=== PATIENT | male | born 1965 | race African-American/Black ===

== ENCOUNTER → 2017-01-06 | Outpatient (CLI) | payer BC ==
[2016-03-13 18:15] VITALS: BP 117/71
[~2017-01-06] VITALS: Ht 182.9 cm; Wt 117.9 kg
[~2017-01-06] MED LIST: ATEN50TA PO; CYCL30CA PO; METH1TAB2 PO; MULT-237 PO; SINCALIDE 2.4 MCG in IV NORMAL SALINE 50ML 30 ML IV ONE
--- NOTE | 2017-01-06 11:29 | RAD ---
Indication: Abdominal pain. The patient was administered 5.5 mCi of technetium 99m Choletec intravenously and imaging over the abdomen was performed. In addition, patient was given 2.4 mcg of CCK and a gallbladder ejection fraction was calculated. There is homogeneous uptake of activity by the liver with prompt excretion into the common bile duct. Activity does pass into the gallbladder. Activity extends into the small bowel. Gallbladder ejection fraction is low at 25%. Impression: 1. No evidence of cystic duct or common bile duct obstruction. 2. Low gallbladder ejection fraction of 25%.
--- NOTE | 2017-01-06 13:22 | RAD ---
Indication: Pancreatic abnormality. Multiplanar multisequence imaging of the abdomen was performed without contrast utilizing the MRCP protocol. No prior MRI or CT studies are available for comparison. No discrete liver mass is identified. There appears to be a small stone within the gallbladder. The pancreas appears to be normal in size. No pancreatic or biliary ductal dilatation is seen. The spleen is unremarkable. No adrenal mass is identified. The extra hepatic bile duct is normal caliber. No filling defect is detected. There is no ascites. There appears to be multiple renal sinus cysts versus hydronephrosis of the left kidney. Impression: 1. Cholelithiasis. 2. No choledocholithiasis or ductal dilatation is seen. 3. Multiple left-sided renal sinus cysts versus hydronephrosis.
== END | disposition home or self-care (01) ==
LOC: NM 08:30
PROVIDERS: ATTEND Internal Medicine
DX: K80.00 Calculus of gallbladder with acute cholecystitis without obstruction (principal); K86.89 Other specified diseases of pancreas
CPT/HCPCS: 74181; 78226; 96374; 96375; A9537; J2805

== ENCOUNTER 2017-04-18 08:45 | Emergency (ER) | payer BC ==
[~2017-04-18] VITALS: Ht 182.9 cm; Wt 113.4 kg
[~2017-04-18 08:45] MED LIST changes: -SINCALIDE 2.4 MCG in IV NORMAL SALINE 50ML 30 ML IV ONE
[2017-04-18 09:38] LABS: HEMATOCRIT 42.1 % (39.0-53.0); HEMOGLOBIN 13.6 g/dL (13.0-17.5); RED BLOOD COUNT 4.23 x10^6/uL (4.30-5.70); RED CELL DISTRIBUTION WIDTH 12.3 % (11.5-14.5); WHITE BLOOD COUNT 5.6 x10^3/uL (4.0-11.0)
[2017-04-18 09:50] LABS: CALCIUM 8.9 mg/dL (8.5-10.1); CREATININE 1.1 mg/dL (0.7-1.3); GFR 85.4; POTASSIUM 4.2 mmol/L (3.5-5.1)
[2017-04-18 09:56] LABS: ALBUMIN 3.6 g/dL (3.4-5.0); ALBUMIN/GLOBULIN RATIO 1.1 (1.0-1.7); TOTAL BILIRUBIN 0.8 mg/dL (0.2-1.0); TOTAL PROTEIN 6.8 g/dL (6.4-8.2)
[2017-04-18] MEDS ORDERED: MORPHINE SULFATE 4 MG/ML DISP.SYRIN. IV ONE ×2 (10:00→12:00)
[2017-04-18] MEDS ORDERED: ONDANSETRON PF 4 MG/2 ML VIAL. IV ONE ×2 (10:00→12:00)
--- NOTE | 2017-04-18 10:22 | RAD ---
Limited ultrasound of abdomen Indication: Right upper quadrant pain. Evaluate gallbladder. Technique: Grayscale and color Doppler images of the abdomen obtained. Comparison: MRCP from 01/06/2017 Findings: Gallstone noted. No pericholecystic fluid or gallbladder wall thickening. Pancreas is poorly visualized The aorta and IVC are patent. CBD measures 4 mm and is within normal limits. The right kidney measures 10.2 cm in length without hydronephrosis. Flow is seen in the portal vein. Liver is normal in echogenicity without focal lesions. Impression: Limited study due to body habitus and overlying bowel gas. Cholelithiasis without sonographic evidence of acute cholecystitis.
--- NOTE | 2017-04-18 11:44 | PHYS DOC ---
Past Medical History Past Medical History: Hypertension, Kidney Infection Past Surgical History: Other Additional Past Surgical Histo: Hernia, Urethral stretching. Alcohol Use: None Drug Use: None Adult General Chief Complaint Chief Complaint: ABDOMINAL PAIN HPI HPI Patient is a 51 year old male with a history of gallstones presents the ED complaining of pain x 2 days. States his pain is worse after he eats. Describes the pain as uncomfortable and sharp. Rates the pain as 7 out of 10. Denies nausea/vomiting, diarrhea, chest pain, shortness of breath, back pain or fever. Review of Systems Review of Systems Constitutional: Denies fever or chills [] Eyes: Denies change in visual acuity, redness, or eye pain [] HENT: Denies nasal congestion or sore throat [] Respiratory: Denies cough or shortness of breath [] Cardiovascular: No additional information not addressed in HPI [] GI: Complains of abdominal pain. Denies nausea, vomiting, bloody stools or diarrhea [] : Denies dysuria or hematuria [] Musculoskeletal: Denies back pain or joint pain [] Integument: Denies rash or skin lesions [] Neurologic: Denies headache, focal weakness or sensory changes [] Endocrine: Denies polyuria or polydipsia [] Current Medications Current Medications Current Medications Medications (Trade) Dose Ordered Sig/Radha Start Time Stop Time Status Last Admin Dose Admin Morphine Sulfate 4 mg 1X ONCE 04/18/17 12:00 04/18/17 12:01 DC 04/18/17 12:00 4 MG Ondansetron HCl (Zofran) 4 mg 1X ONCE 04/18/17 12:00 04/18/17 12:01 DC 04/18/17 12:01 4 MG Allergies Allergies Allergies Coded Allergies Type Severity Reaction Last Updated Verified iodine Allergy Intermediate 03/13/16 Yes nitrofurantoin Allergy Intermediate 03/13/16 Yes Physical Exam Physical Exam Constitutional: Well developed, well nourished, no acute distress, non-toxic appearance. [] HENT: Normocephalic, atraumatic, bilateral external ears normal, oropharynx moist, no oral exudates, nose normal. [] Eyes: PERRLA, EOMI, conjunctiva normal, no discharge. [] Neck: Normal range of motion, no tenderness, supple, no stridor. [] Cardiovascular:Heart rate regular rhythm, no murmur [] Lungs & Thorax: Bilateral breath sounds clear to auscultation [] Abdomen: Bowel sounds normal, soft, MILD RIGHT UPPER ABDOMINAL TENDERNESS, no masses, no pulsatile masses. [] Skin: Warm, dry, no erythema, no rash. [] Back: No tenderness, no CVA tenderness. [] Extremities: No tenderness, no cyanosis, no clubbing, ROM intact, no edema. [] Neurologic: Alert and oriented X 3, normal motor function, normal sensory function, no focal deficits noted. [] Psychologic: Affect normal, judgement normal, mood normal. [] Current Patient Data Vital Signs Vital Signs Date Time Temp Pulse Resp B/P (MAP) Pulse Ox O2 Delivery O2 Flow Rate FiO2 04/18/17 12:40 76 18 147/86 (106) 97 Room Air 04/18/17 08:45 98.3 98.3 Lab Values Laboratory Tests Test 04/18/17 09:20 White Blood Count 5.6 x10^3/uL (4.0-11.0) Red Blood Count 4.23 x10^6/uL (4.30-5.70) L Hemoglobin 13.6 g/dL (13.0-17.5) Hematocrit 42.1 % (39.0-53.0) Mean Corpuscular Volume 100 fL (79-100) Mean Corpuscular Hemoglobin 32 pg (25-35) Mean Corpuscular Hemoglobin Concent 32 g/dL (31-37) Red Cell Distribution Width 12.3 % (11.5-14.5) Platelet Count 180 x10^3/uL (140-400) Sodium Level 137 mmol/L (136-145) Potassium Level 4.2 mmol/L (3.5-5.1) Chloride Level 105 mmol/L (98-107) Carbon Dioxide Level 27 mmol/L (21-32) Anion Gap 5 (6-14) L Blood Urea Nitrogen 11 mg/dL (8-26) Creatinine 1.1 mg/dL (0.7-1.3) Estimated GFR (Cockcroft-Gault) 85.4 BUN/Creatinine Ratio 10 (6-20) Glucose Level 99 mg/dL (70-99) Calcium Level 8.9 mg/dL (8.5-10.1) Total Bilirubin 0.8 mg/dL (0.2-1.0) Aspartate Amino Transferase (AST) 30 U/L (15-37) Alanine Aminotransferase (ALT) 61 U/L (16-63) Alkaline Phosphatase 89 U/L (46-116) Total Protein 6.8 g/dL (6.4-8.2) Albumin 3.6 g/dL (3.4-5.0) Albumin/Globulin Ratio 1.1 (1.0-1.7) Lipase 155 U/L (73-393) Laboratory Tests 04/18/17 09:20 Laboratory Tests 04/18/17 09:20 EKG EKG [] Radiology/Procedures Radiology/Procedures PROCEDURE: ABDOMEN LTD Limited ultrasound of abdomen Indication: Right upper quadrant pain. Evaluate gallbladder. Technique: Grayscale and color Doppler images of the abdomen obtained. Comparison: MRCP from 01/06/2017 Findings: Gallstone noted. No pericholecystic fluid or gallbladder wall thickening. Pancreas is poorly visualized The aorta and IVC are patent. CBD measures 4 mm and is within normal limits. The right kidney measures 10.2 cm in length without hydronephrosis. Flow is seen in the portal vein. Liver is normal in echogenicity without focal lesions. Impression: Limited study due to body habitus and overlying bowel gas. Cholelithiasis without sonographic evidence of acute cholecystitis.[] Course & Med Decision Making Course & Med Decision Making Pertinent Labs and Imaging studies reviewed. (See chart for details) []Discussed labs and imaging with patient. Patient's pain improved. Abdomen is soft nontender nondistended. No peritoneal signs. Vital stable, no acute distress. Tolerating PO. Discussed follow-up with general surgeon outpatient, Dr. Vidal. Discussed reasons to return to the ED. Patient understands and agrees with plan. Family at bedside. Dragon Disclaimer Dragon Disclaimer This electronic medical record was generated, in whole or in part, using a voice recognition dictation system. Departure Departure Impression: Primary Impression: Cholelithiasis Disposition: 01 HOME, SELF-CARE Condition: STABLE Referrals: KOREY SALVADOR MD (PCP) Patient Instructions: Cholelithiasis Scripts Hydrocodone/Apap 5-325 (NORCO 5-325 TABLET) 1 Each Tablet 1 TAB PO BID, #10 TAB Prov: ZEINAB ALDRIDGE 04/18/17 ZEINAB ALDRIDGE Apr 18, 2017 11:44
[2017-04-18] MEDS ORDERED: HYDR-971 PO (11:46)
[2017-04-18 12:40] VITALS: BP 147/86
[2017-05-20] MEDS ORDERED: CYCL15CA19 PO (10:49)
[2017-05-20] MEDS ORDERED: DOXY100C2 PO (10:51)
[2017-05-20] MEDS ORDERED: OMEP40CA5 PO (10:52)
[2017-05-20] MEDS ORDERED: OMEG1CAP38 PO (10:53)
[2017-05-20] MEDS ORDERED: IBUP-1060 PO (10:56)
[2017-05-21] MEDS ORDERED: OXYC-323 PO (11:50)
== END 2017-04-18 12:43 | disposition home or self-care (01) ==
LOC: ER 08:45
DX: K80.20 Calculus of gallbladder without cholecystitis without obstruction (principal); I10 Essential (primary) hypertension; Z88.8 Allergy status to other drugs, medicaments and biological substances
CPT/HCPCS: 36415; 76705; 80053; 83690; 85027; 96374; 96375; 99285; J2270; J2405

== ENCOUNTER 2021-02-22 09:29 | Inpatient (IN) | payer BC ==
[~2021-02-22] VITALS: Ht 182.9 cm; Wt 143.1 kg
[~2021-02-22 09:29] MED LIST changes: +CYCL15CA19 PO; +DOXY100C3 PO; +HYDR-3164 PO; +IBUP-1060 PO; +OMEG1CAP38 PO; +OMEP40CA7 PO; +OXYC1TAB15 PO
[2021-02-22] MEDS ORDERED: IV NORMAL SALINE 1000ML BAG 1,000 ML IV ONE (10:45)
[2021-02-22 10:52] LABS: BASO % 0 % (0-3); CALCIUM 8.3 mg/dL (8.5-10.1); CREATININE 1.4 mg/dL (0.7-1.3); EOS % 0 % (0-3); GFR 63.7; HEMATOCRIT 39.1 % (39.0-53.0); HEMOGLOBIN 12.9 g/dL (13.0-17.5); LYMPH # 0.7 x10^3/uL (1.0-4.8); LYMPH % 12 % (24-48); MEAN CORPUSCULAR HEMOGLOBIN 33 pg (25-35); MEAN CORPUSCULAR HGB CONC 33 g/dL (31-37); MEAN CORPUSCULAR VOLUME 98 fL (79-100); MONO # 0.2 x10^3/uL (0.0-1.1); MONO % 4 % (0-9); NEUT # 4.6 x10^3/uL (1.8-7.7); NEUT % 84 % (31-73); PLATELET COUNT 131 x10^3/uL (140-400); POTASSIUM 3.7 mmol/L (3.5-5.1); RED BLOOD COUNT 3.98 x10^6/uL (4.30-5.70); RED CELL DISTRIBUTION WIDTH 12.3 % (11.5-14.5); WHITE BLOOD COUNT 5.5 x10^3/uL (4.0-11.0)
[2021-02-22 10:58] LABS: ALBUMIN 3.3 g/dL (3.4-5.0); ALBUMIN/GLOBULIN RATIO 0.9 (1.0-1.7); TOTAL BILIRUBIN 1.4 mg/dL (0.2-1.0); TOTAL PROTEIN 6.8 g/dL (6.4-8.2)
[2021-02-22 11:08] LABS: CREATINE KINASE 453 U/L (39-308)
--- NOTE | 2021-02-22 11:28 | RAD ---
EXAM: CHEST ONE VIEW. HISTORY: Chest pain, shortness of breath. COMPARISON: 03/13/2016. FINDINGS: A frontal view of the chest is obtained. There are mild airspace infiltrates in both bases. The inspiration is small. There is no pneumothorax or pleural effusion. The heart is not enlarged. IMPRESSION: 1. Mild bibasilar infiltrates consistent with atypical pneumonia. Electronically signed by: Unique Maher MD (02/22/2021 11:25 AM) [id number]
--- NOTE | 2021-02-22 11:32 | PHYS DOC ---
Past Medical History Past Medical History: Depression, High Cholesterol, Hypertension, Kidney Infection Additional Past Medical Histor: fatty liver Past Surgical History: Knee Replacement, Other Additional Past Surgical Histo: Hernia, Urethral stretching., lt knee repalcement Smoking Status: Never Smoker Alcohol Use: None Drug Use: None General Adult EDM: Chief Complaint: CHEST PAIN HPI: HPI: 55-year-old male presents with report of intermittent midsternal chest pain that has been ongoing for 1 week. Patient does report some associated nonproductive cough and subjective fever/chills. Patient denies known sick contact however patient is a preschool substitute teacher. Patient reports he has been working all week. Patient reports he feels he cannot breathe at this time. Patient denies known Covid exposure. Reports has not received Covid vaccinations. Review of Systems: Review of Systems: Constitutional: Reports fever and chills Eyes: Denies redness or eye pain HENT: Denies nasal congestion or sore throat Respiratory: Reports cough and shortness of breath Cardiovascular: Reports chest pain; denies palpitations GI: Denies abdominal pain, nausea, or vomiting : Denies dysuria or hematuria Musculoskeletal: Denies back pain or joint pain Integument: Denies rash or skin lesions Neurologic: Denies headache, focal weakness or sensory changes Complete systems were reviewed and found to be within normal limits, except as documented in this note. Heart Score: C/O Chest Pain: Yes HEART Score for Chest Pain: HEART Score for Chest Pain Response (Comments) Value History Moderately Suspicious 1 ECG Normal 0 Age >45 - < 65 1 Risk Factors 1 or 2 Risk Factors 1 Troponin < Normal Limit 0 Total 3 Risk Factors: Risk Factors: DM, Current or recent (<one month) smoker, HTN, HLP, family history of CAD, obesity. Risk Scores: Score 0 - 3: 2.5% MACE over next 6 weeks - Discharge Home Score 4 - 6: 20.3% MACE over next 6 weeks - Admit for Clinical Observation Score 7 - 10: 72.7% MACE over next 6 weeks - Early Invasive Strategies Current Medications: Current Medications Medications (Trade) Dose Ordered Sig/Radha Start Time Stop Time Status Last Admin Dose Admin Sodium Chloride 1,000 ml @ 1,000 mls/hr 1X ONCE 02/22/21 10:45 02/22/21 11:44 02/22/21 10:51 1,000 MLS/HR Allergies: Allergies: Allergies Coded Allergies Type Severity Reaction Last Updated Verified iodine Allergy Intermediate PANCREATITIS 02/22/21 Yes nitrofurantoin Allergy Intermediate BAD DIARRHEA 02/22/21 Yes Physical Exam: PE: Constitutional: Well developed, well nourished, no acute distress, non-toxic appearance HENT: Normocephalic, atraumatic Eyes: Conjunctiva normal, no discharge Neck: Normal range of motion, no tenderness, supple, no meningeal signs Lungs & Thorax: No respiratory distress, equal chest rise and fall, diminished at bases Abdomen: Soft, no tenderness Skin: Warm, dry, no erythema, no rash Back: No tenderness, no CVA tenderness Extremities: No tenderness, ROM intact, no edema Neurologic: Alert and oriented X 3, normal motor function, normal sensory function, no focal deficits noted Psychologic: Affect normal, judgment normal Current Patient Data: Labs: Laboratory Tests Test 02/22/21 10:35 02/22/21 10:37 SARS-CoV-2 Antigen (Rapid) Positive (NEGATIVE) *A White Blood Count 5.5 x10^3/uL (4.0-11.0) Red Blood Count 3.98 x10^6/uL (4.30-5.70) L Hemoglobin 12.9 g/dL (13.0-17.5) L Hematocrit 39.1 % (39.0-53.0) Mean Corpuscular Volume 98 fL (79-100) Mean Corpuscular Hemoglobin 33 pg (25-35) Mean Corpuscular Hemoglobin Concent 33 g/dL (31-37) Red Cell Distribution Width 12.3 % (11.5-14.5) Platelet Count 131 x10^3/uL (140-400) L Neutrophils (%) (Auto) 84 % (31-73) H Lymphocytes (%) (Auto) 12 % (24-48) L Monocytes (%) (Auto) 4 % (0-9) Eosinophils (%) (Auto) 0 % (0-3) Basophils (%) (Auto) 0 % (0-3) Neutrophils # (Auto) 4.6 x10^3/uL (1.8-7.7) Lymphocytes # (Auto) 0.7 x10^3/uL (1.0-4.8) L Monocytes # (Auto) 0.2 x10^3/uL (0.0-1.1) Eosinophils # (Auto) 0.0 x10^3/uL (0.0-0.7) Basophils # (Auto) 0.0 x10^3/uL (0.0-0.2) Sodium Level 137 mmol/L (136-145) Potassium Level 3.7 mmol/L (3.5-5.1) Chloride Level 102 mmol/L (98-107) Carbon Dioxide Level 28 mmol/L (21-32) Anion Gap 7 (6-14) Blood Urea Nitrogen 13 mg/dL (8-26) Creatinine 1.4 mg/dL (0.7-1.3) H Estimated GFR (Cockcroft-Gault) 63.7 BUN/Creatinine Ratio 9 (6-20) Glucose Level 138 mg/dL (70-99) H Lactic Acid Level 1.2 mmol/L (0.4-2.0) Calcium Level 8.3 mg/dL (8.5-10.1) L Total Bilirubin 1.4 mg/dL (0.2-1.0) H Aspartate Amino Transferase (AST) 92 U/L (15-37) H Alanine Aminotransferase (ALT) 64 U/L (16-63) H Alkaline Phosphatase 95 U/L (46-116) Creatine Kinase 453 U/L (39-308) H Creatine Kinase MB (Mass) < 0.5 ng/mL (0.0-3.6) Creatine Kinase MB Relative Index % (0-4) Troponin I Quantitative < 0.017 ng/mL (0.000-0.055) VC-Rju-P-Type Natriuretic Peptide 252 pg/mL (0-124) H Total Protein 6.8 g/dL (6.4-8.2) Albumin 3.3 g/dL (3.4-5.0) L Albumin/Globulin Ratio 0.9 (1.0-1.7) L Laboratory Tests 02/22/21 10:37 Laboratory Tests 02/22/21 10:37 Vital Signs: Vital Signs Date Time Temp Pulse Resp B/P (MAP) Pulse Ox O2 Delivery O2 Flow Rate FiO2 02/22/21 09:49 101.9 95 32 134/73 (97) 86 Room Air 101.9 EKG: EKG: @0952 NSR at 95bpm, NO ST elevation, QRS 80ms, QT/QTc 342/433ms Radiology/Procedures: Radiology/Procedures: PROCEDURE: CHEST AP ONLY EXAM: CHEST ONE VIEW. HISTORY: Chest pain, shortness of breath. COMPARISON: 03/13/2016. FINDINGS: A frontal view of the chest is obtained. There are mild airspace infiltrates in both bases. The inspiration is small. There is no pneumothorax or pleural effusion. The heart is not enlarged. IMPRESSION: 1. Mild bibasilar infiltrates consistent with atypical pneumonia. Electronically signed by: Unique Maher MD (02/22/2021 11:25 AM) [id number] Course & Med Decision Making: Course & Med Decision Making Pertinent Labs and Imaging studies reviewed. (See chart for details) Patient presents with report of intermittent chest pain with associated cough and subjective fever x1 week. Patient is a preschool substitute teacher. Reports has not received the COVID-19 vaccinations. Patient hypoxic down to 86% upon arrival. Improved with supplemental O2. Patient is also febrile upon arrival. Fever addressed. EKG stable. Labs obtained and posted to chart. Initial troponin within normal limits. Chest x-ray with findings concerning for Covid pneumonia. Empiric antibiotic initiated. COVID-19 testing positive. Patient requiring admission for further evaluation and treatment. Discussed with Dr. Desai (hospitalist) who is in agreement with admission. Discussed findings and plan with patient, who acknowledges understanding and agreement. COVID-19 CRITERIA: The patient was evaluated during the global COVID-19 pandemic, and that diagnosis was suspected/considered upon their initial presentation. Their evaluation, treatment and testing was consistent with current guidelines for patients who present with complaints or symptoms that may be related to COVID-19. Dragtyshawn Disclaimer: Dragtyshawn Disclaimer: This electronic medical record was generated, in whole or in part, using a voice recognition dictation system. Departure Departure Impression: Primary Impression: Pneumonia due to COVID-19 virus Additional Impression: Hypoxia Disposition: ADMITTED INPATIENT Admitting Physician: SAIRA Steele) Condition: STABLE Referrals: NORA RICHARDS MD (PCP) COVID-19 Assessment: COVID-19 Patient Risks: Age 65 or older: No Sign of co-morbidity: No Exp to person + for COVID: No Exp to PUI: No Travel from affected area: No Lower respiratory symptoms: Yes Fever: Yes PPE Use: Full PPE with N95 mask or PAPR: Yes Critical Care Time Critical care time was 30 minutes which includes time at bedside, spent in discussion of patient's care with specialists and/or family members, with int erpretation of laboratory and/or radiological studies and is exclusive of procedures. VIRGILIO DANIELS DO Feb 22, 2021 11:32
[2021-02-22] MEDS ORDERED: AZITHRMYCN 500MG IVPB FOR OMNI 250 ML IV ONE (11:45)
[2021-02-22] MEDS ORDERED: cefTRIAXone IV Push 1 GM VIAL. IVP ONE (11:45)
[2021-02-22] MEDS ORDERED: DEXAMETHASONE SOD PHOS 4 MG/ML VIAL IVP ONE (11:45)
[2021-02-22] MEDS ORDERED: ACETAMINOPHEN 500 MG TABLET PO ONE (12:30)
[2021-02-22] MEDS ORDERED: ACETAMINOPHEN 325 MG TABLET. PO PRN (12:30)
[2021-02-22] MEDS ORDERED: ONDANSETRON PF 4 MG/2 ML VIAL. IVP PRN (12:30)
--- NOTE | 2021-02-22 12:43 | EKG ---
[facility] [address] [place] [address] Test Date: 2021-02-22 Test Time: 09:52:46 Pat Name: JOVITA BANG Department: Room: Gender: M Tavern Keeper: : 1965 Requested By: VIRGILIO DANIELS Order Number: [id number] Reading MD: Measurements Intervals Feura Bush Rate: 95 P: 22 IA: 126 QRS: -6 QRSD: 80 T: -9 QT: 342 QTc: 433 Interpretive Statements SINUS RHYTHM LEFTWARD AXIS OTHERWISE NORMAL ECG RI6.02 No previous ECG available for comparison
[2021-02-22] MEDS ORDERED: PIP/TAZO PER PHARMACY MC PRN (12:45)
--- NOTE | 2021-02-22 12:59 | HP ---
ADMIT DATE: 02/22/2021 CHIEF COMPLAINT: Shortness of breath, cough, weakness. HISTORY OF PRESENT ILLNESS: The patient is a pleasant middle-aged male, well known to my service. Basically, he has been developing flu like symptoms over the past couple of weeks. He went to acute care center yesterday at [facility]. He was awaiting his test results for his COVID-19 testing, but today he just could not await he was getting too sick. We tested him here in the emergency room. He is positive. He has abnormal chest x-ray. We are going to admit the patient, place him on COVID protocol. PAST MEDICAL HISTORY: Hypertension, UTIs, fatty liver, knee replacement, hernia repair, urethral stretching. ALLERGIES: IODINE, NITROFURANTOIN. FAMILY HISTORY: Diabetes. SOCIAL HISTORY: Does not drink, smoke or take drugs. MEDICATIONS: Reviewed, please refer to the MRAD. REVIEW OF SYSTEMS: PULMONARY: He complains of shortness of breath and cough. GENERAL: He complains of weakness. SKIN: No bruising, hair changes or rashes. EYES: No blurred, double or loss of vision. NOSE AND THROAT: No history of nosebleeds, hoarseness or sore throat. HEART: No history of palpitations, chest pain or shortness of breath on exertion. GASTROINTESTINAL: Denies changes in appetite, nausea, vomiting, diarrhea or constipation. GENITOURINARY: No history of frequency, urgency, hesitancy or nocturia. NEUROLOGIC: Denies history of numbness, tingling, tremor or weakness. PSYCHIATRIC: No history of panic, anxiety or depression. ENDOCRINE: No history of heat or cold intolerance, polyuria or polydipsia. EXTREMITIES: Denies muscle weakness, joint pain, pain on walking or stiffness. PHYSICAL EXAMINATION: VITALS: Within normal limits and are stable. GENERAL: No apparent distress. Alert and oriented. HEENT: Normal cephalic atraumatic, external auditory canals are patent. EYES: Extraocular muscles are intact, pupils are equally round and reactive to light and accommodation. MUSCULOSKELETAL: Well developed, well nourished, good range of motion. ENDOCRINE: No thyromegaly was palpated. LYMPHATICS: No cervical chain or axillary nodes were noted. HEMATOPOIETIC: No bruising NECK: Supple, no JVD, no thyromegaly was noted. LUNGS: Clear to auscultation in all lung mckeon without rhonchi or wheezing. HEART: RRR, S1, S2 present. Peripheral pulses intact, no obvious murmurs were noted. ABDOMEN: Soft, nontender. Positive bowel sounds no organomegaly, normal bowel sounds. EXTREMITIES: Without any cyanosis, clubbing, or edema. Pedal pulses intact, Homans sign is negative. NEUROLOGIC: Normal speech, normal tone. A and O x 3, moves all extremities, no obvious focal deficits. PSYCHIATRIC: Normal affect, normal mood. Stable. SKIN: No ulcerations or rashes, good skin turgor, no jaundice. VASCULAR: Good capillary refill, neurovascular bundle appears to be intact. LABORATORY DATA: White count is 5. Creatinine is 1.4. AST and ALT are high at 92 and 64 respectively. COVID testing is positive. Chest x-ray shows bibasilar infiltrates consistent with atypical pneumonia. ASSESSMENT AND PLAN: Respiratory failure secondary to COVID-19. The patient has been admitted. We will start COVID-19 protocol including IV remdesivir, IV steroids, IV Zosyn and IV doxycycline, vitamins and minerals, albuterol, oxygen, codeine and aspirin. PROGNOSIS: Guarded. CC time 31 minutes. [facility]: EDGARDO/rigoberto TID: [id number]
[2021-02-22 13:15] LABS: BILIRUBIN,URINE NEGATIVE (NEG); CLARITY,URINE CLEAR; COLOR,URINE AMBER; NITRITE,URINE POSITIVE (NEG); PROTEIN,URINE >=300 mg/dL (NEG-TRACE)
[2021-02-22 13:45] LABS: BACTERIA,URINE MANY /HPF (0-FEW); RBC,URINE 0 /HPF (0-2); WBC,URINE 20-40 /HPF (0-4)
[2021-02-22] MEDS ORDERED: IBUPROFEN 200 MG TABLET. PO ONE (13:45)
[2021-02-22 14:03] LABS: PROTHROMBIN TIME PATIENT 15.1 SEC (11.7-14.0)
[2021-02-22 14:12] LABS: D-DIMER 1.12 ug/mlFEU (0.00-0.50)
[2021-02-22] MEDS: DOXYCYCLINE HYCLATE 100 MG in IV DEXTROSE 5% 100ML 100 ML IV SCH ×2 (14:28→21:42)
[2021-02-22] MEDS ORDERED: REMDESIVIR LOAD in IV NORMAL SALINE 250ML TV IV ONE (15:00)
[2021-02-22 19:15] VITALS: BP 143/65
[2021-02-22] MEDS ORDERED: tylenol pm PO (19:54)
[2021-02-22] MEDS ORDERED: ATOR20TA58 PO (19:54)
[2021-02-22] MEDS ORDERED: LOSA-73 PO (19:54)
[2021-02-22] MEDS: ZOLPIDEM 5 MG TABLET. PO PRN (21:40)
[2021-02-22] MEDS: methylPREDNISolone SOD SUCC PF 40 MG/ML VIAL. IV SCH (21:41)
[2021-02-22] MEDS: guaiFENesin/CODEINE 100mg/10mg 5 ML LIQUID PO PRN (21:42)
[2021-02-22] MEDS: HEPARIN for SUB-Q USE 5,000 UNIT/ML VIAL. SQ SCH (22:08)
[2021-02-22 23:00] VITALS: BP 116/74
[2021-02-23 03:00] VITALS: BP 122/72
[2021-02-23] MEDS: HEPARIN for SUB-Q USE 5,000 UNIT/ML VIAL. SQ SCH ×2 (06:50→19:49)
[2021-02-23 07:00] VITALS: BP 128/74
[2021-02-23] MEDS: ASPIRIN CHEWABLE 81 MG TABLET. PO SCH (08:19)
[2021-02-23] MEDS: MULTIVITAMIN with MINERAL TABLET. PO SCH (08:19)
[2021-02-23] MEDS: DOXYCYCLINE HYCLATE 100 MG in IV DEXTROSE 5% 100ML 100 ML IV SCH ×2 (08:20→19:47)
[2021-02-23] MEDS: methylPREDNISolone SOD SUCC PF 40 MG/ML VIAL. IV SCH ×2 (08:20→19:48)
[2021-02-23 11:00] VITALS: BP 124/92
--- NOTE | 2021-02-23 11:38 | NUR ---
SW following. Discussed with RN, pt from home, 2L (does not use oxygen at home), cardiac diet. Rapid COVID-19 positive. Pt on day two of Remdesivir. RN advised no SW needs at this time. SW will continue to follow.
--- NOTE | 2021-02-23 13:21 | PDOC ---
[employer] PROGRESS NOTE Date of Service DOS: DATE: 02/23/21 TIME: 13:18 Chief Complaint Chief Complaint Acute hypoxic respiratory failure COVID-19 pneumonia PJ due to vasomotor nephropathy Mild transaminitis Moderate protein malnutrition Morbid obesity History of hypertension Continue COVID-19 treatment protocol Continue IV Remdesivir Continue with empiric IV antibiotics Continue IV steroids Continue with Covid supplementation such as B1, vitamin C, vitamin D, zinc Heparin for DVT prophylaxis Full code DPOA [facility] History of Present Illness History of Present Illness The patient is a pleasant middle-aged male, well known to my service. Basically, he has been developing flu like symptoms over the past couple of weeks. He went to acute care center yesterday at [facility]. He was awaiting his test results for his COVID-19 testing, but today he just could not await he was getting too sick. We tested him here in the emergency room. He is positive. He has abnormal chest x-ray. We are going to admit the patient, place him on COVID protocol. 02/23/2021 No acute events overnight. Patient saturating 97% on 2 L nasal cannula. Patient currently on Remdesivir. Patient's chart, labs, images were reviewed and discussed with RN Vitals/I&O Vitals/I&O: Vital Signs Date Time Temp Pulse Resp B/P (MAP) Pulse Ox O2 Delivery O2 Flow Rate FiO2 02/23/21 11:00 98.8 86 18 124/92 (103) 94 Nasal Cannula 2.5 98.8 I & O 02/22/21 02/22/21 02/23/21 15:00 23:00 07:00 Intake Total 1250 ml 590 ml 120 ml Output Total 150 ml Balance 1250 ml 440 ml 120 ml Physical Exam General: Alert, Oriented X3, Cooperative Heart: Regular rate Lungs: Wheezing Abdomen: Normal bowel sounds Extremities: No clubbing Skin: No rashes, No significant lesion Labs Labs: Laboratory Tests Test 02/22/21 13:25 02/23/21 01:45 Prothrombin Time 15.1 SEC (11.7-14.0) Prothromb Time International Ratio 1.2 (0.8-1.1) Activated Partial Thromboplast Time 39 SEC (24-38) D-Dimer (Jacqueline) 1.12 ug/mlFEU (0.00-0.50) Troponin I Quantitative < 0.017 ng/mL (0.000-0.055) < 0.017 ng/mL (0.000-0.055) Assessment and Plan Assessmemt and Plan Problems Medical Problems: (1) Hypoxia Status: Acute (2) Pneumonia due to COVID-19 virus Status: Acute Comment Review of Relevant I have reviewed the following items ashley (where applicable) has been applied. Medications: Current Medications Medications (Trade) Dose Ordered Sig/Radha Route PRN Reason Start Time Stop Time Status Last Admin Dose Admin Aspirin (Aspirin Chewable) 81 mg [id number] PO 02/23/21 08:00 02/23/21 08:19 Methylprednisolone Sodium Succinate (SOLU-Medrol 40MG VIAL) 40 mg BID IV 02/22/21 21:00 02/23/21 08:20 Multivitamins (Thera M Plus) 1 tab DAILY PO 02/23/21 09:00 02/23/21 08:19 Remdesivir 200 mg/ Sodium Chloride 210 ml @ 210 mls/hr 1X ONCE IV 02/22/21 15:00 02/22/21 15:59 DC 02/22/21 16:36 Ibuprofen (Motrin) 600 mg 1X ONCE PO 02/22/21 13:45 02/22/21 13:46 DC 02/22/21 14:26 Zolpidem Tartrate (Ambien) 5 mg PRN QHS PRN PO INSOMNIA 02/22/21 20:00 02/22/21 21:40 Heparin Sodium (Porcine) (Heparin Sodium) 5,000 unit Q8HRS SQ 02/22/21 22:00 02/23/21 06:50 Justifications for Admission Other Justification MAUREEN OVALLES MD Feb 23, 2021 13:21
[2021-02-23] MEDS: REMDESIVIR 100mg in NORMAL SALINE 250ML X 4 DAYS IV SCH (14:25)
[2021-02-23 15:00] VITALS: BP 154/95
[2021-02-23] MEDS: PIPERACILLIN/TAZOBACTAM 3.375 GM in IV NORMAL SALINE 50ML 50 ML IV SCH ×2 (16:02→23:06)
[2021-02-23] MEDS: guaiFENesin/CODEINE 100mg/10mg 5 ML LIQUID PO PRN ×2 (17:27→23:06)
[2021-02-23] MEDS: IPRATROPIUM/ALBUTEROL 20/100mcg/INH INHALER. INH PRN (17:49)
[2021-02-23] MEDS: IBUPROFEN 200 MG TABLET. PO PRN (18:20)
[2021-02-23 19:27] VITALS: BP 121/69
[2021-02-23] MEDS: LOSARTAN POTASSIUM 50 MG TABLET. PO SCH (19:48)
[2021-02-23] MEDS: LACTOBACILLUS RHAMNOSUS GG 1 CAPSULE. PO SCH (19:48)
--- NOTE | 2021-02-23 20:20 | NUR ---
Assumed patients care at shift change. SAO2 showed oxygen in the mid 80's. RT called as patients RR was in the 40's and patient was short of breath. Pt placed on non rebreather and 7l NC to maintain o2 sats in the 90's. Pt transferred to room 510 for closer monitoring. Will continue to monitor.
[2021-02-23 22:57] VITALS: BP 130/79
[2021-02-23] MEDS: ZOLPIDEM 5 MG TABLET. PO PRN (23:06)
[2021-02-24] MEDS: IPRATROPIUM/ALBUTEROL 20/100mcg/INH INHALER. INH PRN (02:06)
--- NOTE | 2021-02-24 02:27 | NUR ---
Call to Dr Desai regarding patients continued increase in oxygen. Pts on a non rebreather and max NC. Orders received. Will continue to monitor.
[2021-02-24] MEDS: IBUPROFEN 200 MG TABLET. PO PRN ×2 (03:11→21:46)
[2021-02-24 03:40] VITALS: BP 136/85
[2021-02-24] MEDS: STERILE WATER for RESP 1,000 ML BAG. INH PRN ×3 (04:05→17:34)
[2021-02-24] MEDS: PIPERACILLIN/TAZOBACTAM 3.375 GM in IV NORMAL SALINE 50ML 50 ML IV SCH ×3 (05:39→17:58)
[2021-02-24 07:17] VITALS: BP 138/78
--- NOTE | 2021-02-24 08:27 | CONS ---
DATE OF CONSULTATION: 02/24/2021 PULMONARY CONSULTATION ATTENDING PHYSICIAN: Dr. Desai. REASON FOR CONSULTATION: Respiratory failure, COVID-19 pneumonia. HISTORY OF PRESENT ILLNESS: The patient is a 55-year-old male who is obese with a BMI of 37. The patient has no significant tobacco history. The patient was brought into the hospital with increasing dyspnea and hypoxia. He had flu-like symptoms for couple of weeks. The patient is tested positive for COVID. His chest x-ray reveals faint bilateral interstitial infiltrates. Currently, he is on Vapotherm at 100% FiO2 and 40 liters flow. His T-max was 101. The patient is initiated on remdesivir and IV steroids. No headaches, no nausea, vomiting, no diarrhea, no dysuria. PAST MEDICAL HISTORY: Hypertension, UTIs, fatty liver, knee replacement, hernia. PAST SURGICAL HISTORY: As above. ALLERGIES: IODINE AND NITROFURANTOIN. FAMILY HISTORY: Diabetes. SOCIAL HISTORY: No tobacco or drug abuse. MEDICATIONS: Reviewed as listed in the MRAD. REVIEW OF SYSTEMS: A 12-point system obtained. Pertinent positives discussed in my present illness, otherwise noncontributory. All systems that were negative were reviewed as well. FAMILY HISTORY: Noncontributory to lungs. PHYSICAL EXAMINATION: VITAL SIGNS: T-max of 101, pulse ox is 90% on 100% FiO2 and 40 liters flow via Vapotherm. Visual exam done due to COVID-19. No paradoxical breathing, but mildly tachypneic. No skin rash. EXTREMITIES: No leg edema. LABORATORY DATA: Reviewed. Sodium 137, potassium 3.7, BUN 13, creatinine 1.4. D-dimer 1.1. White cell count 5.5. IMPRESSION: 1. Acute hypoxic respiratory failure secondary to COVID-19 viral pneumonia/ARDS/acute lung injury. 2. Abnormal chest x-ray with faint bilateral interstitial infiltrates associated with COVID-19 pneumonia. 3. COVID-19 positive. 4. No significant tobacco history. 5. Mild acute kidney injury. 6. Abnormal liver function tests, likely related to COVID-19. Bilirubin 1.4. RECOMMENDATIONS: 1. Discussed with nursing staff. Currently on Vapotherm 100% FiO2 and 40 liters flow. The patient has a high risk for going into respiratory failure requiring mechanical ventilation. I would recommend the patient should be transferred to the ICU. 2. Remdesivir per protocol. 3. IV steroids per protocol. 4. Subcutaneous heparin for DVT prophylaxis. D-dimer is not high. 5. Empiric antibiotic, Zosyn and doxycycline. 6. Cough suppressant. 7. Chart reviewed. Discussed with RN. Imaging studies reviewed. Total critical care time 35 minutes including decision making. CHAYITO/DEREK DR: Cullen TID: [id number]
[2021-02-24] MEDS: LACTOBACILLUS RHAMNOSUS GG 1 CAPSULE. PO SCH ×2 (08:46→20:15)
[2021-02-24] MEDS: ASPIRIN CHEWABLE 81 MG TABLET. PO SCH (08:47)
[2021-02-24] MEDS: methylPREDNISolone SOD SUCC PF 40 MG/ML VIAL. IV SCH ×2 (08:47→20:15)
[2021-02-24] MEDS: MULTIVITAMIN with MINERAL TABLET. PO SCH (08:47)
[2021-02-24] MEDS: DOXYCYCLINE HYCLATE 100 MG in IV DEXTROSE 5% 100ML 100 ML IV SCH ×2 (08:48→20:16)
[2021-02-24] MEDS: HEPARIN for SUB-Q USE 5,000 UNIT/ML VIAL. SQ SCH ×2 (08:49→20:18)
[2021-02-24 11:00] VITALS: BP 142/76
--- NOTE | 2021-02-24 11:10 | PDOC ---
[employer] PROGRESS NOTE Date of Service DOS: DATE: 02/24/21 TIME: 11:04 Chief Complaint Chief Complaint Acute hypoxic respiratory failure COVID-19 pneumonia PJ due to vasomotor nephropathy Mild transaminitis Moderate protein malnutrition Morbid obesity History of hypertension Continue COVID-19 treatment protocol Continue IV Remdesivir Continue with empiric IV antibiotics Continue IV steroids Continue with Covid supplementation such as B1, vitamin C, vitamin D, zinc Heparin for DVT prophylaxis Full code DPOA [facility] History of Present Illness History of Present Illness The patient is a pleasant middle-aged male, well known to my service. Basically, he has been developing flu like symptoms over the past couple of weeks. He went to acute care center yesterday at [facility]. He was awaiting his test results for his COVID-19 testing, but today he just could not await he was getting too sick. We tested him here in the emergency room. He is positive. He has abnormal chest x-ray. We are going to admit the patient, place him on COVID protocol. 02/23/2021 No acute events overnight. Patient saturating 97% on 2 L nasal cannula. Patient currently on Remdesivir. Patient's chart, labs, images were reviewed and discussed with RN 02/24/2021 Patient seen and examine in bed. Patient Fi02 between 83%-92% on vapotherm and 100% non-rebreather. D/W RN, Chart Review Instructed patient to try to rest and conserve energy. Vitals/I&O Vitals/I&O: Vital Signs Date Time Temp Pulse Resp B/P (MAP) Pulse Ox O2 Delivery O2 Flow Rate FiO2 02/24/21 09:02 91 VAPOTHERM 40.0 02/24/21 07:17 98.9 91 28 138/78 (98) 98.9 I & O 02/23/21 02/23/21 02/24/21 15:00 23:00 07:00 Intake Total 240 ml 120 ml 0 ml Output Total 850 ml 225 ml Balance 240 ml -730 ml -225 ml Physical Exam General: Alert, Oriented X3, Cooperative Heart: Regular rate Lungs: Wheezing Abdomen: Normal bowel sounds Extremities: No clubbing Skin: No rashes, No significant lesion Review of Systems Review of Systems: Denies fevers or chills Denies chest pain or palpitations Assessment and Plan Assessmemt and Plan Acute hypoxic respiratory failure COVID-19 pneumonia PJ due to vasomotor nephropathy Mild transaminitis Moderate protein malnutrition Morbid obesity History of hypertension Plan O2 via vapotherm 40L at 100% O2 and 100% non-rebreather COVID-19 treatment protocol -Continue IV Remdesivir -Continue with empiric IV antibiotics -Continue IV steroids -Continue vitamins -Continue anti-tussive medication DVT prophylaxis Full code DPOA [facility] Prognosis guarded CC time 32 minutes Comment Review of Relevant I have reviewed the following items ashley (where applicable) has been applied. Medications: Current Medications Medications (Trade) Dose Ordered Sig/Radha Route PRN Reason Start Time Stop Time Status Last Admin Dose Admin Remdesivir 100 mg/ Sodium Chloride 230 ml @ 460 mls/hr Q24H IV 02/23/21 15:00 02/26/21 15:29 02/23/21 14:25 Heparin Sodium (Porcine) (Heparin Sodium) 5,000 unit Q12HR SQ 02/23/21 21:00 02/24/21 08:49 Piperacillin Sod/ Tazobactam Sod 3.375 gm/Sodium Chloride 50 ml @ 100 mls/hr Q6HRS IV 02/23/21 16:00 02/24/21 05:39 Lactobacillus Rhamnosus (Culturelle) 1 cap BID PO 02/23/21 21:00 02/24/21 08:46 Albuterol/ Ipratropium (Combivent Respimat 20-100 Mcg) 1 puff PRN Q6HRS PRN INH SHORTNESS OF BREATH 02/23/21 16:15 02/24/21 02:06 Losartan Potassium (Cozaar) 50 mg HS PO 02/23/21 21:00 02/23/21 19:48 Ibuprofen (Motrin) 600 mg PRN Q6HRS PRN PO FEVER > 100.3'F 02/23/21 18:15 02/24/21 03:11 Sterile Water (WATER for RESP) 1,000 ml CONT PRN INH VIA VAPOTHERM DEVICE 02/24/21 03:45 02/24/21 05:37 Justifications for Admission Other Justification HUGO SAVAGE III DO Feb 24, 2021 11:10
[2021-02-24 15:00] VITALS: BP 138/87
[2021-02-24] MEDS: REMDESIVIR 100mg in NORMAL SALINE 250ML X 4 DAYS IV SCH (15:11)
[2021-02-24 19:15] VITALS: BP 139/80
[2021-02-24] MEDS: LOSARTAN POTASSIUM 50 MG TABLET. PO SCH (20:15)
[2021-02-24 23:10] VITALS: BP 147/98
[2021-02-25] VITALS (24 sets, daily range): BP systolic 133–185; BP diastolic 75–107
[2021-02-25] MEDS: PIPERACILLIN/TAZOBACTAM 3.375 GM in IV NORMAL SALINE 50ML 50 ML IV SCH ×4 (00:20→21:50)
[2021-02-25] MEDS: ASPIRIN CHEWABLE 81 MG TABLET. PO SCH (08:00)
[2021-02-25 08:44] LABS: BASE EXCESS ABG 4 mmol/L (-3-3); HCO3 ABG 26 mmol/L (21-28); PCO2 ABG 33 mmHg (35-46); PO2 ABG 60 mmHg (75-108); SAT O2 ABG 91 % (92-99)
[2021-02-25] MEDS: MULTIVITAMIN with MINERAL TABLET. PO SCH (09:00)
[2021-02-25] MEDS: LACTOBACILLUS RHAMNOSUS GG 1 CAPSULE. PO SCH ×2 (09:00→21:31)
[2021-02-25] MEDS: HEPARIN for SUB-Q USE 5,000 UNIT/ML VIAL. SQ SCH ×2 (09:00→22:22)
[2021-02-25 09:09] LABS: FIO2 ABG 100/BIPAP
--- NOTE | 2021-02-25 09:22 | PDOC ---
PULMONARY PROGRESS NOTES DATE: 02/25/21 TIME: 09:17 Subjective Patient transferred to the ICU last night for nocturnal hypoxia requiring 100% FiO2. Patient was rested on BiPAP 100% FiO2 and tolerated well. Vitals Vital Signs Date Time Temp Pulse Resp B/P (MAP) Pulse Ox O2 Delivery O2 Flow Rate FiO2 02/25/21 07:57 93 BiPAP/CPAP 02/25/21 06:00 90 41 166/91 (116) 02/25/21 04:00 98.8 98.8 02/24/21 21:40 40.0 Comments Visual exam done due to COVID-19. Patient currently on BiPAP 100% FiO2. No paradoxical breathing Labs Laboratory Tests Test 02/25/21 08:00 O2 Saturation 91 % (92-99) Arterial Blood pH 7.51 (7.35-7.45) Arterial Blood pCO2 at Patient Temp 33 mmHg (35-46) Arterial Blood pO2 at Patient Temp 60 mmHg (75-108) Arterial Blood HCO3 26 mmol/L (21-28) Arterial Blood Base Excess 4 mmol/L (-3-3) FiO2 100/bipap Laboratory Tests Test 02/25/21 08:00 O2 Saturation 91 % (92-99) Arterial Blood pH 7.51 (7.35-7.45) Arterial Blood pCO2 at Patient Temp 33 mmHg (35-46) Arterial Blood pO2 at Patient Temp 60 mmHg (75-108) Arterial Blood HCO3 26 mmol/L (21-28) Arterial Blood Base Excess 4 mmol/L (-3-3) FiO2 100/bipap Medications Active Scripts Medications Dose Route/Sig Max Daily Dose Days Date Category [tylenol pm] 1 Tab PO HS 02/22/21 Reported Losartan Potassium 50 Mg Tablet 50 Mg PO HS 02/22/21 Reported Atorvastatin Calcium 20 Mg Tablet 20 Mg PO HS 02/22/21 Reported Omeprazole 40 Mg Capsule.dr 1 Cap PO PRN DAILY PRN 05/20/17 Reported Daily Vitamin Formula-Minerals (Multivitamin With Minerals) 1 Each Tablet 1 Each PO 01/06/17 Reported Atenolol 50 Mg Tablet 1 Tab PO DAILY 01/06/17 Reported Impression . 1. Acute hypoxic respiratory failure secondary to COVID-19 viral pneumonia/ARDS/acute lung injury. 2. Abnormal chest x-ray with faint bilateral interstitial infiltrates associated with COVID-19 pneumonia. 3. COVID-19 positive. 4. No significant tobacco history. 5. Mild acute kidney injury. 6. Abnormal liver function tests, likely related to COVID-19. Bilirubin 1.4. Plan . Updated 02/25/2021 1. We will continue present BiPAP with 100% FiO2. We will closely watch respiratory status for need for intubation. 2. Remdesivir per protocol. 3. IV steroids per protocol. 4. Subcutaneous heparin for DVT prophylaxis. D-dimer is not high. 5. Empiric antibiotic, Zosyn and doxycycline. 6. Cough suppressant. 7. Chart reviewed. Discussed with RN. Imaging studies reviewed. Critical care time 30 minutes ANGELA CHILEL MD Feb 25, 2021 09:22
--- NOTE | 2021-02-25 12:15 | PDOC ---
[employer] PROGRESS NOTE Date of Service DOS: DATE: 02/25/21 TIME: 12:12 Chief Complaint Chief Complaint Acute hypoxic respiratory failure COVID-19 pneumonia PJ due to vasomotor nephropathy Mild transaminitis Moderate protein malnutrition Morbid obesity History of hypertension Continue COVID-19 treatment protocol Continue IV Remdesivir Continue with empiric IV antibiotics Continue IV steroids Continue with Covid supplementation such as B1, vitamin C, vitamin D, zinc Heparin for DVT prophylaxis Full code DPOA [facility] History of Present Illness History of Present Illness The patient is a pleasant middle-aged male, well known to my service. Basically, he has been developing flu like symptoms over the past couple of weeks. He went to acute care center yesterday at [facility]. He was awaiting his test results for his COVID-19 testing, but today he just could not await he was getting too sick. We tested him here in the emergency room. He is positive. He has abnormal chest x-ray. We are going to admit the patient, place him on COVID protocol. 02/23/2021 No acute events overnight. Patient saturating 97% on 2 L nasal cannula. Patient currently on Remdesivir. Patient's chart, labs, images were reviewed and discussed with RN 02/24/2021 Patient seen and examine in bed. Patient Fi02 between 83%-92% on vapotherm and 100% non-rebreather. D/W RN, Chart Review Instructed patient to try to rest and conserve energy. 02/25/21 Patient seen and examined at the bedside. Currently requiring BiPAP. Vapotherm. Transferred to the ICU yesterday. Continue with Covid treatment. Plan of care discussed with bedside RN Vitals/I&O Vitals/I&O: Vital Signs Date Time Temp Pulse Resp B/P (MAP) Pulse Ox O2 Delivery O2 Flow Rate FiO2 02/25/21 11:46 93 Bipap + VapoTherm 02/25/21 06:00 90 41 166/91 (116) 02/25/21 04:00 98.8 98.8 02/24/21 21:40 40.0 I & O 02/24/21 02/24/21 02/25/21 15:00 23:00 07:00 Output Total 450 ml 550 ml Balance -450 ml -550 ml Physical Exam General: Alert, Oriented X3, Cooperative, moderate distress Heart: Regular rate Lungs: Other (labored) Abdomen: Normal bowel sounds Extremities: No clubbing Skin: No rashes, No significant lesion Labs Labs: Laboratory Tests Test 02/25/21 08:00 O2 Saturation 91 % (92-99) Arterial Blood pH 7.51 (7.35-7.45) Arterial Blood pCO2 at Patient Temp 33 mmHg (35-46) Arterial Blood pO2 at Patient Temp 60 mmHg (75-108) Arterial Blood HCO3 26 mmol/L (21-28) Arterial Blood Base Excess 4 mmol/L (-3-3) FiO2 100/bipap Assessment and Plan Assessmemt and Plan Problems Medical Problems: (1) Hypoxia Status: Acute (2) Pneumonia due to COVID-19 virus Status: Acute Assessmemt and Plan Acute hypoxic respiratory failure COVID-19 pneumonia PJ due to vasomotor nephropathy Mild transaminitis Moderate protein malnutrition Morbid obesity History of hypertension Plan O2 BiPAP and Vapotherm, may need intubation COVID-19 treatment protocol -Continue IV Remdesivir -Continue with empiric IV antibiotics -Continue IV steroids -Continue vitamins -Continue anti-tussive medication DVT prophylaxis Full code DPOA [facility] Prognosis guarded Comment Review of Relevant I have reviewed the following items ashley (where applicable) has been applied. Justifications for Admission Other Justification LY GIL MD Feb 25, 2021 12:15
[2021-02-25] MEDS: methylPREDNISolone SOD SUCC PF 40 MG/ML VIAL. IV SCH ×2 (14:00→22:20)
[2021-02-25] MEDS: DOXYCYCLINE HYCLATE 100 MG in IV DEXTROSE 5% 100ML 100 ML IV SCH ×2 (15:00→22:21)
[2021-02-25] MEDS ORDERED: ATROPINE 0.5 MG/5 ML DISP.SYRINGE. IV PRN (16:00)
[2021-02-25] MEDS: REMDESIVIR 100mg in NORMAL SALINE 250ML X 4 DAYS IV SCH (18:00)
[2021-02-25] MEDS: LOSARTAN POTASSIUM 50 MG TABLET. PO SCH (21:31)
--- NOTE | 2021-02-25 22:11 | NUR ---
AM emergency w critical patient. All meds given thruout day. Patient very calm/kind. Does not want to bother staff. Reassured that staff will assist as needed. Condition precarious. Current Rx "maintaining" level of comfort. condition guarded
[2021-02-26] VITALS (25 sets, daily range): BP systolic 96–174; BP diastolic 65–104
[2021-02-26] MEDS: PIPERACILLIN/TAZOBACTAM 3.375 GM in IV NORMAL SALINE 50ML 50 ML IV SCH ×4 (01:32→17:54)
[2021-02-26 07:23] LABS: BASE EXCESS ABG 0 mmol/L (-3-3); HCO3 ABG 22 mmol/L (21-28); PCO2 ABG 29 mmHg (35-46); PO2 ABG 69 mmHg (75-108); SAT O2 ABG 93 % (92-99)
[2021-02-26 07:24] LABS: FIO2 ABG 100%
--- NOTE | 2021-02-26 08:19 | PDOC ---
[employer] PROGRESS NOTE Date of Service DOS: DATE: 02/26/21 TIME: 08:17 Chief Complaint Chief Complaint Acute hypoxic respiratory failure COVID-19 pneumonia PJ due to vasomotor nephropathy Mild transaminitis Moderate protein malnutrition Morbid obesity History of hypertension Continue COVID-19 treatment protocol Continue IV Remdesivir Continue with empiric IV antibiotics Continue IV steroids Continue with Covid supplementation such as B1, vitamin C, vitamin D, zinc Heparin for DVT prophylaxis Full code DPOA [facility] History of Present Illness History of Present Illness The patient is a pleasant middle-aged male, well known to my service. Basically, he has been developing flu like symptoms over the past couple of weeks. He went to acute care center yesterday at [facility]. He was awaiting his test results for his COVID-19 testing, but today he just could not await he was getting too sick. We tested him here in the emergency room. He is positive. He has abnormal chest x-ray. We are going to admit the patient, place him on COVID protocol. 02/23/2021 No acute events overnight. Patient saturating 97% on 2 L nasal cannula. Patient currently on Remdesivir. Patient's chart, labs, images were reviewed and discussed with RN 02/24/2021 Patient seen and examine in bed. Patient Fi02 between 83%-92% on vapotherm and 100% non-rebreather. D/W RN, Chart Review Instructed patient to try to rest and conserve energy. 02/25/21 Patient seen and examined at the bedside. Currently requiring BiPAP. Vapotherm. Transferred to the ICU yesterday. Continue with Covid treatment. Plan of care discussed with bedside RN 02/26/2021: Afebrile. Intermittently breathing between BiPAP and Vapotherm. Continue empiric antibiotics and steroids. Last dose remdesivir today. Continue supportive care. 30 minutes critical care time spent reviewing charts, reviewing labs, reviewing imaging, discussion with RN. Vitals/I&O Vitals/I&O: Vital Signs Date Time Temp Pulse Resp B/P (MAP) Pulse Ox O2 Delivery O2 Flow Rate FiO2 02/26/21 07:14 93 Bipap + VapoTherm 02/26/21 06:00 68 30 146/78 (100) 02/26/21 04:00 98.9 98.9 02/25/21 18:00 25.0 I & O 02/25/21 02/25/21 02/26/21 15:00 23:00 07:00 Intake Total 370 ml 305 ml 884.38 ml Output Total 450 ml 100 ml Balance -80 ml 205 ml 884.38 ml Physical Exam General: Alert, Oriented X3, Cooperative, moderate distress Heart: Regular rate Lungs: Other (labored) Abdomen: Normal bowel sounds Extremities: No clubbing Skin: No rashes, No significant lesion Labs Labs: Laboratory Tests Test 02/26/21 07:18 O2 Saturation 93 % (92-99) Arterial Blood pH 7.50 (7.35-7.45) Arterial Blood pCO2 at Patient Temp 29 mmHg (35-46) Arterial Blood pO2 at Patient Temp 69 mmHg (75-108) Arterial Blood HCO3 22 mmol/L (21-28) Arterial Blood Base Excess 0 mmol/L (-3-3) FiO2 100% Assessment and Plan Assessmemt and Plan Problems Medical Problems: (1) Hypoxia Status: Acute (2) Pneumonia due to COVID-19 virus Status: Acute Comment Review of Relevant I have reviewed the following items ashley (where applicable) has been applied. Justifications for Admission Other Justification BRITTANY SIMONS MD Feb 26, 2021 08:19
[2021-02-26] MEDS: ASPIRIN CHEWABLE 81 MG TABLET. PO SCH (08:28)
[2021-02-26] MEDS: LACTOBACILLUS RHAMNOSUS GG 1 CAPSULE. PO SCH ×2 (08:28→21:18)
[2021-02-26] MEDS: MULTIVITAMIN with MINERAL TABLET. PO SCH (08:28)
[2021-02-26] MEDS: methylPREDNISolone SOD SUCC PF 40 MG/ML VIAL. IV SCH ×2 (08:29→21:17)
[2021-02-26] MEDS ORDERED: fentaNYL PF VIAL 100 MCG/2 ML VIAL IV PRN (08:45)
[2021-02-26] MEDS ORDERED: POLYVINYL ALCOHOL 1.4% OPHTH SOLUTION 15ML BOTTLE. OU PRN (08:45)
[2021-02-26] MEDS ORDERED: SUCCINYLCHOLINE 200 MG/10 ML VIAL. ONE (09:11)
--- NOTE | 2021-02-26 09:26 | PDOC ---
PULMONARY PROGRESS NOTES DATE: 02/26/21 TIME: 09:23 Subjective Patient is currently on 100% Vapotherm at 40 L with additional BiPAP at 100% Patient is tachycardic and tachypneic Mildly hypertensive Vitals Vital Signs Date Time Temp Pulse Resp B/P (MAP) Pulse Ox O2 Delivery O2 Flow Rate FiO2 02/26/21 07:14 93 Bipap + VapoTherm 02/26/21 06:00 68 30 146/78 (100) 02/26/21 04:00 98.9 98.9 02/25/21 18:00 25.0 Comments Visual exam done due to COVID-19. Patient currently on BiPAP 100% FiO2. Tachycardia and tachypnea Lungs: Other (labored) Labs Laboratory Tests Test 02/25/21 08:00 02/26/21 07:18 O2 Saturation 91 % (92-99) 93 % (92-99) Arterial Blood pH 7.51 (7.35-7.45) 7.50 (7.35-7.45) Arterial Blood pCO2 at Patient Temp 33 mmHg (35-46) 29 mmHg (35-46) Arterial Blood pO2 at Patient Temp 60 mmHg (75-108) 69 mmHg (75-108) Arterial Blood HCO3 26 mmol/L (21-28) 22 mmol/L (21-28) Arterial Blood Base Excess 4 mmol/L (-3-3) 0 mmol/L (-3-3) FiO2 100/bipap 100% Laboratory Tests Test 02/26/21 07:18 O2 Saturation 93 % (92-99) Arterial Blood pH 7.50 (7.35-7.45) Arterial Blood pCO2 at Patient Temp 29 mmHg (35-46) Arterial Blood pO2 at Patient Temp 69 mmHg (75-108) Arterial Blood HCO3 22 mmol/L (21-28) Arterial Blood Base Excess 0 mmol/L (-3-3) FiO2 100% Medications Active Scripts Medications Dose Route/Sig Max Daily Dose Days Date Category [tylenol pm] 1 Tab PO HS 02/22/21 Reported Losartan Potassium 50 Mg Tablet 50 Mg PO HS 02/22/21 Reported Atorvastatin Calcium 20 Mg Tablet 20 Mg PO HS 02/22/21 Reported Omeprazole 40 Mg Capsule.dr 1 Cap PO PRN DAILY PRN 05/20/17 Reported Daily Vitamin Formula-Minerals (Multivitamin With Minerals) 1 Each Tablet 1 Each PO 01/06/17 Reported Atenolol 50 Mg Tablet 1 Tab PO DAILY 01/06/17 Reported Impression . 1. Acute hypoxic respiratory failure secondary to COVID-19 viral pneumonia/ARDS/acute lung injury.--Worsening 2. Abnormal chest x-ray with faint bilateral interstitial infiltrates associated with COVID-19 pneumonia. 3. COVID-19 positive. 4. No significant tobacco history. 5. Mild acute kidney injury. 6. Abnormal liver function tests, likely related to COVID-19. Bilirubin 1.4. Plan . Updated 02/26/2021 Continue current supplemental oxygen, currently 100% BiPAP with additional 100% Vapotherm at 40 L, proceed with intubation Follow chest x-ray/ABG, make changes as needed Continue remdesivir for full course Continue IV steroids for full 10-day course started 02/22/2021 Continue empiric antibiotics with Zosyn, doxycycline Hypertension Per PCP DVT/GI prophylaxis: Lovenox Consult dietitian for tube feeding recommendations Discussed with RN and RT Spoke with his mother and updated her of his current clinical presentation and the plan to proceed with intubation Code care time 30 minutes Updated 02/25/2021 1. We will continue present BiPAP with 100% FiO2. We will closely watch respiratory status for need for intubation. 2. Remdesivir per protocol. 3. IV steroids per protocol. 4. Subcutaneous heparin for DVT prophylaxis. D-dimer is not high. 5. Empiric antibiotic, Zosyn and doxycycline. 6. Cough suppressant. 7. Chart reviewed. Discussed with RN. Imaging studies reviewed. Critical care time 30 minutes ANGELA CHILEL MD Feb 26, 2021 09:26
[2021-02-26] MEDS ORDERED: PROPOFOL 10 MG/ML (20ML) VIAL. IV ONE (10:00)
[2021-02-26] MEDS ORDERED: SUCCINYLCHOLINE 200 MG/10 ML VIAL. IV ONE (10:00)
[2021-02-26] MEDS: VECURONIUM BOLUS 10 MG VIAL. IV PRN (10:09)
[2021-02-26] MEDS: MIDAZOLAM 100mg/100ml NS BAG 100 ML IV PRN ×2 (10:10→15:52)
[2021-02-26] MEDS: PROPOFOL 100 ML IV PRN ×3 (10:10→20:54)
--- NOTE | 2021-02-26 11:32 | NUR ---
SS following up with discharge planning. SS reviewed pt chart and discussed with pt RN. Pt is now intubated and is currently on the vent at 100%. COVID19 positive. Pt on IV Zosyn, IV Doxycycline, IV Solu Medrol, and IV Remdesevir. Pt on Vec pushes, Propofol, Versed, and Fentanyl. Not stable. SS will continue to follow for discharge planning.
[2021-02-26] MEDS: DOXYCYCLINE HYCLATE 100 MG in IV DEXTROSE 5% 100ML 100 ML IV SCH ×2 (11:50→21:17)
[2021-02-26] MEDS: ENOXAPARIN 40 MG/0.4 ML SYRINGE. SQ SCH (11:50)
--- NOTE | 2021-02-26 12:00 | RAD ---
Single view of the chest. 02/26/2021 10:45 AM Indication: Reason: ett and gastric tube placement / Spl. Instructions: / History: Comparison: Chest radiograph, February 22, 2021 Findings: The patient has been intubated with endotracheal tube tip, 6.4 cm above the anh. There i s now an enteric tube which extends below the diaphragm in the stomach. Patchy pulmonary infiltrates are increased with respect to comparison study. Basilar atelectasis appears be present. No pneumoth orax is seen. No acute osseous abnormalities. IMPRESSION: 1. Endotracheal tube and enteric tube as described 2. Interval increase in bilateral pulmonary infiltrates Electronically signed by: Royal Avery MD (02/26/2021 11:58 AM) [id number]
--- NOTE | 2021-02-26 12:02 | NUR ---
At 1000 patient intubated requiring rapid titration of Versed d/t non-compliance with ventilator. Starting rate at 1mg/hr and patient stabilized at with a RASS score of -2. gtt currently infusing at 10mg/hour. Max rate during this time was of medication administered during charting block and ended at 1030. Patient in rhythm, HRSR rate 67 , Sp02 88 At 1000 patient intubated requiring rapid titration of Propofol d/t noncompliance with ventilator. Starting rate was 5mcg/kg/min and patient stabalized at 1030 with a rass of -2. Propofol currently infusing at 20mcg/kg/min. Max rate of propofol was 20mcg/kg/min . Block charting ended at 1030.
[2021-02-26 12:11] LABS: BASE EXCESS COOX -3 mmol/L (-3-3); HCO3 COOX 20 mmol/L (21-28); METHEMOGLOBIN 0.3 % (0.0-1.9); OXYHEMOGLOBIN 91.6 %; PCO2 COOX 32 mmHg (35-46); PO2 COOX 67 mmHg (75-108); SAT O2 COOX 92 % (92-99)
[2021-02-26] MEDS: REMDESIVIR 100mg in NORMAL SALINE 250ML X 4 DAYS IV SCH (15:37)
--- NOTE | 2021-02-26 18:25 | PDOC ---
Provider Note Date of Service: DATE: 02/26/21 TIME: 18:20 Provider Note Called for intubation for COVID 19 respiratory failure to be placed on ventilator. Propofol 80 mg and Anectine 100 mg given IV for anesthesia. Intubated with Glidescope and #7.5 ETT second attempt due to morbid obesity and extra adipose tissue of oral airway. + evidence of CO2. Equal chest rise and breath sounds taped in place by R.T. personnel. CXR pending. No complications. Justifications for Admission Other Justification JILL BLANTON MD Feb 26, 2021 18:25
--- NOTE | 2021-02-26 18:30 | PDOC ---
Provider Note Date of Service: DATE: 02/26/21 TIME: 18:25 Provider Note Procedure note for CVL placement. Called to place CVL for IV access. Patient was already on ventilator with sedation via IV infusion. Ultrasound and standard Seldinger technique used for cannulation of right IJ with #18 gauge Cook needle. A 3 lumen CVL was placed via standard technique after wide skin prep and whole body drape. Lines aspirated and flushed. Sewn in place at 18 cm. CXR pending. No complications. Justifications for Admission Other Justification JILL BLANTON MD Feb 26, 2021 18:30
[2021-02-26] MEDS: FAMOTIDINE 20 MG/2 ML VIAL IVP SCH (21:17)
[2021-02-26] MEDS: LOSARTAN POTASSIUM 50 MG TABLET. PO SCH (21:18)
--- NOTE | 2021-02-26 22:12 | RAD ---
Single view chest dated 02/26/2021 10:07 PM: COMPARISON: 02/22/2021 Clinical Indication: ET tube placement. Findings: Single upright portable exam of the chest was performed. Heart and mediastinal contours are stable. E ndotracheal tube tip at the upper trachea approximately 7.2 cm above the level of the anh. There i s an NG tube tip at the level the gastric body/antrum. Right internal jugular catheter with tip proje cted to the level of the mid to lower SVC. There is some consolidation at the retrocardiac left base, mildly increased. There is blunting of lef t costophrenic sulcus. Mild patchy and linear perihilar opacities, increased. No pneumothorax IMPRESSION: 1. Patchy bilateral airspace disease, mildly increased, edema versus pneumonia. There is a suspected small left pleural effusion. 2. Tubes and lines as above. Electronically signed by: Bryant Salazar MD (02/26/2021 10:09 PM) [facility]
[2021-02-27] VITALS (25 sets, daily range): BP systolic 93–147; BP diastolic 57–108
[2021-02-27] MEDS: PROPOFOL 100 ML IV PRN ×5 (03:27→23:54)
[2021-02-27 05:39] LABS: BASO % 0 % (0-3); EOS % 0 % (0-3); HEMATOCRIT 35.2 % (39.0-53.0); HEMOGLOBIN 11.8 g/dL (13.0-17.5); LYMPH # 0.5 x10^3/uL (1.0-4.8); LYMPH % 6 % (24-48); MEAN CORPUSCULAR HEMOGLOBIN 33 pg (25-35); MEAN CORPUSCULAR HGB CONC 34 g/dL (31-37); MEAN CORPUSCULAR VOLUME 98 fL (79-100); MONO # 0.6 x10^3/uL (0.0-1.1); MONO % 7 % (0-9); NEUT # 7.5 x10^3/uL (1.8-7.7); NEUT % 87 % (31-73); PLATELET COUNT 179 x10^3/uL (140-400); RED BLOOD COUNT 3.58 x10^6/uL (4.30-5.70); RED CELL DISTRIBUTION WIDTH 12.6 % (11.5-14.5); WHITE BLOOD COUNT 8.7 x10^3/uL (4.0-11.0)
[2021-02-27 05:41] LABS: CALCIUM 8.3 mg/dL (8.5-10.1); GFR 93.9; POTASSIUM 4.3 mmol/L (3.5-5.1)
[2021-02-27] MEDS: PIPERACILLIN/TAZOBACTAM 3.375 GM in IV NORMAL SALINE 50ML 50 ML IV SCH ×4 (05:53→17:30)
[2021-02-27 07:31] LABS: % BANDS 2 % (0-9); % LYMPHS 7 % (24-48); % MONOS 4 % (0-10); % SEGS 87 % (35-66); PLT ESTIMATE ADEQUATE (ADEQUATE)
[2021-02-27] MEDS: ASPIRIN CHEWABLE 81 MG TABLET. PO SCH (08:24)
[2021-02-27] MEDS: LACTOBACILLUS RHAMNOSUS GG 1 CAPSULE. PO SCH ×2 (08:24→21:31)
[2021-02-27] MEDS: ENOXAPARIN 40 MG/0.4 ML SYRINGE. SQ SCH (08:25)
[2021-02-27] MEDS: methylPREDNISolone SOD SUCC PF 40 MG/ML VIAL. IV SCH ×2 (08:25→21:30)
[2021-02-27] MEDS: FAMOTIDINE 20 MG/2 ML VIAL IVP SCH ×2 (08:25→21:29)
[2021-02-27] MEDS: DOXYCYCLINE HYCLATE 100 MG in IV DEXTROSE 5% 100ML 100 ML IV SCH ×2 (08:29→21:30)
[2021-02-27] MEDS: MULTIVITAMINS,THERAPEUTIC 5 ML ORAL LIQUID. PEG SCH (08:34)
[2021-02-27 09:03] LABS: BASE EXCESS ABG -3 mmol/L (-3-3); HCO3 ABG 21 mmol/L (21-28); PCO2 ABG 31 mmHg (35-46); PO2 ABG 99 mmHg (75-108); SAT O2 ABG 97 % (92-99)
[2021-02-27 09:43] LABS: FIO2 ABG 100% VENT
--- NOTE | 2021-02-27 10:27 | PDOC ---
PULMONARY PROGRESS NOTES DATE: 02/27/21 TIME: 10:24 Subjective intubated 02/26/21 sedated remains on vent support no overnight issues Vitals Vital Signs Date Time Temp Pulse Resp B/P (MAP) Pulse Ox O2 Delivery O2 Flow Rate FiO2 02/27/21 10:00 66 24 135/84 (101) 93 Ventilator 02/27/21 08:00 97.8 97.8 02/26/21 08:00 25.0 Comments Visual exam done due to COVID-19. intubated no distress no rash or edema Lungs: Other (labored) Labs Laboratory Tests Test 02/26/21 07:18 02/26/21 12:05 02/27/21 05:15 02/27/21 08:00 O2 Saturation 93 % (92-99) 92 % (92-99) 97 % (92-99) Arterial Blood pH 7.50 (7.35-7.45) 7.42 (7.35-7.45) 7.44 (7.35-7.45) Arterial Blood pCO2 at Patient Temp 29 mmHg (35-46) 32 mmHg (35-46) 31 mmHg (35-46) Arterial Blood pO2 at Patient Temp 69 mmHg (75-108) 67 mmHg (75-108) 99 mmHg (75-108) Arterial Blood HCO3 22 mmol/L (21-28) 20 mmol/L (21-28) 21 mmol/L (21-28) Arterial Blood Base Excess 0 mmol/L (-3-3) -3 mmol/L (-3-3) -3 mmol/L (-3-3) FiO2 100% 100 100% vent Oxyhemoglobin 91.6 % Methemoglobin 0.3 % (0.0-1.9) Carbon Monoxide, Quantitative 0.3 % (0.0-1.9) White Blood Count 8.7 x10^3/uL (4.0-11.0) Red Blood Count 3.58 x10^6/uL (4.30-5.70) Hemoglobin 11.8 g/dL (13.0-17.5) Hematocrit 35.2 % (39.0-53.0) Mean Corpuscular Volume 98 fL (79-100) Mean Corpuscular Hemoglobin 33 pg (25-35) Mean Corpuscular Hemoglobin Concent 34 g/dL (31-37) Red Cell Distribution Width 12.6 % (11.5-14.5) Platelet Count 179 x10^3/uL (140-400) Neutrophils (%) (Auto) 87 % (31-73) Lymphocytes (%) (Auto) 6 % (24-48) Monocytes (%) (Auto) 7 % (0-9) Eosinophils (%) (Auto) 0 % (0-3) Basophils (%) (Auto) 0 % (0-3) Neutrophils # (Auto) 7.5 x10^3/uL (1.8-7.7) Lymphocytes # (Auto) 0.5 x10^3/uL (1.0-4.8) Monocytes # (Auto) 0.6 x10^3/uL (0.0-1.1) Eosinophils # (Auto) 0.0 x10^3/uL (0.0-0.7) Basophils # (Auto) 0.0 x10^3/uL (0.0-0.2) Segmented Neutrophils % 87 % (35-66) Band Neutrophils % 2 % (0-9) Lymphocytes % 7 % (24-48) Monocytes % 4 % (0-10) Platelet Estimate Adequate (ADEQUATE) Sodium Level 140 mmol/L (136-145) Potassium Level 4.3 mmol/L (3.5-5.1) Chloride Level 110 mmol/L (98-107) Carbon Dioxide Level 25 mmol/L (21-32) Anion Gap 5 (6-14) Blood Urea Nitrogen 20 mg/dL (8-26) Creatinine 1.0 mg/dL (0.7-1.3) Estimated GFR (Cockcroft-Gault) 93.9 Glucose Level 172 mg/dL (70-99) Calcium Level 8.3 mg/dL (8.5-10.1) Laboratory Tests Test 02/26/21 12:05 02/27/21 05:15 02/27/21 08:00 O2 Saturation 92 % (92-99) 97 % (92-99) Arterial Blood pH 7.42 (7.35-7.45) 7.44 (7.35-7.45) Arterial Blood pCO2 at Patient Temp 32 mmHg (35-46) 31 mmHg (35-46) Arterial Blood pO2 at Patient Temp 67 mmHg (75-108) 99 mmHg (75-108) Arterial Blood HCO3 20 mmol/L (21-28) 21 mmol/L (21-28) Arterial Blood Base Excess -3 mmol/L (-3-3) -3 mmol/L (-3-3) Oxyhemoglobin 91.6 % Methemoglobin 0.3 % (0.0-1.9) Carbon Monoxide, Quantitative 0.3 % (0.0-1.9) FiO2 100 100% vent White Blood Count 8.7 x10^3/uL (4.0-11.0) Red Blood Count 3.58 x10^6/uL (4.30-5.70) Hemoglobin 11.8 g/dL (13.0-17.5) Hematocrit 35.2 % (39.0-53.0) Mean Corpuscular Volume 98 fL (79-100) Mean Corpuscular Hemoglobin 33 pg (25-35) Mean Corpuscular Hemoglobin Concent 34 g/dL (31-37) Red Cell Distribution Width 12.6 % (11.5-14.5) Platelet Count 179 x10^3/uL (140-400) Neutrophils (%) (Auto) 87 % (31-73) Lymphocytes (%) (Auto) 6 % (24-48) Monocytes (%) (Auto) 7 % (0-9) Eosinophils (%) (Auto) 0 % (0-3) Basophils (%) (Auto) 0 % (0-3) Neutrophils # (Auto) 7.5 x10^3/uL (1.8-7.7) Lymphocytes # (Auto) 0.5 x10^3/uL (1.0-4.8) Monocytes # (Auto) 0.6 x10^3/uL (0.0-1.1) Eosinophils # (Auto) 0.0 x10^3/uL (0.0-0.7) Basophils # (Auto) 0.0 x10^3/uL (0.0-0.2) Segmented Neutrophils % 87 % (35-66) Band Neutrophils % 2 % (0-9) Lymphocytes % 7 % (24-48) Monocytes % 4 % (0-10) Platelet Estimate Adequate (ADEQUATE) Sodium Level 140 mmol/L (136-145) Potassium Level 4.3 mmol/L (3.5-5.1) Chloride Level 110 mmol/L (98-107) Carbon Dioxide Level 25 mmol/L (21-32) Anion Gap 5 (6-14) Blood Urea Nitrogen 20 mg/dL (8-26) Creatinine 1.0 mg/dL (0.7-1.3) Estimated GFR (Cockcroft-Gault) 93.9 Glucose Level 172 mg/dL (70-99) Calcium Level 8.3 mg/dL (8.5-10.1) Medications Active Scripts Medications Dose Route/Sig Max Daily Dose Days Date Category [tylenol pm] 1 Tab PO HS 02/22/21 Reported Losartan Potassium 50 Mg Tablet 50 Mg PO HS 02/22/21 Reported Atorvastatin Calcium 20 Mg Tablet 20 Mg PO HS 02/22/21 Reported Omeprazole 40 Mg Capsule.dr 1 Cap PO PRN DAILY PRN 05/20/17 Reported Daily Vitamin Formula-Minerals (Multivitamin With Minerals) 1 Each Tablet 1 Each PO 01/06/17 Reported Atenolol 50 Mg Tablet 1 Tab PO DAILY 01/06/17 Reported Impression . 1. Acute hypoxic respiratory failure secondary to COVID-19 viral pneumonia/ARDS/acute lung injury.--Worsening, now intubated 2. Abnormal chest x-ray with faint bilateral interstitial infiltrates associated with COVID-19 pneumonia. 3. COVID-19 positive. 4. No significant tobacco history. 5. Mild acute kidney injury. 6. Abnormal liver function tests, likely related to COVID-19. Bilirubin 1.4. Plan . Updated 02/27/2021 Continue current vent support , currently 24/500/100/10 Follow chest x-ray/ABG, make changes as needed, reduce fi02 to 905 and peep to 9 S/P remdesivir Continue IV steroids for full 10-day course started 02/22/2021 Continue empiric antibiotics with Zosyn, doxycycline DVT/GI prophylaxis: Lovenox Continue tube feeding recommendations Discussed with RN and RT Code care time 30 minutes ANGELA CHILEL MD Feb 27, 2021 10:27
--- NOTE | 2021-02-27 10:31 | PDOC ---
[employer] PROGRESS NOTE Date of Service DOS: DATE: 02/27/21 TIME: 10:26 Chief Complaint Chief Complaint Acute hypoxic respiratory failure COVID-19 pneumonia PJ due to vasomotor nephropathy Mild transaminitis Moderate protein malnutrition Morbid obesity History of hypertension Continue COVID-19 treatment protocol Continue IV Remdesivir Continue with empiric IV antibiotics Continue IV steroids Continue with Covid supplementation such as B1, vitamin C, vitamin D, zinc Heparin for DVT prophylaxis Full code DPOA [facility] History of Present Illness History of Present Illness The patient is a pleasant middle-aged male, well known to my service. Basically, he has been developing flu like symptoms over the past couple of weeks. He went to acute care center yesterday at [facility]. He was awaiting his test results for his COVID-19 testing, but today he just could not await he was getting too sick. We tested him here in the emergency room. He is positive. He has abnormal chest x-ray. We are going to admit the patient, place him on COVID protocol. 02/23/2021 No acute events overnight. Patient saturating 97% on 2 L nasal cannula. Patient currently on Remdesivir. Patient's chart, labs, images were reviewed and discussed with RN 02/24/2021 Patient seen and examine in bed. Patient Fi02 between 83%-92% on vapotherm and 100% non-rebreather. D/W RN, Chart Review Instructed patient to try to rest and conserve energy. 02/25/21 Patient seen and examined at the bedside. Currently requiring BiPAP. Vapotherm. Transferred to the ICU yesterday. Continue with Covid treatment. Plan of care discussed with bedside RN 02/26/2021: Afebrile. Intermittently breathing between BiPAP and Vapotherm. Continue empiric antibiotics and steroids. Last dose remdesivir today. Continue supportive care. 30 minutes critical care time spent reviewing charts, reviewing labs, reviewing imaging, discussion with RN. 02/27/2021: Afebrile. Still breathing on ventilator and FiO2 100%, PEEP 10. Continue IV steroids and IV antibiotics. He should continue IV steroids for total treatment of 10 days (last day 03/04/2021). Completed remdesivir. Continue supportive care. Critical care time 30 minutes spent reviewing charts, reviewing labs, reviewing imaging, and discussion with RN. Vitals/I&O Vitals/I&O: Vital Signs Date Time Temp Pulse Resp B/P (MAP) Pulse Ox O2 Delivery O2 Flow Rate FiO2 02/27/21 10:00 66 24 135/84 (101) 93 Ventilator 02/27/21 08:00 97.8 97.8 02/26/21 08:00 25.0 I & O 02/26/21 02/26/21 02/27/21 15:00 23:00 07:00 Intake Total 150 ml 496 ml 446.94 ml Output Total 350 ml 495 ml 300 ml Balance -200 ml 1 ml 146.94 ml Physical Exam General: Alert, Oriented X3, Cooperative, moderate distress Heart: Regular rate Lungs: Other (labored) Abdomen: Normal bowel sounds Extremities: No clubbing Skin: No rashes, No significant lesion Labs Labs: Laboratory Tests Test 02/26/21 12:05 02/27/21 05:15 02/27/21 08:00 O2 Saturation 92 % (92-99) 97 % (92-99) Arterial Blood pH 7.42 (7.35-7.45) 7.44 (7.35-7.45) Arterial Blood pCO2 at Patient Temp 32 mmHg (35-46) 31 mmHg (35-46) Arterial Blood pO2 at Patient Temp 67 mmHg (75-108) 99 mmHg (75-108) Arterial Blood HCO3 20 mmol/L (21-28) 21 mmol/L (21-28) Arterial Blood Base Excess -3 mmol/L (-3-3) -3 mmol/L (-3-3) Oxyhemoglobin 91.6 % Methemoglobin 0.3 % (0.0-1.9) Carbon Monoxide, Quantitative 0.3 % (0.0-1.9) FiO2 100 100% vent White Blood Count 8.7 x10^3/uL (4.0-11.0) Red Blood Count 3.58 x10^6/uL (4.30-5.70) Hemoglobin 11.8 g/dL (13.0-17.5) Hematocrit 35.2 % (39.0-53.0) Mean Corpuscular Volume 98 fL (79-100) Mean Corpuscular Hemoglobin 33 pg (25-35) Mean Corpuscular Hemoglobin Concent 34 g/dL (31-37) Red Cell Distribution Width 12.6 % (11.5-14.5) Platelet Count 179 x10^3/uL (140-400) Neutrophils (%) (Auto) 87 % (31-73) Lymphocytes (%) (Auto) 6 % (24-48) Monocytes (%) (Auto) 7 % (0-9) Eosinophils (%) (Auto) 0 % (0-3) Basophils (%) (Auto) 0 % (0-3) Neutrophils # (Auto) 7.5 x10^3/uL (1.8-7.7) Lymphocytes # (Auto) 0.5 x10^3/uL (1.0-4.8) Monocytes # (Auto) 0.6 x10^3/uL (0.0-1.1) Eosinophils # (Auto) 0.0 x10^3/uL (0.0-0.7) Basophils # (Auto) 0.0 x10^3/uL (0.0-0.2) Segmented Neutrophils % 87 % (35-66) Band Neutrophils % 2 % (0-9) Lymphocytes % 7 % (24-48) Monocytes % 4 % (0-10) Platelet Estimate Adequate (ADEQUATE) Sodium Level 140 mmol/L (136-145) Potassium Level 4.3 mmol/L (3.5-5.1) Chloride Level 110 mmol/L (98-107) Carbon Dioxide Level 25 mmol/L (21-32) Anion Gap 5 (6-14) Blood Urea Nitrogen 20 mg/dL (8-26) Creatinine 1.0 mg/dL (0.7-1.3) Estimated GFR (Cockcroft-Gault) 93.9 Glucose Level 172 mg/dL (70-99) Calcium Level 8.3 mg/dL (8.5-10.1) Assessment and Plan Assessmemt and Plan Problems Medical Problems: (1) Hypoxia Status: Acute (2) Pneumonia due to COVID-19 virus Status: Acute Comment Review of Relevant I have reviewed the following items ashley (where applicable) has been applied. Medications: Current Medications Medications (Trade) Dose Ordered Sig/Radha Route PRN Reason Start Time Stop Time Status Last Admin Dose Admin Famotidine (Pepcid Vial) 20 mg BID IVP 02/26/21 21:00 02/27/21 08:25 Multivitamins/ Minerals Therapeutic (Centrum Multivit-Mineral Liq) 5 ml DAILY PEG 02/27/21 09:00 02/27/21 08:34 Justifications for Admission Other Justification BRITTANY SIMONS MD Feb 27, 2021 10:31
[2021-02-27] MEDS: VECURONIUM BOLUS 10 MG VIAL. IV PRN (12:18)
[2021-02-27] MEDS: MIDAZOLAM 100mg/100ml NS BAG 100 ML IV PRN (14:24)
[2021-02-27] MEDS: IV NORMAL SALINE 1000ML BAG 1,000 ML IV SCH (19:00)
[2021-02-27] MEDS: LOSARTAN POTASSIUM 50 MG TABLET. PO SCH (21:00)
[2021-02-28] VITALS (24 sets, daily range): BP systolic 98–119; BP diastolic 53–79
[2021-02-28] MEDS: PIPERACILLIN/TAZOBACTAM 3.375 GM in IV NORMAL SALINE 50ML 50 ML IV SCH ×4 (00:25→16:47)
[2021-02-28] MEDS: VECURONIUM BOLUS 10 MG VIAL. IV PRN (00:29)
--- NOTE | 2021-02-28 01:00 | NUR ---
Patient urine output 20CC for the past two hours and total of 200CC since 1800 on 02/27; paged Dr Conway. Dr Conway returned page, notified of low UO, IVF running and reviewed CXR done on 02/27. No orders received at this time other than to continue to monitor and UO will be evaluated in am.
[2021-02-28] MEDS: MIDAZOLAM 100mg/100ml NS BAG 100 ML IV PRN ×2 (01:25→13:30)
[2021-02-28] MEDS: PROPOFOL 100 ML IV PRN ×8 (01:47→21:04)
[2021-02-28] MEDS: NORCURON - VECURONIUM 50 MG in IV NORMAL SALINE 50ML 50 ML IV PRN ×3 (02:24→13:28)
--- NOTE | 2021-02-28 02:35 | NUR ---
Patient with episodes of overbreathing the ventilator and respiratory rate increases to 28-30 with decrease of oxygen saturation to mid 80's. Propofol gtt increased to 50MCG/KG/MIN which did initially bring patients RR to 24 (vent setting) but only short lasting. Vecuronium 6MG bolus administer IVP at 0030 which did again stop tachypnea but paralysis only lasted ~2HRS and patient's RR back up to 30's with O2 saturation 85-90%. Vecuronium gtt started 0.8MCG/KG/MIN at 0225 with immediate response of paralysis, decrease RR to 24 and increase saturation to 98%. Will titrate gtt as needed to maintain good saturation and TOF of 4/6.
--- NOTE | 2021-02-28 06:59 | RAD ---
AP chest x-ray HISTORY: respiratory failure COMPARISON: Chest x-ray 2020 FINDINGS: Tracheal tube tip 6 cm above the anh. Right jugular central venous catheter tip proximal right atrium. Nasogastric tube extends to the abdomen. Heart size stable. No pneumothorax. No pleura l effusions. Pulmonary interstitial infiltrates at the lung bases again demonstrated there is some im proved aeration at the left lateral lung base with decreased density of the opacity and mild improvem ent visualization of the the left diaphragm since the prior exam. IMPRESSION: Lines and tubes as described above. Basilar pulmonary interstitial infiltrates again demo nstrated with some improvement of the left lower lobe as described above. Electronically signed by: Dwain Williamson MD (02/28/2021 6:56 AM) [facility]
--- NOTE | 2021-02-28 07:02 | PDOC ---
PULMONARY PROGRESS NOTES DATE: 02/28/21 TIME: 07:00 Subjective intubated 02/26/21 remains on vent support 100% and a PEEP of 9 Nursing reports tachypnea and ventilatory asynchrony now on vecuronium drip in addition to sedation. Patient also experienced intermittent hypoxia now back on 100% FiO2 Vitals Vital Signs Date Time Temp Pulse Resp B/P (MAP) Pulse Ox O2 Delivery O2 Flow Rate FiO2 02/28/21 05:10 100 Ventilator 02/28/21 05:00 20 02/28/21 03:00 69 98/63 (75) 02/27/21 23:59 98.0 98.0 Comments Visual exam done due to COVID-19. intubated no distress no rash or edema Lungs: Other (labored) Labs Laboratory Tests Test 02/26/21 07:18 02/26/21 12:05 02/27/21 05:15 02/27/21 08:00 O2 Saturation 93 % (92-99) 92 % (92-99) 97 % (92-99) Arterial Blood pH 7.50 (7.35-7.45) 7.42 (7.35-7.45) 7.44 (7.35-7.45) Arterial Blood pCO2 at Patient Temp 29 mmHg (35-46) 32 mmHg (35-46) 31 mmHg (35-46) Arterial Blood pO2 at Patient Temp 69 mmHg (75-108) 67 mmHg (75-108) 99 mmHg (75-108) Arterial Blood HCO3 22 mmol/L (21-28) 20 mmol/L (21-28) 21 mmol/L (21-28) Arterial Blood Base Excess 0 mmol/L (-3-3) -3 mmol/L (-3-3) -3 mmol/L (-3-3) FiO2 100% 100 100% vent Oxyhemoglobin 91.6 % Methemoglobin 0.3 % (0.0-1.9) Carbon Monoxide, Quantitative 0.3 % (0.0-1.9) White Blood Count 8.7 x10^3/uL (4.0-11.0) Red Blood Count 3.58 x10^6/uL (4.30-5.70) Hemoglobin 11.8 g/dL (13.0-17.5) Hematocrit 35.2 % (39.0-53.0) Mean Corpuscular Volume 98 fL (79-100) Mean Corpuscular Hemoglobin 33 pg (25-35) Mean Corpuscular Hemoglobin Concent 34 g/dL (31-37) Red Cell Distribution Width 12.6 % (11.5-14.5) Platelet Count 179 x10^3/uL (140-400) Neutrophils (%) (Auto) 87 % (31-73) Lymphocytes (%) (Auto) 6 % (24-48) Monocytes (%) (Auto) 7 % (0-9) Eosinophils (%) (Auto) 0 % (0-3) Basophils (%) (Auto) 0 % (0-3) Neutrophils # (Auto) 7.5 x10^3/uL (1.8-7.7) Lymphocytes # (Auto) 0.5 x10^3/uL (1.0-4.8) Monocytes # (Auto) 0.6 x10^3/uL (0.0-1.1) Eosinophils # (Auto) 0.0 x10^3/uL (0.0-0.7) Basophils # (Auto) 0.0 x10^3/uL (0.0-0.2) Segmented Neutrophils % 87 % (35-66) Band Neutrophils % 2 % (0-9) Lymphocytes % 7 % (24-48) Monocytes % 4 % (0-10) Platelet Estimate Adequate (ADEQUATE) Sodium Level 140 mmol/L (136-145) Potassium Level 4.3 mmol/L (3.5-5.1) Chloride Level 110 mmol/L (98-107) Carbon Dioxide Level 25 mmol/L (21-32) Anion Gap 5 (6-14) Blood Urea Nitrogen 20 mg/dL (8-26) Creatinine 1.0 mg/dL (0.7-1.3) Estimated GFR (Cockcroft-Gault) 93.9 Glucose Level 172 mg/dL (70-99) Calcium Level 8.3 mg/dL (8.5-10.1) Laboratory Tests Test 02/27/21 08:00 O2 Saturation 97 % (92-99) Arterial Blood pH 7.44 (7.35-7.45) Arterial Blood pCO2 at Patient Temp 31 mmHg (35-46) Arterial Blood pO2 at Patient Temp 99 mmHg (75-108) Arterial Blood HCO3 21 mmol/L (21-28) Arterial Blood Base Excess -3 mmol/L (-3-3) FiO2 100% vent Medications Active Scripts Medications Dose Route/Sig Max Daily Dose Days Date Category [tylenol pm] 1 Tab PO HS 02/22/21 Reported Losartan Potassium 50 Mg Tablet 50 Mg PO HS 02/22/21 Reported Atorvastatin Calcium 20 Mg Tablet 20 Mg PO HS 02/22/21 Reported Omeprazole 40 Mg Capsule. 1 Cap PO PRN DAILY PRN 05/20/17 Reported Daily Vitamin Formula-Minerals (Multivitamin With Minerals) 1 Each Tablet 1 Each PO 01/06/17 Reported Atenolol 50 Mg Tablet 1 Tab PO DAILY 01/06/17 Reported Comments Chest x-ray reviewed dated 02/28/2021. Mild improvement in the left lower lobe infiltrate. Right lung relatively clear. Impression . 1. Acute hypoxic respiratory failure secondary to COVID-19 viral pneumonia/ARDS/acute lung injury.--Worsening, now intubated 02/26/21 2. Abnormal chest x-ray with faint bilateral interstitial infiltrates associated with COVID-19 pneumonia. Mild improvement seen on recent chest x-ray 3. COVID-19 positive. 4. No significant tobacco history. 5. Mild acute kidney injury.--improved 6. Abnormal liver function tests, likely related to COVID-19. Bilirubin 1.4. Plan . Updated 02/28/2021 Continue current vent support , currently 24/500/100/9 Follow chest x-ray/ABG, make changes as needed S/P remdesivir Continue IV steroids for full 10-day course started 02/22/2021 Continue empiric antibiotics with Zosyn, doxycycline DVT/GI prophylaxis: Lovenox Continue tube feeding Chest x-ray reviewed. Clinically minimal infiltrates but the severity of hypoxia somewhat out of proportion to the radiographic findings. Will obtain D- dimer Discussed with RN and RT Code care time 30 minutes ANGELA CHILEL MD Feb 28, 2021 07:02
[2021-02-28] MEDS: IV NORMAL SALINE 1000ML BAG 1,000 ML IV SCH ×2 (07:35→19:12)
[2021-02-28 07:59] LABS: BASE EXCESS ABG -2 mmol/L (-3-3); HCO3 ABG 22 mmol/L (21-28); PCO2 ABG 36 mmHg (35-46); PO2 ABG 70 mmHg (75-108); SAT O2 ABG 93 % (92-99)
[2021-02-28] MEDS: methylPREDNISolone SOD SUCC PF 40 MG/ML VIAL. IV SCH ×2 (08:17→21:04)
[2021-02-28] MEDS: ASPIRIN CHEWABLE 81 MG TABLET. PO SCH (08:17)
[2021-02-28] MEDS: DOXYCYCLINE HYCLATE 100 MG in IV DEXTROSE 5% 100ML 100 ML IV SCH ×2 (08:17→21:05)
[2021-02-28] MEDS: FAMOTIDINE 20 MG/2 ML VIAL IVP SCH ×2 (08:18→21:04)
[2021-02-28] MEDS: MULTIVITAMINS,THERAPEUTIC 5 ML ORAL LIQUID. PEG SCH (08:18)
[2021-02-28] MEDS: LACTOBACILLUS RHAMNOSUS GG 1 CAPSULE. PO SCH ×2 (08:19→21:04)
[2021-02-28] MEDS: ENOXAPARIN 40 MG/0.4 ML SYRINGE. SQ SCH ×2 (08:19→21:07)
--- NOTE | 2021-02-28 08:49 | PDOC ---
[employer] PROGRESS NOTE Date of Service DOS: DATE: 02/28/21 TIME: 08:47 Chief Complaint Chief Complaint Acute hypoxic respiratory failure COVID-19 pneumonia PJ due to vasomotor nephropathy Mild transaminitis Moderate protein malnutrition Morbid obesity History of hypertension Continue COVID-19 treatment protocol Continue IV Remdesivir Continue with empiric IV antibiotics Continue IV steroids Continue with Covid supplementation such as B1, vitamin C, vitamin D, zinc Heparin for DVT prophylaxis Full code DPOA [facility] History of Present Illness History of Present Illness The patient is a pleasant middle-aged male, well known to my service. Basically, he has been developing flu like symptoms over the past couple of weeks. He went to acute care center yesterday at [facility]. He was awaiting his test results for his COVID-19 testing, but today he just could not await he was getting too sick. We tested him here in the emergency room. He is positive. He has abnormal chest x-ray. We are going to admit the patient, place him on COVID protocol. 02/23/2021 No acute events overnight. Patient saturating 97% on 2 L nasal cannula. Patient currently on Remdesivir. Patient's chart, labs, images were reviewed and discussed with RN 02/24/2021 Patient seen and examine in bed. Patient Fi02 between 83%-92% on vapotherm and 100% non-rebreather. D/W RN, Chart Review Instructed patient to try to rest and conserve energy. 02/25/21 Patient seen and examined at the bedside. Currently requiring BiPAP. Vapotherm. Transferred to the ICU yesterday. Continue with Covid treatment. Plan of care discussed with bedside RN 02/26/2021: Afebrile. Intermittently breathing between BiPAP and Vapotherm. Continue empiric antibiotics and steroids. Last dose remdesivir today. Continue supportive care. 30 minutes critical care time spent reviewing charts, reviewing labs, reviewing imaging, discussion with RN. 02/27/2021: Afebrile. Still breathing on ventilator and FiO2 100%, PEEP 10. Continue IV steroids and IV antibiotics. He should continue IV steroids for total treatment of 10 days (last day 03/04/2021). Completed remdesivir. Continue supportive care. Critical care time 30 minutes spent reviewing charts, reviewing labs, reviewing imaging, and discussion with RN. 02/28/2021: Afebrile. On vent with FiO2 100%, PEEP 5. Some significant hyperglycemia noted today. Will obtain A1c and initiate insulin protocol. C ompleted remdesivir. Continue IVF biotics and IV steroids. Continue supportive care. Critical care time 30 minutes spent reviewing charts, reviewing labs, reviewing imaging, and discussion with RN. Vitals/I&O Vitals/I&O: Vital Signs Date Time Temp Pulse Resp B/P (MAP) Pulse Ox O2 Delivery O2 Flow Rate FiO2 02/28/21 07:46 100 Ventilator 02/28/21 06:45 24 02/28/21 06:00 63 112/71 (85) 02/28/21 04:00 97.8 97.8 I & O 02/27/21 02/27/21 02/28/21 15:00 23:00 07:00 Intake Total 50 ml 771 ml 2817 ml Output Total 300 ml 405 ml 250 ml Balance -250 ml 366 ml 2567 ml Physical Exam General: Alert, Oriented X3, Cooperative, moderate distress Heart: Regular rate Lungs: Other (labored) Abdomen: Normal bowel sounds Extremities: No clubbing Skin: No rashes, No significant lesion Labs Labs: Laboratory Tests Test 02/28/21 08:28 Glucose (Fingerstick) 255 mg/dL (70-99) Assessment and Plan Assessmemt and Plan Problems Medical Problems: (1) Hypoxia Status: Acute (2) Pneumonia due to COVID-19 virus Status: Acute Comment Review of Relevant I have reviewed the following items ashley (where applicable) has been applied. Medications: Current Medications Medications (Trade) Dose Ordered Sig/Radha Route PRN Reason Start Time Stop Time Status Last Admin Dose Admin Multivitamins/ Minerals Therapeutic (Centrum Multivit-Mineral Liq) 5 ml DAILY PEG 02/27/21 09:00 02/28/21 08:18 Sodium Chloride 1,000 ml @ 100 mls/hr Q10H IV 02/27/21 20:00 02/28/21 07:35 Vecuronium [place] 50 mg/ Sodium Chloride 50 ml @ 5.904 mls/ hr CONT PRN IV SEE I/O RECORD 02/28/21 02:15 02/28/21 07:34 Justifications for Admission Other Justification BRITTANY SIMONS MD Feb 28, 2021 08:49
[2021-02-28] MEDS ORDERED: IV DEXTROSE 5% 250 ML BAG. IV PRN (09:00)
[2021-02-28] MEDS ORDERED: DEXTROSE 50% 25 GM / 50ML DISP.SYRIN. IV PRN (09:00)
[2021-02-28 09:05] LABS: FIO2 ABG 100/VENT
[2021-02-28 09:36] LABS: BASO % 0 % (0-3); EOS % 0 % (0-3); HEMATOCRIT 34.6 % (39.0-53.0); HEMOGLOBIN 11.6 g/dL (13.0-17.5); LYMPH # 0.4 x10^3/uL (1.0-4.8); LYMPH % 4 % (24-48); MEAN CORPUSCULAR HEMOGLOBIN 33 pg (25-35); MEAN CORPUSCULAR HGB CONC 34 g/dL (31-37); MEAN CORPUSCULAR VOLUME 99 fL (79-100); MONO # 0.7 x10^3/uL (0.0-1.1); MONO % 8 % (0-9); NEUT # 8.4 x10^3/uL (1.8-7.7); NEUT % 88 % (31-73); PLATELET COUNT 185 x10^3/uL (140-400); RED BLOOD COUNT 3.48 x10^6/uL (4.30-5.70); RED CELL DISTRIBUTION WIDTH 12.5 % (11.5-14.5); WHITE BLOOD COUNT 9.6 x10^3/uL (4.0-11.0)
[2021-02-28 09:48] LABS: CREATININE 0.9 mg/dL (0.7-1.3); POTASSIUM 4.3 mmol/L (3.5-5.1)
[2021-02-28] MEDS: INSULIN LISPRO 300 UNITS/3 ML VIAL. SQ SCH ×2 (13:31→19:10)
--- NOTE | 2021-02-28 15:16 | NUR ---
SS following up with discharge planning. SS reviewed pt chart and discussed with pt RN. Pt is currently on the vent at 100%. COVID19 positive. Pt on IV Zosyn, IV Doxycycline, and IV Solu Medrol. Pt on Propofol, Vec, Versed, and Fentanyl. Not stable. SS will continue to follow for discharge planning.
--- NOTE | 2021-02-28 16:38 | RAD ---
STUDY: US BILATERAL LOWEREXTREMITY VENOUS DOPPLER INDICATION: Concern for PE. Elevated d-dimer. TECHNIQUE: Color-flow and pulsed wave duplex ultrasound with compression of venous structures of the bilateral lower extremities. COMPARISON: None Available. FINDINGS: Duplex ultrasound with compression of the deep venous structures of the bilateral lower extremities f rom the common femoral vein through the popliteal vein is negative for DVT. The posterior tibial and peroneal veins are segmentally visualized and patent where seen. Normal veno us waveforms and augmentation are noted throughout. IMPRESSION: No deep venous thrombosis of the bilateral lower extremities. Electronically signed by: Jeffery Chávez MD (02/28/2021 4:36 PM) [id number]
[2021-02-28] MEDS: LOSARTAN POTASSIUM 50 MG TABLET. PO SCH (21:00)
[2021-02-28] MEDS ORDERED: INSULIN GLARGINE SYRINGE. SQ SCH (21:00)
[2021-03-01] VITALS (23 sets, daily range): BP systolic 107–159; BP diastolic 64–88
[2021-03-01] MEDS: PIPERACILLIN/TAZOBACTAM 3.375 GM in IV NORMAL SALINE 50ML 50 ML IV SCH ×5 (00:19→23:49)
[2021-03-01] MEDS: PROPOFOL 100 ML IV PRN ×8 (00:38→23:48)
[2021-03-01] MEDS: INSULIN LISPRO 300 UNITS/3 ML VIAL. SQ SCH ×4 (00:39→17:00)
[2021-03-01] MEDS: MIDAZOLAM 100mg/100ml NS BAG 100 ML IV PRN ×2 (01:39→23:09)
[2021-03-01] MEDS: IV NORMAL SALINE 1000ML BAG 1,000 ML IV SCH ×3 (02:00→21:47)
[2021-03-01] MEDS: NORCURON - VECURONIUM 50 MG in IV NORMAL SALINE 50ML 50 ML IV PRN ×3 (02:39→21:48)
[2021-03-01 03:09] LABS: HEMOGLOBIN A1C 5.5 % (4.8-5.6)
[2021-03-01 06:55] LABS: BASO % 0 % (0-3); EOS % 0 % (0-3); HEMATOCRIT 36.4 % (39.0-53.0); HEMOGLOBIN 11.9 g/dL (13.0-17.5); LYMPH # 0.4 x10^3/uL (1.0-4.8); LYMPH % 4 % (24-48); MEAN CORPUSCULAR HEMOGLOBIN 33 pg (25-35); MEAN CORPUSCULAR HGB CONC 33 g/dL (31-37); MEAN CORPUSCULAR VOLUME 100 fL (79-100); MONO # 0.7 x10^3/uL (0.0-1.1); MONO % 6 % (0-9); NEUT # 10.8 x10^3/uL (1.8-7.7); NEUT % 91 % (31-73); PLATELET COUNT 197 x10^3/uL (140-400); RED BLOOD COUNT 3.63 x10^6/uL (4.30-5.70); WHITE BLOOD COUNT 11.9 x10^3/uL (4.0-11.0)
[2021-03-01 07:02] LABS: CALCIUM 7.8 mg/dL (8.5-10.1); CREATININE 0.9 mg/dL (0.7-1.3); POTASSIUM 4.3 mmol/L (3.5-5.1)
--- NOTE | 2021-03-01 08:30 | PDOC ---
[employer] PROGRESS NOTE Date of Service DOS: DATE: 03/01/21 TIME: 08:25 Chief Complaint Chief Complaint Acute hypoxic respiratory failure COVID-19 pneumonia PJ due to vasomotor nephropathy Mild transaminitis Moderate protein malnutrition Morbid obesity History of hypertension Continue COVID-19 treatment protocol Continue IV Remdesivir Continue with empiric IV antibiotics Continue IV steroids Continue with Covid supplementation such as B1, vitamin C, vitamin D, zinc Heparin for DVT prophylaxis Full code DPOA [facility] History of Present Illness History of Present Illness The patient is a pleasant middle-aged male, well known to my service. Basically, he has been developing flu like symptoms over the past couple of weeks. He went to acute care center yesterday at [facility]. He was awaiting his test results for his COVID-19 testing, but today he just could not await he was getting too sick. We tested him here in the emergency room. He is positive. He has abnormal chest x-ray. We are going to admit the patient, place him on COVID protocol. 02/23/2021 No acute events overnight. Patient saturating 97% on 2 L nasal cannula. Patient currently on Remdesivir. Patient's chart, labs, images were reviewed and discussed with RN 02/24/2021 Patient seen and examine in bed. Patient Fi02 between 83%-92% on vapotherm and 100% non-rebreather. D/W RN, Chart Review Instructed patient to try to rest and conserve energy. 02/25/21 Patient seen and examined at the bedside. Currently requiring BiPAP. Vapotherm. Transferred to the ICU yesterday. Continue with Covid treatment. Plan of care discussed with bedside RN 02/26/2021: Afebrile. Intermittently breathing between BiPAP and Vapotherm. Continue empiric antibiotics and steroids. Last dose remdesivir today. Continue supportive care. 30 minutes critical care time spent reviewing charts, reviewing labs, reviewing imaging, discussion with RN. 02/27/2021: Afebrile. Still breathing on ventilator and FiO2 100%, PEEP 10. Continue IV steroids and IV antibiotics. He should continue IV steroids for total treatment of 10 days (last day 03/04/2021). Completed remdesivir. Continue supportive care. Critical care time 30 minutes spent reviewing charts, reviewing labs, reviewing imaging, and discussion with RN. 02/28/2021: Afebrile. On vent with FiO2 100%, PEEP 5. Some significant hyperglycemia noted today. Will obtain A1c and initiate insulin protocol. C ompleted remdesivir. Continue IVF biotics and IV steroids. Continue supportive care. Critical care time 30 minutes spent reviewing charts, reviewing labs, reviewing imaging, and discussion with RN. 03/01/2021: Afebrile. On vent with FiO2 100%, PEEP 9. Still with elevated blood sugars; HbA1c 5.5. Will initiate twice daily basal insulin. Completed remdesivir; continue IV antibiotics and steroids. Continue supportive care. Critical care time 30 minutes spent reviewing charts, reviewing labs, reviewing imaging, and discussion with RN. Vitals/I&O Vitals/I&O: Vital Signs Date Time Temp Pulse Resp B/P (MAP) Pulse Ox O2 Delivery O2 Flow Rate FiO2 03/01/21 07:57 98 Ventilator 03/01/21 07:00 77 24 115/65 (82) 03/01/21 04:00 97.8 97.8 02/28/21 16:48 25.0 I & O 02/28/21 02/28/21 03/01/21 15:00 23:00 07:00 Intake Total 450 ml 3604 ml 2648 ml Output Total 525 ml 710 ml 410 ml Balance -75 ml 2894 ml 2238 ml Physical Exam General: Alert, Oriented X3, Cooperative, moderate distress Heart: Regular rate Lungs: Other (labored) Abdomen: Normal bowel sounds Extremities: No clubbing Skin: No rashes, No significant lesion Labs Labs: Laboratory Tests Test 02/28/21 08:28 02/28/21 09:20 02/28/21 11:30 02/28/21 13:27 Glucose (Fingerstick) 255 mg/dL (70-99) 278 mg/dL (70-99) White Blood Count 9.6 x10^3/uL (4.0-11.0) Red Blood Count 3.48 x10^6/uL (4.30-5.70) Hemoglobin 11.6 g/dL (13.0-17.5) Hematocrit 34.6 % (39.0-53.0) Mean Corpuscular Volume 99 fL (79-100) Mean Corpuscular Hemoglobin 33 pg (25-35) Mean Corpuscular Hemoglobin Concent 34 g/dL (31-37) Red Cell Distribution Width 12.5 % (11.5-14.5) Platelet Count 185 x10^3/uL (140-400) Neutrophils (%) (Auto) 88 % (31-73) Lymphocytes (%) (Auto) 4 % (24-48) Monocytes (%) (Auto) 8 % (0-9) Eosinophils (%) (Auto) 0 % (0-3) Basophils (%) (Auto) 0 % (0-3) Neutrophils # (Auto) 8.4 x10^3/uL (1.8-7.7) Lymphocytes # (Auto) 0.4 x10^3/uL (1.0-4.8) Monocytes # (Auto) 0.7 x10^3/uL (0.0-1.1) Eosinophils # (Auto) 0.0 x10^3/uL (0.0-0.7) Basophils # (Auto) 0.0 x10^3/uL (0.0-0.2) Sodium Level 143 mmol/L (136-145) Potassium Level 4.3 mmol/L (3.5-5.1) Chloride Level 111 mmol/L (98-107) Carbon Dioxide Level 25 mmol/L (21-32) Anion Gap 7 (6-14) Blood Urea Nitrogen 19 mg/dL (8-26) Creatinine 0.9 mg/dL (0.7-1.3) Estimated GFR (Cockcroft-Gault) 106.0 Glucose Level 272 mg/dL (70-99) Hemoglobin A1c 5.5 % (4.8-5.6) Calcium Level 8.0 mg/dL (8.5-10.1) D-Dimer (Jacqueline) > 20.00 ug/mlFEU Test 03/01/21 00:33 03/01/21 05:50 03/01/21 06:04 Glucose (Fingerstick) 209 mg/dL (70-99) 236 mg/dL (70-99) White Blood Count 11.9 x10^3/uL (4.0-11.0) Red Blood Count 3.63 x10^6/uL (4.30-5.70) Hemoglobin 11.9 g/dL (13.0-17.5) Hematocrit 36.4 % (39.0-53.0) Mean Corpuscular Volume 100 fL (79-100) Mean Corpuscular Hemoglobin 33 pg (25-35) Mean Corpuscular Hemoglobin Concent 33 g/dL (31-37) Red Cell Distribution Width 13.0 % (11.5-14.5) Platelet Count 197 x10^3/uL (140-400) Neutrophils (%) (Auto) 91 % (31-73) Lymphocytes (%) (Auto) 4 % (24-48) Monocytes (%) (Auto) 6 % (0-9) Eosinophils (%) (Auto) 0 % (0-3) Basophils (%) (Auto) 0 % (0-3) Neutrophils # (Auto) 10.8 x10^3/uL (1.8-7.7) Lymphocytes # (Auto) 0.4 x10^3/uL (1.0-4.8) Monocytes # (Auto) 0.7 x10^3/uL (0.0-1.1) Eosinophils # (Auto) 0.0 x10^3/uL (0.0-0.7) Basophils # (Auto) 0.0 x10^3/uL (0.0-0.2) Sodium Level 142 mmol/L (136-145) Potassium Level 4.3 mmol/L (3.5-5.1) Chloride Level 111 mmol/L (98-107) Carbon Dioxide Level 25 mmol/L (21-32) Anion Gap 6 (6-14) Blood Urea Nitrogen 16 mg/dL (8-26) Creatinine 0.9 mg/dL (0.7-1.3) Estimated GFR (Cockcroft-Gault) 106.0 Glucose Level 225 mg/dL (70-99) Calcium Level 7.8 mg/dL (8.5-10.1) Assessment and Plan Assessmemt and Plan Problems Medical Problems: (1) Hypoxia Status: Acute (2) Pneumonia due to COVID-19 virus Status: Acute Comment Review of Relevant I have reviewed the following items ashley (where applicable) has been applied. Medications: Current Medications Medications (Trade) Dose Ordered Sig/Radha Route PRN Reason Start Time Stop Time Status Last Admin Dose Admin Insulin Glargine (Lantus Syringe) 20 unit QHS SQ 02/28/21 21:00 02/28/21 21:08 Insulin Human Lispro (HumaLOG) 0-9 UNITS TIDWMEALS SQ 02/28/21 12:00 03/01/21 00:22 DC 02/28/21 19:10 Enoxaparin Sodium (Lovenox 40mg Syringe) 40 mg BID SQ 02/28/21 21:00 02/28/21 21:07 Insulin Human Lispro (HumaLOG) 0-9 UNITS Q6HRS SQ 03/01/21 00:30 03/01/21 06:07 Justifications for Admission Other Justification BRITTANY SIMONS MD Mar 01, 2021 08:30
[2021-03-01] MEDS: MULTIVITAMINS,THERAPEUTIC 5 ML ORAL LIQUID. PEG SCH (08:43)
[2021-03-01] MEDS: ENOXAPARIN 40 MG/0.4 ML SYRINGE. SQ SCH (08:43)
[2021-03-01] MEDS: FAMOTIDINE 20 MG/2 ML VIAL IVP SCH ×2 (08:43→21:40)
[2021-03-01] MEDS: methylPREDNISolone SOD SUCC PF 40 MG/ML VIAL. IV SCH ×2 (08:44→21:39)
[2021-03-01] MEDS: ASPIRIN CHEWABLE 81 MG TABLET. PO SCH (08:44)
[2021-03-01] MEDS: DOXYCYCLINE HYCLATE 100 MG in IV DEXTROSE 5% 100ML 100 ML IV SCH ×2 (08:46→21:37)
[2021-03-01 09:03] LABS: BASE EXCESS ABG -3 mmol/L (-3-3); HCO3 ABG 22 mmol/L (21-28); PCO2 ABG 42 mmHg (35-46); PO2 ABG 60 mmHg (75-108); SAT O2 ABG 88 % (92-99)
[2021-03-01 09:06] LABS: FIO2 ABG 100% VENT
[2021-03-01] MEDS: INSULIN GLARGINE SYRINGE. SQ SCH ×2 (09:47→21:40)
--- NOTE | 2021-03-01 10:44 | PDOC ---
PULMONARY PROGRESS NOTES DATE: 03/01/21 TIME: 10:41 Subjective intubated 02/26/21 remains on vent support 100% and a PEEP of 9 Vitals Vital Signs Date Time Temp Pulse Resp B/P (MAP) Pulse Ox O2 Delivery O2 Flow Rate FiO2 03/01/21 10:00 78 24 115/65 (82) 97 Ventilator 03/01/21 09:00 98.7 98.7 02/28/21 16:48 25.0 Comments Visual exam done due to COVID-19. intubated no distress no rash or edema Labs Laboratory Tests Test 02/28/21 07:45 02/28/21 08:28 02/28/21 09:20 02/28/21 11:30 O2 Saturation 93 % (92-99) Arterial Blood pH 7.41 (7.35-7.45) Arterial Blood pCO2 at Patient Temp 36 mmHg (35-46) Arterial Blood pO2 at Patient Temp 70 mmHg (75-108) Arterial Blood HCO3 22 mmol/L (21-28) Arterial Blood Base Excess -2 mmol/L (-3-3) FiO2 100/vent Glucose (Fingerstick) 255 mg/dL (70-99) White Blood Count 9.6 x10^3/uL (4.0-11.0) Red Blood Count 3.48 x10^6/uL (4.30-5.70) Hemoglobin 11.6 g/dL (13.0-17.5) Hematocrit 34.6 % (39.0-53.0) Mean Corpuscular Volume 99 fL (79-100) Mean Corpuscular Hemoglobin 33 pg (25-35) Mean Corpuscular Hemoglobin Concent 34 g/dL (31-37) Red Cell Distribution Width 12.5 % (11.5-14.5) Platelet Count 185 x10^3/uL (140-400) Neutrophils (%) (Auto) 88 % (31-73) Lymphocytes (%) (Auto) 4 % (24-48) Monocytes (%) (Auto) 8 % (0-9) Eosinophils (%) (Auto) 0 % (0-3) Basophils (%) (Auto) 0 % (0-3) Neutrophils # (Auto) 8.4 x10^3/uL (1.8-7.7) Lymphocytes # (Auto) 0.4 x10^3/uL (1.0-4.8) Monocytes # (Auto) 0.7 x10^3/uL (0.0-1.1) Eosinophils # (Auto) 0.0 x10^3/uL (0.0-0.7) Basophils # (Auto) 0.0 x10^3/uL (0.0-0.2) Sodium Level 143 mmol/L (136-145) Potassium Level 4.3 mmol/L (3.5-5.1) Chloride Level 111 mmol/L (98-107) Carbon Dioxide Level 25 mmol/L (21-32) Anion Gap 7 (6-14) Blood Urea Nitrogen 19 mg/dL (8-26) Creatinine 0.9 mg/dL (0.7-1.3) Estimated GFR (Cockcroft-Gault) 106.0 Glucose Level 272 mg/dL (70-99) Hemoglobin A1c 5.5 % (4.8-5.6) Calcium Level 8.0 mg/dL (8.5-10.1) D-Dimer (Jacqueline) > 20.00 ug/mlFEU Test 02/28/21 13:27 03/01/21 00:33 03/01/21 05:50 03/01/21 06:04 Glucose (Fingerstick) 278 mg/dL (70-99) 209 mg/dL (70-99) 236 mg/dL (70-99) White Blood Count 11.9 x10^3/uL (4.0-11.0) Red Blood Count 3.63 x10^6/uL (4.30-5.70) Hemoglobin 11.9 g/dL (13.0-17.5) Hematocrit 36.4 % (39.0-53.0) Mean Corpuscular Volume 100 fL (79-100) Mean Corpuscular Hemoglobin 33 pg (25-35) Mean Corpuscular Hemoglobin Concent 33 g/dL (31-37) Red Cell Distribution Width 13.0 % (11.5-14.5) Platelet Count 197 x10^3/uL (140-400) Neutrophils (%) (Auto) 91 % (31-73) Lymphocytes (%) (Auto) 4 % (24-48) Monocytes (%) (Auto) 6 % (0-9) Eosinophils (%) (Auto) 0 % (0-3) Basophils (%) (Auto) 0 % (0-3) Neutrophils # (Auto) 10.8 x10^3/uL (1.8-7.7) Lymphocytes # (Auto) 0.4 x10^3/uL (1.0-4.8) Monocytes # (Auto) 0.7 x10^3/uL (0.0-1.1) Eosinophils # (Auto) 0.0 x10^3/uL (0.0-0.7) Basophils # (Auto) 0.0 x10^3/uL (0.0-0.2) Sodium Level 142 mmol/L (136-145) Potassium Level 4.3 mmol/L (3.5-5.1) Chloride Level 111 mmol/L (98-107) Carbon Dioxide Level 25 mmol/L (21-32) Anion Gap 6 (6-14) Blood Urea Nitrogen 16 mg/dL (8-26) Creatinine 0.9 mg/dL (0.7-1.3) Estimated GFR (Cockcroft-Gault) 106.0 Glucose Level 225 mg/dL (70-99) Calcium Level 7.8 mg/dL (8.5-10.1) Test 03/01/21 09:00 O2 Saturation 88 % (92-99) Arterial Blood pH 7.34 (7.35-7.45) Arterial Blood pCO2 at Patient Temp 42 mmHg (35-46) Arterial Blood pO2 at Patient Temp 60 mmHg (75-108) Arterial Blood HCO3 22 mmol/L (21-28) Arterial Blood Base Excess -3 mmol/L (-3-3) FiO2 100% vent Laboratory Tests Test 02/28/21 11:30 02/28/21 13:27 03/01/21 00:33 03/01/21 05:50 D-Dimer (Jacqueline) > 20.00 ug/mlFEU Glucose (Fingerstick) 278 mg/dL (70-99) 209 mg/dL (70-99) White Blood Count 11.9 x10^3/uL (4.0-11.0) Red Blood Count 3.63 x10^6/uL (4.30-5.70) Hemoglobin 11.9 g/dL (13.0-17.5) Hematocrit 36.4 % (39.0-53.0) Mean Corpuscular Volume 100 fL (79-100) Mean Corpuscular Hemoglobin 33 pg (25-35) Mean Corpuscular Hemoglobin Concent 33 g/dL (31-37) Red Cell Distribution Width 13.0 % (11.5-14.5) Platelet Count 197 x10^3/uL (140-400) Neutrophils (%) (Auto) 91 % (31-73) Lymphocytes (%) (Auto) 4 % (24-48) Monocytes (%) (Auto) 6 % (0-9) Eosinophils (%) (Auto) 0 % (0-3) Basophils (%) (Auto) 0 % (0-3) Neutrophils # (Auto) 10.8 x10^3/uL (1.8-7.7) Lymphocytes # (Auto) 0.4 x10^3/uL (1.0-4.8) Monocytes # (Auto) 0.7 x10^3/uL (0.0-1.1) Eosinophils # (Auto) 0.0 x10^3/uL (0.0-0.7) Basophils # (Auto) 0.0 x10^3/uL (0.0-0.2) Sodium Level 142 mmol/L (136-145) Potassium Level 4.3 mmol/L (3.5-5.1) Chloride Level 111 mmol/L (98-107) Carbon Dioxide Level 25 mmol/L (21-32) Anion Gap 6 (6-14) Blood Urea Nitrogen 16 mg/dL (8-26) Creatinine 0.9 mg/dL (0.7-1.3) Estimated GFR (Cockcroft-Gault) 106.0 Glucose Level 225 mg/dL (70-99) Calcium Level 7.8 mg/dL (8.5-10.1) Test 03/01/21 06:04 03/01/21 09:00 Glucose (Fingerstick) 236 mg/dL (70-99) O2 Saturation 88 % (92-99) Arterial Blood pH 7.34 (7.35-7.45) Arterial Blood pCO2 at Patient Temp 42 mmHg (35-46) Arterial Blood pO2 at Patient Temp 60 mmHg (75-108) Arterial Blood HCO3 22 mmol/L (21-28) Arterial Blood Base Excess -3 mmol/L (-3-3) FiO2 100% vent Medications Active Scripts Medications Dose Route/Sig Max Daily Dose Days Date Category [tylenol pm] 1 Tab PO HS 02/22/21 Reported Losartan Potassium 50 Mg Tablet 50 Mg PO HS 02/22/21 Reported Atorvastatin Calcium 20 Mg Tablet 20 Mg PO HS 02/22/21 Reported Omeprazole 40 Mg Capsule.dr Tubbs Cap PO PRN DAILY PRN 05/20/17 Reported Daily Vitamin Formula-Minerals (Multivitamin With Minerals) 1 Each Tablet 1 Each PO 01/06/17 Reported Atenolol 50 Mg Tablet 1 Tab PO DAILY 01/06/17 Reported Comments Chest x-ray reviewed dated 02/28/2021. Mild improvement in the left lower lobe infiltrate. Right lung relatively clear. Impression . 1. Acute hypoxic respiratory failure secondary to COVID-19 viral pneumonia/ARDS/acute lung injury.-, intubated 02/26/21. 2. Abnormal chest x-ray with faint bilateral interstitial infiltrates associated with COVID-19 pneumonia. Mild improvement seen on recent chest x-ray 3. COVID-19 positive. 4. No significant tobacco history. 5. Mild acute kidney injury.--improved 6. Abnormal liver function tests, likely related to COVID-19. Bilirubin 1.4. Plan . Updated 03/01/2021 Continue current vent support , currently 24// Patient's oxygen requirement remains marginal despite mild improvement in chest x-ray. Overall severity of hypoxia is out of proportion to the radiographic findings on chest x-ray. D-dimer is markedly elevated and is more than 20 from an admission of 1.0. The possibility of thromboembolic disease is a strong consideration. Unfortunately too unstable to do CT angiogram. Venous Dopplers are negative. I have ordered a bedside echocardiogram to assess her pulmonary artery pressure. I would empirically anticoagulate him for clinically suspected pulmonary embolism. Follow chest x-ray/ABG, make changes as needed S/P remdesivir Continue IV steroids for full 10-day course started 02/22/2021 Continue empiric antibiotics with Zosyn, doxycycline DVT/GI prophylaxis: Lovenox Continue tube feeding Patients mother was updated about his condition. Discussed with RN and RT Code care time 30 minutes Updated 02/28/2021 Continue current vent support , currently 24/500/100/9 Follow chest x-ray/ABG, make changes as needed S/P remdesivir Continue IV steroids for full 10-day course started 02/22/2021 Continue empiric antibiotics with Zosyn, doxycycline DVT/GI prophylaxis: Lovenox Continue tube feeding Chest x-ray reviewed. Clinically minimal infiltrates but the severity of hypoxia somewhat out of proportion to the radiographic findings. Will obtain D- dimer Discussed with RN and RT Code care time 30 minutes ANGELA CHILEL MD Mar 01, 2021 10:44
[2021-03-01] MEDS ORDERED: MINERAL OIL/PETROLATUM,WHITE OPHTH OINT 3.5GM TUBE. OU PRN (13:30)
[2021-03-01] MEDS: LOSARTAN POTASSIUM 50 MG TABLET. PO SCH (21:46)
[2021-03-02] VITALS (24 sets, daily range): BP systolic 75–167; BP diastolic 44–85
[2021-03-02] MEDS: INSULIN LISPRO 300 UNITS/3 ML VIAL. SQ SCH ×4 (00:10→17:48)
[2021-03-02] MEDS: DEXMEDETOMIDINE 400 MCG in IV NORMAL SALINE 100ML 96 ML IV PRN ×4 (00:46→18:37)
[2021-03-02] MEDS: PIPERACILLIN/TAZOBACTAM 3.375 GM in IV NORMAL SALINE 50ML 50 ML IV SCH ×4 (05:30→23:44)
[2021-03-02 06:39] LABS: BASO % 0 % (0-3); EOS # 0.1 x10^3/uL (0.0-0.7); EOS % 0 % (0-3); HEMOGLOBIN 13.1 g/dL (13.0-17.5); LYMPH # 0.6 x10^3/uL (1.0-4.8); LYMPH % 4 % (24-48); MEAN CORPUSCULAR HEMOGLOBIN 33 pg (25-35); MEAN CORPUSCULAR HGB CONC 33 g/dL (31-37); MEAN CORPUSCULAR VOLUME 101 fL (79-100); MONO # 0.7 x10^3/uL (0.0-1.1); MONO % 4 % (0-9); NEUT # 16.2 x10^3/uL (1.8-7.7); NEUT % 92 % (31-73); PLATELET COUNT 223 x10^3/uL (140-400); RED BLOOD COUNT 3.98 x10^6/uL (4.30-5.70); RED CELL DISTRIBUTION WIDTH 12.7 % (11.5-14.5); WHITE BLOOD COUNT 17.6 x10^3/uL (4.0-11.0)
[2021-03-02 06:41] LABS: CALCIUM 8.1 mg/dL (8.5-10.1); CREATININE 0.9 mg/dL (0.7-1.3); POTASSIUM 4.5 mmol/L (3.5-5.1)
[2021-03-02 07:53] LABS: BASE EXCESS ABG -3 mmol/L (-3-3); HCO3 ABG 24 mmol/L (21-28); PCO2 ABG 49 mmHg (35-46); SAT O2 ABG 78 % (92-99)
[2021-03-02 07:59] LABS: PO2 ABG 45 mmHg (75-108)
[2021-03-02 08:00] LABS: FIO2 ABG 100
[2021-03-02] MEDS: NORCURON - VECURONIUM 50 MG in IV NORMAL SALINE 50ML 50 ML IV PRN ×2 (08:01→18:36)
[2021-03-02 08:12] LABS: BASE EXCESS ABG -4 mmol/L (-3-3); HCO3 ABG 22 mmol/L (21-28); PCO2 ABG 44 mmHg (35-46); SAT O2 ABG 77 % (92-99)
[2021-03-02 08:15] LABS: PO2 ABG 44 mmHg (75-108)
--- NOTE | 2021-03-02 09:00 | PDOC ---
[employer] PROGRESS NOTE Date of Service DOS: DATE: 03/02/21 TIME: 08:56 Chief Complaint Chief Complaint Acute hypoxic respiratory failure COVID-19 pneumonia PJ due to vasomotor nephropathy Mild transaminitis Moderate protein malnutrition Morbid obesity History of hypertension Continue COVID-19 treatment protocol Continue IV Remdesivir Continue with empiric IV antibiotics Continue IV steroids Continue with Covid supplementation such as B1, vitamin C, vitamin D, zinc Heparin for DVT prophylaxis Full code DPOA [facility] History of Present Illness History of Present Illness The patient is a pleasant middle-aged male, well known to my service. Basically, he has been developing flu like symptoms over the past couple of weeks. He went to acute care center yesterday at [facility]. He was awaiting his test results for his COVID-19 testing, but today he just could not await he was getting too sick. We tested him here in the emergency room. He is positive. He has abnormal chest x-ray. We are going to admit the patient, place him on COVID protocol. 02/23/2021 No acute events overnight. Patient saturating 97% on 2 L nasal cannula. Patient currently on Remdesivir. Patient's chart, labs, images were reviewed and discussed with RN 02/24/2021 Patient seen and examine in bed. Patient Fi02 between 83%-92% on vapotherm and 100% non-rebreather. D/W RN, Chart Review Instructed patient to try to rest and conserve energy. 02/25/21 Patient seen and examined at the bedside. Currently requiring BiPAP. Vapotherm. Transferred to the ICU yesterday. Continue with Covid treatment. Plan of care discussed with bedside RN 02/26/2021: Afebrile. Intermittently breathing between BiPAP and Vapotherm. Continue empiric antibiotics and steroids. Last dose remdesivir today. Continue supportive care. 30 minutes critical care time spent reviewing charts, reviewing labs, reviewing imaging, discussion with RN. 02/27/2021: Afebrile. Still breathing on ventilator and FiO2 100%, PEEP 10. Continue IV steroids and IV antibiotics. He should continue IV steroids for total treatment of 10 days (last day 03/04/2021). Completed remdesivir. Continue supportive care. Critical care time 30 minutes spent reviewing charts, reviewing labs, reviewing imaging, and discussion with RN. 02/28/2021: Afebrile. On vent with FiO2 100%, PEEP 5. Some significant hyperglycemia noted today. Will obtain A1c and initiate insulin protocol. C ompleted remdesivir. Continue IVF biotics and IV steroids. Continue supportive care. Critical care time 30 minutes spent reviewing charts, reviewing labs, reviewing imaging, and discussion with RN. 03/01/2021: Afebrile. On vent with FiO2 100%, PEEP 9. Still with elevated blood sugars; HbA1c 5.5. Will initiate twice daily basal insulin. Completed remdesivir; continue IV antibiotics and steroids. Continue supportive care. Critical care time 30 minutes spent reviewing charts, reviewing labs, reviewing imaging, and discussion with RN. 03/02/2021: Afebrile. Remains on vent with FiO2 100%, PEEP 9. D-dimer >20. Discussed with Dr. Burrows, fully anticoagulate empirically and order echocardiogram to help with evaluation of PE. Has completed remdesivir. Continue IV antibiotics and steroids. Blood sugar slightly better controlled. Continue supportive care. Critical care time 30 minutes spent reviewing charts, reviewing labs, reviewing imaging, and discussion with RN. Vitals/I&O Vitals/I&O: Vital Signs Date Time Temp Pulse Resp B/P (MAP) Pulse Ox O2 Delivery O2 Flow Rate FiO2 03/02/21 07:47 87 Ventilator 03/02/21 07:00 97 24 167/80 (109) 03/02/21 04:00 98.6 98.6 03/02/21 02:53 25.0 I & O 03/01/21 03/01/21 03/02/21 14:59 22:59 06:59 Intake Total 450 ml 2840 ml 1295 ml Output Total 400 ml 625 ml 450 ml Balance 50 ml 2215 ml 845 ml Physical Exam General: Alert, Oriented X3, Cooperative, moderate distress Heart: Regular rate Lungs: Other (Increased work of breathing) Abdomen: Normal bowel sounds Extremities: No clubbing Skin: No rashes, No significant lesion Labs Labs: Laboratory Tests Test 03/01/21 09:00 03/01/21 11:58 03/01/21 15:58 03/02/21 00:08 O2 Saturation 88 % (92-99) Arterial Blood pH 7.34 (7.35-7.45) Arterial Blood pCO2 at Patient Temp 42 mmHg (35-46) Arterial Blood pO2 at Patient Temp 60 mmHg (75-108) Arterial Blood HCO3 22 mmol/L (21-28) Arterial Blood Base Excess -3 mmol/L (-3-3) FiO2 100% vent Glucose (Fingerstick) 212 mg/dL (70-99) 188 mg/dL (70-99) 178 mg/dL (70-99) Test 03/02/21 06:00 03/02/21 06:02 03/02/21 07:49 03/02/21 08:07 White Blood Count 17.6 x10^3/uL (4.0-11.0) Red Blood Count 3.98 x10^6/uL (4.30-5.70) Hemoglobin 13.1 g/dL (13.0-17.5) Hematocrit 40.0 % (39.0-53.0) Mean Corpuscular Volume 101 fL (79-100) Mean Corpuscular Hemoglobin 33 pg (25-35) Mean Corpuscular Hemoglobin Concent 33 g/dL (31-37) Red Cell Distribution Width 12.7 % (11.5-14.5) Platelet Count 223 x10^3/uL (140-400) Neutrophils (%) (Auto) 92 % (31-73) Lymphocytes (%) (Auto) 4 % (24-48) Monocytes (%) (Auto) 4 % (0-9) Eosinophils (%) (Auto) 0 % (0-3) Basophils (%) (Auto) 0 % (0-3) Neutrophils # (Auto) 16.2 x10^3/uL (1.8-7.7) Lymphocytes # (Auto) 0.6 x10^3/uL (1.0-4.8) Monocytes # (Auto) 0.7 x10^3/uL (0.0-1.1) Eosinophils # (Auto) 0.1 x10^3/uL (0.0-0.7) Basophils # (Auto) 0.0 x10^3/uL (0.0-0.2) Sodium Level 141 mmol/L (136-145) Potassium Level 4.5 mmol/L (3.5-5.1) Chloride Level 110 mmol/L (98-107) Carbon Dioxide Level 26 mmol/L (21-32) Anion Gap 5 (6-14) Blood Urea Nitrogen 20 mg/dL (8-26) Creatinine 0.9 mg/dL (0.7-1.3) Estimated GFR (Cockcroft-Gault) 106.0 Glucose Level 173 mg/dL (70-99) Calcium Level 8.1 mg/dL (8.5-10.1) C-Reactive Protein, Quantitative 67.1 mg/L (0-3.3) Triglycerides Level 62 mg/dL (0-150) Glucose (Fingerstick) 178 mg/dL (70-99) O2 Saturation 78 % (92-99) 77 % (92-99) Arterial Blood pH 7.30 (7.35-7.45) 7.32 (7.35-7.45) Arterial Blood pCO2 at Patient Temp 49 mmHg (35-46) 44 mmHg (35-46) Arterial Blood pO2 at Patient Temp 45 mmHg (75-108) 44 mmHg (75-108) Arterial Blood HCO3 24 mmol/L (21-28) 22 mmol/L (21-28) Arterial Blood Base Excess -3 mmol/L (-3-3) -4 mmol/L (-3-3) FiO2 100 100% vent Assessment and Plan Assessmemt and Plan Problems Medical Problems: (1) Hypoxia Status: Acute (2) Pneumonia due to COVID-19 virus Status: Acute Comment Review of Relevant I have reviewed the following items ashley (where applicable) has been applied. Medications: Current Medications Medications (Trade) Dose Ordered Sig/Radha Route PRN Reason Start Time Stop Time Status Last Admin Dose Admin Insulin Glargine (Lantus Syringe) 15 unit BID SQ 03/01/21 09:00 03/01/21 21:40 Enoxaparin Sodium (Lovenox 100mg Syringe) 100 mg 1X ONCE SQ 03/01/21 11:00 03/01/21 11:01 DC 03/01/21 11:47 Enoxaparin Sodium (Lovenox 150mg Syringe) 130 mg Q12HR SQ 03/01/21 21:00 03/01/21 21:38 Justifications for Admission Other Justification BRITTANY SIMONS MD Mar 02, 2021 08:59
[2021-03-02] MEDS: FAMOTIDINE 20 MG/2 ML VIAL IVP SCH ×2 (09:21→21:53)
[2021-03-02] MEDS: methylPREDNISolone SOD SUCC PF 40 MG/ML VIAL. IV SCH ×2 (09:21→21:54)
[2021-03-02] MEDS: MULTIVITAMINS,THERAPEUTIC 5 ML ORAL LIQUID. PEG SCH (09:22)
[2021-03-02] MEDS: ASPIRIN CHEWABLE 81 MG TABLET. PO SCH (09:22)
[2021-03-02] MEDS: DOXYCYCLINE HYCLATE 100 MG in IV DEXTROSE 5% 100ML 100 ML IV SCH ×2 (09:25→22:02)
[2021-03-02] MEDS: INSULIN GLARGINE SYRINGE. SQ SCH ×2 (09:26→21:55)
[2021-03-02] MEDS: MIDAZOLAM 100mg/100ml NS BAG 100 ML IV PRN ×2 (10:05→18:36)
--- NOTE | 2021-03-02 10:22 | RAD ---
XR CHEST 1V History: Reason: INCREASING OXYGEN DEMANDS / Spl. Instructions: / History: Comparison: February 28, 2021 Findings: Increased diffuse interstitial thickening with ill-defined opacities and consolidative appearance of the left mid to lower lung. Small left pleural effusion. Unchanged heart size. Stable right IJ centra l line and enteric tube. Stable endotracheal tube at the level the thoracic inlet. No pneumothorax. Impression: 1. Increased diffuse pulmonary opacities with interstitial thickening most prominent on the left. 2. Small left pleural effusion. 3. Stable endotracheal tube at the thoracic inlet. Consider advancement if indicated. Electronically signed by: Gerardo Moore DO (03/02/2021 10:20 AM) [id number]
--- NOTE | 2021-03-02 13:06 | CARD ---
MR#: [id number] Date of Study: 03/02/2021 Ordering Physician: ANGELA CHILEL, Referring Physician: Nicolasa ROSENBERG: Danial Crouch [facility] APPROVED REPORT EXAM: LIMITED Two-dimensional and M-mode echocardiogram with Doppler and color Doppler. Other Information Quality : FairHR: 99bpm Rhythm : NSR INDICATION Dyspnea Covid-19 Rule out pulmonary hypertension RISK FACTORS Obesity 2D DIMENSIONS Left Atrium(2D)3.5 (1.6-4.0cm)IVSd1.2 (0.7-1.1cm) Aortic Root(2D)3.3 (2.0-3.7cm)LVDd4.2 (3.9-5.9cm) LVOT Diameter1.8 (1.8-2.4cm)PWd1.2 (0.7-1.1cm) LVDs1.7 (2.5-4.0cm)FS (%) 59.4 % SV69.9 ml Pulmonary Valve PV Peak Zrruirho93.1cm/s Tricuspid Valve TR P. [id number] Peak Gr.46mmHg LEFT VENTRICLE The left ventricle is normal size. There is normal left ventricular wall thickness. The left ventricu lar systolic function is normal. LV ejection fraction is 55 to 60%. There is normal LV segmental wall motion. Diastolic function not assessed (Limited echo) No left ventricle thrombus noted on this stud y. There is no ventricular septal defect visualized. There is no left ventricular aneurysm. There is no mass noted in the left ventricle. RIGHT VENTRICLE The right ventricle is normal size. There is normal right ventricular wall thickness. The right ventr icular systolic function is normal. ATRIA The left atrium size is normal. The right atrium size is normal. The interatrial septum is intact wit h no evidence for an atrial septal defect or patent foramen ovale as noted on 2-D or Doppler imaging. AORTIC VALVE The aortic valve is normal in structure and function. Doppler and Color Flow revealed no significant aortic regurgitation. There is no significant aortic valvular stenosis. There is no aortic valvular v egetation. MITRAL VALVE The mitral valve is normal in structure and function. There is no evidence of mitral valve prolapse. There is no mitral valve stenosis. Doppler and Color Flow revealed no mitral valve regurgitation note d. TRICUSPID VALVE The tricuspid valve is normal in structure and function. Doppler and Color Flow revealed trace to mil d tricuspid regurgitation. The PA pressure was estimated at 50 mmHg. There is no tricuspid valve prol apse or vegetation. There is no tricuspid valve stenosis. PULMONIC VALVE The pulmonary valve is normal in structure and function. Doppler and Color Flow revealed no pulmonic valvular regurgitation. There is no pulmonic valvular stenosis. GREAT VESSELS The aortic root is normal in size. The ascending aorta is normal in size. The pulmonary artery is nor mal. The IVC is normal in size and collapses >50% with inspiration. PERICARDIAL EFFUSION There is no pleural effusion. There is no evidence of significant pericardial effusion. Critical Notification Critical Value: No <Conclusion> The left ventricle is normal size. The left ventricular systolic function is normal. LV ejection fraction is 55 to 60%. There is normal LV segmental wall motion. Doppler and Color Flow revealed no significant aortic regurgitation. There is no significant aortic valvular stenosis. Doppler and Color Flow revealed no mitral valve regurgitation noted. Doppler and Color Flow revealed trace to mild tricuspid regurgitation. The PA pressure was estimated at 50 mmHg. Signed by : Fortino Smith MD Electronically Approved : 03/02/2021 13:06:07
[2021-03-02] MEDS ORDERED: MINERAL OIL/PETROLATUM,WHITE OPHTH OINT 3.5GM TUBE. OU PRN (13:45)
--- NOTE | 2021-03-02 15:38 | NUR ---
SS following up with discharge planning. SS reviewed pt chart and discussed with pt RN. Pt is currently on the vent at 100%. COVID19 positive. Pt on IV Zosyn, IV Doxycycline, and IV Solu Medrol. Pt on Propofol, Vec, Versed, Fentanyl, and Precedex. Not stable. SS will continue to follow for discharge planning.
--- NOTE | 2021-03-02 19:07 | PDOC ---
PULMONARY PROGRESS NOTES DATE: 03/02/21 TIME: 19:07 Subjective intubated 02/26/21 remains on vent support 100% and a PEEP of 9 Vitals Vital Signs Date Time Temp Pulse Resp B/P (MAP) Pulse Ox O2 Delivery O2 Flow Rate FiO2 03/02/21 18:00 109 24 130/72 (91) 96 Ventilator 03/02/21 16:07 98.6 98.6 03/02/21 02:53 25.0 Comments Visual exam done due to COVID-19. intubated no distress no rash or edema Labs Laboratory Tests Test 03/01/21 00:33 03/01/21 05:50 03/01/21 06:04 03/01/21 09:00 Glucose (Fingerstick) 209 mg/dL (70-99) 236 mg/dL (70-99) White Blood Count 11.9 x10^3/uL (4.0-11.0) Red Blood Count 3.63 x10^6/uL (4.30-5.70) Hemoglobin 11.9 g/dL (13.0-17.5) Hematocrit 36.4 % (39.0-53.0) Mean Corpuscular Volume 100 fL (79-100) Mean Corpuscular Hemoglobin 33 pg (25-35) Mean Corpuscular Hemoglobin Concent 33 g/dL (31-37) Red Cell Distribution Width 13.0 % (11.5-14.5) Platelet Count 197 x10^3/uL (140-400) Neutrophils (%) (Auto) 91 % (31-73) Lymphocytes (%) (Auto) 4 % (24-48) Monocytes (%) (Auto) 6 % (0-9) Eosinophils (%) (Auto) 0 % (0-3) Basophils (%) (Auto) 0 % (0-3) Neutrophils # (Auto) 10.8 x10^3/uL (1.8-7.7) Lymphocytes # (Auto) 0.4 x10^3/uL (1.0-4.8) Monocytes # (Auto) 0.7 x10^3/uL (0.0-1.1) Eosinophils # (Auto) 0.0 x10^3/uL (0.0-0.7) Basophils # (Auto) 0.0 x10^3/uL (0.0-0.2) Sodium Level 142 mmol/L (136-145) Potassium Level 4.3 mmol/L (3.5-5.1) Chloride Level 111 mmol/L (98-107) Carbon Dioxide Level 25 mmol/L (21-32) Anion Gap 6 (6-14) Blood Urea Nitrogen 16 mg/dL (8-26) Creatinine 0.9 mg/dL (0.7-1.3) Estimated GFR (Cockcroft-Gault) 106.0 Glucose Level 225 mg/dL (70-99) Calcium Level 7.8 mg/dL (8.5-10.1) O2 Saturation 88 % (92-99) Arterial Blood pH 7.34 (7.35-7.45) Arterial Blood pCO2 at Patient Temp 42 mmHg (35-46) Arterial Blood pO2 at Patient Temp 60 mmHg (75-108) Arterial Blood HCO3 22 mmol/L (21-28) Arterial Blood Base Excess -3 mmol/L (-3-3) FiO2 100% vent Test 03/01/21 11:58 03/01/21 15:58 03/02/21 00:08 03/02/21 06:00 Glucose (Fingerstick) 212 mg/dL (70-99) 188 mg/dL (70-99) 178 mg/dL (70-99) White Blood Count 17.6 x10^3/uL (4.0-11.0) Red Blood Count 3.98 x10^6/uL (4.30-5.70) Hemoglobin 13.1 g/dL (13.0-17.5) Hematocrit 40.0 % (39.0-53.0) Mean Corpuscular Volume 101 fL (79-100) Mean Corpuscular Hemoglobin 33 pg (25-35) Mean Corpuscular Hemoglobin Concent 33 g/dL (31-37) Red Cell Distribution Width 12.7 % (11.5-14.5) Platelet Count 223 x10^3/uL (140-400) Neutrophils (%) (Auto) 92 % (31-73) Lymphocytes (%) (Auto) 4 % (24-48) Monocytes (%) (Auto) 4 % (0-9) Eosinophils (%) (Auto) 0 % (0-3) Basophils (%) (Auto) 0 % (0-3) Neutrophils # (Auto) 16.2 x10^3/uL (1.8-7.7) Lymphocytes # (Auto) 0.6 x10^3/uL (1.0-4.8) Monocytes # (Auto) 0.7 x10^3/uL (0.0-1.1) Eosinophils # (Auto) 0.1 x10^3/uL (0.0-0.7) Basophils # (Auto) 0.0 x10^3/uL (0.0-0.2) Sodium Level 141 mmol/L (136-145) Potassium Level 4.5 mmol/L (3.5-5.1) Chloride Level 110 mmol/L (98-107) Carbon Dioxide Level 26 mmol/L (21-32) Anion Gap 5 (6-14) Blood Urea Nitrogen 20 mg/dL (8-26) Creatinine 0.9 mg/dL (0.7-1.3) Estimated GFR (Cockcroft-Gault) 106.0 Glucose Level 173 mg/dL (70-99) Calcium Level 8.1 mg/dL (8.5-10.1) C-Reactive Protein, Quantitative 67.1 mg/L (0-3.3) Triglycerides Level 62 mg/dL (0-150) Test 03/02/21 06:02 03/02/21 07:49 03/02/21 08:07 03/02/21 12:26 Glucose (Fingerstick) 178 mg/dL (70-99) 213 mg/dL (70-99) O2 Saturation 78 % (92-99) 77 % (92-99) Arterial Blood pH 7.30 (7.35-7.45) 7.32 (7.35-7.45) Arterial Blood pCO2 at Patient Temp 49 mmHg (35-46) 44 mmHg (35-46) Arterial Blood pO2 at Patient Temp 45 mmHg (75-108) 44 mmHg (75-108) Arterial Blood HCO3 24 mmol/L (21-28) 22 mmol/L (21-28) Arterial Blood Base Excess -3 mmol/L (-3-3) -4 mmol/L (-3-3) FiO2 100 100% vent Test 03/02/21 17:37 Glucose (Fingerstick) 218 mg/dL (70-99) Laboratory Tests Test 03/02/21 00:08 03/02/21 06:00 03/02/21 06:02 03/02/21 07:49 Glucose (Fingerstick) 178 mg/dL (70-99) 178 mg/dL (70-99) White Blood Count 17.6 x10^3/uL (4.0-11.0) Red Blood Count 3.98 x10^6/uL (4.30-5.70) Hemoglobin 13.1 g/dL (13.0-17.5) Hematocrit 40.0 % (39.0-53.0) Mean Corpuscular Volume 101 fL (79-100) Mean Corpuscular Hemoglobin 33 pg (25-35) Mean Corpuscular Hemoglobin Concent 33 g/dL (31-37) Red Cell Distribution Width 12.7 % (11.5-14.5) Platelet Count 223 x10^3/uL (140-400) Neutrophils (%) (Auto) 92 % (31-73) Lymphocytes (%) (Auto) 4 % (24-48) Monocytes (%) (Auto) 4 % (0-9) Eosinophils (%) (Auto) 0 % (0-3) Basophils (%) (Auto) 0 % (0-3) Neutrophils # (Auto) 16.2 x10^3/uL (1.8-7.7) Lymphocytes # (Auto) 0.6 x10^3/uL (1.0-4.8) Monocytes # (Auto) 0.7 x10^3/uL (0.0-1.1) Eosinophils # (Auto) 0.1 x10^3/uL (0.0-0.7) Basophils # (Auto) 0.0 x10^3/uL (0.0-0.2) Sodium Level 141 mmol/L (136-145) Potassium Level 4.5 mmol/L (3.5-5.1) Chloride Level 110 mmol/L (98-107) Carbon Dioxide Level 26 mmol/L (21-32) Anion Gap 5 (6-14) Blood Urea Nitrogen 20 mg/dL (8-26) Creatinine 0.9 mg/dL (0.7-1.3) Estimated GFR (Cockcroft-Gault) 106.0 Glucose Level 173 mg/dL (70-99) Calcium Level 8.1 mg/dL (8.5-10.1) C-Reactive Protein, Quantitative 67.1 mg/L (0-3.3) Triglycerides Level 62 mg/dL (0-150) O2 Saturation 78 % (92-99) Arterial Blood pH 7.30 (7.35-7.45) Arterial Blood pCO2 at Patient Temp 49 mmHg (35-46) Arterial Blood pO2 at Patient Temp 45 mmHg (75-108) Arterial Blood HCO3 24 mmol/L (21-28) Arterial Blood Base Excess -3 mmol/L (-3-3) FiO2 100 Test 03/02/21 08:07 03/02/21 12:26 03/02/21 17:37 O2 Saturation 77 % (92-99) Arterial Blood pH 7.32 (7.35-7.45) Arterial Blood pCO2 at Patient Temp 44 mmHg (35-46) Arterial Blood pO2 at Patient Temp 44 mmHg (75-108) Arterial Blood HCO3 22 mmol/L (21-28) Arterial Blood Base Excess -4 mmol/L (-3-3) FiO2 100% vent Glucose (Fingerstick) 213 mg/dL (70-99) 218 mg/dL (70-99) Medications Active Scripts Medications Dose Route/Sig Max Daily Dose Days Date Category [tylenol pm] 1 Tab PO HS 02/22/21 Reported Losartan Potassium 50 Mg Tablet 50 Mg PO HS 02/22/21 Reported Atorvastatin Calcium 20 Mg Tablet 20 Mg PO HS 02/22/21 Reported Omeprazole 40 Mg Capsule.dr 1 Cap PO PRN DAILY PRN 05/20/17 Reported Daily Vitamin Formula-Minerals (Multivitamin With Minerals) 1 Each Tablet 1 Each PO 01/06/17 Reported Atenolol 50 Mg Tablet 1 Tab PO DAILY 01/06/17 Reported Comments Chest x-ray reviewed dated 02/28/2021. Mild improvement in the left lower lobe infiltrate. Right lung relatively clear. Impression . 1. Acute hypoxic respiratory failure secondary to COVID-19 viral pneumonia/ARDS/acute lung injury.-, intubated 02/26/21. 2. Abnormal chest x-ray with faint bilateral interstitial infiltrates associated with COVID-19 pneumonia. Mild improvement seen on recent chest x-ray 3. COVID-19 positive. 4. No significant tobacco history. 5. Mild acute kidney injury.--improved 6. Abnormal liver function tests, likely related to COVID-19. Bilirubin 1.4. Plan . Updated 03/02/2021 Continue current vent support , currently 24/500/100/9 Patient's oxygen requirement remains marginal despite mild improvement in chest x-ray. Overall severity of hypoxia is out of proportion to the radiographic findings on chest x-ray. D-dimer is markedly elevated and is more than 20 from an admission of 1.0. The possibility of thromboembolic disease is a strong consideration. Unfortunately too unstable to do CT angiogram. Venous Dopplers are negative. I have ordered a bedside echocardiogram to assess her pulmonary artery pressure. I would empirically anticoagulate him for clinically suspected pulmonary embolism. Follow chest x-ray/ABG, make changes as needed S/P remdesivir Continue IV steroids for full 10-day course started 02/22/2021 Continue empiric antibiotics with Zosyn, doxycycline DVT/GI prophylaxis: Lovenox Continue tube feeding Patients mother was updated about his condition. Discussed with RN and RT Code care time 30 minutes Updated 03/01/2021 Continue current vent support , currently 24/500/100/9 Follow chest x-ray/ABG, make changes as needed S/P remdesivir Continue IV steroids for full 10-day course started 02/22/2021 Continue empiric antibiotics with Zosyn, doxycycline DVT/GI prophylaxis: Lovenox Continue tube feeding Chest x-ray reviewed. Clinically minimal infiltrates but the severity of hypoxia somewhat out of proportion to the radiographic findings. Will obtain D- dimer Discussed with RN and RT Code care time 30 minutes ANGELA CHILEL MD Mar 02, 2021 19:07
[2021-03-02] MEDS: LOSARTAN POTASSIUM 50 MG TABLET. PO SCH (21:00)
[2021-03-03] VITALS (24 sets, daily range): BP systolic 118–189; BP diastolic 69–93
[2021-03-03] MEDS: INSULIN LISPRO 300 UNITS/3 ML VIAL. SQ SCH ×4 (00:31→17:26)
[2021-03-03] MEDS: PROPOFOL 100 ML IV PRN ×4 (03:06→23:45)
[2021-03-03] MEDS: DEXMEDETOMIDINE 400 MCG in IV NORMAL SALINE 100ML 96 ML IV PRN ×4 (03:16→23:35)
[2021-03-03] MEDS: MIDAZOLAM 100mg/100ml NS BAG 100 ML IV PRN ×2 (03:17→18:22)
[2021-03-03] MEDS: PIPERACILLIN/TAZOBACTAM 3.375 GM in IV NORMAL SALINE 50ML 50 ML IV SCH ×4 (05:40→23:33)
[2021-03-03 05:54] LABS: CALCIUM 7.9 mg/dL (8.5-10.1); CREATININE 0.9 mg/dL (0.7-1.3)
[2021-03-03 05:57] LABS: BASO % 0 % (0-3); EOS % 0 % (0-3); HEMATOCRIT 38.6 % (39.0-53.0); HEMOGLOBIN 12.5 g/dL (13.0-17.5); LYMPH # 0.4 x10^3/uL (1.0-4.8); LYMPH % 3 % (24-48); MEAN CORPUSCULAR HEMOGLOBIN 33 pg (25-35); MEAN CORPUSCULAR HGB CONC 32 g/dL (31-37); MEAN CORPUSCULAR VOLUME 101 fL (79-100); MONO # 0.5 x10^3/uL (0.0-1.1); MONO % 4 % (0-9); NEUT # 12.8 x10^3/uL (1.8-7.7); NEUT % 93 % (31-73); PLATELET COUNT 202 x10^3/uL (140-400); RED BLOOD COUNT 3.81 x10^6/uL (4.30-5.70); WHITE BLOOD COUNT 13.7 x10^3/uL (4.0-11.0)
--- NOTE | 2021-03-03 06:43 | PDOC ---
PULMONARY PROGRESS NOTES DATE: 03/03/21 TIME: 06:42 Subjective intubated 02/26/21 on vent sedated on prop versed fentanyl peep increased to 10 fi02 100% Vitals Vital Signs Date Time Temp Pulse Resp B/P (MAP) Pulse Ox O2 Delivery O2 Flow Rate FiO2 03/03/21 05:26 100 Ventilator 03/03/21 05:00 90 24 145/79 (101) 03/03/21 04:00 98.5 98.5 03/03/21 00:33 25.0 Comments Visual exam done due to COVID-19. intubated sedated nc at rrr no accessory muscle use abd obese no rash or edema Labs Laboratory Tests Test 03/01/21 09:00 03/01/21 11:58 03/01/21 15:58 03/02/21 00:08 O2 Saturation 88 % (92-99) Arterial Blood pH 7.34 (7.35-7.45) Arterial Blood pCO2 at Patient Temp 42 mmHg (35-46) Arterial Blood pO2 at Patient Temp 60 mmHg (75-108) Arterial Blood HCO3 22 mmol/L (21-28) Arterial Blood Base Excess -3 mmol/L (-3-3) FiO2 100% vent Glucose (Fingerstick) 212 mg/dL (70-99) 188 mg/dL (70-99) 178 mg/dL (70-99) Test 03/02/21 06:00 03/02/21 06:02 03/02/21 07:49 03/02/21 08:07 White Blood Count 17.6 x10^3/uL (4.0-11.0) Red Blood Count 3.98 x10^6/uL (4.30-5.70) Hemoglobin 13.1 g/dL (13.0-17.5) Hematocrit 40.0 % (39.0-53.0) Mean Corpuscular Volume 101 fL (79-100) Mean Corpuscular Hemoglobin 33 pg (25-35) Mean Corpuscular Hemoglobin Concent 33 g/dL (31-37) Red Cell Distribution Width 12.7 % (11.5-14.5) Platelet Count 223 x10^3/uL (140-400) Neutrophils (%) (Auto) 92 % (31-73) Lymphocytes (%) (Auto) 4 % (24-48) Monocytes (%) (Auto) 4 % (0-9) Eosinophils (%) (Auto) 0 % (0-3) Basophils (%) (Auto) 0 % (0-3) Neutrophils # (Auto) 16.2 x10^3/uL (1.8-7.7) Lymphocytes # (Auto) 0.6 x10^3/uL (1.0-4.8) Monocytes # (Auto) 0.7 x10^3/uL (0.0-1.1) Eosinophils # (Auto) 0.1 x10^3/uL (0.0-0.7) Basophils # (Auto) 0.0 x10^3/uL (0.0-0.2) Sodium Level 141 mmol/L (136-145) Potassium Level 4.5 mmol/L (3.5-5.1) Chloride Level 110 mmol/L (98-107) Carbon Dioxide Level 26 mmol/L (21-32) Anion Gap 5 (6-14) Blood Urea Nitrogen 20 mg/dL (8-26) Creatinine 0.9 mg/dL (0.7-1.3) Estimated GFR (Cockcroft-Gault) 106.0 Glucose Level 173 mg/dL (70-99) Calcium Level 8.1 mg/dL (8.5-10.1) C-Reactive Protein, Quantitative 67.1 mg/L (0-3.3) Triglycerides Level 62 mg/dL (0-150) Glucose (Fingerstick) 178 mg/dL (70-99) O2 Saturation 78 % (92-99) 77 % (92-99) Arterial Blood pH 7.30 (7.35-7.45) 7.32 (7.35-7.45) Arterial Blood pCO2 at Patient Temp 49 mmHg (35-46) 44 mmHg (35-46) Arterial Blood pO2 at Patient Temp 45 mmHg (75-108) 44 mmHg (75-108) Arterial Blood HCO3 24 mmol/L (21-28) 22 mmol/L (21-28) Arterial Blood Base Excess -3 mmol/L (-3-3) -4 mmol/L (-3-3) FiO2 100 100% vent Test 03/02/21 12:26 03/02/21 17:37 03/03/21 00:25 03/03/21 05:03 Glucose (Fingerstick) 213 mg/dL (70-99) 218 mg/dL (70-99) 225 mg/dL (70-99) 231 mg/dL (70-99) Test 03/03/21 05:05 White Blood Count 13.7 x10^3/uL (4.0-11.0) Red Blood Count 3.81 x10^6/uL (4.30-5.70) Hemoglobin 12.5 g/dL (13.0-17.5) Hematocrit 38.6 % (39.0-53.0) Mean Corpuscular Volume 101 fL (79-100) Mean Corpuscular Hemoglobin 33 pg (25-35) Mean Corpuscular Hemoglobin Concent 32 g/dL (31-37) Red Cell Distribution Width 13.0 % (11.5-14.5) Platelet Count 202 x10^3/uL (140-400) Neutrophils (%) (Auto) 93 % (31-73) Lymphocytes (%) (Auto) 3 % (24-48) Monocytes (%) (Auto) 4 % (0-9) Eosinophils (%) (Auto) 0 % (0-3) Basophils (%) (Auto) 0 % (0-3) Neutrophils # (Auto) 12.8 x10^3/uL (1.8-7.7) Lymphocytes # (Auto) 0.4 x10^3/uL (1.0-4.8) Monocytes # (Auto) 0.5 x10^3/uL (0.0-1.1) Eosinophils # (Auto) 0.0 x10^3/uL (0.0-0.7) Basophils # (Auto) 0.0 x10^3/uL (0.0-0.2) Sodium Level 142 mmol/L (136-145) Potassium Level 5.0 mmol/L (3.5-5.1) Chloride Level 110 mmol/L (98-107) Carbon Dioxide Level 28 mmol/L (21-32) Anion Gap 4 (6-14) Blood Urea Nitrogen 22 mg/dL (8-26) Creatinine 0.9 mg/dL (0.7-1.3) Estimated GFR (Cockcroft-Gault) 106.0 Glucose Level 240 mg/dL (70-99) Calcium Level 7.9 mg/dL (8.5-10.1) Laboratory Tests Test 03/02/21 07:49 03/02/21 08:07 03/02/21 12:26 03/02/21 17:37 O2 Saturation 78 % (92-99) 77 % (92-99) Arterial Blood pH 7.30 (7.35-7.45) 7.32 (7.35-7.45) Arterial Blood pCO2 at Patient Temp 49 mmHg (35-46) 44 mmHg (35-46) Arterial Blood pO2 at Patient Temp 45 mmHg (75-108) 44 mmHg (75-108) Arterial Blood HCO3 24 mmol/L (21-28) 22 mmol/L (21-28) Arterial Blood Base Excess -3 mmol/L (-3-3) -4 mmol/L (-3-3) FiO2 100 100% vent Glucose (Fingerstick) 213 mg/dL (70-99) 218 mg/dL (70-99) Test 03/03/21 00:25 03/03/21 05:03 03/03/21 05:05 Glucose (Fingerstick) 225 mg/dL (70-99) 231 mg/dL (70-99) White Blood Count 13.7 x10^3/uL (4.0-11.0) Red Blood Count 3.81 x10^6/uL (4.30-5.70) Hemoglobin 12.5 g/dL (13.0-17.5) Hematocrit 38.6 % (39.0-53.0) Mean Corpuscular Volume 101 fL (79-100) Mean Corpuscular Hemoglobin 33 pg (25-35) Mean Corpuscular Hemoglobin Concent 32 g/dL (31-37) Red Cell Distribution Width 13.0 % (11.5-14.5) Platelet Count 202 x10^3/uL (140-400) Neutrophils (%) (Auto) 93 % (31-73) Lymphocytes (%) (Auto) 3 % (24-48) Monocytes (%) (Auto) 4 % (0-9) Eosinophils (%) (Auto) 0 % (0-3) Basophils (%) (Auto) 0 % (0-3) Neutrophils # (Auto) 12.8 x10^3/uL (1.8-7.7) Lymphocytes # (Auto) 0.4 x10^3/uL (1.0-4.8) Monocytes # (Auto) 0.5 x10^3/uL (0.0-1.1) Eosinophils # (Auto) 0.0 x10^3/uL (0.0-0.7) Basophils # (Auto) 0.0 x10^3/uL (0.0-0.2) Sodium Level 142 mmol/L (136-145) Potassium Level 5.0 mmol/L (3.5-5.1) Chloride Level 110 mmol/L (98-107) Carbon Dioxide Level 28 mmol/L (21-32) Anion Gap 4 (6-14) Blood Urea Nitrogen 22 mg/dL (8-26) Creatinine 0.9 mg/dL (0.7-1.3) Estimated GFR (Cockcroft-Gault) 106.0 Glucose Level 240 mg/dL (70-99) Calcium Level 7.9 mg/dL (8.5-10.1) Medications Active Scripts Medications Dose Route/Sig Max Daily Dose Days Date Category [tylenol pm] 1 Tab PO HS 02/22/21 Reported Losartan Potassium 50 Mg Tablet 50 Mg PO HS 02/22/21 Reported Atorvastatin Calcium 20 Mg Tablet 20 Mg PO HS 02/22/21 Reported Omeprazole 40 Mg Capsule.dr 1 Cap PO PRN DAILY PRN 05/20/17 Reported Daily Vitamin Formula-Minerals (Multivitamin With Minerals) 1 Each Tablet 1 Each PO 01/06/17 Reported Atenolol 50 Mg Tablet 1 Tab PO DAILY 01/06/17 Reported Comments cxr reviewed, 03/02 1. Increased diffuse pulmonary opacities with interstitial thickening most prominent on the left. 2. Small left pleural effusion. 3. Stable endotracheal tube at the thoracic inlet. Consider advancement if indicated. Chest x-ray reviewed dated 02/28/2021. Mild improvement in the left lower lobe infiltrate. Right lung relatively clear. Impression . 1. Acute hypoxic respiratory failure secondary to COVID-19 viral pneumonia/ARDS/acute lung injury.-, intubated 02/26/21. 2. Abnormal chest x-ray with faint bilateral interstitial infiltrates associated with COVID-19 pneumonia. Mild improvement seen on recent chest x-ray 3. COVID-19 positive. 4. No significant tobacco history. 5. Mild acute kidney injury.--improved 6. Abnormal liver function tests, likely related to COVID-19. Bilirubin 1.4. Plan . Updated 03/03/2021 Continue current vent support , currently 24/500/100/10 titrate fio2/peep as tolearted cxr reviewed worse I>>>O lasix 20 mg iv now D-dimer is markedly elevated and is more than 20 from an admission of 1.0. The possibility of thromboembolic disease is a strong consideration. Unfortunately too unstable to do CT angiogram. Venous Dopplers are negative. I have ordered a bedside echocardiogram to assess her pulmonary artery pressure. empirically anticoagulate him for clinically suspected pulmonary embolism. monitor h/h closely ABG reviewed, increase peep to 12 make changes as needed S/P remdesivir Continue IV steroids for full 10-day course started 02/22/2021 Continue empiric antibiotics with Zosyn, doxycycline DVT/GI prophylaxis: Lovenox Continue tube feeding Patients mother was updated about his condition. Discussed with RN and RT Updated 03/01/2021 Continue current vent support , currently 24/500/100/9 Patient's oxygen requirement remains marginal despite mild improvement in chest x-ray. Overall severity of hypoxia is out of proportion to the radiographic findings on chest x-ray. D-dimer is markedly elevated and is more than 20 from an admission of 1.0. The possibility of thromboembolic disease is a strong consideration. Unfortunately too unstable to do CT angiogram. Venous Dopplers are negative. I have ordered a bedside echocardiogram to assess her pulmonary artery pressure. I would empirically anticoagulate him for clinically suspected pulmonary embolism. Follow chest x-ray/ABG, make changes as needed S/P remdesivir Continue IV steroids for full 10-day course started 02/22/2021 Continue empiric antibiotics with Zosyn, doxycycline DVT/GI prophylaxis: Lovenox Continue tube feeding Patients mother was updated about his condition. Discussed with RN and RT Code care time 30 minutes Updated 02/28/2021 Continue current vent support , currently 24/500/100/9 Follow chest x-ray/ABG, make changes as needed S/P remdesivir Continue IV steroids for full 10-day course started 02/22/2021 Continue empiric antibiotics with Zosyn, doxycycline DVT/GI prophylaxis: Lovenox Continue tube feeding Chest x-ray reviewed. Clinically minimal infiltrates but the severity of hypoxia somewhat out of proportion to the radiographic findings. Will obtain D- dimer Discussed with RN and RT Code care time 30 minutes LAKHWINDER GILLETTE MD Mar 03, 2021 06:43
[2021-03-03 08:25] LABS: BASE EXCESS ABG 0 mmol/L (-3-3); HCO3 ABG 26 mmol/L (21-28); PCO2 ABG 43 mmHg (35-46); PO2 ABG 52 mmHg (75-108); SAT O2 ABG 86 % (92-99)
[2021-03-03 08:27] LABS: FIO2 ABG 100
[2021-03-03] MEDS: methylPREDNISolone SOD SUCC PF 40 MG/ML VIAL. IV SCH ×2 (08:31→20:38)
[2021-03-03] MEDS: MULTIVITAMINS,THERAPEUTIC 5 ML ORAL LIQUID. PEG SCH (08:31)
[2021-03-03] MEDS: ASPIRIN CHEWABLE 81 MG TABLET. PO SCH (08:31)
[2021-03-03] MEDS: FAMOTIDINE 20 MG/2 ML VIAL IVP SCH ×2 (08:32→20:39)
[2021-03-03] MEDS: INSULIN GLARGINE SYRINGE. SQ SCH ×2 (08:33→20:40)
[2021-03-03] MEDS: DOXYCYCLINE HYCLATE 100 MG in IV DEXTROSE 5% 100ML 100 ML IV SCH ×2 (08:33→20:37)
--- NOTE | 2021-03-03 10:15 | PDOC ---
[employer] PROGRESS NOTE Date of Service DOS: DATE: 03/03/21 TIME: 10:09 Chief Complaint Chief Complaint Acute hypoxic respiratory failure COVID-19 pneumonia PJ due to vasomotor nephropathy Mild transaminitis Moderate protein malnutrition Morbid obesity History of hypertension Continue COVID-19 treatment protocol Continue IV Remdesivir Continue with empiric IV antibiotics Continue IV steroids Continue with Covid supplementation such as B1, vitamin C, vitamin D, zinc Heparin for DVT prophylaxis Full code DPOA [facility] History of Present Illness History of Present Illness The patient is a pleasant middle-aged male, well known to my service. Basically, he has been developing flu like symptoms over the past couple of weeks. He went to acute care center yesterday at [facility]. He was awaiting his test results for his COVID-19 testing, but today he just could not await he was getting too sick. We tested him here in the emergency room. He is positive. He has abnormal chest x-ray. We are going to admit the patient, place him on COVID protocol. 02/23/2021 No acute events overnight. Patient saturating 97% on 2 L nasal cannula. Patient currently on Remdesivir. Patient's chart, labs, images were reviewed and discussed with RN 02/24/2021 Patient seen and examine in bed. Patient Fi02 between 83%-92% on vapotherm and 100% non-rebreather. D/W RN, Chart Review Instructed patient to try to rest and conserve energy. 02/25/21 Patient seen and examined at the bedside. Currently requiring BiPAP. Vapotherm. Transferred to the ICU yesterday. Continue with Covid treatment. Plan of care discussed with bedside RN 02/26/2021: Afebrile. Intermittently breathing between BiPAP and Vapotherm. Continue empiric antibiotics and steroids. Last dose remdesivir today. Continue supportive care. 30 minutes critical care time spent reviewing charts, reviewing labs, reviewing imaging, discussion with RN. 02/27/2021: Afebrile. Still breathing on ventilator and FiO2 100%, PEEP 10. Continue IV steroids and IV antibiotics. He should continue IV steroids for total treatment of 10 days (last day 03/04/2021). Completed remdesivir. Continue supportive care. Critical care time 30 minutes spent reviewing charts, reviewing labs, reviewing imaging, and discussion with RN. 02/28/2021: Afebrile. On vent with FiO2 100%, PEEP 5. Some significant hyperglycemia noted today. Will obtain A1c and initiate insulin protocol. C ompleted remdesivir. Continue IVF biotics and IV steroids. Continue supportive care. Critical care time 30 minutes spent reviewing charts, reviewing labs, reviewing imaging, and discussion with RN. 03/01/2021: Afebrile. On vent with FiO2 100%, PEEP 9. Still with elevated blood sugars; HbA1c 5.5. Will initiate twice daily basal insulin. Completed remdesivir; continue IV antibiotics and steroids. Continue supportive care. Critical care time 30 minutes spent reviewing charts, reviewing labs, reviewing imaging, and discussion with RN. 03/02/2021: Afebrile. Remains on vent with FiO2 100%, PEEP 9. D-dimer >20. Discussed with Dr. Burrows, fully anticoagulate empirically and order echocardiogram to help with evaluation of PE. Has completed remdesivir. Continue IV antibiotics and steroids. Blood sugar slightly better controlled. Continue supportive care. Critical care time 30 minutes spent reviewing charts, reviewing labs, reviewing imaging, and discussion with RN. 03/03/2021: Afebrile. On vent with FiO2 1%, PEEP 10. Echo was obtained due to elevated D-dimer >20, that showed PAP estimated at 50 mmHg. Concerning for PE; will continue full anticoagulation with Lovenox. Has completed remdesivir. Continue IV antibiotics and steroids. Blood sugar slightly better controlled. Continue supportive care. Critical care time 30 minutes spent reviewing charts, reviewing labs, reviewing imaging, and discussion with RN. Vitals/I&O Vitals/I&O: Vital Signs Date Time Temp Pulse Resp B/P (MAP) Pulse Ox O2 Delivery O2 Flow Rate FiO2 03/03/21 10:01 80 24 118/76 (90) 100 Ventilator 03/03/21 08:00 98.4 98.4 03/03/21 01:03 25.0 I & O 03/02/21 03/02/21 03/03/21 15:00 23:00 07:00 Intake Total 380 ml 1119 ml 2497.0 ml Output Total 650 ml 525 ml 620 ml Balance -270 ml 594 ml 1877.0 ml Physical Exam Physical Exam: Visual exam performed under COVID-19 pandemic General: Alert, Oriented X3, Cooperative, moderate distress Heart: Regular rate Lungs: Other (Increased work of breathing) Abdomen: Normal bowel sounds Extremities: No clubbing Skin: No rashes, No significant lesion Labs Labs: Laboratory Tests Test 03/02/21 12:26 03/02/21 17:37 03/03/21 00:25 03/03/21 05:03 Glucose (Fingerstick) 213 mg/dL (70-99) 218 mg/dL (70-99) 225 mg/dL (70-99) 231 mg/dL (70-99) Test 03/03/21 05:05 03/03/21 07:55 White Blood Count 13.7 x10^3/uL (4.0-11.0) Red Blood Count 3.81 x10^6/uL (4.30-5.70) Hemoglobin 12.5 g/dL (13.0-17.5) Hematocrit 38.6 % (39.0-53.0) Mean Corpuscular Volume 101 fL (79-100) Mean Corpuscular Hemoglobin 33 pg (25-35) Mean Corpuscular Hemoglobin Concent 32 g/dL (31-37) Red Cell Distribution Width 13.0 % (11.5-14.5) Platelet Count 202 x10^3/uL (140-400) Neutrophils (%) (Auto) 93 % (31-73) Lymphocytes (%) (Auto) 3 % (24-48) Monocytes (%) (Auto) 4 % (0-9) Eosinophils (%) (Auto) 0 % (0-3) Basophils (%) (Auto) 0 % (0-3) Neutrophils # (Auto) 12.8 x10^3/uL (1.8-7.7) Lymphocytes # (Auto) 0.4 x10^3/uL (1.0-4.8) Monocytes # (Auto) 0.5 x10^3/uL (0.0-1.1) Eosinophils # (Auto) 0.0 x10^3/uL (0.0-0.7) Basophils # (Auto) 0.0 x10^3/uL (0.0-0.2) Sodium Level 142 mmol/L (136-145) Potassium Level 5.0 mmol/L (3.5-5.1) Chloride Level 110 mmol/L (98-107) Carbon Dioxide Level 28 mmol/L (21-32) Anion Gap 4 (6-14) Blood Urea Nitrogen 22 mg/dL (8-26) Creatinine 0.9 mg/dL (0.7-1.3) Estimated GFR (Cockcroft-Gault) 106.0 Glucose Level 240 mg/dL (70-99) Calcium Level 7.9 mg/dL (8.5-10.1) O2 Saturation 86 % (92-99) Arterial Blood pH 7.39 (7.35-7.45) Arterial Blood pCO2 at Patient Temp 43 mmHg (35-46) Arterial Blood pO2 at Patient Temp 52 mmHg (75-108) Arterial Blood HCO3 26 mmol/L (21-28) Arterial Blood Base Excess 0 mmol/L (-3-3) FiO2 100 Assessment and Plan Assessmemt and Plan Problems Medical Problems: (1) Hypoxia Status: Acute (2) Pneumonia due to COVID-19 virus Status: Acute Comment Review of Relevant I have reviewed the following items ashley (where applicable) has been applied. Justifications for Admission Other Justification BRITTANY SIMONS MD Mar 03, 2021 10:15
[2021-03-03] MEDS ORDERED: FUROSEMIDE 20 MG/2 ML VIAL. IVP ONE (12:15)
[2021-03-03] MEDS: NORCURON - VECURONIUM 50 MG in IV NORMAL SALINE 50ML 50 ML IV PRN (12:27)
[2021-03-03] MEDS: LOSARTAN POTASSIUM 50 MG TABLET. PO SCH (20:13)
[2021-03-04] VITALS (24 sets, daily range): BP systolic 101–144; BP diastolic 60–80
[2021-03-04] MEDS: INSULIN LISPRO 300 UNITS/3 ML VIAL. SQ SCH ×5 (00:45→23:50)
[2021-03-04] MEDS: DEXMEDETOMIDINE 400 MCG in IV NORMAL SALINE 100ML 96 ML IV PRN ×6 (02:35→22:40)
[2021-03-04] MEDS: NORCURON - VECURONIUM 50 MG in IV NORMAL SALINE 50ML 50 ML IV PRN ×3 (03:42→16:45)
[2021-03-04] MEDS: MIDAZOLAM 100mg/100ml NS BAG 100 ML IV PRN ×2 (03:44→16:44)
[2021-03-04] MEDS: PROPOFOL 100 ML IV PRN ×4 (05:05→22:43)
[2021-03-04] MEDS: PIPERACILLIN/TAZOBACTAM 3.375 GM in IV NORMAL SALINE 50ML 50 ML IV SCH ×4 (05:07→23:40)
--- NOTE | 2021-03-04 06:17 | PDOC ---
PULMONARY PROGRESS NOTES DATE: 03/04/21 TIME: 06:14 Subjective intubated 02/26/21 on vent sedated on prop versed fentanyl vec gtt peep increased to 12 fi02 100% small ett secretion Vitals Vital Signs Date Time Temp Pulse Resp B/P (MAP) Pulse Ox O2 Delivery O2 Flow Rate FiO2 03/04/21 06:00 82 24 123/77 (92) 88 Ventilator 03/04/21 04:00 98.7 98.7 03/03/21 20:02 25.0 Comments Visual exam done due to COVID-19. intubated sedated nc at rrr no accessory muscle use abd obese no rash or edema Lungs: Other (Increased work of breathing) Labs Laboratory Tests Test 03/02/21 07:49 03/02/21 08:07 03/02/21 12:26 03/02/21 17:37 O2 Saturation 78 % (92-99) 77 % (92-99) Arterial Blood pH 7.30 (7.35-7.45) 7.32 (7.35-7.45) Arterial Blood pCO2 at Patient Temp 49 mmHg (35-46) 44 mmHg (35-46) Arterial Blood pO2 at Patient Temp 45 mmHg (75-108) 44 mmHg (75-108) Arterial Blood HCO3 24 mmol/L (21-28) 22 mmol/L (21-28) Arterial Blood Base Excess -3 mmol/L (-3-3) -4 mmol/L (-3-3) FiO2 100 100% vent Glucose (Fingerstick) 213 mg/dL (70-99) 218 mg/dL (70-99) Test 03/03/21 00:25 03/03/21 05:03 03/03/21 05:05 03/03/21 07:55 Glucose (Fingerstick) 225 mg/dL (70-99) 231 mg/dL (70-99) White Blood Count 13.7 x10^3/uL (4.0-11.0) Red Blood Count 3.81 x10^6/uL (4.30-5.70) Hemoglobin 12.5 g/dL (13.0-17.5) Hematocrit 38.6 % (39.0-53.0) Mean Corpuscular Volume 101 fL (79-100) Mean Corpuscular Hemoglobin 33 pg (25-35) Mean Corpuscular Hemoglobin Concent 32 g/dL (31-37) Red Cell Distribution Width 13.0 % (11.5-14.5) Platelet Count 202 x10^3/uL (140-400) Neutrophils (%) (Auto) 93 % (31-73) Lymphocytes (%) (Auto) 3 % (24-48) Monocytes (%) (Auto) 4 % (0-9) Eosinophils (%) (Auto) 0 % (0-3) Basophils (%) (Auto) 0 % (0-3) Neutrophils # (Auto) 12.8 x10^3/uL (1.8-7.7) Lymphocytes # (Auto) 0.4 x10^3/uL (1.0-4.8) Monocytes # (Auto) 0.5 x10^3/uL (0.0-1.1) Eosinophils # (Auto) 0.0 x10^3/uL (0.0-0.7) Basophils # (Auto) 0.0 x10^3/uL (0.0-0.2) Sodium Level 142 mmol/L (136-145) Potassium Level 5.0 mmol/L (3.5-5.1) Chloride Level 110 mmol/L (98-107) Carbon Dioxide Level 28 mmol/L (21-32) Anion Gap 4 (6-14) Blood Urea Nitrogen 22 mg/dL (8-26) Creatinine 0.9 mg/dL (0.7-1.3) Estimated GFR (Cockcroft-Gault) 106.0 Glucose Level 240 mg/dL (70-99) Calcium Level 7.9 mg/dL (8.5-10.1) O2 Saturation 86 % (92-99) Arterial Blood pH 7.39 (7.35-7.45) Arterial Blood pCO2 at Patient Temp 43 mmHg (35-46) Arterial Blood pO2 at Patient Temp 52 mmHg (75-108) Arterial Blood HCO3 26 mmol/L (21-28) Arterial Blood Base Excess 0 mmol/L (-3-3) FiO2 100 Test 03/03/21 12:17 03/03/21 17:24 03/04/21 00:34 03/04/21 06:09 Glucose (Fingerstick) 197 mg/dL (70-99) 208 mg/dL (70-99) 180 mg/dL (70-99) 172 mg/dL (70-99) Laboratory Tests Test 03/03/21 07:55 03/03/21 12:17 03/03/21 17:24 03/04/21 00:34 O2 Saturation 86 % (92-99) Arterial Blood pH 7.39 (7.35-7.45) Arterial Blood pCO2 at Patient Temp 43 mmHg (35-46) Arterial Blood pO2 at Patient Temp 52 mmHg (75-108) Arterial Blood HCO3 26 mmol/L (21-28) Arterial Blood Base Excess 0 mmol/L (-3-3) FiO2 100 Glucose (Fingerstick) 197 mg/dL (70-99) 208 mg/dL (70-99) 180 mg/dL (70-99) Test 03/04/21 06:09 Glucose (Fingerstick) 172 mg/dL (70-99) Medications Active Scripts Medications Dose Route/Sig Max Daily Dose Days Date Category [tylenol pm] 1 Tab PO HS 02/22/21 Reported Losartan Potassium 50 Mg Tablet 50 Mg PO HS 02/22/21 Reported Atorvastatin Calcium 20 Mg Tablet 20 Mg PO HS 02/22/21 Reported Omeprazole 40 Mg Capsule. 1 Cap PO PRN DAILY PRN 05/20/17 Reported Daily Vitamin Formula-Minerals (Multivitamin With Minerals) 1 Each Tablet 1 Each PO 01/06/17 Reported Atenolol 50 Mg Tablet 1 Tab PO DAILY 01/06/17 Reported Comments cxr reviewed, 03/02 1. Increased diffuse pulmonary opacities with interstitial thickening most p rominent on the left. 2. Small left pleural effusion. 3. Stable endotracheal tube at the thoracic inlet. Consider advancement if indicated. Chest x-ray reviewed dated 02/28/2021. Mild improvement in the left lower lobe infiltrate. Right lung relatively clear. Impression . 1. Acute hypoxic respiratory failure secondary to COVID-19 viral pneumonia/ARDS/acute lung injury.-, intubated 02/26/21. 2. Abnormal chest x-ray with faint bilateral interstitial infiltrates associated with COVID-19 pneumonia. Mild improvement seen on recent chest x-ray 3. COVID-19 positive. 4. No significant tobacco history. 5. Mild acute kidney injury.--improved 6. Abnormal liver function tests, likely related to COVID-19. Bilirubin 1.4. Plan . Updated 03/04/2021 Continue current vent support , currently 24/500/100/12 titrate fio2/peep as tolearted desated again will increase peep to 14 stat pcxr I>>>O lasix 40 mg iv now 03/03 cxr worse D-dimer is markedly elevated and is more than 20 from an admission of 1.0. The possibility of thromboembolic disease is a strong consideration. Unfortunately too unstable to do CT angiogram. Venous Dopplers are negative. limited echocardiogram reviewed . empirically anticoagulate him for clinically suspected pulmonary embolism. monitor h/h closely ABG reviewed, make changes as needed S/P remdesivir oxygeation worse increase solumedrol to 40 q 8hrs full 10-day course started 02/22/2021 Continue empiric antibiotics DVT/GI prophylaxis: Lovenox Continue tube feeding Patients mother was updated about his condition. Discussed with RN and RT critically ill cc time 30 min no overlap Updated 03/01/2021 Continue current vent support , currently 24/500/100/9 Patient's oxygen requirement remains marginal despite mild improvement in chest x-ray. Overall severity of hypoxia is out of proportion to the radiographic findings on chest x-ray. D-dimer is markedly elevated and is more than 20 from an admission of 1.0. The possibility of thromboembolic disease is a strong consideration. Unfortunately too unstable to do CT angiogram. Venous Dopplers are negative. I have ordered a bedside echocardiogram to assess her pulmonary artery pressure. I would empirically anticoagulate him for clinically suspected pulmonary embolism. Follow chest x-ray/ABG, make changes as needed S/P remdesivir Continue IV steroids for full 10-day course started 02/22/2021 Continue empiric antibiotics with Zosyn, doxycycline DVT/GI prophylaxis: Lovenox Continue tube feeding Patients mother was updated about his condition. Discussed with RN and RT Code care time 30 minutes Updated 02/28/2021 Continue current vent support , currently 24/500/100/9 Follow chest x-ray/ABG, make changes as needed S/P remdesivir Continue IV steroids for full 10-day course started 02/22/2021 Continue empiric antibiotics with Zosyn, doxycycline DVT/GI prophylaxis: Lovenox Continue tube feeding Chest x-ray reviewed. Clinically minimal infiltrates but the severity of hypoxia somewhat out of proportion to the radiographic findings. Will obtain D- dimer Discussed with RN and RT Code care time 30 minutes LAKHWINDER GILLETTE MD Mar 04, 2021 06:17
[2021-03-04] MEDS ORDERED: FUROSEMIDE 20 MG/2 ML VIAL. IVP ONE ×2 (06:30→10:30)
[2021-03-04] MEDS: FAMOTIDINE 20 MG/2 ML VIAL IVP SCH ×2 (08:00→20:32)
[2021-03-04] MEDS: methylPREDNISolone SOD SUCC PF 40 MG/ML VIAL. IV SCH ×3 (08:00→20:33)
[2021-03-04] MEDS: ASPIRIN CHEWABLE 81 MG TABLET. PO SCH (08:00)
[2021-03-04] MEDS: DOXYCYCLINE HYCLATE 100 MG in IV DEXTROSE 5% 100ML 100 ML IV SCH ×2 (08:01→20:35)
[2021-03-04 08:32] LABS: BASE EXCESS ABG 2 mmol/L (-3-3); HCO3 ABG 28 mmol/L (21-28); PCO2 ABG 48 mmHg (35-46); PO2 ABG 54 mmHg (75-108); SAT O2 ABG 87 % (92-99)
[2021-03-04 08:34] LABS: FIO2 ABG 100
--- NOTE | 2021-03-04 09:33 | PDOC ---
[employer] PROGRESS NOTE Date of Service DOS: DATE: 03/04/21 TIME: 09:28 Chief Complaint Chief Complaint Acute hypoxic respiratory failure COVID-19 pneumonia PJ due to vasomotor nephropathy Mild transaminitis Moderate protein malnutrition Morbid obesity History of hypertension Continue COVID-19 treatment protocol Continue IV Remdesivir Continue with empiric IV antibiotics Continue IV steroids Continue with Covid supplementation such as B1, vitamin C, vitamin D, zinc Heparin for DVT prophylaxis Full code DPOA [facility] History of Present Illness History of Present Illness The patient is a pleasant middle-aged male, well known to my service. Basically, he has been developing flu like symptoms over the past couple of weeks. He went to acute care center yesterday at [facility]. He was awaiting his test results for his COVID-19 testing, but today he just could not await he was getting too sick. We tested him here in the emergency room. He is positive. He has abnormal chest x-ray. We are going to admit the patient, place him on COVID protocol. 02/23/2021 No acute events overnight. Patient saturating 97% on 2 L nasal cannula. Patient currently on Remdesivir. Patient's chart, labs, images were reviewed and discussed with RN 02/24/2021 Patient seen and examine in bed. Patient Fi02 between 83%-92% on vapotherm and 100% non-rebreather. D/W RN, Chart Review Instructed patient to try to rest and conserve energy. 02/25/21 Patient seen and examined at the bedside. Currently requiring BiPAP. Vapotherm. Transferred to the ICU yesterday. Continue with Covid treatment. Plan of care discussed with bedside RN 02/26/2021: Afebrile. Intermittently breathing between BiPAP and Vapotherm. Continue empiric antibiotics and steroids. Last dose remdesivir today. Continue supportive care. 30 minutes critical care time spent reviewing charts, reviewing labs, reviewing imaging, discussion with RN. 02/27/2021: Afebrile. Still breathing on ventilator and FiO2 100%, PEEP 10. Continue IV steroids and IV antibiotics. He should continue IV steroids for total treatment of 10 days (last day 03/04/2021). Completed remdesivir. Continue supportive care. Critical care time 30 minutes spent reviewing charts, reviewing labs, reviewing imaging, and discussion with RN. 02/28/2021: Afebrile. On vent with FiO2 100%, PEEP 5. Some significant hyperglycemia noted today. Will obtain A1c and initiate insulin protocol. C ompleted remdesivir. Continue IVF biotics and IV steroids. Continue supportive care. Critical care time 30 minutes spent reviewing charts, reviewing labs, reviewing imaging, and discussion with RN. 03/01/2021: Afebrile. On vent with FiO2 100%, PEEP 9. Still with elevated blood sugars; HbA1c 5.5. Will initiate twice daily basal insulin. Completed remdesivir; continue IV antibiotics and steroids. Continue supportive care. Critical care time 30 minutes spent reviewing charts, reviewing labs, reviewing imaging, and discussion with RN. 03/02/2021: Afebrile. Remains on vent with FiO2 100%, PEEP 9. D-dimer >20. Discussed with Dr. Burrows, fully anticoagulate empirically and order echocardiogram to help with evaluation of PE. Has completed remdesivir. Continue IV antibiotics and steroids. Blood sugar slightly better controlled. Continue supportive care. Critical care time 30 minutes spent reviewing charts, reviewing labs, reviewing imaging, and discussion with RN. 03/03/2021: Afebrile. On vent with FiO2 100%, PEEP 10. Echo was obtained due to elevated D-dimer >20, that showed PAP estimated at 50 mmHg. Concerning for PE; will continue full anticoagulation with Lovenox. Has completed remdesivir. Continue IV antibiotics and steroids. Blood sugar slightly better controlled. Continue supportive care. Critical care time 30 minutes spent reviewing charts, reviewing labs, reviewing imaging, and discussion with RN. 03/04/2021: Afebrile. On vent with FiO2 100%, PEEP 5. Continue with Lovenox full anticoagulation for suspected PE. Completed remdesivir. Continue IV antibiotics and steroids for 10-day course; today is day 10 of steroids and will provide Solu-Medrol taper. Blood glucose currently well controlled. Critical care time 30 minutes spent reviewing charts, reviewing labs, reviewing imaging, and discussion with RN. Vitals/I&O Vitals/I&O: Vital Signs Date Time Temp Pulse Resp B/P (MAP) Pulse Ox O2 Delivery O2 Flow Rate FiO2 03/04/21 09:00 82 24 138/69 (92) 81 Ventilator 03/04/21 08:51 98.9 98.9 03/03/21 20:02 25.0 I & O 03/03/21 03/03/21 03/04/21 15:00 23:00 07:00 Intake Total 350 ml 2118 ml 2080.3 ml Output Total 1225 ml 1275 ml 540 ml Balance -875 ml 843 ml 1540.3 ml Physical Exam Physical Exam: Visual exam performed under COVID-19 pandemic General: Alert, Oriented X3, Cooperative, moderate distress Heart: Regular rate Lungs: Other (Increased work of breathing) Abdomen: Normal bowel sounds Extremities: No clubbing Skin: No rashes, No significant lesion Labs Labs: Laboratory Tests Test 03/03/21 12:17 03/03/21 17:24 03/04/21 00:34 03/04/21 06:09 Glucose (Fingerstick) 197 mg/dL (70-99) 208 mg/dL (70-99) 180 mg/dL (70-99) 172 mg/dL (70-99) Test 03/04/21 08:00 O2 Saturation 87 % (92-99) Arterial Blood pH 7.39 (7.35-7.45) Arterial Blood pCO2 at Patient Temp 48 mmHg (35-46) Arterial Blood pO2 at Patient Temp 54 mmHg (75-108) Arterial Blood HCO3 28 mmol/L (21-28) Arterial Blood Base Excess 2 mmol/L (-3-3) FiO2 100 Assessment and Plan Assessmemt and Plan Problems Medical Problems: (1) Hypoxia Status: Acute (2) Pneumonia due to COVID-19 virus Status: Acute Comment Review of Relevant I have reviewed the following items ashley (where applicable) has been applied. Medications: Current Medications Medications (Trade) Dose Ordered Sig/Radha Route PRN Reason Start Time Stop Time Status Last Admin Dose Admin Furosemide (Lasix) 20 mg 1X ONCE IVP 03/03/21 12:15 03/03/21 12:16 DC 03/03/21 12:10 Methylprednisolone Sodium Succinate (SOLU-Medrol 40MG VIAL) 40 mg Q8HRS IV 03/04/21 06:30 03/04/21 08:00 Furosemide (Lasix) 20 mg 1X ONCE IVP 03/04/21 06:30 03/04/21 06:31 DC 03/04/21 08:00 Justifications for Admission Other Justification BRITTANY SIMONS MD Mar 04, 2021 09:33
[2021-03-04] MEDS: MULTIVITAMINS,THERAPEUTIC 5 ML ORAL LIQUID. PEG SCH (09:38)
[2021-03-04] MEDS: INSULIN GLARGINE SYRINGE. SQ SCH ×2 (09:39→20:34)
--- NOTE | 2021-03-04 10:15 | NUR ---
Dr. Valdes notified of low O2Sats 79 - 80%. Orders received for Lasix, CXR, and increase peep.
--- NOTE | 2021-03-04 11:15 | RAD ---
XR CHEST 1V Clinical History: Reason: decreasing o2 sats / Spl. Instructions: / History: Technique: AP view of the chest was obtained at 03/04/2021 10:17 AM. Comparison: March 02, 2021. Findings: The heart is top normal limits in size. The pulmonary vessels appear normal. There is patchy perihila r and basilar opacities and obscuration left hemidiaphragm. The endotracheal tube has its tip at the level of the thoracic inlet. The patient is rotated to the left. The right jugular line and enteric t ube appear well-positioned. Impression: 1. Small left effusion and bilateral pulmonary infiltrates appears worse. 2. The endotracheal tube has its tip at approximately the thoracic inlet approximately 9.5 cm above t he anh and should be advanced at least 2 cm. Electronically signed by: Danial Arroyo III, MD (03/04/2021 11:13 AM) [facility]
--- NOTE | 2021-03-04 12:38 | RAD ---
XR CHEST 1V, XR CHEST 1V Clinical History: Reason: ET placement verification, ADVANCED TUBE / Spl. Instructions: / History: Technique: AP view of the chest was obtained at 03/04/2021 11:57 AM. Comparison: 10:33 AM. Findings: The endotracheal tube is again seen with its tip at level of thoracic inlet. The right jugular line a nd enteric tube appear unchanged. The heart is normal size. The pulmonary vessels appear top normal l imits in size. This patchy opacity in the lower lungs and obscuration left hemidiaphragm. Impression: Moderate bilateral infiltrates and small left effusion. No change. End impression One view chest 12:04 PM: Portable semiupright AP view chest There is no change. IMPRESSION: 1. The enteric tube continues to have its tip at the level of thoracic inlet recommend advancing at l east 3 cm and repeating the chest x-ray. 2. Moderate bilateral pulmonary infiltrates and small left effusion. 3. No change from prior study. Electronically signed by: Danial Arroyo III, MD (03/04/2021 12:36 PM) [facility]
--- NOTE | 2021-03-04 14:25 | RAD ---
XR CHEST 1V History: Reason: ET placement - advanced by 2 cm / Spl. Instructions: / History: Comparison: March 04, 2021 Findings: Interval advancement of endotracheal tube with tip 9 cm above the anh. Unchanged enteric tube and right IJ central line. Diffuse pulmonary opacities, unchanged. No pleural effusion. No pneumothorax. Impression: 1. Interval slight advancement of endotracheal tube with tip 9 cm above the anh. Correlate for de sired positioning. 2. Unchanged diffuse pulmonary opacities. Electronically signed by: Gerardo Moore DO (03/04/2021 2:23 PM) [id number]
[2021-03-04 15:59] LABS: BASE EXCESS ABG 6 mmol/L (-3-3); HCO3 ABG 32 mmol/L (21-28); PCO2 ABG 50 mmHg (35-46); SAT O2 ABG 85 % (92-99)
[2021-03-04 16:02] LABS: FIO2 ABG 100; PO2 ABG 50 mmHg (75-108)
--- NOTE | 2021-03-04 19:01 | RAD ---
Exam: Chest one view INDICATION: Verify endotracheal tube placement TECHNIQUE: Frontal view of the chest Comparisons: None FINDINGS: Endotracheal tube with tip approximately 4 cm above the anh. Enteric tube traverses below the diap hragm distal extent not visualized. Right IJ catheter with tip at the SVC. The cardiomediastinal silhouette and pulmonary vessels are within normal limits. Hazy bibasilar airspace disease. No pleural effusion. IMPRESSION: Lines and tubes described above. Electronically signed by: Ankit Holcomb MD (03/04/2021 6:59 PM) [facility]
[2021-03-04] MEDS: LOSARTAN POTASSIUM 50 MG TABLET. PO SCH (20:33)
[2021-03-05] VITALS (24 sets, daily range): BP systolic 81–128; BP diastolic 58–76
[2021-03-05] MEDS: DEXMEDETOMIDINE 400 MCG in IV NORMAL SALINE 100ML 96 ML IV PRN ×6 (02:28→20:59)
[2021-03-05] MEDS: MIDAZOLAM 100mg/100ml NS BAG 100 ML IV PRN ×3 (02:29→23:37)
[2021-03-05] MEDS: PROPOFOL 100 ML IV PRN ×5 (03:33→22:07)
[2021-03-05 05:41] LABS: CALCIUM 8.1 mg/dL (8.5-10.1); CREATININE 1.4 mg/dL (0.7-1.3); GFR 63.7; POTASSIUM 4.4 mmol/L (3.5-5.1)
[2021-03-05] MEDS: methylPREDNISolone SOD SUCC PF 40 MG/ML VIAL. IV SCH ×3 (05:44→20:18)
[2021-03-05] MEDS: PIPERACILLIN/TAZOBACTAM 3.375 GM in IV NORMAL SALINE 50ML 50 ML IV SCH ×4 (05:45→23:38)
[2021-03-05] MEDS: INSULIN LISPRO 300 UNITS/3 ML VIAL. SQ SCH ×3 (05:45→18:02)
--- NOTE | 2021-03-05 06:13 | PDOC ---
PULMONARY PROGRESS NOTES DATE: 03/05/21 TIME: 06:07 Subjective intubated 02/26/21, remains on vent support 100% and a PEEP of 16 Patient is mildly hypoxic on examination, oxygen saturations 89% Patient is on vecuronium drip Low-grade fever overnight No overnight concerns from nursing Vitals Vital Signs Date Time Temp Pulse Resp B/P (MAP) Pulse Ox O2 Delivery O2 Flow Rate FiO2 03/05/21 05:00 84 24 97/65 (76) 89 Ventilator 03/05/21 04:00 99.9 99.9 03/04/21 23:46 25.0 Comments Visual exam done due to COVID-19. intubated sedated nc at rrr no accessory muscle use abd obese no rash or edema Lungs: Other (Increased work of breathing) Labs Laboratory Tests Test 03/03/21 07:55 03/03/21 12:17 03/03/21 17:24 03/04/21 00:34 O2 Saturation 86 % (92-99) Arterial Blood pH 7.39 (7.35-7.45) Arterial Blood pCO2 at Patient Temp 43 mmHg (35-46) Arterial Blood pO2 at Patient Temp 52 mmHg (75-108) Arterial Blood HCO3 26 mmol/L (21-28) Arterial Blood Base Excess 0 mmol/L (-3-3) FiO2 100 Glucose (Fingerstick) 197 mg/dL (70-99) 208 mg/dL (70-99) 180 mg/dL (70-99) Test 03/04/21 06:09 03/04/21 08:00 03/04/21 15:10 03/04/21 15:45 Glucose (Fingerstick) 172 mg/dL (70-99) O2 Saturation 87 % (92-99) 85 % (92-99) Arterial Blood pH 7.39 (7.35-7.45) 7.42 (7.35-7.45) Arterial Blood pCO2 at Patient Temp 48 mmHg (35-46) 50 mmHg (35-46) Arterial Blood pO2 at Patient Temp 54 mmHg (75-108) 50 mmHg (75-108) Arterial Blood HCO3 28 mmol/L (21-28) 32 mmol/L (21-28) Arterial Blood Base Excess 2 mmol/L (-3-3) 6 mmol/L (-3-3) FiO2 100 100 Low Molecular Weight Heparin > 1.70 IU/mL Test 03/04/21 17:56 03/04/21 23:49 03/05/21 05:00 Glucose (Fingerstick) 175 mg/dL (70-99) 178 mg/dL (70-99) Sodium Level 143 mmol/L (136-145) Potassium Level 4.4 mmol/L (3.5-5.1) Chloride Level 107 mmol/L (98-107) Carbon Dioxide Level 34 mmol/L (21-32) Anion Gap 2 (6-14) Blood Urea Nitrogen 35 mg/dL (8-26) Creatinine 1.4 mg/dL (0.7-1.3) Estimated GFR (Cockcroft-Gault) 63.7 Glucose Level 177 mg/dL (70-99) Calcium Level 8.1 mg/dL (8.5-10.1) Laboratory Tests Test 03/04/21 06:09 03/04/21 08:00 03/04/21 15:10 03/04/21 15:45 Glucose (Fingerstick) 172 mg/dL (70-99) O2 Saturation 87 % (92-99) 85 % (92-99) Arterial Blood pH 7.39 (7.35-7.45) 7.42 (7.35-7.45) Arterial Blood pCO2 at Patient Temp 48 mmHg (35-46) 50 mmHg (35-46) Arterial Blood pO2 at Patient Temp 54 mmHg (75-108) 50 mmHg (75-108) Arterial Blood HCO3 28 mmol/L (21-28) 32 mmol/L (21-28) Arterial Blood Base Excess 2 mmol/L (-3-3) 6 mmol/L (-3-3) FiO2 100 100 Low Molecular Weight Heparin > 1.70 IU/mL Test 03/04/21 17:56 03/04/21 23:49 03/05/21 05:00 Glucose (Fingerstick) 175 mg/dL (70-99) 178 mg/dL (70-99) Sodium Level 143 mmol/L (136-145) Potassium Level 4.4 mmol/L (3.5-5.1) Chloride Level 107 mmol/L (98-107) Carbon Dioxide Level 34 mmol/L (21-32) Anion Gap 2 (6-14) Blood Urea Nitrogen 35 mg/dL (8-26) Creatinine 1.4 mg/dL (0.7-1.3) Estimated GFR (Cockcroft-Gault) 63.7 Glucose Level 177 mg/dL (70-99) Calcium Level 8.1 mg/dL (8.5-10.1) Medications Active Scripts Medications Dose Route/Sig Max Daily Dose Days Date Category [tylenol pm] 1 Tab PO HS 02/22/21 Reported Losartan Potassium 50 Mg Tablet 50 Mg PO HS 02/22/21 Reported Atorvastatin Calcium 20 Mg Tablet 20 Mg PO HS 02/22/21 Reported Omeprazole 40 Mg Capsule.dr Tubbs Cap PO PRN DAILY PRN 05/20/17 Reported Daily Vitamin Formula-Minerals (Multivitamin With Minerals) 1 Each Tablet 1 Each PO 01/06/17 Reported Atenolol 50 Mg Tablet 1 Tab PO DAILY 01/06/17 Reported Comments cxr reviewed, 03/02 1. Increased diffuse pulmonary opacities with interstitial thickening most prominent on the left. 2. Small left pleural effusion. 3. Stable endotracheal tube at the thoracic inlet. Consider advancement if indicated. Chest x-ray reviewed dated 02/28/2021. Mild improvement in the left lower lobe infiltrate. Right lung relatively clear. Impression . 1. Acute hypoxic respiratory failure secondary to COVID-19 viral pneumonia/ARDS/acute lung injury.-, intubated 02/26/21. 2. Abnormal chest x-ray with faint bilateral interstitial infiltrates associated with COVID-19 pneumonia. Mild improvement seen on recent chest x-ray 3. COVID-19 positive. 4. No significant tobacco history. 5. Mild acute kidney injury. 6. Abnormal liver function tests, likely related to COVID-19. Bilirubin 1.4. 7. Patient initiated on full dose anticoagulation with Lovenox due to marked increase in D-dimer of more than 20. Plan . Updated 03/05/2021 Continue current ventilatory support, 24/500/100/16 adequate sedation, currently on paralytics Continue current treatment dose Lovenox, await repeat D-dimer Follow-up chest x-ray/ABG, make changes as needed Status post remdesivir Wean steroids, has completed full 10-day course De-escalate antibiotics, currently on Doxy and Zosyn since 02/22/2021, NGTD in cultures Continue nutritional support DVT/GI prophylaxis D-dimer down to 4. Will reduce the dose of Lovenox to DVT prophylaxis dose. Discussed with RN and RT I discussed with patient's mother regarding his critical illness. I did explain to her there is a 5 to 10% chance of survival at present. She understands that. Critical care time 30 minutes Updated 03/04/2021 Continue current vent support , currently 24/500/100/12 titrate fio2/peep as tolearted desated again will increase peep to 14 stat pcxr I>>>O lasix 40 mg iv now 03/03 cxr worse D-dimer is markedly elevated and is more than 20 from an admission of 1.0. The possibility of thromboembolic disease is a strong consideration. Unfortunately too unstable to do CT angiogram. Venous Dopplers are negative. limited echocardiogram reviewed . empirically anticoagulate him for clinically suspected pulmonary embolism. monitor h/h closely ABG reviewed, make changes as needed S/P remdesivir oxygeation worse increase solumedrol to 40 q 8hrs full 10-day course started 02/22/2021 Continue empiric antibiotics DVT/GI prophylaxis: Lovenox Continue tube feeding Patients mother was updated about his condition. Discussed with RN and RT critically ill cc time 30 min no overlap ANGELA CHILEL MD Mar 05, 2021 06:13
[2021-03-05] MEDS: NORCURON - VECURONIUM 50 MG in IV NORMAL SALINE 50ML 50 ML IV PRN ×3 (07:30→23:36)
[2021-03-05] MEDS: ASPIRIN CHEWABLE 81 MG TABLET. PO SCH (07:56)
[2021-03-05] MEDS: FAMOTIDINE 20 MG/2 ML VIAL IVP SCH ×2 (07:57→20:19)
[2021-03-05] MEDS: MULTIVITAMINS,THERAPEUTIC 5 ML ORAL LIQUID. PEG SCH (07:57)
--- NOTE | 2021-03-05 08:34 | RAD ---
XR CHEST 1V 03/05/2021 Reason: RF/ARDS Comparison: 03/04/2021 Technique: AP portable semierect radiograph of the chest Findings: Endotracheal tube, nasogastric tube and central line in stable, acceptable position. Redemonstration of patchy and reticular opacities bilaterally, greater on the left. No pneumothorax or pleural effusi on. The cardiomediastinal silhouette is stable. The pulmonary vasculature is indistinct. Impression: 1. Stable lines and tubes. 2. Similar mixed interstitial and airspace disease. Electronically signed by: Mansoor Marroquin (03/05/2021 8:31 AM) [id number]
[2021-03-05 08:36] LABS: BASE EXCESS ABG 5 mmol/L (-3-3); HCO3 ABG 30 mmol/L (21-28); PCO2 ABG 48 mmHg (35-46); PO2 ABG 52 mmHg (75-108); SAT O2 ABG 84 % (92-99)
[2021-03-05 08:37] LABS: FIO2 ABG 100/VENT
[2021-03-05] MEDS: INSULIN GLARGINE SYRINGE. SQ SCH ×2 (08:48→20:53)
--- NOTE | 2021-03-05 13:12 | PDOC ---
[employer] PROGRESS NOTE Date of Service DOS: DATE: 03/05/21 TIME: 13:10 Chief Complaint Chief Complaint Acute hypoxic respiratory failure COVID-19 pneumonia PJ due to vasomotor nephropathy Mild transaminitis Moderate protein malnutrition Morbid obesity History of hypertension Continue COVID-19 treatment protocol Continue IV Remdesivir Continue with empiric IV antibiotics Continue IV steroids Continue with Covid supplementation such as B1, vitamin C, vitamin D, zinc Heparin for DVT prophylaxis Full code DPOA [facility] History of Present Illness History of Present Illness The patient is a pleasant middle-aged male, well known to my service. Basically, he has been developing flu like symptoms over the past couple of weeks. He went to acute care center yesterday at [facility]. He was awaiting his test results for his COVID-19 testing, but today he just could not await he was getting too sick. We tested him here in the emergency room. He is positive. He has abnormal chest x-ray. We are going to admit the patient, place him on COVID protocol. 02/23/2021 No acute events overnight. Patient saturating 97% on 2 L nasal cannula. Patient currently on Remdesivir. Patient's chart, labs, images were reviewed and discussed with RN 02/24/2021 Patient seen and examine in bed. Patient Fi02 between 83%-92% on vapotherm and 100% non-rebreather. D/W RN, Chart Review Instructed patient to try to rest and conserve energy. 02/25/21 Patient seen and examined at the bedside. Currently requiring BiPAP. Vapotherm. Transferred to the ICU yesterday. Continue with Covid treatment. Plan of care discussed with bedside RN 02/26/2021: Afebrile. Intermittently breathing between BiPAP and Vapotherm. Continue empiric antibiotics and steroids. Last dose remdesivir today. Continue supportive care. 30 minutes critical care time spent reviewing charts, reviewing labs, reviewing imaging, discussion with RN. 02/27/2021: Afebrile. Still breathing on ventilator and FiO2 100%, PEEP 10. Continue IV steroids and IV antibiotics. He should continue IV steroids for total treatment of 10 days (last day 03/04/2021). Completed remdesivir. Continue supportive care. Critical care time 30 minutes spent reviewing charts, reviewing labs, reviewing imaging, and discussion with RN. 02/28/2021: Afebrile. On vent with FiO2 100%, PEEP 5. Some significant hyperglycemia noted today. Will obtain A1c and initiate insulin protocol. C ompleted remdesivir. Continue IVF biotics and IV steroids. Continue supportive care. Critical care time 30 minutes spent reviewing charts, reviewing labs, reviewing imaging, and discussion with RN. 03/01/2021: Afebrile. On vent with FiO2 100%, PEEP 9. Still with elevated blood sugars; HbA1c 5.5. Will initiate twice daily basal insulin. Completed remdesivir; continue IV antibiotics and steroids. Continue supportive care. Critical care time 30 minutes spent reviewing charts, reviewing labs, reviewing imaging, and discussion with RN. 03/02/2021: Afebrile. Remains on vent with FiO2 100%, PEEP 9. D-dimer >20. Discussed with Dr. Burrows, fully anticoagulate empirically and order echocardiogram to help with evaluation of PE. Has completed remdesivir. Continue IV antibiotics and steroids. Blood sugar slightly better controlled. Continue supportive care. Critical care time 30 minutes spent reviewing charts, reviewing labs, reviewing imaging, and discussion with RN. 03/03/2021: Afebrile. On vent with FiO2 100%, PEEP 10. Echo was obtained due to elevated D-dimer >20, that showed PAP estimated at 50 mmHg. Concerning for PE; will continue full anticoagulation with Lovenox. Has completed remdesivir. Continue IV antibiotics and steroids. Blood sugar slightly better controlled. Continue supportive care. Critical care time 30 minutes spent reviewing charts, reviewing labs, reviewing imaging, and discussion with RN. 03/04/2021: Afebrile. On vent with FiO2 100%, PEEP 5. Continue with Lovenox full anticoagulation for suspected PE. Completed remdesivir. Continue IV antibiotics and steroids for 10-day course; today is day 10 of steroids and will provide Solu-Medrol taper. Blood glucose currently well controlled. Critical care time 30 minutes spent reviewing charts, reviewing labs, reviewing imaging, and discussion with RN. 03/05/2021 No acute events overnight. T-max of 100.2 in the last 24 hours. Saturating 85% on vent settings of 24/500/100/16. Patient is on a vecuronium drip. Steroids will be weaned down to 40 mg twice daily today. Lovenox decreased to 40 mg twice daily due to decreasing D-dimer. Patient's chart, labs, images were reviewed and discussed with RN Vitals/I&O Vitals/I&O: Vital Signs Date Time Temp Pulse Resp B/P (MAP) Pulse Ox O2 Delivery O2 Flow Rate FiO2 03/05/21 12:00 100.2 83 24 114/73 (87) 85 Ventilator 100.2 03/04/21 23:46 25.0 I & O 03/04/21 03/04/21 03/05/21 15:00 23:00 07:00 Intake Total 350 ml 2358 ml 2318 ml Output Total 2800 ml 670 ml 570 ml Balance -2450 ml 1688 ml 1748 ml Physical Exam Physical Exam: Visual exam performed under COVID-19 pandemic General: Alert, Oriented X3, Cooperative, moderate distress Heart: Regular rate Lungs: Other (Increased work of breathing) Abdomen: Normal bowel sounds Extremities: No clubbing Skin: No rashes, No significant lesion Labs Labs: Laboratory Tests Test 03/04/21 15:10 03/04/21 15:45 03/04/21 17:56 03/04/21 23:49 Low Molecular Weight Heparin > 1.70 IU/mL O2 Saturation 85 % (92-99) Arterial Blood pH 7.42 (7.35-7.45) Arterial Blood pCO2 at Patient Temp 50 mmHg (35-46) Arterial Blood pO2 at Patient Temp 50 mmHg (75-108) Arterial Blood HCO3 32 mmol/L (21-28) Arterial Blood Base Excess 6 mmol/L (-3-3) FiO2 100 Glucose (Fingerstick) 175 mg/dL (70-99) 178 mg/dL (70-99) Test 03/05/21 05:00 03/05/21 08:00 03/05/21 11:44 D-Dimer (Jacqueline) 4.00 ug/mlFEU (0.00-0.50) Sodium Level 143 mmol/L (136-145) Potassium Level 4.4 mmol/L (3.5-5.1) Chloride Level 107 mmol/L (98-107) Carbon Dioxide Level 34 mmol/L (21-32) Anion Gap 2 (6-14) Blood Urea Nitrogen 35 mg/dL (8-26) Creatinine 1.4 mg/dL (0.7-1.3) Estimated GFR (Cockcroft-Gault) 63.7 Glucose Level 177 mg/dL (70-99) Calcium Level 8.1 mg/dL (8.5-10.1) Low Molecular Weight Heparin > 1.70 IU/mL O2 Saturation 84 % (92-99) Arterial Blood pH 7.42 (7.35-7.45) Arterial Blood pCO2 at Patient Temp 48 mmHg (35-46) Arterial Blood pO2 at Patient Temp 52 mmHg (75-108) Arterial Blood HCO3 30 mmol/L (21-28) Arterial Blood Base Excess 5 mmol/L (-3-3) FiO2 100/vent Glucose (Fingerstick) 204 mg/dL (70-99) Assessment and Plan Assessmemt and Plan Problems Medical Problems: (1) Hypoxia Status: Acute (2) Pneumonia due to COVID-19 virus Status: Acute Comment Review of Relevant I have reviewed the following items ashley (where applicable) has been applied. Medications: Current Medications Medications (Trade) Dose Ordered Sig/Radha Route PRN Reason Start Time Stop Time Status Last Admin Dose Admin Methylprednisolone Sodium Succinate (SOLU-Medrol 40MG VIAL) 40 mg BID IV 03/05/21 09:00 03/05/21 07:57 Justifications for Admission Other Justification MAUREEN OVALLES MD Mar 05, 2021 13:12
--- NOTE | 2021-03-05 16:34 | NUR ---
SS following up with discharge planning. SS reviewed pt chart and discussed with pt RN. Pt is currently on the vent at 100%. COVID19 positive. Pt on IV Zosyn and IV Solu Medrol. Pt on Propofol, Vec, Versed, Fentanyl, and Precedex. Not stable. SS will continue to follow for discharge planning.
[2021-03-05] MEDS: LOSARTAN POTASSIUM 50 MG TABLET. PO SCH (20:19)
[2021-03-05] MEDS: ENOXAPARIN 40 MG/0.4 ML SYRINGE. SQ SCH (20:20)
[2021-03-06] VITALS (24 sets, daily range): BP systolic 106–145; BP diastolic 63–77
[2021-03-06] MEDS: INSULIN LISPRO 300 UNITS/3 ML VIAL. SQ SCH ×4 (00:26→18:01)
[2021-03-06] MEDS: DEXMEDETOMIDINE 400 MCG in IV NORMAL SALINE 100ML 96 ML IV PRN ×8 (00:33→22:47)
[2021-03-06] MEDS: PROPOFOL 100 ML IV PRN ×5 (01:08→19:45)
[2021-03-06] MEDS: PIPERACILLIN/TAZOBACTAM 3.375 GM in IV NORMAL SALINE 50ML 50 ML IV SCH ×4 (05:39→23:47)
[2021-03-06 05:42] LABS: CALCIUM 8.1 mg/dL (8.5-10.1); CREATININE 1.1 mg/dL (0.7-1.3); GFR 84.1; POTASSIUM 4.7 mmol/L (3.5-5.1)
[2021-03-06 05:49] LABS: BASO % 0 % (0-3); EOS % 0 % (0-3); HEMATOCRIT 34.8 % (39.0-53.0); HEMOGLOBIN 11.2 g/dL (13.0-17.5); LYMPH # 0.5 x10^3/uL (1.0-4.8); LYMPH % 4 % (24-48); MEAN CORPUSCULAR HEMOGLOBIN 33 pg (25-35); MEAN CORPUSCULAR HGB CONC 32 g/dL (31-37); MEAN CORPUSCULAR VOLUME 102 fL (79-100); MONO # 0.7 x10^3/uL (0.0-1.1); MONO % 5 % (0-9); NEUT # 11.7 x10^3/uL (1.8-7.7); NEUT % 91 % (31-73); PLATELET COUNT 169 x10^3/uL (140-400); RED BLOOD COUNT 3.41 x10^6/uL (4.30-5.70); RED CELL DISTRIBUTION WIDTH 13.5 % (11.5-14.5); WHITE BLOOD COUNT 12.9 x10^3/uL (4.0-11.0)
[2021-03-06 08:38] LABS: BASE EXCESS ABG 5 mmol/L (-3-3); HCO3 ABG 30 mmol/L (21-28); PCO2 ABG 45 mmHg (35-46); PO2 ABG 54 mmHg (75-108); SAT O2 ABG 87 % (92-99)
[2021-03-06] MEDS: MULTIVITAMINS,THERAPEUTIC 5 ML ORAL LIQUID. PEG SCH (08:53)
[2021-03-06] MEDS: methylPREDNISolone SOD SUCC PF 40 MG/ML VIAL. IV SCH ×2 (08:53→21:17)
[2021-03-06] MEDS: ASPIRIN CHEWABLE 81 MG TABLET. PO SCH (08:53)
[2021-03-06] MEDS: INSULIN GLARGINE SYRINGE. SQ SCH ×2 (08:54→21:18)
[2021-03-06] MEDS: ENOXAPARIN 40 MG/0.4 ML SYRINGE. SQ SCH ×2 (08:54→21:18)
[2021-03-06 09:12] LABS: FIO2 ABG 100/VENT
[2021-03-06] MEDS: MIDAZOLAM 100mg/100ml NS BAG 100 ML IV PRN ×2 (10:21→21:55)
[2021-03-06] MEDS: FAMOTIDINE 20 MG/2 ML VIAL IVP SCH ×2 (11:01→21:17)
[2021-03-06] MEDS: NORCURON - VECURONIUM 50 MG in IV NORMAL SALINE 50ML 50 ML IV PRN (11:02)
--- NOTE | 2021-03-06 11:17 | PDOC ---
PULMONARY PROGRESS NOTES DATE: 03/06/21 TIME: 11:15 Subjective intubated 02/26/21, remains on vent support 100% and a PEEP of 16 Patient is on vecuronium drip Low-grade fever overnight No overnight concerns from nursing Vitals Vital Signs Date Time Temp Pulse Resp B/P (MAP) Pulse Ox O2 Delivery O2 Flow Rate FiO2 03/06/21 09:37 87 Ventilator 03/06/21 07:07 24 03/06/21 07:00 78 112/71 (85) 03/06/21 04:00 99.2 99.2 Comments Visual exam done due to COVID-19. intubated sedated nc at rrr no accessory muscle use abd obese no rash or edema Lungs: Other (Increased work of breathing) Labs Laboratory Tests Test 03/04/21 15:10 03/04/21 15:45 03/04/21 17:56 03/04/21 23:49 Low Molecular Weight Heparin > 1.70 IU/mL O2 Saturation 85 % (92-99) Arterial Blood pH 7.42 (7.35-7.45) Arterial Blood pCO2 at Patient Temp 50 mmHg (35-46) Arterial Blood pO2 at Patient Temp 50 mmHg (75-108) Arterial Blood HCO3 32 mmol/L (21-28) Arterial Blood Base Excess 6 mmol/L (-3-3) FiO2 100 Glucose (Fingerstick) 175 mg/dL (70-99) 178 mg/dL (70-99) Test 03/05/21 05:00 03/05/21 08:00 03/05/21 11:44 03/05/21 17:40 D-Dimer (Jacqueline) 4.00 ug/mlFEU (0.00-0.50) Sodium Level 143 mmol/L (136-145) Potassium Level 4.4 mmol/L (3.5-5.1) Chloride Level 107 mmol/L (98-107) Carbon Dioxide Level 34 mmol/L (21-32) Anion Gap 2 (6-14) Blood Urea Nitrogen 35 mg/dL (8-26) Creatinine 1.4 mg/dL (0.7-1.3) Estimated GFR (Cockcroft-Gault) 63.7 Glucose Level 177 mg/dL (70-99) Calcium Level 8.1 mg/dL (8.5-10.1) Low Molecular Weight Heparin > 1.70 IU/mL O2 Saturation 84 % (92-99) Arterial Blood pH 7.42 (7.35-7.45) Arterial Blood pCO2 at Patient Temp 48 mmHg (35-46) Arterial Blood pO2 at Patient Temp 52 mmHg (75-108) Arterial Blood HCO3 30 mmol/L (21-28) Arterial Blood Base Excess 5 mmol/L (-3-3) FiO2 100/vent Glucose (Fingerstick) 204 mg/dL (70-99) 173 mg/dL (70-99) Test 03/05/21 20:23 03/06/21 00:11 03/06/21 05:10 03/06/21 06:01 Glucose (Fingerstick) 206 mg/dL (70-99) 177 mg/dL (70-99) 180 mg/dL (70-99) White Blood Count 12.9 x10^3/uL (4.0-11.0) Red Blood Count 3.41 x10^6/uL (4.30-5.70) Hemoglobin 11.2 g/dL (13.0-17.5) Hematocrit 34.8 % (39.0-53.0) Mean Corpuscular Volume 102 fL (79-100) Mean Corpuscular Hemoglobin 33 pg (25-35) Mean Corpuscular Hemoglobin Concent 32 g/dL (31-37) Red Cell Distribution Width 13.5 % (11.5-14.5) Platelet Count 169 x10^3/uL (140-400) Neutrophils (%) (Auto) 91 % (31-73) Lymphocytes (%) (Auto) 4 % (24-48) Monocytes (%) (Auto) 5 % (0-9) Eosinophils (%) (Auto) 0 % (0-3) Basophils (%) (Auto) 0 % (0-3) Neutrophils # (Auto) 11.7 x10^3/uL (1.8-7.7) Lymphocytes # (Auto) 0.5 x10^3/uL (1.0-4.8) Monocytes # (Auto) 0.7 x10^3/uL (0.0-1.1) Eosinophils # (Auto) 0.0 x10^3/uL (0.0-0.7) Basophils # (Auto) 0.0 x10^3/uL (0.0-0.2) Sodium Level 145 mmol/L (136-145) Potassium Level 4.7 mmol/L (3.5-5.1) Chloride Level 109 mmol/L (98-107) Carbon Dioxide Level 36 mmol/L (21-32) Anion Gap 0 (6-14) Blood Urea Nitrogen 34 mg/dL (8-26) Creatinine 1.1 mg/dL (0.7-1.3) Estimated GFR (Cockcroft-Gault) 84.1 Glucose Level 179 mg/dL (70-99) Calcium Level 8.1 mg/dL (8.5-10.1) Test 03/06/21 08:30 O2 Saturation 87 % (92-99) Arterial Blood pH 7.44 (7.35-7.45) Arterial Blood pCO2 at Patient Temp 45 mmHg (35-46) Arterial Blood pO2 at Patient Temp 54 mmHg (75-108) Arterial Blood HCO3 30 mmol/L (21-28) Arterial Blood Base Excess 5 mmol/L (-3-3) FiO2 100/vent Laboratory Tests Test 03/05/21 11:44 03/05/21 17:40 03/05/21 20:23 03/06/21 00:11 Glucose (Fingerstick) 204 mg/dL (70-99) 173 mg/dL (70-99) 206 mg/dL (70-99) 177 mg/dL (70-99) Test 03/06/21 05:10 03/06/21 06:01 03/06/21 08:30 White Blood Count 12.9 x10^3/uL (4.0-11.0) Red Blood Count 3.41 x10^6/uL (4.30-5.70) Hemoglobin 11.2 g/dL (13.0-17.5) Hematocrit 34.8 % (39.0-53.0) Mean Corpuscular Volume 102 fL (79-100) Mean Corpuscular Hemoglobin 33 pg (25-35) Mean Corpuscular Hemoglobin Concent 32 g/dL (31-37) Red Cell Distribution Width 13.5 % (11.5-14.5) Platelet Count 169 x10^3/uL (140-400) Neutrophils (%) (Auto) 91 % (31-73) Lymphocytes (%) (Auto) 4 % (24-48) Monocytes (%) (Auto) 5 % (0-9) Eosinophils (%) (Auto) 0 % (0-3) Basophils (%) (Auto) 0 % (0-3) Neutrophils # (Auto) 11.7 x10^3/uL (1.8-7.7) Lymphocytes # (Auto) 0.5 x10^3/uL (1.0-4.8) Monocytes # (Auto) 0.7 x10^3/uL (0.0-1.1) Eosinophils # (Auto) 0.0 x10^3/uL (0.0-0.7) Basophils # (Auto) 0.0 x10^3/uL (0.0-0.2) Sodium Level 145 mmol/L (136-145) Potassium Level 4.7 mmol/L (3.5-5.1) Chloride Level 109 mmol/L (98-107) Carbon Dioxide Level 36 mmol/L (21-32) Anion Gap 0 (6-14) Blood Urea Nitrogen 34 mg/dL (8-26) Creatinine 1.1 mg/dL (0.7-1.3) Estimated GFR (Cockcroft-Gault) 84.1 Glucose Level 179 mg/dL (70-99) Calcium Level 8.1 mg/dL (8.5-10.1) Glucose (Fingerstick) 180 mg/dL (70-99) O2 Saturation 87 % (92-99) Arterial Blood pH 7.44 (7.35-7.45) Arterial Blood pCO2 at Patient Temp 45 mmHg (35-46) Arterial Blood pO2 at Patient Temp 54 mmHg (75-108) Arterial Blood HCO3 30 mmol/L (21-28) Arterial Blood Base Excess 5 mmol/L (-3-3) FiO2 100/vent Medications Active Scripts Medications Dose Route/Sig Max Daily Dose Days Date Category [tylenol pm] 1 Tab PO HS 02/22/21 Reported Losartan Potassium 50 Mg Tablet 50 Mg PO HS 02/22/21 Reported Atorvastatin Calcium 20 Mg Tablet 20 Mg PO HS 02/22/21 Reported Omeprazole 40 Mg Capsule. 1 Cap PO PRN DAILY PRN 05/20/17 Reported Daily Vitamin Formula-Minerals (Multivitamin With Minerals) 1 Each Tablet 1 Each PO 01/06/17 Reported Atenolol 50 Mg Tablet 1 Tab PO DAILY 01/06/17 Reported Comments cxr reviewed, 03/02 1. Increased diffuse pulmonary opacities with interstitial thickening most prominent on the left. 2. Small left pleural effusion. 3. Stable endotracheal tube at the thoracic inlet. Consider advancement if indicated. Chest x-ray reviewed dated 02/28/2021. Mild improvement in the left lower lobe infiltrate. Right lung relatively clear. Impression . 1. Acute hypoxic respiratory failure secondary to COVID-19 viral pneumonia/ARDS/acute lung injury.-, intubated 02/26/21. 2. Abnormal chest x-ray with faint bilateral interstitial infiltrates associated with COVID-19 pneumonia. Mild improvement seen on recent chest x-ray 3. COVID-19 positive. 4. No significant tobacco history. 5. Mild acute kidney injury. 6. Abnormal liver function tests, likely related to COVID-19. Bilirubin 1.4. 7. Patient initiated on full dose anticoagulation with Lovenox due to marked increase in D-dimer of more than 20. Since the D-dimer significantly improved. Lovenox dose was changed to DVT prophylaxis dose on 03/05 Plan . Updated 03/06/2021 Continue current ventilatory support, 24/500/100/16. Remains critically ill. adequate sedation, currently on paralytics Continue current treatment dose Lovenox, await repeat D-dimer Follow-up chest x-ray/ABG, make changes as needed Status post remdesivir Wean steroids, has completed full 10-day course De-escalate antibiotics, currently on Doxy and Zosyn since 02/22/2021, NGTD in cultures Continue nutritional support DVT/GI prophylaxis D-dimer down to 4. Lovenox dose reduced to DVT prophylaxis dose 03/05. Discussed with RN and RT I discussed with patient's mother regarding his critical illness. I did explain to her there is a 5 to 10% chance of survival at present. She understands that. Critical care time 30 minutes Updated 03/05/2021 Continue current ventilatory support, 24/500/100/16 adequate sedation, currently on paralytics Continue current treatment dose Lovenox, await repeat D-dimer Follow-up chest x-ray/ABG, make changes as needed Status post remdesivir Wean steroids, has completed full 10-day course De-escalate antibiotics, currently on Doxy and Zosyn since 02/22/2021, NGTD in cultures Continue nutritional support DVT/GI prophylaxis D-dimer down to 4. Will reduce the dose of Lovenox to DVT prophylaxis dose. Discussed with RN and RT I discussed with patient's mother regarding his critical illness. I did explain to her there is a 5 to 10% chance of survival at present. She understands that. Critical care time 30 minutes Updated 03/04/2021 Continue current vent support , currently 24/500/100/12 titrate fio2/peep as tolearted desated again will increase peep to 14 stat pcxr I>>>O lasix 40 mg iv now 03/03 cxr worse D-dimer is markedly elevated and is more than 20 from an admission of 1.0. The possibility of thromboembolic disease is a strong consideration. Unfortunately too unstable to do CT angiogram. Venous Dopplers are negative. limited echocardiogram reviewed . empirically anticoagulate him for clinically suspected pulmonary embolism. monitor h/h closely ABG reviewed, make changes as needed S/P remdesivir oxygeation worse increase solumedrol to 40 q 8hrs full 10-day course started 02/22/2021 Continue empiric antibiotics DVT/GI prophylaxis: Lovenox Continue tube feeding Patients mother was updated about his condition. Discussed with RN and RT critically ill cc time 30 min no overlap ANGELA CHILEL MD Mar 06, 2021 11:17
--- NOTE | 2021-03-06 12:16 | PDOC ---
[employer] PROGRESS NOTE Date of Service DOS: DATE: 03/06/21 TIME: 12:14 Chief Complaint Chief Complaint Acute hypoxic respiratory failure COVID-19 pneumonia PJ due to vasomotor nephropathy Mild transaminitis Moderate protein malnutrition Morbid obesity History of hypertension Continue COVID-19 treatment protocol Continue IV Remdesivir Continue with empiric IV antibiotics Continue IV steroids Continue with Covid supplementation such as B1, vitamin C, vitamin D, zinc Heparin for DVT prophylaxis Full code DPOA [facility] History of Present Illness History of Present Illness The patient is a pleasant middle-aged male, well known to my service. Basically, he has been developing flu like symptoms over the past couple of weeks. He went to acute care center yesterday at [facility]. He was awaiting his test results for his COVID-19 testing, but today he just could not await he was getting too sick. We tested him here in the emergency room. He is positive. He has abnormal chest x-ray. We are going to admit the patient, place him on COVID protocol. 02/23/2021 No acute events overnight. Patient saturating 97% on 2 L nasal cannula. Patient currently on Remdesivir. Patient's chart, labs, images were reviewed and discussed with RN 02/24/2021 Patient seen and examine in bed. Patient Fi02 between 83%-92% on vapotherm and 100% non-rebreather. D/W RN, Chart Review Instructed patient to try to rest and conserve energy. 02/25/21 Patient seen and examined at the bedside. Currently requiring BiPAP. Vapotherm. Transferred to the ICU yesterday. Continue with Covid treatment. Plan of care discussed with bedside RN 02/26/2021: Afebrile. Intermittently breathing between BiPAP and Vapotherm. Continue empiric antibiotics and steroids. Last dose remdesivir today. Continue supportive care. 30 minutes critical care time spent reviewing charts, reviewing labs, reviewing imaging, discussion with RN. 02/27/2021: Afebrile. Still breathing on ventilator and FiO2 100%, PEEP 10. Continue IV steroids and IV antibiotics. He should continue IV steroids for total treatment of 10 days (last day 03/04/2021). Completed remdesivir. Continue supportive care. Critical care time 30 minutes spent reviewing charts, reviewing labs, reviewing imaging, and discussion with RN. 02/28/2021: Afebrile. On vent with FiO2 100%, PEEP 5. Some significant hyperglycemia noted today. Will obtain A1c and initiate insulin protocol. C ompleted remdesivir. Continue IVF biotics and IV steroids. Continue supportive care. Critical care time 30 minutes spent reviewing charts, reviewing labs, reviewing imaging, and discussion with RN. 03/01/2021: Afebrile. On vent with FiO2 100%, PEEP 9. Still with elevated blood sugars; HbA1c 5.5. Will initiate twice daily basal insulin. Completed remdesivir; continue IV antibiotics and steroids. Continue supportive care. Critical care time 30 minutes spent reviewing charts, reviewing labs, reviewing imaging, and discussion with RN. 03/02/2021: Afebrile. Remains on vent with FiO2 100%, PEEP 9. D-dimer >20. Discussed with Dr. Burrows, fully anticoagulate empirically and order echocardiogram to help with evaluation of PE. Has completed remdesivir. Continue IV antibiotics and steroids. Blood sugar slightly better controlled. Continue supportive care. Critical care time 30 minutes spent reviewing charts, reviewing labs, reviewing imaging, and discussion with RN. 03/03/2021: Afebrile. On vent with FiO2 100%, PEEP 10. Echo was obtained due to elevated D-dimer >20, that showed PAP estimated at 50 mmHg. Concerning for PE; will continue full anticoagulation with Lovenox. Has completed remdesivir. Continue IV antibiotics and steroids. Blood sugar slightly better controlled. Continue supportive care. Critical care time 30 minutes spent reviewing charts, reviewing labs, reviewing imaging, and discussion with RN. 03/04/2021: Afebrile. On vent with FiO2 100%, PEEP 5. Continue with Lovenox full anticoagulation for suspected PE. Completed remdesivir. Continue IV antibiotics and steroids for 10-day course; today is day 10 of steroids and will provide Solu-Medrol taper. Blood glucose currently well controlled. Critical care time 30 minutes spent reviewing charts, reviewing labs, reviewing imaging, and discussion with RN. 03/05/2021 No acute events overnight. T-max of 100.2 in the last 24 hours. Saturating 85% on vent settings of 24/500/100/16. Patient is on a vecuronium drip. Steroids will be weaned down to 40 mg twice daily today. Lovenox decreased to 40 mg twice daily due to decreasing D-dimer. Patient's chart, labs, images were reviewed and discussed with RN 03/06/2021 No acute events overnight. Afebrile last 24 hours. Saturating well on vent settings of 24/500/100/15. Continues to be on vecuronium drip. Patient's chart, labs, images were reviewed and discussed with RN A total of 32 minutes of critical care time was spent in reviewing chart, labs, and images. Discussed with RN and SW. Vitals/I&O Vitals/I&O: Vital Signs Date Time Temp Pulse Resp B/P (MAP) Pulse Ox O2 Delivery O2 Flow Rate FiO2 03/06/21 11:22 79 Ventilator 03/06/21 11:00 100 24 132/72 (92) 03/06/21 08:00 99.5 99.5 I & O 03/05/21 03/05/21 03/06/21 15:00 23:00 07:00 Intake Total 400 ml 1768 ml 1476 ml Output Total 715 ml 675 ml 580 ml Balance -315 ml 1093 ml 896 ml Physical Exam Physical Exam: Visual exam performed under COVID-19 pandemic General: Alert, Oriented X3, Cooperative, moderate distress, Other (Intubated and sedated) Heart: Regular rate Lungs: Other (Increased work of breathing) Abdomen: Normal bowel sounds Extremities: No clubbing Skin: No rashes, No significant lesion Labs Labs: Laboratory Tests Test 03/05/21 17:40 03/05/21 20:23 03/06/21 00:11 03/06/21 05:10 Glucose (Fingerstick) 173 mg/dL (70-99) 206 mg/dL (70-99) 177 mg/dL (70-99) White Blood Count 12.9 x10^3/uL (4.0-11.0) Red Blood Count 3.41 x10^6/uL (4.30-5.70) Hemoglobin 11.2 g/dL (13.0-17.5) Hematocrit 34.8 % (39.0-53.0) Mean Corpuscular Volume 102 fL (79-100) Mean Corpuscular Hemoglobin 33 pg (25-35) Mean Corpuscular Hemoglobin Concent 32 g/dL (31-37) Red Cell Distribution Width 13.5 % (11.5-14.5) Platelet Count 169 x10^3/uL (140-400) Neutrophils (%) (Auto) 91 % (31-73) Lymphocytes (%) (Auto) 4 % (24-48) Monocytes (%) (Auto) 5 % (0-9) Eosinophils (%) (Auto) 0 % (0-3) Basophils (%) (Auto) 0 % (0-3) Neutrophils # (Auto) 11.7 x10^3/uL (1.8-7.7) Lymphocytes # (Auto) 0.5 x10^3/uL (1.0-4.8) Monocytes # (Auto) 0.7 x10^3/uL (0.0-1.1) Eosinophils # (Auto) 0.0 x10^3/uL (0.0-0.7) Basophils # (Auto) 0.0 x10^3/uL (0.0-0.2) Sodium Level 145 mmol/L (136-145) Potassium Level 4.7 mmol/L (3.5-5.1) Chloride Level 109 mmol/L (98-107) Carbon Dioxide Level 36 mmol/L (21-32) Anion Gap 0 (6-14) Blood Urea Nitrogen 34 mg/dL (8-26) Creatinine 1.1 mg/dL (0.7-1.3) Estimated GFR (Cockcroft-Gault) 84.1 Glucose Level 179 mg/dL (70-99) Calcium Level 8.1 mg/dL (8.5-10.1) Test 03/06/21 06:01 03/06/21 08:30 Glucose (Fingerstick) 180 mg/dL (70-99) O2 Saturation 87 % (92-99) Arterial Blood pH 7.44 (7.35-7.45) Arterial Blood pCO2 at Patient Temp 45 mmHg (35-46) Arterial Blood pO2 at Patient Temp 54 mmHg (75-108) Arterial Blood HCO3 30 mmol/L (21-28) Arterial Blood Base Excess 5 mmol/L (-3-3) FiO2 100/vent Assessment and Plan Assessmemt and Plan Problems Medical Problems: (1) Hypoxia Status: Acute (2) Pneumonia due to COVID-19 virus Status: Acute Comment Review of Relevant I have reviewed the following items ashley (where applicable) has been applied. Medications: Current Medications Medications (Trade) Dose Ordered Sig/Radha Route PRN Reason Start Time Stop Time Status Last Admin Dose Admin Enoxaparin Sodium (Lovenox 40mg Syringe) 40 mg Q12HR SQ 03/05/21 21:00 03/06/21 08:54 Justifications for Admission Other Justification MAUREEN OVALLES MD Mar 06, 2021 12:15
[2021-03-06] MEDS: LOSARTAN POTASSIUM 50 MG TABLET. PO SCH (21:17)
[2021-03-07] VITALS (24 sets, daily range): BP systolic 105–164; BP diastolic 60–90
[2021-03-07] MEDS: PROPOFOL 100 ML IV PRN ×6 (00:36→20:42)
[2021-03-07] MEDS: NORCURON - VECURONIUM 50 MG in IV NORMAL SALINE 50ML 50 ML IV PRN ×3 (00:41→23:42)
[2021-03-07] MEDS: DEXMEDETOMIDINE 400 MCG in IV NORMAL SALINE 100ML 96 ML IV PRN ×6 (02:18→22:24)
[2021-03-07] MEDS: PIPERACILLIN/TAZOBACTAM 3.375 GM in IV NORMAL SALINE 50ML 50 ML IV SCH (05:33)
[2021-03-07] MEDS: INSULIN LISPRO 300 UNITS/3 ML VIAL. SQ SCH ×4 (05:39→17:44)
[2021-03-07 06:05] LABS: BASO % 0 % (0-3); EOS # 0.1 x10^3/uL (0.0-0.7); EOS % 1 % (0-3); HEMOGLOBIN 11.2 g/dL (13.0-17.5); LYMPH # 0.4 x10^3/uL (1.0-4.8); LYMPH % 3 % (24-48); MEAN CORPUSCULAR HEMOGLOBIN 33 pg (25-35); MEAN CORPUSCULAR HGB CONC 32 g/dL (31-37); MEAN CORPUSCULAR VOLUME 102 fL (79-100); MONO # 0.5 x10^3/uL (0.0-1.1); MONO % 4 % (0-9); NEUT # 12.4 x10^3/uL (1.8-7.7); NEUT % 92 % (31-73); PLATELET COUNT 165 x10^3/uL (140-400); RED BLOOD COUNT 3.44 x10^6/uL (4.30-5.70); RED CELL DISTRIBUTION WIDTH 13.7 % (11.5-14.5); WHITE BLOOD COUNT 13.4 x10^3/uL (4.0-11.0)
[2021-03-07 06:16] LABS: CALCIUM 8.2 mg/dL (8.5-10.1); CREATININE 0.9 mg/dL (0.7-1.3)
[2021-03-07 08:25] LABS: BASE EXCESS ABG 3 mmol/L (-3-3); HCO3 ABG 29 mmol/L (21-28); PCO2 ABG 49 mmHg (35-46); PO2 ABG 51 mmHg (75-108); SAT O2 ABG 84 % (92-99)
[2021-03-07 08:26] LABS: FIO2 ABG 100
--- NOTE | 2021-03-07 08:51 | RAD ---
EXAM: XR CHEST 1V 03/07/2021 4:17 AM CLINICAL INDICATION: Respiratory failure/ARDS COMPARISON: Chest radiograph 03/05/2021 TECHNIQUE: AP semiupright upright view of the chest FINDINGS: The endotracheal tube terminates higher, 8.3 cm above the anh, just above the level of the clavicular heads. The right IJ venous catheter tip projects over the superior vena cava. Nasogast joselin tube terminates below the diaphragm out of view. The cardiac silhouette is stable. Basilar predom inant bilateral interstitial and airspace opacities are unchanged. Unchanged possible small left pleu ral effusion. No pneumothorax. IMPRESSION: 1. Higher termination of endotracheal tube, now 8.3 cm above the anh. 2. Unchanged bilateral pulmonary opacities. Electronically signed by: Juana Johnson MD (03/07/2021 8:49 AM) [id number]
[2021-03-07] MEDS: methylPREDNISolone SOD SUCC PF 40 MG/ML VIAL. IV SCH ×2 (09:19→20:38)
[2021-03-07] MEDS: ENOXAPARIN 40 MG/0.4 ML SYRINGE. SQ SCH ×2 (09:19→20:38)
[2021-03-07] MEDS: FAMOTIDINE 20 MG/2 ML VIAL IVP SCH ×2 (09:19→20:39)
[2021-03-07] MEDS: INSULIN GLARGINE SYRINGE. SQ SCH ×2 (09:20→20:40)
[2021-03-07] MEDS: MULTIVITAMINS,THERAPEUTIC 5 ML ORAL LIQUID. PEG SCH (09:20)
[2021-03-07] MEDS: ASPIRIN CHEWABLE 81 MG TABLET. PO SCH (09:20)
--- NOTE | 2021-03-07 11:50 | PDOC ---
PULMONARY PROGRESS NOTES DATE: 03/07/21 TIME: 11:46 Subjective remains on vent support 100% and a PEEP of 16 Patient is on vecuronium drip No overnight concerns from nursing Vitals Vital Signs Date Time Temp Pulse Resp B/P (MAP) Pulse Ox O2 Delivery O2 Flow Rate FiO2 03/07/21 10:00 100 24 134/74 (94) 85 Ventilator 03/07/21 08:00 98.8 98.8 03/07/21 06:03 25.0 Comments Visual exam done due to COVID-19. intubated sedated nc at rrr no accessory muscle use abd obese no rash or edema Lungs: Other (Increased work of breathing) Labs Laboratory Tests Test 03/05/21 17:40 03/05/21 20:23 03/06/21 00:11 03/06/21 05:10 Glucose (Fingerstick) 173 mg/dL (70-99) 206 mg/dL (70-99) 177 mg/dL (70-99) White Blood Count 12.9 x10^3/uL (4.0-11.0) Red Blood Count 3.41 x10^6/uL (4.30-5.70) Hemoglobin 11.2 g/dL (13.0-17.5) Hematocrit 34.8 % (39.0-53.0) Mean Corpuscular Volume 102 fL (79-100) Mean Corpuscular Hemoglobin 33 pg (25-35) Mean Corpuscular Hemoglobin Concent 32 g/dL (31-37) Red Cell Distribution Width 13.5 % (11.5-14.5) Platelet Count 169 x10^3/uL (140-400) Neutrophils (%) (Auto) 91 % (31-73) Lymphocytes (%) (Auto) 4 % (24-48) Monocytes (%) (Auto) 5 % (0-9) Eosinophils (%) (Auto) 0 % (0-3) Basophils (%) (Auto) 0 % (0-3) Neutrophils # (Auto) 11.7 x10^3/uL (1.8-7.7) Lymphocytes # (Auto) 0.5 x10^3/uL (1.0-4.8) Monocytes # (Auto) 0.7 x10^3/uL (0.0-1.1) Eosinophils # (Auto) 0.0 x10^3/uL (0.0-0.7) Basophils # (Auto) 0.0 x10^3/uL (0.0-0.2) Sodium Level 145 mmol/L (136-145) Potassium Level 4.7 mmol/L (3.5-5.1) Chloride Level 109 mmol/L (98-107) Carbon Dioxide Level 36 mmol/L (21-32) Anion Gap 0 (6-14) Blood Urea Nitrogen 34 mg/dL (8-26) Creatinine 1.1 mg/dL (0.7-1.3) Estimated GFR (Cockcroft-Gault) 84.1 Glucose Level 179 mg/dL (70-99) Calcium Level 8.1 mg/dL (8.5-10.1) Test 03/06/21 06:01 03/06/21 08:30 03/06/21 12:19 03/06/21 18:00 Glucose (Fingerstick) 180 mg/dL (70-99) 164 mg/dL (70-99) 204 mg/dL (70-99) O2 Saturation 87 % (92-99) Arterial Blood pH 7.44 (7.35-7.45) Arterial Blood pCO2 at Patient Temp 45 mmHg (35-46) Arterial Blood pO2 at Patient Temp 54 mmHg (75-108) Arterial Blood HCO3 30 mmol/L (21-28) Arterial Blood Base Excess 5 mmol/L (-3-3) FiO2 100/vent Test 03/07/21 00:01 03/07/21 05:30 03/07/21 05:37 03/07/21 08:21 Glucose (Fingerstick) 140 mg/dL (70-99) 184 mg/dL (70-99) White Blood Count 13.4 x10^3/uL (4.0-11.0) Red Blood Count 3.44 x10^6/uL (4.30-5.70) Hemoglobin 11.2 g/dL (13.0-17.5) Hematocrit 35.0 % (39.0-53.0) Mean Corpuscular Volume 102 fL (79-100) Mean Corpuscular Hemoglobin 33 pg (25-35) Mean Corpuscular Hemoglobin Concent 32 g/dL (31-37) Red Cell Distribution Width 13.7 % (11.5-14.5) Platelet Count 165 x10^3/uL (140-400) Neutrophils (%) (Auto) 92 % (31-73) Lymphocytes (%) (Auto) 3 % (24-48) Monocytes (%) (Auto) 4 % (0-9) Eosinophils (%) (Auto) 1 % (0-3) Basophils (%) (Auto) 0 % (0-3) Neutrophils # (Auto) 12.4 x10^3/uL (1.8-7.7) Lymphocytes # (Auto) 0.4 x10^3/uL (1.0-4.8) Monocytes # (Auto) 0.5 x10^3/uL (0.0-1.1) Eosinophils # (Auto) 0.1 x10^3/uL (0.0-0.7) Basophils # (Auto) 0.0 x10^3/uL (0.0-0.2) Sodium Level 146 mmol/L (136-145) Potassium Level 5.0 mmol/L (3.5-5.1) Chloride Level 110 mmol/L (98-107) Carbon Dioxide Level 33 mmol/L (21-32) Anion Gap 3 (6-14) Blood Urea Nitrogen 31 mg/dL (8-26) Creatinine 0.9 mg/dL (0.7-1.3) Estimated GFR (Cockcroft-Gault) 106.0 Glucose Level 176 mg/dL (70-99) Calcium Level 8.2 mg/dL (8.5-10.1) O2 Saturation 84 % (92-99) Arterial Blood pH 7.39 (7.35-7.45) Arterial Blood pCO2 at Patient Temp 49 mmHg (35-46) Arterial Blood pO2 at Patient Temp 51 mmHg (75-108) Arterial Blood HCO3 29 mmol/L (21-28) Arterial Blood Base Excess 3 mmol/L (-3-3) FiO2 100 Laboratory Tests Test 03/06/21 12:19 03/06/21 18:00 03/07/21 00:01 03/07/21 05:30 Glucose (Fingerstick) 164 mg/dL (70-99) 204 mg/dL (70-99) 140 mg/dL (70-99) White Blood Count 13.4 x10^3/uL (4.0-11.0) Red Blood Count 3.44 x10^6/uL (4.30-5.70) Hemoglobin 11.2 g/dL (13.0-17.5) Hematocrit 35.0 % (39.0-53.0) Mean Corpuscular Volume 102 fL (79-100) Mean Corpuscular Hemoglobin 33 pg (25-35) Mean Corpuscular Hemoglobin Concent 32 g/dL (31-37) Red Cell Distribution Width 13.7 % (11.5-14.5) Platelet Count 165 x10^3/uL (140-400) Neutrophils (%) (Auto) 92 % (31-73) Lymphocytes (%) (Auto) 3 % (24-48) Monocytes (%) (Auto) 4 % (0-9) Eosinophils (%) (Auto) 1 % (0-3) Basophils (%) (Auto) 0 % (0-3) Neutrophils # (Auto) 12.4 x10^3/uL (1.8-7.7) Lymphocytes # (Auto) 0.4 x10^3/uL (1.0-4.8) Monocytes # (Auto) 0.5 x10^3/uL (0.0-1.1) Eosinophils # (Auto) 0.1 x10^3/uL (0.0-0.7) Basophils # (Auto) 0.0 x10^3/uL (0.0-0.2) Sodium Level 146 mmol/L (136-145) Potassium Level 5.0 mmol/L (3.5-5.1) Chloride Level 110 mmol/L (98-107) Carbon Dioxide Level 33 mmol/L (21-32) Anion Gap 3 (6-14) Blood Urea Nitrogen 31 mg/dL (8-26) Creatinine 0.9 mg/dL (0.7-1.3) Estimated GFR (Cockcroft-Gault) 106.0 Glucose Level 176 mg/dL (70-99) Calcium Level 8.2 mg/dL (8.5-10.1) Test 03/07/21 05:37 03/07/21 08:21 Glucose (Fingerstick) 184 mg/dL (70-99) O2 Saturation 84 % (92-99) Arterial Blood pH 7.39 (7.35-7.45) Arterial Blood pCO2 at Patient Temp 49 mmHg (35-46) Arterial Blood pO2 at Patient Temp 51 mmHg (75-108) Arterial Blood HCO3 29 mmol/L (21-28) Arterial Blood Base Excess 3 mmol/L (-3-3) FiO2 100 Medications Active Scripts Medications Dose Route/Sig Max Daily Dose Days Date Category [tylenol pm] 1 Tab PO HS 02/22/21 Reported Losartan Potassium 50 Mg Tablet 50 Mg PO HS 02/22/21 Reported Atorvastatin Calcium 20 Mg Tablet 20 Mg PO HS 02/22/21 Reported Omeprazole 40 Mg Capsule.dr Tubbs Cap PO PRN DAILY PRN 05/20/17 Reported Daily Vitamin Formula-Minerals (Multivitamin With Minerals) 1 Each Tablet 1 Each PO 01/06/17 Reported Atenolol 50 Mg Tablet 1 Tab PO DAILY 01/06/17 Reported Comments cxr 03/07 IMPRESSION: 1. Higher termination of endotracheal tube, now 8.3 cm above the anh. 2. Unchanged bilateral pulmonary opacities. Impression . 1. Acute hypoxic respiratory failure secondary to COVID-19 viral pneumonia/ARDS/acute lung injury.-, intubated 02/26/21. 2. Abnormal chest x-ray with faint bilateral interstitial infiltrates associated with COVID-19 pneumonia. Mild improvement seen on recent chest x-ray 3. COVID-19 positive. 4. No significant tobacco history. 5. Mild acute kidney injury. 6. Abnormal liver function tests, likely related to COVID-19. Bilirubin 1.4. 7. Patient initiated on full dose anticoagulation with Lovenox due to marked increase in D-dimer of more than 20. Since the D-dimer significantly improved. Lovenox dose was changed to DVT prophylaxis dose on 03/05 Plan . Updated 03/07/2021 Continue current ventilatory support, 24/500/100/16. adequate sedation, currently on paralytics Follow-up chest x-ray/ABG,advance ET 2 cm Status post remdesivir DC steroids Continue nutritional support DVT/GI prophylaxis:lovenox Discussed with RN and RT Critical care time 30 minutes Updated 03/06/2021 Continue current ventilatory support, 24/500/100/16. Remains critically ill. adequate sedation, currently on paralytics Continue current treatment dose Lovenox, await repeat D-dimer Follow-up chest x-ray/ABG, make changes as needed Status post remdesivir Wean steroids, has completed full 10-day course De-escalate antibiotics, currently on Doxy and Zosyn since 02/22/2021, NGTD in cultures Continue nutritional support DVT/GI prophylaxis D-dimer down to 4. Lovenox dose reduced to DVT prophylaxis dose 03/05. Discussed with RN and RT I discussed with patient's mother regarding his critical illness. I did explain to her there is a 5 to 10% chance of survival at present. She understands that. Critical care time 30 minutes Updated 03/05/2021 Continue current ventilatory support, 24/500/100/16 adequate sedation, currently on paralytics Continue current treatment dose Lovenox, await repeat D-dimer Follow-up chest x-ray/ABG, make changes as needed Status post remdesivir Wean steroids, has completed full 10-day course De-escalate antibiotics, currently on Doxy and Zosyn since 02/22/2021, NGTD in cultures Continue nutritional support DVT/GI prophylaxis D-dimer down to 4. Will reduce the dose of Lovenox to DVT prophylaxis dose. Discussed with RN and RT I discussed with patient's mother regarding his critical illness. I did explain to her there is a 5 to 10% chance of survival at present. She understands that. Critical care time 30 minutes Updated 03/04/2021 Continue current vent support , currently 24/500/100/12 titrate fio2/peep as tolearted desated again will increase peep to 14 stat pcxr I>>>O lasix 40 mg iv now 03/03 cxr worse D-dimer is markedly elevated and is more than 20 from an admission of 1.0. The possibility of thromboembolic disease is a strong consideration. Unfortunately too unstable to do CT angiogram. Venous Dopplers are negative. limited echocardiogram reviewed . empirically anticoagulate him for clinically suspected pulmonary embolism. monitor h/h closely ABG reviewed, make changes as needed S/P remdesivir oxygeation worse increase solumedrol to 40 q 8hrs full 10-day course started 02/22/2021 Continue empiric antibiotics DVT/GI prophylaxis: Lovenox Continue tube feeding Patients mother was updated about his condition. Discussed with RN and RT critically ill cc time 30 min no overlap ANGELA CHILEL MD Mar 07, 2021 11:50
--- NOTE | 2021-03-07 12:36 | PDOC ---
[employer] PROGRESS NOTE Date of Service DOS: DATE: 03/07/21 TIME: 12:34 Chief Complaint Chief Complaint Acute hypoxic respiratory failure COVID-19 pneumonia PJ due to vasomotor nephropathy Mild transaminitis Moderate protein malnutrition Morbid obesity History of hypertension Continue COVID-19 treatment protocol Continue IV Remdesivir Continue with empiric IV antibiotics Continue IV steroids Continue with Covid supplementation such as B1, vitamin C, vitamin D, zinc Heparin for DVT prophylaxis Full code DPOA [facility] History of Present Illness History of Present Illness The patient is a pleasant middle-aged male, well known to my service. Basically, he has been developing flu like symptoms over the past couple of weeks. He went to acute care center yesterday at [facility]. He was awaiting his test results for his COVID-19 testing, but today he just could not await he was getting too sick. We tested him here in the emergency room. He is positive. He has abnormal chest x-ray. We are going to admit the patient, place him on COVID protocol. 02/23/2021 No acute events overnight. Patient saturating 97% on 2 L nasal cannula. Patient currently on Remdesivir. Patient's chart, labs, images were reviewed and discussed with RN 02/24/2021 Patient seen and examine in bed. Patient Fi02 between 83%-92% on vapotherm and 100% non-rebreather. D/W RN, Chart Review Instructed patient to try to rest and conserve energy. 02/25/21 Patient seen and examined at the bedside. Currently requiring BiPAP. Vapotherm. Transferred to the ICU yesterday. Continue with Covid treatment. Plan of care discussed with bedside RN 02/26/2021: Afebrile. Intermittently breathing between BiPAP and Vapotherm. Continue empiric antibiotics and steroids. Last dose remdesivir today. Continue supportive care. 30 minutes critical care time spent reviewing charts, reviewing labs, reviewing imaging, discussion with RN. 02/27/2021: Afebrile. Still breathing on ventilator and FiO2 100%, PEEP 10. Continue IV steroids and IV antibiotics. He should continue IV steroids for total treatment of 10 days (last day 03/04/2021). Completed remdesivir. Continue supportive care. Critical care time 30 minutes spent reviewing charts, reviewing labs, reviewing imaging, and discussion with RN. 02/28/2021: Afebrile. On vent with FiO2 100%, PEEP 5. Some significant hyperglycemia noted today. Will obtain A1c and initiate insulin protocol. C ompleted remdesivir. Continue IVF biotics and IV steroids. Continue supportive care. Critical care time 30 minutes spent reviewing charts, reviewing labs, reviewing imaging, and discussion with RN. 03/01/2021: Afebrile. On vent with FiO2 100%, PEEP 9. Still with elevated blood sugars; HbA1c 5.5. Will initiate twice daily basal insulin. Completed remdesivir; continue IV antibiotics and steroids. Continue supportive care. Critical care time 30 minutes spent reviewing charts, reviewing labs, reviewing imaging, and discussion with RN. 03/02/2021: Afebrile. Remains on vent with FiO2 100%, PEEP 9. D-dimer >20. Discussed with Dr. Burrows, fully anticoagulate empirically and order echocardiogram to help with evaluation of PE. Has completed remdesivir. Continue IV antibiotics and steroids. Blood sugar slightly better controlled. Continue supportive care. Critical care time 30 minutes spent reviewing charts, reviewing labs, reviewing imaging, and discussion with RN. 03/03/2021: Afebrile. On vent with FiO2 100%, PEEP 10. Echo was obtained due to elevated D-dimer >20, that showed PAP estimated at 50 mmHg. Concerning for PE; will continue full anticoagulation with Lovenox. Has completed remdesivir. Continue IV antibiotics and steroids. Blood sugar slightly better controlled. Continue supportive care. Critical care time 30 minutes spent reviewing charts, reviewing labs, reviewing imaging, and discussion with RN. 03/04/2021: Afebrile. On vent with FiO2 100%, PEEP 5. Continue with Lovenox full anticoagulation for suspected PE. Completed remdesivir. Continue IV antibiotics and steroids for 10-day course; today is day 10 of steroids and will provide Solu-Medrol taper. Blood glucose currently well controlled. Critical care time 30 minutes spent reviewing charts, reviewing labs, reviewing imaging, and discussion with RN. 03/05/2021 No acute events overnight. T-max of 100.2 in the last 24 hours. Saturating 85% on vent settings of 24/500/100/16. Patient is on a vecuronium drip. Steroids will be weaned down to 40 mg twice daily today. Lovenox decreased to 40 mg twice daily due to decreasing D-dimer. Patient's chart, labs, images were reviewed and discussed with RN 03/06/2021 No acute events overnight. Afebrile last 24 hours. Saturating well on vent settings of 24/500/100/15. Continues to be on vecuronium drip. Patient's chart, labs, images were reviewed and discussed with RN A total of 32 minutes of critical care time was spent in reviewing chart, labs, and images. Discussed with RN and SW. 03/07/2021 Patient seen and examined bedside. Saturating 85% on vent settings of 24/500/100/6. Patient's chart, labs, images were reviewed and discussed with RN A total of 33 minutes of critical care time was spent in reviewing chart, labs, and images. Discussed with RN and SW. Vitals/I&O Vitals/I&O: Vital Signs Date Time Temp Pulse Resp B/P (MAP) Pulse Ox O2 Delivery O2 Flow Rate FiO2 03/07/21 12:07 79 Ventilator 03/07/21 10:00 100 24 134/74 (94) 03/07/21 08:00 98.8 98.8 03/07/21 06:03 25.0 I & O 03/06/21 03/06/21 03/07/21 15:00 23:00 07:00 Intake Total 450 ml 2276 ml 1188 ml Output Total 775 ml 1410 ml 875 ml Balance -325 ml 866 ml 313 ml Physical Exam Physical Exam: Visual exam performed under COVID-19 pandemic General: Alert, Oriented X3, Cooperative, moderate distress, Other (Intubated and sedated) Heart: Regular rate Lungs: Other (Increased work of breathing) Abdomen: Normal bowel sounds Extremities: No clubbing Skin: No rashes, No significant lesion Labs Labs: Laboratory Tests Test 03/06/21 18:00 03/07/21 00:01 03/07/21 05:30 03/07/21 05:37 Glucose (Fingerstick) 204 mg/dL (70-99) 140 mg/dL (70-99) 184 mg/dL (70-99) White Blood Count 13.4 x10^3/uL (4.0-11.0) Red Blood Count 3.44 x10^6/uL (4.30-5.70) Hemoglobin 11.2 g/dL (13.0-17.5) Hematocrit 35.0 % (39.0-53.0) Mean Corpuscular Volume 102 fL (79-100) Mean Corpuscular Hemoglobin 33 pg (25-35) Mean Corpuscular Hemoglobin Concent 32 g/dL (31-37) Red Cell Distribution Width 13.7 % (11.5-14.5) Platelet Count 165 x10^3/uL (140-400) Neutrophils (%) (Auto) 92 % (31-73) Lymphocytes (%) (Auto) 3 % (24-48) Monocytes (%) (Auto) 4 % (0-9) Eosinophils (%) (Auto) 1 % (0-3) Basophils (%) (Auto) 0 % (0-3) Neutrophils # (Auto) 12.4 x10^3/uL (1.8-7.7) Lymphocytes # (Auto) 0.4 x10^3/uL (1.0-4.8) Monocytes # (Auto) 0.5 x10^3/uL (0.0-1.1) Eosinophils # (Auto) 0.1 x10^3/uL (0.0-0.7) Basophils # (Auto) 0.0 x10^3/uL (0.0-0.2) Sodium Level 146 mmol/L (136-145) Potassium Level 5.0 mmol/L (3.5-5.1) Chloride Level 110 mmol/L (98-107) Carbon Dioxide Level 33 mmol/L (21-32) Anion Gap 3 (6-14) Blood Urea Nitrogen 31 mg/dL (8-26) Creatinine 0.9 mg/dL (0.7-1.3) Estimated GFR (Cockcroft-Gault) 106.0 Glucose Level 176 mg/dL (70-99) Calcium Level 8.2 mg/dL (8.5-10.1) Test 03/07/21 08:21 03/07/21 11:52 O2 Saturation 84 % (92-99) Arterial Blood pH 7.39 (7.35-7.45) Arterial Blood pCO2 at Patient Temp 49 mmHg (35-46) Arterial Blood pO2 at Patient Temp 51 mmHg (75-108) Arterial Blood HCO3 29 mmol/L (21-28) Arterial Blood Base Excess 3 mmol/L (-3-3) FiO2 100 Glucose (Fingerstick) 154 mg/dL (70-99) Assessment and Plan Assessmemt and Plan Problems Medical Problems: (1) Hypoxia Status: Acute (2) Pneumonia due to COVID-19 virus Status: Acute Comment Review of Relevant I have reviewed the following items ashley (where applicable) has been applied. Justifications for Admission Other Justification MAUREEN OVALLES MD Mar 07, 2021 12:36
--- NOTE | 2021-03-07 15:41 | NUR ---
SS following up with discharge planning. SS reviewed pt chart and discussed with pt RN. Pt is currently on the vent at 100%. COVID19 positive. Pt on IV Solu Medrol. Pt on Propofol, Vec, Versed, Fentanyl, and Precedex. Not stable. SS will continue to follow for discharge planning.
[2021-03-07] MEDS: MIDAZOLAM 100mg/100ml NS BAG 100 ML IV PRN (17:42)
[2021-03-07] MEDS: LOSARTAN POTASSIUM 50 MG TABLET. PO SCH (20:39)
[2021-03-08] VITALS (24 sets, daily range): BP systolic 118–181; BP diastolic 74–99
[2021-03-08] MEDS: INSULIN LISPRO 300 UNITS/3 ML VIAL. SQ SCH ×4 (01:01→16:48)
[2021-03-08] MEDS: PROPOFOL 100 ML IV PRN ×6 (01:53→23:07)
[2021-03-08] MEDS: DEXMEDETOMIDINE 400 MCG in IV NORMAL SALINE 100ML 96 ML IV PRN ×6 (02:41→23:08)
[2021-03-08] MEDS: MIDAZOLAM 100mg/100ml NS BAG 100 ML IV PRN ×2 (04:47→13:37)
[2021-03-08 08:50] LABS: BASE EXCESS ABG 6 mmol/L (-3-3); HCO3 ABG 32 mmol/L (21-28); PCO2 ABG 56 mmHg (35-46); PO2 ABG 51 mmHg (75-108); SAT O2 ABG 84 % (92-99)
[2021-03-08 08:53] LABS: FIO2 ABG 100
[2021-03-08] MEDS: MULTIVITAMINS,THERAPEUTIC 5 ML ORAL LIQUID. PEG SCH (09:28)
[2021-03-08] MEDS: ASPIRIN CHEWABLE 81 MG TABLET. PO SCH (09:28)
[2021-03-08] MEDS: methylPREDNISolone SOD SUCC PF 40 MG/ML VIAL. IV SCH (09:28)
[2021-03-08] MEDS: ENOXAPARIN 40 MG/0.4 ML SYRINGE. SQ SCH ×2 (09:29→20:36)
[2021-03-08] MEDS: FAMOTIDINE 20 MG/2 ML VIAL IVP SCH ×2 (09:29→20:37)
[2021-03-08] MEDS: INSULIN GLARGINE SYRINGE. SQ SCH ×2 (09:34→21:42)
[2021-03-08] MEDS: NORCURON - VECURONIUM 50 MG in IV NORMAL SALINE 50ML 50 ML IV PRN ×3 (09:38→21:44)
[2021-03-08 12:32] LABS: CALCIUM 8.5 mg/dL (8.5-10.1); CREATININE 0.6 mg/dL (0.7-1.3); GFR 169.3; MAGNESIUM 2.1 mg/dL (1.8-2.4); POTASSIUM 4.8 mmol/L (3.5-5.1)
--- NOTE | 2021-03-08 13:06 | PDOC ---
PULMONARY PROGRESS NOTES DATE: 03/08/21 TIME: 13:03 Subjective remains on vent support 100% and a PEEP of 16 No overnight concerns from nursing Vitals Vital Signs Date Time Temp Pulse Resp B/P (MAP) Pulse Ox O2 Delivery O2 Flow Rate FiO2 03/08/21 11:55 82 Ventilator 03/08/21 06:00 98.6 94 24 146/80 (102) 98.6 03/07/21 21:44 25.0 Comments Visual exam done due to COVID-19. intubated sedated nc at rrr no accessory muscle use abd obese no rash or edema Lungs: Other (Increased work of breathing) Labs Laboratory Tests Test 03/06/21 18:00 03/07/21 00:01 03/07/21 05:30 03/07/21 05:37 Glucose (Fingerstick) 204 mg/dL (70-99) 140 mg/dL (70-99) 184 mg/dL (70-99) White Blood Count 13.4 x10^3/uL (4.0-11.0) Red Blood Count 3.44 x10^6/uL (4.30-5.70) Hemoglobin 11.2 g/dL (13.0-17.5) Hematocrit 35.0 % (39.0-53.0) Mean Corpuscular Volume 102 fL (79-100) Mean Corpuscular Hemoglobin 33 pg (25-35) Mean Corpuscular Hemoglobin Concent 32 g/dL (31-37) Red Cell Distribution Width 13.7 % (11.5-14.5) Platelet Count 165 x10^3/uL (140-400) Neutrophils (%) (Auto) 92 % (31-73) Lymphocytes (%) (Auto) 3 % (24-48) Monocytes (%) (Auto) 4 % (0-9) Eosinophils (%) (Auto) 1 % (0-3) Basophils (%) (Auto) 0 % (0-3) Neutrophils # (Auto) 12.4 x10^3/uL (1.8-7.7) Lymphocytes # (Auto) 0.4 x10^3/uL (1.0-4.8) Monocytes # (Auto) 0.5 x10^3/uL (0.0-1.1) Eosinophils # (Auto) 0.1 x10^3/uL (0.0-0.7) Basophils # (Auto) 0.0 x10^3/uL (0.0-0.2) Sodium Level 146 mmol/L (136-145) Potassium Level 5.0 mmol/L (3.5-5.1) Chloride Level 110 mmol/L (98-107) Carbon Dioxide Level 33 mmol/L (21-32) Anion Gap 3 (6-14) Blood Urea Nitrogen 31 mg/dL (8-26) Creatinine 0.9 mg/dL (0.7-1.3) Estimated GFR (Cockcroft-Gault) 106.0 Glucose Level 176 mg/dL (70-99) Calcium Level 8.2 mg/dL (8.5-10.1) Test 03/07/21 08:21 03/07/21 11:52 03/07/21 17:23 03/07/21 20:52 O2 Saturation 84 % (92-99) Arterial Blood pH 7.39 (7.35-7.45) Arterial Blood pCO2 at Patient Temp 49 mmHg (35-46) Arterial Blood pO2 at Patient Temp 51 mmHg (75-108) Arterial Blood HCO3 29 mmol/L (21-28) Arterial Blood Base Excess 3 mmol/L (-3-3) FiO2 100 Glucose (Fingerstick) 154 mg/dL (70-99) 208 mg/dL (70-99) 149 mg/dL (70-99) Test 03/08/21 00:40 03/08/21 06:16 03/08/21 08:00 03/08/21 12:00 Glucose (Fingerstick) 160 mg/dL (70-99) 169 mg/dL (70-99) O2 Saturation 84 % (92-99) Arterial Blood pH 7.38 (7.35-7.45) Arterial Blood pCO2 at Patient Temp 56 mmHg (35-46) Arterial Blood pO2 at Patient Temp 51 mmHg (75-108) Arterial Blood HCO3 32 mmol/L (21-28) Arterial Blood Base Excess 6 mmol/L (-3-3) FiO2 100 Sodium Level 142 mmol/L (136-145) Potassium Level 4.8 mmol/L (3.5-5.1) Chloride Level 106 mmol/L (98-107) Carbon Dioxide Level 33 mmol/L (21-32) Anion Gap 3 (6-14) Blood Urea Nitrogen 25 mg/dL (8-26) Creatinine 0.6 mg/dL (0.7-1.3) Estimated GFR (Cockcroft-Gault) 169.3 Glucose Level 164 mg/dL (70-99) Calcium Level 8.5 mg/dL (8.5-10.1) Magnesium Level 2.1 mg/dL (1.8-2.4) Test 03/08/21 12:51 Glucose (Fingerstick) 163 mg/dL (70-99) Laboratory Tests Test 03/07/21 17:23 03/07/21 20:52 03/08/21 00:40 03/08/21 06:16 Glucose (Fingerstick) 208 mg/dL (70-99) 149 mg/dL (70-99) 160 mg/dL (70-99) 169 mg/dL (70-99) Test 03/08/21 08:00 03/08/21 12:00 03/08/21 12:51 O2 Saturation 84 % (92-99) Arterial Blood pH 7.38 (7.35-7.45) Arterial Blood pCO2 at Patient Temp 56 mmHg (35-46) Arterial Blood pO2 at Patient Temp 51 mmHg (75-108) Arterial Blood HCO3 32 mmol/L (21-28) Arterial Blood Base Excess 6 mmol/L (-3-3) FiO2 100 Sodium Level 142 mmol/L (136-145) Potassium Level 4.8 mmol/L (3.5-5.1) Chloride Level 106 mmol/L (98-107) Carbon Dioxide Level 33 mmol/L (21-32) Anion Gap 3 (6-14) Blood Urea Nitrogen 25 mg/dL (8-26) Creatinine 0.6 mg/dL (0.7-1.3) Estimated GFR (Cockcroft-Gault) 169.3 Glucose Level 164 mg/dL (70-99) Calcium Level 8.5 mg/dL (8.5-10.1) Magnesium Level 2.1 mg/dL (1.8-2.4) Glucose (Fingerstick) 163 mg/dL (70-99) Medications Active Scripts Medications Dose Route/Sig Max Daily Dose Days Date Category [tylenol pm] 1 Tab PO HS 02/22/21 Reported Losartan Potassium 50 Mg Tablet 50 Mg PO HS 02/22/21 Reported Atorvastatin Calcium 20 Mg Tablet 20 Mg PO HS 02/22/21 Reported Omeprazole 40 Mg Capsule.dr 1 Cap PO PRN DAILY PRN 05/20/17 Reported Daily Vitamin Formula-Minerals (Multivitamin With Minerals) 1 Each Tablet 1 Each PO 01/06/17 Reported Atenolol 50 Mg Tablet 1 Tab PO DAILY 01/06/17 Reported Impression . 1. Acute hypoxic respiratory failure secondary to COVID-19 viral pneumonia/ARDS/acute lung injury.-, intubated 02/26/21. 2. Abnormal chest x-ray with faint bilateral interstitial infiltrates associated with COVID-19 pneumonia. Mild improvement seen on recent chest x-ray 3. COVID-19 positive. 4. No significant tobacco history. 5. Mild acute kidney injuryimproved 6. Abnormal liver function tests, likely related to COVID-19. Bilirubin 1.4. 7. Patient initiated on full dose anticoagulation with Lovenox due to marked increase in D-dimer of more than 20. Since the D-dimer significantly improved. Lovenox dose was changed to DVT prophylaxis dose on 03/05 Plan . Updated 03/08/2021 Continue current ventilatory support, 24/500/100/16. adequate sedation, currently on paralytics Follow-up chest x-ray/ABG, p02 marginal not able to wean PEEP or Fi02 Status post remdesivir and full course of steroids Continue tube feeding nutritional support DVT/GI prophylaxis:lovenox Discussed with RN and RT Critical care time 30 minutes LUIS ALBERTO PATTEN APRN Mar 08, 2021 13:06
--- NOTE | 2021-03-08 13:22 | PDOC ---
[employer] PROGRESS NOTE Date of Service DOS: DATE: 03/08/21 TIME: 13:20 Chief Complaint Chief Complaint Acute hypoxic respiratory failure COVID-19 pneumonia PJ due to vasomotor nephropathy Mild transaminitis Moderate protein malnutrition Morbid obesity History of hypertension Continue COVID-19 treatment protocol Continue IV Remdesivir Continue with empiric IV antibiotics Continue IV steroids Continue with Covid supplementation such as B1, vitamin C, vitamin D, zinc Heparin for DVT prophylaxis Full code DPOA [facility] History of Present Illness History of Present Illness The patient is a pleasant middle-aged male, well known to my service. Basically, he has been developing flu like symptoms over the past couple of weeks. He went to acute care center yesterday at [facility]. He was awaiting his test results for his COVID-19 testing, but today he just could not await he was getting too sick. We tested him here in the emergency room. He is positive. He has abnormal chest x-ray. We are going to admit the patient, place him on COVID protocol. 02/23/2021 No acute events overnight. Patient saturating 97% on 2 L nasal cannula. Patient currently on Remdesivir. Patient's chart, labs, images were reviewed and discussed with RN 02/24/2021 Patient seen and examine in bed. Patient Fi02 between 83%-92% on vapotherm and 100% non-rebreather. D/W RN, Chart Review Instructed patient to try to rest and conserve energy. 02/25/21 Patient seen and examined at the bedside. Currently requiring BiPAP. Vapotherm. Transferred to the ICU yesterday. Continue with Covid treatment. Plan of care discussed with bedside RN 02/26/2021: Afebrile. Intermittently breathing between BiPAP and Vapotherm. Continue empiric antibiotics and steroids. Last dose remdesivir today. Continue supportive care. 30 minutes critical care time spent reviewing charts, reviewing labs, reviewing imaging, discussion with RN. 02/27/2021: Afebrile. Still breathing on ventilator and FiO2 100%, PEEP 10. Continue IV steroids and IV antibiotics. He should continue IV steroids for total treatment of 10 days (last day 03/04/2021). Completed remdesivir. Continue supportive care. Critical care time 30 minutes spent reviewing charts, reviewing labs, reviewing imaging, and discussion with RN. 02/28/2021: Afebrile. On vent with FiO2 100%, PEEP 5. Some significant hyperglycemia noted today. Will obtain A1c and initiate insulin protocol. C ompleted remdesivir. Continue IVF biotics and IV steroids. Continue supportive care. Critical care time 30 minutes spent reviewing charts, reviewing labs, reviewing imaging, and discussion with RN. 03/01/2021: Afebrile. On vent with FiO2 100%, PEEP 9. Still with elevated blood sugars; HbA1c 5.5. Will initiate twice daily basal insulin. Completed remdesivir; continue IV antibiotics and steroids. Continue supportive care. Critical care time 30 minutes spent reviewing charts, reviewing labs, reviewing imaging, and discussion with RN. 03/02/2021: Afebrile. Remains on vent with FiO2 100%, PEEP 9. D-dimer >20. Discussed with Dr. Burrows, fully anticoagulate empirically and order echocardiogram to help with evaluation of PE. Has completed remdesivir. Continue IV antibiotics and steroids. Blood sugar slightly better controlled. Continue supportive care. Critical care time 30 minutes spent reviewing charts, reviewing labs, reviewing imaging, and discussion with RN. 03/03/2021: Afebrile. On vent with FiO2 100%, PEEP 10. Echo was obtained due to elevated D-dimer >20, that showed PAP estimated at 50 mmHg. Concerning for PE; will continue full anticoagulation with Lovenox. Has completed remdesivir. Continue IV antibiotics and steroids. Blood sugar slightly better controlled. Continue supportive care. Critical care time 30 minutes spent reviewing charts, reviewing labs, reviewing imaging, and discussion with RN. 03/04/2021: Afebrile. On vent with FiO2 100%, PEEP 5. Continue with Lovenox full anticoagulation for suspected PE. Completed remdesivir. Continue IV antibiotics and steroids for 10-day course; today is day 10 of steroids and will provide Solu-Medrol taper. Blood glucose currently well controlled. Critical care time 30 minutes spent reviewing charts, reviewing labs, reviewing imaging, and discussion with RN. 03/05/2021 No acute events overnight. T-max of 100.2 in the last 24 hours. Saturating 85% on vent settings of 24/500/100/16. Patient is on a vecuronium drip. Steroids will be weaned down to 40 mg twice daily today. Lovenox decreased to 40 mg twice daily due to decreasing D-dimer. Patient's chart, labs, images were reviewed and discussed with RN 03/06/2021 No acute events overnight. Afebrile last 24 hours. Saturating well on vent settings of 24/500/100/15. Continues to be on vecuronium drip. Patient's chart, labs, images were reviewed and discussed with RN A total of 32 minutes of critical care time was spent in reviewing chart, labs, and images. Discussed with RN and SW. 03/07/2021 Patient seen and examined bedside. Saturating 85% on vent settings of 24/500/100/6. Patient's chart, labs, images were reviewed and discussed with RN A total of 33 minutes of critical care time was spent in reviewing chart, labs, and images. Discussed with RN and SW. 03/08/2021 No acute events overnight. Patient saturating 82% on 24/500/100/16. Will defer vent setting adjustments per pulmonology. Glucose levels are stable ICU 160s. Patient's chart, labs, images were reviewed and discussed with RN A total of 33 minutes of critical care time was spent in reviewing chart, labs, and images. Discussed with RN and SW. Vitals/I&O Vitals/I&O: Vital Signs Date Time Temp Pulse Resp B/P (MAP) Pulse Ox O2 Delivery O2 Flow Rate FiO2 03/08/21 11:55 82 Ventilator 03/08/21 06:00 98.6 94 24 146/80 (102) 98.6 03/07/21 21:44 25.0 I & O 03/07/21 03/07/21 03/08/21 15:00 23:00 07:00 Intake Total 400 ml 2264 ml 1340 ml Output Total 825 ml 1275 ml 700 ml Balance -425 ml 989 ml 640 ml Physical Exam Physical Exam: Visual exam performed under COVID-19 pandemic General: Alert, Oriented X3, Cooperative, moderate distress, Other (Intubated and sedated) Heart: Regular rate Lungs: Other (Increased work of breathing) Abdomen: Normal bowel sounds Extremities: No clubbing Skin: No rashes, No significant lesion Labs Labs: Laboratory Tests Test 03/07/21 17:23 03/07/21 20:52 03/08/21 00:40 03/08/21 06:16 Glucose (Fingerstick) 208 mg/dL (70-99) 149 mg/dL (70-99) 160 mg/dL (70-99) 169 mg/dL (70-99) Test 03/08/21 08:00 03/08/21 12:00 03/08/21 12:51 O2 Saturation 84 % (92-99) Arterial Blood pH 7.38 (7.35-7.45) Arterial Blood pCO2 at Patient Temp 56 mmHg (35-46) Arterial Blood pO2 at Patient Temp 51 mmHg (75-108) Arterial Blood HCO3 32 mmol/L (21-28) Arterial Blood Base Excess 6 mmol/L (-3-3) FiO2 100 Sodium Level 142 mmol/L (136-145) Potassium Level 4.8 mmol/L (3.5-5.1) Chloride Level 106 mmol/L (98-107) Carbon Dioxide Level 33 mmol/L (21-32) Anion Gap 3 (6-14) Blood Urea Nitrogen 25 mg/dL (8-26) Creatinine 0.6 mg/dL (0.7-1.3) Estimated GFR (Cockcroft-Gault) 169.3 Glucose Level 164 mg/dL (70-99) Calcium Level 8.5 mg/dL (8.5-10.1) Magnesium Level 2.1 mg/dL (1.8-2.4) Glucose (Fingerstick) 163 mg/dL (70-99) Assessment and Plan Assessmemt and Plan Problems Medical Problems: (1) Hypoxia Status: Acute (2) Pneumonia due to COVID-19 virus Status: Acute Comment Review of Relevant I have reviewed the following items ashley (where applicable) has been applied. Justifications for Admission Other Justification MAUREEN OVALLES MD Mar 08, 2021 13:22
[2021-03-08] MEDS: fentaNYL HIGH DOSE PCA 55 ML IV PRN (13:47)
[2021-03-08] MEDS: LOSARTAN POTASSIUM 50 MG TABLET. PO SCH (20:37)
[2021-03-09] VITALS (24 sets, daily range): BP systolic 99–155; BP diastolic 59–84
[2021-03-09] MEDS: INSULIN LISPRO 300 UNITS/3 ML VIAL. SQ SCH ×4 (00:37→18:12)
[2021-03-09] MEDS: MIDAZOLAM 100mg/100ml NS BAG 100 ML IV PRN ×3 (02:18→23:56)
[2021-03-09] MEDS: DEXMEDETOMIDINE 400 MCG in IV NORMAL SALINE 100ML 96 ML IV PRN ×6 (03:49→23:54)
[2021-03-09] MEDS: PROPOFOL 100 ML IV PRN ×6 (03:54→23:59)
[2021-03-09 07:41] LABS: BASE EXCESS ABG 3 mmol/L (-3-3); HCO3 ABG 30 mmol/L (21-28); PCO2 ABG 56 mmHg (35-46); SAT O2 ABG 72 % (92-99)
[2021-03-09 07:42] LABS: FIO2 ABG 100; PO2 ABG 42 mmHg (75-108)
[2021-03-09] MEDS: ASPIRIN CHEWABLE 81 MG TABLET. PO SCH (07:57)
[2021-03-09] MEDS: MULTIVITAMINS,THERAPEUTIC 5 ML ORAL LIQUID. PEG SCH (07:57)
[2021-03-09] MEDS: FAMOTIDINE 20 MG/2 ML VIAL IVP SCH ×2 (07:58→22:35)
[2021-03-09] MEDS: ENOXAPARIN 40 MG/0.4 ML SYRINGE. SQ SCH ×2 (07:58→22:35)
[2021-03-09] MEDS: methylPREDNISolone SOD SUCC PF 40 MG/ML VIAL. IV SCH (08:00)
--- NOTE | 2021-03-09 08:42 | RAD ---
EXAM: Chest, single view. HISTORY: Respiratory failure. COMPARISON: 03/07/2021 FINDINGS: A frontal view of the chest is obtained. There is stable diffuse interstitial infiltrate wi th small pleural effusions. There is no pneumothorax. The heart is normal in size. There is an endotr acheal tube within the mid trachea. There is a right internal jugular catheter with the tip overlying expected location of the superior cavoatrial junction. There is nasogastric tube within the stomach. IMPRESSION: 1. Stable diffuse interstitial infiltrate with small pleural effusions. 2. Stable support lines and tubes. Electronically signed by: Farideh Alvarado MD (03/09/2021 8:39 AM) [id number]
[2021-03-09] MEDS: INSULIN GLARGINE SYRINGE. SQ SCH ×2 (08:50→22:37)
[2021-03-09] MEDS: NORCURON - VECURONIUM 50 MG in IV NORMAL SALINE 50ML 50 ML IV PRN ×2 (10:57→19:46)
--- NOTE | 2021-03-09 11:28 | PDOC ---
PULMONARY PROGRESS NOTES DATE: 03/09/21 TIME: 11:25 Subjective remains on vent support 100% and a PEEP of 16 Oxygenation continues to worsen. Vitals Vital Signs Date Time Temp Pulse Resp B/P (MAP) Pulse Ox O2 Delivery O2 Flow Rate FiO2 03/09/21 11:02 79 Ventilator 03/09/21 06:00 114 24 145/82 (103) 03/09/21 05:00 97.5 97.5 03/08/21 14:17 25.0 Comments Visual exam done due to COVID-19. intubated sedated nc at rrr no accessory muscle use abd obese no rash or edema Labs Laboratory Tests Test 03/07/21 11:52 03/07/21 17:23 03/07/21 20:52 03/08/21 00:40 Glucose (Fingerstick) 154 mg/dL (70-99) 208 mg/dL (70-99) 149 mg/dL (70-99) 160 mg/dL (70-99) Test 03/08/21 06:16 03/08/21 08:00 03/08/21 12:00 03/08/21 12:51 Glucose (Fingerstick) 169 mg/dL (70-99) 163 mg/dL (70-99) O2 Saturation 84 % (92-99) Arterial Blood pH 7.38 (7.35-7.45) Arterial Blood pCO2 at Patient Temp 56 mmHg (35-46) Arterial Blood pO2 at Patient Temp 51 mmHg (75-108) Arterial Blood HCO3 32 mmol/L (21-28) Arterial Blood Base Excess 6 mmol/L (-3-3) FiO2 100 Sodium Level 142 mmol/L (136-145) Potassium Level 4.8 mmol/L (3.5-5.1) Chloride Level 106 mmol/L (98-107) Carbon Dioxide Level 33 mmol/L (21-32) Anion Gap 3 (6-14) Blood Urea Nitrogen 25 mg/dL (8-26) Creatinine 0.6 mg/dL (0.7-1.3) Estimated GFR (Cockcroft-Gault) 169.3 Glucose Level 164 mg/dL (70-99) Calcium Level 8.5 mg/dL (8.5-10.1) Magnesium Level 2.1 mg/dL (1.8-2.4) Test 03/08/21 16:45 03/08/21 21:33 03/08/21 23:31 03/09/21 06:08 Glucose (Fingerstick) 177 mg/dL (70-99) 163 mg/dL (70-99) 153 mg/dL (70-99) 125 mg/dL (70-99) Test 03/09/21 07:25 O2 Saturation 72 % (92-99) Arterial Blood pH 7.35 (7.35-7.45) Arterial Blood pCO2 at Patient Temp 56 mmHg (35-46) Arterial Blood pO2 at Patient Temp 42 mmHg (75-108) Arterial Blood HCO3 30 mmol/L (21-28) Arterial Blood Base Excess 3 mmol/L (-3-3) FiO2 100 Laboratory Tests Test 03/08/21 12:00 03/08/21 12:51 03/08/21 16:45 03/08/21 21:33 Sodium Level 142 mmol/L (136-145) Potassium Level 4.8 mmol/L (3.5-5.1) Chloride Level 106 mmol/L (98-107) Carbon Dioxide Level 33 mmol/L (21-32) Anion Gap 3 (6-14) Blood Urea Nitrogen 25 mg/dL (8-26) Creatinine 0.6 mg/dL (0.7-1.3) Estimated GFR (Cockcroft-Gault) 169.3 Glucose Level 164 mg/dL (70-99) Calcium Level 8.5 mg/dL (8.5-10.1) Magnesium Level 2.1 mg/dL (1.8-2.4) Glucose (Fingerstick) 163 mg/dL (70-99) 177 mg/dL (70-99) 163 mg/dL (70-99) Test 03/08/21 23:31 03/09/21 06:08 03/09/21 07:25 Glucose (Fingerstick) 153 mg/dL (70-99) 125 mg/dL (70-99) O2 Saturation 72 % (92-99) Arterial Blood pH 7.35 (7.35-7.45) Arterial Blood pCO2 at Patient Temp 56 mmHg (35-46) Arterial Blood pO2 at Patient Temp 42 mmHg (75-108) Arterial Blood HCO3 30 mmol/L (21-28) Arterial Blood Base Excess 3 mmol/L (-3-3) FiO2 100 Medications Active Scripts Medications Dose Route/Sig Max Daily Dose Days Date Category [tylenol pm] 1 Tab PO HS 02/22/21 Reported Losartan Potassium 50 Mg Tablet 50 Mg PO HS 02/22/21 Reported Atorvastatin Calcium 20 Mg Tablet 20 Mg PO HS 02/22/21 Reported Omeprazole 40 Mg Capsule.dr Tubbs Cap PO PRN DAILY PRN 05/20/17 Reported Daily Vitamin Formula-Minerals (Multivitamin With Minerals) 1 Each Tablet 1 Each PO 01/06/17 Reported Atenolol 50 Mg Tablet 1 Tab PO DAILY 01/06/17 Reported Comments Chest x-ray 03/09/2021 reviewed. Diffuse unchanged fine interstitial infiltrates. Impression . 1. Acute hypoxic respiratory failure secondary to COVID-19 viral pneumonia/ARDS/acute lung injury.-, intubated 02/26/21. Oxygen requirement continues to worsen. Currently on 100% FiO2 and 16 of PEEP. 2. Abnormal chest x-ray with faint bilateral interstitial infiltrates associated with COVID-19 pneumonia. 3. COVID-19 positive. 4. No significant tobacco history. 5. Mild acute kidney injuryimproved 6. Abnormal liver function tests, likely related to COVID-19. Bilirubin 1.4. 7. Patient initiated on full dose anticoagulation with Lovenox due to marked increase in D-dimer of more than 20. Since the D-dimer significantly improved. Lovenox dose was changed to DVT prophylaxis dose on 03/05 Plan . Updated 03/09/2021 Continue current ventilatory support, 24/500/100/16. We will increase the PEEP to 17 today. adequate sedation, currently on paralytics Follow-up chest x-ray/ABG, p02 marginal , Status post remdesivir and full course of steroids Continue tube feeding nutritional support DVT/GI prophylaxis:lovenox Discussed with RN and RT Discussed with patient's brother Valdemar Harrison. I explained to him critical illness and very poor chance of survival. I also explained to him about initiation of ivermectin. He understands that this is not FDA approved for this condition. Will give one dose. He wants to try anything that is available to treat his brother. Critical care time 30 minutes Updated 03/08/2021 Continue current ventilatory support, 24/500/100/16. adequate sedation, currently on paralytics Follow-up chest x-ray/ABG, p02 marginal not able to wean PEEP or Fi02 Status post remdesivir and full course of steroids Continue tube feeding nutritional support DVT/GI prophylaxis:lovenox Discussed with RN and RT Critical care time 30 minutes ANGELA CHILEL MD Mar 09, 2021 11:28
[2021-03-09] MEDS ORDERED: IVERMECTIN 3 MG TABLET PO SCH (12:00)
--- NOTE | 2021-03-09 13:20 | PDOC ---
[employer] PROGRESS NOTE Date of Service DOS: DATE: 03/09/21 TIME: 13:17 Chief Complaint Chief Complaint Acute hypoxic respiratory failure COVID-19 pneumonia PJ due to vasomotor nephropathy Mild transaminitis Moderate protein malnutrition Morbid obesity History of hypertension Continue COVID-19 treatment protocol Continue IV Remdesivir Continue with empiric IV antibiotics Continue IV steroids Continue with Covid supplementation such as B1, vitamin C, vitamin D, zinc Heparin for DVT prophylaxis Full code DPOA [facility] History of Present Illness History of Present Illness The patient is a pleasant middle-aged male, well known to my service. Basically, he has been developing flu like symptoms over the past couple of weeks. He went to acute care center yesterday at [facility]. He was awaiting his test results for his COVID-19 testing, but today he just could not await he was getting too sick. We tested him here in the emergency room. He is positive. He has abnormal chest x-ray. We are going to admit the patient, place him on COVID protocol. 02/23/2021 No acute events overnight. Patient saturating 97% on 2 L nasal cannula. Patient currently on Remdesivir. Patient's chart, labs, images were reviewed and discussed with RN 02/24/2021 Patient seen and examine in bed. Patient Fi02 between 83%-92% on vapotherm and 100% non-rebreather. D/W RN, Chart Review Instructed patient to try to rest and conserve energy. 02/25/21 Patient seen and examined at the bedside. Currently requiring BiPAP. Vapotherm. Transferred to the ICU yesterday. Continue with Covid treatment. Plan of care discussed with bedside RN 02/26/2021: Afebrile. Intermittently breathing between BiPAP and Vapotherm. Continue empiric antibiotics and steroids. Last dose remdesivir today. Continue supportive care. 30 minutes critical care time spent reviewing charts, reviewing labs, reviewing imaging, discussion with RN. 02/27/2021: Afebrile. Still breathing on ventilator and FiO2 100%, PEEP 10. Continue IV steroids and IV antibiotics. He should continue IV steroids for total treatment of 10 days (last day 03/04/2021). Completed remdesivir. Continue supportive care. Critical care time 30 minutes spent reviewing charts, reviewing labs, reviewing imaging, and discussion with RN. 02/28/2021: Afebrile. On vent with FiO2 100%, PEEP 5. Some significant hyperglycemia noted today. Will obtain A1c and initiate insulin protocol. C ompleted remdesivir. Continue IVF biotics and IV steroids. Continue supportive care. Critical care time 30 minutes spent reviewing charts, reviewing labs, reviewing imaging, and discussion with RN. 03/01/2021: Afebrile. On vent with FiO2 100%, PEEP 9. Still with elevated blood sugars; HbA1c 5.5. Will initiate twice daily basal insulin. Completed remdesivir; continue IV antibiotics and steroids. Continue supportive care. Critical care time 30 minutes spent reviewing charts, reviewing labs, reviewing imaging, and discussion with RN. 03/02/2021: Afebrile. Remains on vent with FiO2 100%, PEEP 9. D-dimer >20. Discussed with Dr. Burrows, fully anticoagulate empirically and order echocardiogram to help with evaluation of PE. Has completed remdesivir. Continue IV antibiotics and steroids. Blood sugar slightly better controlled. Continue supportive care. Critical care time 30 minutes spent reviewing charts, reviewing labs, reviewing imaging, and discussion with RN. 03/03/2021: Afebrile. On vent with FiO2 100%, PEEP 10. Echo was obtained due to elevated D-dimer >20, that showed PAP estimated at 50 mmHg. Concerning for PE; will continue full anticoagulation with Lovenox. Has completed remdesivir. Continue IV antibiotics and steroids. Blood sugar slightly better controlled. Continue supportive care. Critical care time 30 minutes spent reviewing charts, reviewing labs, reviewing imaging, and discussion with RN. 03/04/2021: Afebrile. On vent with FiO2 100%, PEEP 5. Continue with Lovenox full anticoagulation for suspected PE. Completed remdesivir. Continue IV antibiotics and steroids for 10-day course; today is day 10 of steroids and will provide Solu-Medrol taper. Blood glucose currently well controlled. Critical care time 30 minutes spent reviewing charts, reviewing labs, reviewing imaging, and discussion with RN. 03/05/2021 No acute events overnight. T-max of 100.2 in the last 24 hours. Saturating 85% on vent settings of 24/500/100/16. Patient is on a vecuronium drip. Steroids will be weaned down to 40 mg twice daily today. Lovenox decreased to 40 mg twice daily due to decreasing D-dimer. Patient's chart, labs, images were reviewed and discussed with RN 03/06/2021 No acute events overnight. Afebrile last 24 hours. Saturating well on vent settings of 24/500/100/15. Continues to be on vecuronium drip. Patient's chart, labs, images were reviewed and discussed with RN A total of 32 minutes of critical care time was spent in reviewing chart, labs, and images. Discussed with RN and SW. 03/07/2021 Patient seen and examined bedside. Saturating 85% on vent settings of 24/500/100/6. Patient's chart, labs, images were reviewed and discussed with RN A total of 33 minutes of critical care time was spent in reviewing chart, labs, and images. Discussed with RN and SW. 03/08/2021 No acute events overnight. Patient saturating 82% on 24/500/100/16. Will defer vent setting adjustments per pulmonology. Glucose levels are stable ICU 160s. Patient's chart, labs, images were reviewed and discussed with RN A total of 33 minutes of critical care time was spent in reviewing chart, labs, and images. Discussed with RN and SW. 03/09/2021 No acute events overnight. Patient is saturating 80% on vent settings of 26/500/100/12. Adjustment of vent settings will defer to pulmonology. Currently on sedation and paralytics. Patient's chart, labs, images were reviewed and discussed with RN. Chest x-ray is stable with diffuse infiltrates. No changes compared to 03/07/2021. A total of 34 minutes of critical care time was spent in reviewing chart, labs, and images. Discussed with RN and MELVIN. Vitals/I&O Vitals/I&O: Vital Signs Date Time Temp Pulse Resp B/P (MAP) Pulse Ox O2 Delivery O2 Flow Rate FiO2 03/09/21 11:02 79 Ventilator 03/09/21 06:00 114 24 145/82 (103) 03/09/21 05:00 97.5 97.5 03/08/21 14:17 25.0 I & O 0 03/08/21 03/08/21 03/09/21 15:00 23:00 07:00 Intake Total 452 ml 2340 ml 1524 ml Output Total 725 ml 1225 ml 900 ml Balance -273 ml 1115 ml 624 ml Physical Exam Physical Exam: Visual exam performed under COVID-19 pandemic General: Alert, Oriented X3, Cooperative, moderate distress, Other (Intubated and sedated) Heart: Regular rate Abdomen: Normal bowel sounds Extremities: No clubbing Skin: No rashes, No significant lesion Labs Labs: Laboratory Tests Test 03/08/21 16:45 03/08/21 21:33 03/08/21 23:31 03/09/21 06:08 Glucose (Fingerstick) 177 mg/dL (70-99) 163 mg/dL (70-99) 153 mg/dL (70-99) 125 mg/dL (70-99) Test 03/09/21 07:25 03/09/21 11:59 O2 Saturation 72 % (92-99) Arterial Blood pH 7.35 (7.35-7.45) Arterial Blood pCO2 at Patient Temp 56 mmHg (35-46) Arterial Blood pO2 at Patient Temp 42 mmHg (75-108) Arterial Blood HCO3 30 mmol/L (21-28) Arterial Blood Base Excess 3 mmol/L (-3-3) FiO2 100 Glucose (Fingerstick) 175 mg/dL (70-99) Assessment and Plan Assessmemt and Plan Problems Medical Problems: (1) Hypoxia Status: Acute (2) Pneumonia due to COVID-19 virus Status: Acute Comment Review of Relevant I have reviewed the following items ashley (where applicable) has been applied. Medications: Current Medications Medications (Trade) Dose Ordered Sig/Radha Route PRN Reason Start Time Stop Time Status Last Admin Dose Admin Methylprednisolone Sodium Succinate (SOLU-Medrol 40MG VIAL) 40 mg DAILY IV 03/09/21 09:00 03/09/21 08:00 Fentanyl Citrate 55 ml @ 0 mls/hr CONT PRN PRN IV SEE PROTOCOL 03/08/21 13:45 03/08/21 13:47 Ivermectin (Stromectol) 12 mg DAILY PO 03/09/21 12:00 03/13/21 09:01 03/09/21 12:10 Justifications for Admission Other Justification MAUREEN OVALLES MD Mar 09, 2021 13:20
--- NOTE | 2021-03-09 13:40 | NUR ---
SS following up with discharge planning. SS reviewed pt chart and discussed with pt RN. Pt is currently on the vent at 100%. COVID19 positive. Pt on IV Solu Medrol and PO Ivermectin. Pt on Propofol, Vec, Versed, Fentanyl, and Precedex. Not stable. SS will continue to follow for discharge planning.
[2021-03-09] MEDS: LOSARTAN POTASSIUM 50 MG TABLET. PO SCH (21:00)
[2021-03-09] MEDS: fentaNYL HIGH DOSE PCA 55 ML IV PRN (23:58)
[2021-03-10] VITALS (24 sets, daily range): BP systolic 90–148; BP diastolic 51–80
[2021-03-10] MEDS: PROPOFOL 100 ML IV PRN ×5 (00:30→22:01)
[2021-03-10] MEDS: DEXMEDETOMIDINE 400 MCG in IV NORMAL SALINE 100ML 96 ML IV PRN ×6 (04:39→22:02)
[2021-03-10] MEDS: INSULIN LISPRO 300 UNITS/3 ML VIAL. SQ SCH ×5 (06:00→23:27)
--- NOTE | 2021-03-10 06:09 | PDOC ---
PULMONARY PROGRESS NOTES DATE: 03/10/21 TIME: 06:09 Subjective remains on vent support 100% and a PEEP of 17 sedate on propofol fentanyl precedex on vec gtt small ett secretion Oxygenation continues to worsen. Vitals Vital Signs Date Time Temp Pulse Resp B/P (MAP) Pulse Ox O2 Delivery O2 Flow Rate FiO2 03/10/21 05:30 86 Ventilator 03/10/21 05:00 108 24 109/56 (73) 03/10/21 04:00 99.9 99.9 03/09/21 23:58 25.0 Comments Visual exam done due to COVID-19. intubated sedated nc at rrr no accessory muscle use abd obese no rash or edema Labs Laboratory Tests Test 03/08/21 06:16 03/08/21 08:00 03/08/21 12:00 03/08/21 12:51 Glucose (Fingerstick) 169 mg/dL (70-99) 163 mg/dL (70-99) O2 Saturation 84 % (92-99) Arterial Blood pH 7.38 (7.35-7.45) Arterial Blood pCO2 at Patient Temp 56 mmHg (35-46) Arterial Blood pO2 at Patient Temp 51 mmHg (75-108) Arterial Blood HCO3 32 mmol/L (21-28) Arterial Blood Base Excess 6 mmol/L (-3-3) FiO2 100 Sodium Level 142 mmol/L (136-145) Potassium Level 4.8 mmol/L (3.5-5.1) Chloride Level 106 mmol/L (98-107) Carbon Dioxide Level 33 mmol/L (21-32) Anion Gap 3 (6-14) Blood Urea Nitrogen 25 mg/dL (8-26) Creatinine 0.6 mg/dL (0.7-1.3) Estimated GFR (Cockcroft-Gault) 169.3 Glucose Level 164 mg/dL (70-99) Calcium Level 8.5 mg/dL (8.5-10.1) Magnesium Level 2.1 mg/dL (1.8-2.4) Test 03/08/21 16:45 03/08/21 21:33 03/08/21 23:31 03/09/21 06:08 Glucose (Fingerstick) 177 mg/dL (70-99) 163 mg/dL (70-99) 153 mg/dL (70-99) 125 mg/dL (70-99) Test 03/09/21 07:25 03/09/21 11:59 03/09/21 18:02 03/09/21 22:41 O2 Saturation 72 % (92-99) Arterial Blood pH 7.35 (7.35-7.45) Arterial Blood pCO2 at Patient Temp 56 mmHg (35-46) Arterial Blood pO2 at Patient Temp 42 mmHg (75-108) Arterial Blood HCO3 30 mmol/L (21-28) Arterial Blood Base Excess 3 mmol/L (-3-3) FiO2 100 Glucose (Fingerstick) 175 mg/dL (70-99) 166 mg/dL (70-99) 150 mg/dL (70-99) Test 03/10/21 00:17 03/10/21 06:02 Glucose (Fingerstick) 132 mg/dL (70-99) 136 mg/dL (70-99) Laboratory Tests Test 03/09/21 07:25 03/09/21 11:59 03/09/21 18:02 03/09/21 22:41 O2 Saturation 72 % (92-99) Arterial Blood pH 7.35 (7.35-7.45) Arterial Blood pCO2 at Patient Temp 56 mmHg (35-46) Arterial Blood pO2 at Patient Temp 42 mmHg (75-108) Arterial Blood HCO3 30 mmol/L (21-28) Arterial Blood Base Excess 3 mmol/L (-3-3) FiO2 100 Glucose (Fingerstick) 175 mg/dL (70-99) 166 mg/dL (70-99) 150 mg/dL (70-99) Test 03/10/21 00:17 03/10/21 06:02 Glucose (Fingerstick) 132 mg/dL (70-99) 136 mg/dL (70-99) Medications Active Scripts Medications Dose Route/Sig Max Daily Dose Days Date Category [tylenol pm] 1 Tab PO HS 02/22/21 Reported Losartan Potassium 50 Mg Tablet 50 Mg PO HS 02/22/21 Reported Atorvastatin Calcium 20 Mg Tablet 20 Mg PO HS 02/22/21 Reported Omeprazole 40 Mg Capsule. 1 Cap PO PRN DAILY PRN 05/20/17 Reported Daily Vitamin Formula-Minerals (Multivitamin With Minerals) 1 Each Tablet 1 Each PO 01/06/17 Reported Atenolol 50 Mg Tablet 1 Tab PO DAILY 01/06/17 Reported Comments Chest x-ray 03/09/2021 reviewed. Diffuse unchanged fine interstitial infiltrates. Impression . 1. Acute hypoxic respiratory failure secondary to COVID-19 viral pneumonia/ARDS/acute lung injury.-, intubated 02/26/21. Oxygen requirement continues to worsen. Currently on 100% FiO2 and 16 of PEEP. 2. Abnormal chest x-ray with faint bilateral interstitial infiltrates ass ociated with COVID-19 pneumonia. 3. COVID-19 positive. 4. No significant tobacco history. 5. Mild acute kidney injuryimproved 6. Abnormal liver function tests, likely related to COVID-19. Bilirubin 1.4. 7. Patient initiated on full dose anticoagulation with Lovenox due to marked increase in D-dimer of more than 20. Since the D-dimer significantly improved. Lovenox dose was changed to DVT prophylaxis dose on 03/05 Plan . Updated 03/10/2021 Continue current ventilatory support, 24/500/100/17. titrate peep fio2 as tolerated adequate sedation, currently on paralytics Follow-up chest x-ray/ABG, Status post remdesivir and full course of steroids Continue tube feeding nutritional support DVT/GI prophylaxis:lovenox Discussed with RN and RT dr amezquita Discussed with patient's brother Valdemar Harrison 03/09. he explained to him critical illness and very poor chance of survival. I also explained to him about initiation of ivermectin. He understands that this is not FDA approved for this condition. s/p one dose. He wants to try anything that is available to treat his brother. prognosis very poor Updated 03/09/2021 Continue current ventilatory support, 24/500/100/16. We will increase the PEEP to 17 today. adequate sedation, currently on paralytics Follow-up chest x-ray/ABG, p02 marginal , Status post remdesivir and full course of steroids Continue tube feeding nutritional support DVT/GI prophylaxis:lovenox Discussed with RN and RT Discussed with patient's brother Valdemar Harrison. I explained to him critical illness and very poor chance of survival. I also explained to him about initiation of ivermectin. He understands that this is not FDA approved for this condition. Will give one dose. He wants to try anything that is available to treat his brother. Critical care time 30 minutes Updated 03/08/2021 Continue current ventilatory support, 24/500/100/16. adequate sedation, currently on paralytics Follow-up chest x-ray/ABG, p02 marginal not able to wean PEEP or Fi02 Status post remdesivir and full course of steroids Continue tube feeding nutritional support DVT/GI prophylaxis:lovenox Discussed with RN and RT Critical care time 30 minutes LAKHWINDER GILLETTE MD Mar 10, 2021 06:09
[2021-03-10 07:38] LABS: BASE EXCESS ABG 7 mmol/L (-3-3); HCO3 ABG 33 mmol/L (21-28); PCO2 ABG 52 mmHg (35-46); SAT O2 ABG 78 % (92-99)
[2021-03-10 07:39] LABS: PO2 ABG 43 mmHg (75-108)
[2021-03-10] MEDS: ASPIRIN CHEWABLE 81 MG TABLET. PO SCH (08:11)
[2021-03-10] MEDS: methylPREDNISolone SOD SUCC PF 40 MG/ML VIAL. IV SCH (08:25)
[2021-03-10] MEDS: ENOXAPARIN 40 MG/0.4 ML SYRINGE. SQ SCH ×2 (08:25→20:35)
[2021-03-10] MEDS: FAMOTIDINE 20 MG/2 ML VIAL IVP SCH ×2 (08:25→20:33)
[2021-03-10] MEDS: MULTIVITAMINS,THERAPEUTIC 5 ML ORAL LIQUID. PEG SCH (08:26)
[2021-03-10] MEDS: INSULIN GLARGINE SYRINGE. SQ SCH ×2 (10:17→21:29)
[2021-03-10] MEDS: MIDAZOLAM 100mg/100ml NS BAG 100 ML IV PRN ×2 (10:51→20:39)
--- NOTE | 2021-03-10 11:40 | PDOC ---
[employer] PROGRESS NOTE Date of Service DOS: DATE: 03/10/21 TIME: 11:38 Chief Complaint Chief Complaint Acute hypoxic respiratory failure COVID-19 pneumonia PJ due to vasomotor nephropathy Mild transaminitis Moderate protein malnutrition Morbid obesity History of hypertension Continue COVID-19 treatment protocol Continue IV Remdesivir Continue with empiric IV antibiotics Continue IV steroids Continue with Covid supplementation such as B1, vitamin C, vitamin D, zinc Heparin for DVT prophylaxis Full code DPOA [facility] History of Present Illness History of Present Illness The patient is a pleasant middle-aged male, well known to my service. Basically, he has been developing flu like symptoms over the past couple of weeks. He went to acute care center yesterday at [facility]. He was awaiting his test results for his COVID-19 testing, but today he just could not await he was getting too sick. We tested him here in the emergency room. He is positive. He has abnormal chest x-ray. We are going to admit the patient, place him on COVID protocol. 02/23/2021 No acute events overnight. Patient saturating 97% on 2 L nasal cannula. Patient currently on Remdesivir. Patient's chart, labs, images were reviewed and discussed with RN 02/24/2021 Patient seen and examine in bed. Patient Fi02 between 83%-92% on vapotherm and 100% non-rebreather. D/W RN, Chart Review Instructed patient to try to rest and conserve energy. 02/25/21 Patient seen and examined at the bedside. Currently requiring BiPAP. Vapotherm. Transferred to the ICU yesterday. Continue with Covid treatment. Plan of care discussed with bedside RN 02/26/2021: Afebrile. Intermittently breathing between BiPAP and Vapotherm. Continue empiric antibiotics and steroids. Last dose remdesivir today. Continue supportive care. 30 minutes critical care time spent reviewing charts, reviewing labs, reviewing imaging, discussion with RN. 02/27/2021: Afebrile. Still breathing on ventilator and FiO2 100%, PEEP 10. Continue IV steroids and IV antibiotics. He should continue IV steroids for total treatment of 10 days (last day 03/04/2021). Completed remdesivir. Continue supportive care. Critical care time 30 minutes spent reviewing charts, reviewing labs, reviewing imaging, and discussion with RN. 02/28/2021: Afebrile. On vent with FiO2 100%, PEEP 5. Some significant hyperglycemia noted today. Will obtain A1c and initiate insulin protocol. C ompleted remdesivir. Continue IVF biotics and IV steroids. Continue supportive care. Critical care time 30 minutes spent reviewing charts, reviewing labs, reviewing imaging, and discussion with RN. 03/01/2021: Afebrile. On vent with FiO2 100%, PEEP 9. Still with elevated blood sugars; HbA1c 5.5. Will initiate twice daily basal insulin. Completed remdesivir; continue IV antibiotics and steroids. Continue supportive care. Critical care time 30 minutes spent reviewing charts, reviewing labs, reviewing imaging, and discussion with RN. 03/02/2021: Afebrile. Remains on vent with FiO2 100%, PEEP 9. D-dimer >20. Discussed with Dr. Burrows, fully anticoagulate empirically and order echocardiogram to help with evaluation of PE. Has completed remdesivir. Continue IV antibiotics and steroids. Blood sugar slightly better controlled. Continue supportive care. Critical care time 30 minutes spent reviewing charts, reviewing labs, reviewing imaging, and discussion with RN. 03/03/2021: Afebrile. On vent with FiO2 100%, PEEP 10. Echo was obtained due to elevated D-dimer >20, that showed PAP estimated at 50 mmHg. Concerning for PE; will continue full anticoagulation with Lovenox. Has completed remdesivir. Continue IV antibiotics and steroids. Blood sugar slightly better controlled. Continue supportive care. Critical care time 30 minutes spent reviewing charts, reviewing labs, reviewing imaging, and discussion with RN. 03/04/2021: Afebrile. On vent with FiO2 100%, PEEP 5. Continue with Lovenox full anticoagulation for suspected PE. Completed remdesivir. Continue IV antibiotics and steroids for 10-day course; today is day 10 of steroids and will provide Solu-Medrol taper. Blood glucose currently well controlled. Critical care time 30 minutes spent reviewing charts, reviewing labs, reviewing imaging, and discussion with RN. 03/05/2021 No acute events overnight. T-max of 100.2 in the last 24 hours. Saturating 85% on vent settings of 24/500/100/16. Patient is on a vecuronium drip. Steroids will be weaned down to 40 mg twice daily today. Lovenox decreased to 40 mg twice daily due to decreasing D-dimer. Patient's chart, labs, images were reviewed and discussed with RN 03/06/2021 No acute events overnight. Afebrile last 24 hours. Saturating well on vent settings of 24/500/100/15. Continues to be on vecuronium drip. Patient's chart, labs, images were reviewed and discussed with RN A total of 32 minutes of critical care time was spent in reviewing chart, labs, and images. Discussed with RN and MELVIN. 03/07/2021 Patient seen and examined bedside. Saturating 85% on vent settings of 24/500/100/6. Patient's chart, labs, images were reviewed and discussed with RN A total of 33 minutes of critical care time was spent in reviewing chart, labs, and images. Discussed with RN and MELVIN. 03/08/2021 No acute events overnight. Patient saturating 82% on 24/500/100/16. Will defer vent setting adjustments per pulmonology. Glucose levels are stable ICU 160s. Patient's chart, labs, images were reviewed and discussed with RN A total of 33 minutes of critical care time was spent in reviewing chart, labs, and images. Discussed with RN and SW. 03/09/2021 No acute events overnight. Patient is saturating 80% on vent settings of 26/500/100/12. Adjustment of vent settings will defer to pulmonology. Currently on sedation and paralytics. Patient's chart, labs, images were reviewed and discussed with RN. Chest x-ray is stable with diffuse infiltrates. No changes compared to 03/07/2021. A total of 34 minutes of critical care time was spent in reviewing chart, labs, and images. Discussed with RN and MELVIN. 03/10/2021 No acute events overnight. Patient saturating 84% on vent settings of 24/500/100/18. Vent settings adjustment will defer to pulmonology. Patient's chart, labs, images were reviewed and discussed with RN A total of 32 minutes of critical care time was spent in reviewing chart, labs, and images. Discussed with RN and MELVIN. Vitals/I&O Vitals/I&O: Vital Signs Date Time Temp Pulse Resp B/P (MAP) Pulse Ox O2 Delivery O2 Flow Rate FiO2 03/10/21 09:34 84 Ventilator 03/10/21 07:00 107 23 110/65 (80) 03/10/21 04:00 99.9 99.9 03/09/21 23:58 25.0 I & O 03/09/21 03/09/21 03/10/21 15:00 23:00 07:00 Intake Total 400 ml 2358 ml 400 ml Output Total 450 ml 650 ml 750 ml Balance -50 ml 1708 ml -350 ml Physical Exam Physical Exam: Visual exam performed under COVID-19 pandemic General: Alert, Oriented X3, Cooperative, moderate distress, Other (Intubated and sedated) Heart: Regular rate Abdomen: Normal bowel sounds Extremities: No clubbing Skin: No rashes, No significant lesion Labs Labs: Laboratory Tests Test 03/09/21 11:59 03/09/21 18:02 03/09/21 22:41 03/10/21 00:17 Glucose (Fingerstick) 175 mg/dL (70-99) 166 mg/dL (70-99) 150 mg/dL (70-99) 132 mg/dL (70-99) Test 03/10/21 06:02 03/10/21 07:33 03/10/21 11:31 Glucose (Fingerstick) 136 mg/dL (70-99) 168 mg/dL (70-99) O2 Saturation 78 % (92-99) Arterial Blood pH 7.42 (7.35-7.45) Arterial Blood pCO2 at Patient Temp 52 mmHg (35-46) Arterial Blood pO2 at Patient Temp 43 mmHg (75-108) Arterial Blood HCO3 33 mmol/L (21-28) Arterial Blood Base Excess 7 mmol/L (-3-3) FiO2 100% vent Assessment and Plan Assessmemt and Plan Problems Medical Problems: (1) Hypoxia Status: Acute (2) Pneumonia due to COVID-19 virus Status: Acute Comment Review of Relevant I have reviewed the following items ashlye (where applicable) has been applied. Medications: Current Medications Medications (Trade) Dose Ordered Sig/Radha Route PRN Reason Start Time Stop Time Status Last Admin Dose Admin Ivermectin (Stromectol) 12 mg DAILY PO 03/09/21 12:00 03/09/21 18:50 DC 03/09/21 12:10 Justifications for Admission Other Justification MAUREEN OVALLES MD Mar 10, 2021 11:40
--- NOTE | 2021-03-10 12:30 | NUR ---
Did not administer 12:00 Humalog,. Blood glucose POCT was 168, patient received 15units of Lantus this morning at 1030. Patient only intake in [facility] at 50ml/hr.
[2021-03-10] MEDS: NORCURON - VECURONIUM 50 MG in IV NORMAL SALINE 50ML 50 ML IV PRN (14:53)
[2021-03-10] MEDS: LOSARTAN POTASSIUM 50 MG TABLET. PO SCH (20:34)
[2021-03-11] VITALS (25 sets, daily range): BP systolic 93–126; BP diastolic 54–75
[2021-03-11] MEDS: DEXMEDETOMIDINE 400 MCG in IV NORMAL SALINE 100ML 96 ML IV PRN ×6 (01:47→21:34)
[2021-03-11] MEDS: PROPOFOL 100 ML IV PRN ×5 (02:41→20:46)
[2021-03-11] MEDS: NORCURON - VECURONIUM 50 MG in IV NORMAL SALINE 50ML 50 ML IV PRN ×2 (02:46→13:44)
[2021-03-11] MEDS: INSULIN LISPRO 300 UNITS/3 ML VIAL. SQ SCH ×4 (06:00→23:56)
[2021-03-11] MEDS: MIDAZOLAM 100mg/100ml NS BAG 100 ML IV PRN ×2 (07:02→18:13)
--- NOTE | 2021-03-11 07:20 | PDOC ---
PULMONARY PROGRESS NOTES DATE: 03/11/21 TIME: 07:18 Subjective remains on vent support 100% and a PEEP of 18 sedate on propofol fentanyl versed precedex on vec gtt small ett secretion Oxygenation continues to worsen. Vitals Vital Signs Date Time Temp Pulse Resp B/P (MAP) Pulse Ox O2 Delivery O2 Flow Rate FiO2 03/11/21 07:00 103 24 97/62 (74) 84 Ventilator 03/11/21 04:00 98.8 98.8 Comments Visual exam done due to COVID-19. intubated sedated nc at rrr no accessory muscle use abd obese no rash or edema Labs Laboratory Tests Test 03/09/21 07:25 03/09/21 11:59 03/09/21 18:02 03/09/21 22:41 O2 Saturation 72 % (92-99) Arterial Blood pH 7.35 (7.35-7.45) Arterial Blood pCO2 at Patient Temp 56 mmHg (35-46) Arterial Blood pO2 at Patient Temp 42 mmHg (75-108) Arterial Blood HCO3 30 mmol/L (21-28) Arterial Blood Base Excess 3 mmol/L (-3-3) FiO2 100 Glucose (Fingerstick) 175 mg/dL (70-99) 166 mg/dL (70-99) 150 mg/dL (70-99) Test 03/10/21 00:17 03/10/21 06:02 03/10/21 07:33 03/10/21 11:31 Glucose (Fingerstick) 132 mg/dL (70-99) 136 mg/dL (70-99) 168 mg/dL (70-99) O2 Saturation 78 % (92-99) Arterial Blood pH 7.42 (7.35-7.45) Arterial Blood pCO2 at Patient Temp 52 mmHg (35-46) Arterial Blood pO2 at Patient Temp 43 mmHg (75-108) Arterial Blood HCO3 33 mmol/L (21-28) Arterial Blood Base Excess 7 mmol/L (-3-3) FiO2 100% vent Test 03/10/21 17:55 03/10/21 20:44 03/10/21 23:20 03/11/21 06:19 Glucose (Fingerstick) 222 mg/dL (70-99) 196 mg/dL (70-99) 175 mg/dL (70-99) 144 mg/dL (70-99) Laboratory Tests Test 03/10/21 07:33 03/10/21 11:31 03/10/21 17:55 03/10/21 20:44 O2 Saturation 78 % (92-99) Arterial Blood pH 7.42 (7.35-7.45) Arterial Blood pCO2 at Patient Temp 52 mmHg (35-46) Arterial Blood pO2 at Patient Temp 43 mmHg (75-108) Arterial Blood HCO3 33 mmol/L (21-28) Arterial Blood Base Excess 7 mmol/L (-3-3) FiO2 100% vent Glucose (Fingerstick) 168 mg/dL (70-99) 222 mg/dL (70-99) 196 mg/dL (70-99) Test 03/10/21 23:20 03/11/21 06:19 Glucose (Fingerstick) 175 mg/dL (70-99) 144 mg/dL (70-99) Medications Active Scripts Medications Dose Route/Sig Max Daily Dose Days Date Category [tylenol pm] 1 Tab PO HS 02/22/21 Reported Losartan Potassium 50 Mg Tablet 50 Mg PO HS 02/22/21 Reported Atorvastatin Calcium 20 Mg Tablet 20 Mg PO HS 02/22/21 Reported Omeprazole 40 Mg Capsule. 1 Cap PO PRN DAILY PRN 05/20/17 Reported Daily Vitamin Formula-Minerals (Multivitamin With Minerals) 1 Each Tablet 1 Each PO 01/06/17 Reported Atenolol 50 Mg Tablet 1 Tab PO DAILY 01/06/17 Reported Comments Chest x-ray 03/09/2021 reviewed. Diffuse unchanged fine interstitial infiltrates. Impression . 1. Acute hypoxic respiratory failure secondary to COVID-19 viral pneumonia/ARDS/acute lung injury.-, intubated 02/26/21. Oxygen requirement continues to worsen. Currently on 100% FiO2 and 16 of PEEP. 2. Abnormal chest x-ray with faint bilateral interstitial infiltrates associated with COVID-19 pneumonia. 3. COVID-19 positive. 4. No significant tobacco history. 5. Mild acute kidney injuryimproved 6. Abnormal liver function tests, likely related to COVID-19. Bilirubin 1.4. 7. Patient initiated on full dose anticoagulation with Lovenox due to marked increase in D-dimer of more than 20. Since the D-dimer significantly improved. Lovenox dose was changed to DVT prophylaxis dose on 03/05 Plan . Updated 03/11/2021 Continue current ventilatory support, 100% peep 18. titrate peep fio2 as tolerated adequate sedation, currently on paralytics Follow-up chest x-ray/ABG, Status post remdesivir and full course of steroids Continue tube feeding nutritional support DVT/GI prophylaxis:lovenox Discussed with RN and RT dr amezquita Discussed with patient's brother Valdemar Harrison 03/09. he explained to him critical illness and very poor chance of survival. he also explained to him about initiation of ivermectin. He understands that this is not FDA approved for this condition. s/p one dose. He wants to try anything that is available to treat his brother. prognosis very poor Updated 03/10/2021 Continue current ventilatory support, 24/500/100/17. titrate peep fio2 as tolerated adequate sedation, currently on paralytics Follow-up chest x-ray/ABG, Status post remdesivir and full course of steroids Continue tube feeding nutritional support DVT/GI prophylaxis:lovenox Discussed with RN and RT dr amezquita Discussed with patient's brother Valdemar Harrison 03/09. he explained to him critical illness and very poor chance of survival. I also explained to him about initiation of ivermectin. He understands that this is not FDA approved for this condition. s/p one dose. He wants to try anything that is available to treat his brother. prognosis very poor Updated 03/09/2021 Continue current ventilatory support, 24/500/100/16. We will increase the PEEP to 17 today. adequate sedation, currently on paralytics Follow-up chest x-ray/ABG, p02 marginal , Status post remdesivir and full course of steroids Continue tube feeding nutritional support DVT/GI prophylaxis:lovenox Discussed with RN and RT Discussed with patient's brother Valdemar Harrison. I explained to him critical ill ness and very poor chance of survival. I also explained to him about initiation of ivermectin. He understands that this is not FDA approved for this condition. Will give one dose. He wants to try anything that is available to treat his brother. Critical care time 30 minutes Updated 03/08/2021 Continue current ventilatory support, 24/500/100/16. adequate sedation, currently on paralytics Follow-up chest x-ray/ABG, p02 marginal not able to wean PEEP or Fi02 Status post remdesivir and full course of steroids Continue tube feeding nutritional support DVT/GI prophylaxis:lovenox Discussed with RN and RT Critical care time 30 minutes LAKHWINDER GILLETTE MD Mar 11, 2021 07:20
[2021-03-11] MEDS: ASPIRIN CHEWABLE 81 MG TABLET. PO SCH (07:21)
[2021-03-11 07:35] LABS: BASE EXCESS ABG 8 mmol/L (-3-3); HCO3 ABG 35 mmol/L (21-28); PCO2 ABG 59 mmHg (35-46); SAT O2 ABG 75 % (92-99)
[2021-03-11 07:37] LABS: FIO2 ABG 100% VENT; PO2 ABG < 42 mmHg (75-108)
[2021-03-11] MEDS: methylPREDNISolone SOD SUCC PF 40 MG/ML VIAL. IV SCH (09:02)
[2021-03-11] MEDS: FAMOTIDINE 20 MG/2 ML VIAL IVP SCH ×2 (09:02→20:46)
[2021-03-11] MEDS: ENOXAPARIN 40 MG/0.4 ML SYRINGE. SQ SCH ×2 (09:03→20:47)
[2021-03-11] MEDS: MULTIVITAMINS,THERAPEUTIC 5 ML ORAL LIQUID. PEG SCH (09:03)
[2021-03-11] MEDS: INSULIN GLARGINE SYRINGE. SQ SCH ×2 (10:24→20:56)
--- NOTE | 2021-03-11 11:05 | PDOC ---
[employer] PROGRESS NOTE Date of Service DOS: DATE: 03/11/21 TIME: 11:04 Chief Complaint Chief Complaint Acute hypoxic respiratory failure COVID-19 pneumonia PJ due to vasomotor nephropathy Mild transaminitis Moderate protein malnutrition Morbid obesity History of hypertension Continue IV steroids and continue taper Continue with Covid supplementation such as B1, vitamin C, vitamin D, zinc Lovenox for DVT prophylaxis Full code DPOA [facility] History of Present Illness History of Present Illness The patient is a pleasant middle-aged male, well known to my service. Basically, he has been developing flu like symptoms over the past couple of weeks. He went to acute care center yesterday at [facility]. He was awaiting his test results for his COVID-19 testing, but today he just could not await he was getting too sick. We tested him here in the emergency room. He is positive. He has abnormal chest x-ray. We are going to admit the patient, place him on COVID protocol. 02/23/2021 No acute events overnight. Patient saturating 97% on 2 L nasal cannula. Patient currently on Remdesivir. Patient's chart, labs, images were reviewed and discussed with RN 02/24/2021 Patient seen and examine in bed. Patient Fi02 between 83%-92% on vapotherm and 100% non-rebreather. D/W RN, Chart Review Instructed patient to try to rest and conserve energy. 02/25/21 Patient seen and examined at the bedside. Currently requiring BiPAP. Vapotherm. Transferred to the ICU yesterday. Continue with Covid treatment. Plan of care discussed with bedside RN 02/26/2021: Afebrile. Intermittently breathing between BiPAP and Vapotherm. Continue empiric antibiotics and steroids. Last dose remdesivir today. Continue supportive care. 30 minutes critical care time spent reviewing charts, reviewing labs, reviewing imaging, discussion with RN. 02/27/2021: Afebrile. Still breathing on ventilator and FiO2 100%, PEEP 10. Continue IV steroids and IV antibiotics. He should continue IV steroids for total treatment of 10 days (last day 03/04/2021). Completed remdesivir. Continue supportive care. Critical care time 30 minutes spent reviewing charts, reviewing labs, reviewing imaging, and discussion with RN. 02/28/2021: Afebrile. On vent with FiO2 100%, PEEP 5. Some significant hyperglycemia noted today. Will obtain A1c and initiate insulin protocol. Completed remdesivir. Continue IVF biotics and IV steroids. Continue supporti ve care. Critical care time 30 minutes spent reviewing charts, reviewing labs, reviewing imaging, and discussion with RN. 03/01/2021: Afebrile. On vent with FiO2 100%, PEEP 9. Still with elevated blood sugars; HbA1c 5.5. Will initiate twice daily basal insulin. Completed remdesivir; continue IV antibiotics and steroids. Continue supportive care. Critical care time 30 minutes spent reviewing charts, reviewing labs, reviewing imaging, and discussion with RN. 03/02/2021: Afebrile. Remains on vent with FiO2 100%, PEEP 9. D-dimer >20. Discussed with Dr. Burrows, fully anticoagulate empirically and order echocardiogram to help with evaluation of PE. Has completed remdesivir. Continue IV antibiotics and steroids. Blood sugar slightly better controlled. Continue s upportive care. Critical care time 30 minutes spent reviewing charts, reviewing labs, reviewing imaging, and discussion with RN. 03/03/2021: Afebrile. On vent with FiO2 100%, PEEP 10. Echo was obtained due to elevated D-dimer >20, that showed PAP estimated at 50 mmHg. Concerning for PE; will continue full anticoagulation with Lovenox. Has completed remdesivir. Continue IV antibiotics and steroids. Blood sugar slightly better controlled. Continue supportive care. Critical care time 30 minutes spent reviewing charts, reviewing labs, reviewing imaging, and discussion with RN. 03/04/2021: Afebrile. On vent with FiO2 100%, PEEP 5. Continue with Lovenox full anticoagulation for suspected PE. Completed remdesivir. Continue IV antibiotics and steroids for 10-day course; today is day 10 of steroids and will provide Solu-Medrol taper. Blood glucose currently well controlled. Critical ca re time 30 minutes spent reviewing charts, reviewing labs, reviewing imaging, and discussion with RN. 03/05/2021 No acute events overnight. T-max of 100.2 in the last 24 hours. Saturating 85% on vent settings of 24/500/100/16. Patient is on a vecuronium drip. Steroids will be weaned down to 40 mg twice daily today. Lovenox decreased to 40 mg twice daily due to decreasing D-dimer. Patient's chart, labs, images were reviewed and discussed with RN 03/06/2021 No acute events overnight. Afebrile last 24 hours. Saturating well on vent settings of 24/500/100/15. Continues to be on vecuronium drip. Patient's chart, labs, images were reviewed and discussed with RN A total of 32 minutes of critical care time was spent in reviewing chart, labs, and images. Discussed with RN and SW. 03/07/2021 Patient seen and examined bedside. Saturating 85% on vent settings of 24/500/100/6. Patient's chart, labs, images were reviewed and discussed with RN A total of 33 minutes of critical care time was spent in reviewing chart, labs, and images. Discussed with RN and SW. 03/08/2021 No acute events overnight. Patient saturating 82% on 24/500/100/16. Will defer vent setting adjustments per pulmonology. Glucose levels are stable ICU 160s. Patient's chart, labs, images were reviewed and discussed with RN A total of 33 minutes of critical care time was spent in reviewing chart, labs, and images. Discussed with RN and SW. 03/09/2021 No acute events overnight. Patient is saturating 80% on vent settings of 26/500/100/12. Adjustment of vent settings will defer to pulmonology. Currently on sedation and paralytics. Patient's chart, labs, images were reviewed and discussed with RN. Chest x-ray is stable with diffuse infiltrates. No changes compared to 03/07/2021. A total of 34 minutes of critical care time was spent in reviewing chart, labs, and images. Discussed with RN and MELVIN. 03/10/2021 No acute events overnight. Patient saturating 84% on vent settings of 24/500/100/18. Vent settings adjustment will defer to pulmonology. Patient's chart, labs, images were reviewed and discussed with RN A total of 32 minutes of critical care time was spent in reviewing chart, labs, and images. Discussed with RN and SW. 03/11/2021 No acute events overnight. Patient saturating 82% on vent settings of 24/500/100/18. Patient's chart, labs, images were reviewed and discussed with RN A total of 31 minutes of critical care time was spent in reviewing chart, labs, and images. Discussed with RN and SW. Vitals/I&O Vitals/I&O: Vital Signs Date Time Temp Pulse Resp B/P (MAP) Pulse Ox O2 Delivery O2 Flow Rate FiO2 03/11/21 10:00 108 23 122/62 (82) 77 Ventilator 03/11/21 08:00 98.7 98.7 I & O 03/10/21 03/10/21 03/11/21 15:00 23:00 07:00 Intake Total 400 ml 2583 ml 1413 ml Output Total 825 ml 800 ml 500 ml Balance -425 ml 1783 ml 913 ml Physical Exam Physical Exam: Visual exam performed under COVID-19 pandemic General: Alert, Oriented X3, Cooperative, moderate distress, Other (Intubated and sedated) Heart: Regular rate Abdomen: Normal bowel sounds Extremities: No clubbing Skin: No rashes, No significant lesion Labs Labs: Laboratory Tests Test 03/10/21 11:31 03/10/21 17:55 03/10/21 20:44 03/10/21 23:20 Glucose (Fingerstick) 168 mg/dL (70-99) 222 mg/dL (70-99) 196 mg/dL (70-99) 175 mg/dL (70-99) Test 03/11/21 06:19 03/11/21 07:31 Glucose (Fingerstick) 144 mg/dL (70-99) O2 Saturation 75 % (92-99) Arterial Blood pH 7.39 (7.35-7.45) Arterial Blood pCO2 at Patient Temp 59 mmHg (35-46) Arterial Blood pO2 at Patient Temp < 42 mmHg (75-108) Arterial Blood HCO3 35 mmol/L (21-28) Arterial Blood Base Excess 8 mmol/L (-3-3) FiO2 100% vent Assessment and Plan Assessmemt and Plan Problems Medical Problems: (1) Hypoxia Status: Acute (2) Pneumonia due to COVID-19 virus Status: Acute Comment Review of Relevant I have reviewed the following items ashley (where applicable) has been applied. Justifications for Admission Other Justification MAUREEN OVALLES MD Mar 11, 2021 11:05
[2021-03-11] MEDS: fentaNYL HIGH DOSE PCA 55 ML IV PRN (12:17)
[2021-03-11] MEDS: LOSARTAN POTASSIUM 50 MG TABLET. PO SCH (20:47)
[2021-03-12] VITALS (22 sets, daily range): BP systolic 88–132; BP diastolic 51–78
[2021-03-12] MEDS: PROPOFOL 100 ML IV PRN ×5 (01:13→21:50)
[2021-03-12] MEDS: DEXMEDETOMIDINE 400 MCG in IV NORMAL SALINE 100ML 96 ML IV PRN ×6 (01:14→23:02)
[2021-03-12] MEDS: NORCURON - VECURONIUM 50 MG in IV NORMAL SALINE 50ML 50 ML IV PRN ×3 (01:14→21:10)
[2021-03-12] MEDS: MIDAZOLAM 100mg/100ml NS BAG 100 ML IV PRN ×2 (04:48→15:26)
[2021-03-12] MEDS: INSULIN LISPRO 300 UNITS/3 ML VIAL. SQ SCH ×3 (05:34→18:00)
[2021-03-12 05:55] LABS: BASO % 0 % (0-3); EOS # 0.1 x10^3/uL (0.0-0.7); EOS % 1 % (0-3); HEMATOCRIT 30.3 % (39.0-53.0); HEMOGLOBIN 9.7 g/dL (13.0-17.5); LYMPH # 0.6 x10^3/uL (1.0-4.8); LYMPH % 5 % (24-48); MEAN CORPUSCULAR HEMOGLOBIN 33 pg (25-35); MEAN CORPUSCULAR HGB CONC 32 g/dL (31-37); MEAN CORPUSCULAR VOLUME 103 fL (79-100); MONO # 0.4 x10^3/uL (0.0-1.1); MONO % 4 % (0-9); NEUT # 10.1 x10^3/uL (1.8-7.7); NEUT % 89 % (31-73); PLATELET COUNT 117 x10^3/uL (140-400); RED BLOOD COUNT 2.93 x10^6/uL (4.30-5.70); RED CELL DISTRIBUTION WIDTH 14.1 % (11.5-14.5); WHITE BLOOD COUNT 11.3 x10^3/uL (4.0-11.0)
[2021-03-12 06:13] LABS: CALCIUM 7.5 mg/dL (8.5-10.1); CREATININE 0.6 mg/dL (0.7-1.3); GFR 169.3; MAGNESIUM 1.8 mg/dL (1.8-2.4); PHOSPHORUS 2.6 mg/dL (2.6-4.7); POTASSIUM 3.9 mmol/L (3.5-5.1)
[2021-03-12] MEDS: ASPIRIN CHEWABLE 81 MG TABLET. PO SCH (08:08)
[2021-03-12] MEDS: MULTIVITAMINS,THERAPEUTIC 5 ML ORAL LIQUID. PEG SCH (08:08)
[2021-03-12] MEDS: ENOXAPARIN 40 MG/0.4 ML SYRINGE. SQ SCH ×2 (08:09→20:43)
[2021-03-12] MEDS: methylPREDNISolone SOD SUCC PF 40 MG/ML VIAL. IV SCH (08:09)
[2021-03-12] MEDS: FAMOTIDINE 20 MG/2 ML VIAL IVP SCH ×2 (08:09→20:44)
[2021-03-12 08:54] LABS: BASE EXCESS ABG 8 mmol/L (-3-3); HCO3 ABG 35 mmol/L (21-28); SAT O2 ABG 71 % (92-99)
--- NOTE | 2021-03-12 08:55 | PDOC ---
[facility] [facility] PROGRESS NOTE Date of Service DOS: DATE: 03/12/21 TIME: 08:53 Chief Complaint Chief Complaint Acute hypoxic respiratory failure COVID-19 pneumonia PJ due to vasomotor nephropathy Mild transaminitis Moderate protein malnutrition Morbid obesity History of hypertension Continue IV steroids and continue taper Continue with Covid supplementation such as B1, vitamin C, vitamin D, zinc Lovenox for DVT prophylaxis Full code DPOA Mary Tovar History of Present Illness History of Present Illness Mr Tovar is a 55yo male. Basically, he has been developing flu like symptoms over the past couple of weeks. He went to acute care center yesterday at [facility]. He was awaiting his test results for his COVID-19 testing, but today he just could not await he was getting too sick. We tested him here in the emergency room. He is positive. He has abnormal chest x-ray. We are going to admit the patient, place him on COVID protocol. 02/23/2021 No acute events overnight. Patient saturating 97% on 2 L nasal cannula. Patie nt currently on Remdesivir. Patient's chart, labs, images were reviewed and discussed with RN 02/24/2021 Patient seen and examine in bed. Patient Fi02 between 83%-92% on vapotherm and 100% non-rebreather. D/W RN, Chart Review Instructed patient to try to rest and conserve energy. 02/25/21 Patient seen and examined at the bedside. Currently requiring BiPAP. Vapotherm. Transferred to the ICU yesterday. Continue with Covid treatment. Plan of care discussed with bedside RN 02/26/2021: Afebrile. Intermittently breathing between BiPAP and Vapotherm. Continue empiric antibiotics and steroids. Last dose remdesivir today. Continue supportive care. 30 minutes critical care time spent reviewing charts, reviewing labs, reviewing imaging, discussion with RN. 02/27/2021: Afebrile. Still breathing on ventilator and FiO2 100%, PEEP 10. Continue IV steroids and IV antibiotics. He should continue IV steroids for total treatment of 10 days (last day 03/04/2021). Completed remdesivir. Continue supportive care. Critical care time 30 minutes spent reviewing charts, reviewing labs, reviewing imaging, and discussion with RN. 02/28/2021: Afebrile. On vent with FiO2 100%, PEEP 5. Some significant hyperglycemia noted today. Will obtain A1c and initiate insulin protocol. Completed remdesivir. Continue IVF biotics and IV steroids. Continue supportive care. Critical care time 30 minutes spent reviewing charts, reviewing labs, reviewing imaging, and discussion with RN. 03/01/2021: Afebrile. On vent with FiO2 100%, PEEP 9. Still with elevated blood sugars; HbA1c 5.5. Will initiate twice daily basal insulin. Completed remdesivir; continue IV antibiotics and steroids. Continue supportive care. Critical care time 30 minutes spent reviewing charts, reviewing labs, reviewing imaging, and discussion with RN. 03/02/2021: Afebrile. Remains on vent with FiO2 100%, PEEP 9. D-dimer >20. Discussed with Dr. Burrows, fully anticoagulate empirically and order echocardiogram to help with evaluation of PE. Has completed remdesivir. Continue IV antibiotics and steroids. Blood sugar slightly better controlled. Continue supportive care. Critical care time 30 minutes spent reviewing charts, reviewing labs, reviewing imaging, and discussion with RN. 03/03/2021: Afebrile. On vent with FiO2 100%, PEEP 10. Echo was obtained due to elevated D-dimer >20, that showed PAP estimated at 50 mmHg. Concerning for PE; will continue full anticoagulation with Lovenox. Has completed remdesivir. Continue IV antibiotics and steroids. Blood sugar slightly better controlled. Continue supportive care. Critical care time 30 minutes spent reviewing charts, reviewing labs, reviewing imaging, and discussion with RN. 03/04/2021: Afebrile. On vent with FiO2 100%, PEEP 5. Continue with Lovenox full anticoagulation for suspected PE. Completed remdesivir. Continue IV antibiotics and steroids for 10-day course; today is day 10 of steroids and will provide Solu-Medrol taper. Blood glucose currently well controlled. Critical care time 30 minutes spent reviewing charts, reviewing labs, reviewing imaging, and discussion with RN. 03/05/2021 No acute events overnight. T-max of 100.2 in the last 24 hours. Saturating 85% on vent settings of 24/500/100/16. Patient is on a vecuronium drip. Steroids will be weaned down to 40 mg twice daily today. Lovenox decreased to 40 mg twice daily due to decreasing D-dimer. Patient's chart, labs, images were revie wed and discussed with RN 03/06/2021 No acute events overnight. Afebrile last 24 hours. Saturating well on vent settings of 24/500/100/15. Continues to be on vecuronium drip. Patient's chart, labs, images were reviewed and discussed with RN A total of 32 minutes of critical care time was spent in reviewing chart, labs, and images. Discussed with RN and MELVIN. 03/07/2021 Patient seen and examined bedside. Saturating 85% on vent settings of 24/500/100/6. Patient's chart, labs, images were reviewed and discussed with RN A total of 33 minutes of critical care time was spent in reviewing chart, labs, and images. Discussed with RN and SW. 03/08/2021 No acute events overnight. Patient saturating 82% on 24/500/100/16. Will defer vent setting adjustments per pulmonology. Glucose levels are stable ICU 160s. Patient's chart, labs, images were reviewed and discussed with RN A total of 33 minutes of critical care time was spent in reviewing chart, labs, and images. Discussed with RN and MELVIN. 03/09/2021 No acute events overnight. Patient is saturating 80% on vent settings of 26/500/100/12. Adjustment of vent settings will defer to pulmonology. Currently on sedation and paralytics. Patient's chart, labs, images were reviewed and discussed with RN. Chest x-ray is stable with diffuse infiltrates. No changes compared to 03/07/2021. A total of 34 minutes of critical care time was spent in reviewing chart, labs, and images. Discussed with RN and MELVIN. 03/10/2021 No acute events overnight. Patient saturating 84% on vent settings of 24/500/100/18. Vent settings adjustment will defer to pulmonology. Patient's chart, labs, images were reviewed and discussed with RN A total of 32 minutes of critical care time was spent in reviewing chart, labs, and images. Discussed with RN and MELVIN. 03/11/2021 No acute events overnight. Patient saturating 82% on vent settings of 24/500/100/18. Patient's chart, labs, images were reviewed and discussed with RN WBC 11.39, Hb 9.7, platelets 117, no overnight events. O2 saturations 81% with vent settings 24/100/100/18. ABG 7.37/63/<42. Urine and rectal tube with output. A total of 31 minutes of critical care time was spent in reviewing chart, labs, and images. Discussed with RN and SW. overall prognosis is grim patient's mother's been contacted to see patient bedside. Vitals/I&O Vitals/I&O: Vital Signs Date Time Temp Pulse Resp B/P (MAP) Pulse Ox O2 Delivery O2 Flow Rate FiO2 03/12/21 06:00 99 24 112/74 (87) 84 Ventilator 03/12/21 05:00 98.3 98.3 03/11/21 12:47 25.0 I & O 03/11/21 03/11/21 03/12/21 15:00 23:00 07:00 Intake Total 400 ml 2924 ml 1868 ml Output Total 600 ml 700 ml 575 ml Balance -200 ml 2224 ml 1293 ml Physical Exam Physical Exam: Visual exam performed under COVID-19 pandemic General: moderate distress, Other (Intubated and sedated) Heart: Regular rate Abdomen: Normal bowel sounds Extremities: No clubbing Skin: No rashes, No significant lesion Labs Labs: Laboratory Tests Test 03/11/21 12:39 03/11/21 17:31 03/11/21 20:54 03/11/21 23:55 Glucose (Fingerstick) 184 mg/dL (70-99) 205 mg/dL (70-99) 194 mg/dL (70-99) 166 mg/dL (70-99) Test 03/12/21 05:30 03/12/21 05:32 White Blood Count 11.3 x10^3/uL (4.0-11.0) Red Blood Count 2.93 x10^6/uL (4.30-5.70) Hemoglobin 9.7 g/dL (13.0-17.5) Hematocrit 30.3 % (39.0-53.0) Mean Corpuscular Volume 103 fL (79-100) Mean Corpuscular Hemoglobin 33 pg (25-35) Mean Corpuscular Hemoglobin Concent 32 g/dL (31-37) Red Cell Distribution Width 14.1 % (11.5-14.5) Platelet Count 117 x10^3/uL (140-400) Neutrophils (%) (Auto) 89 % (31-73) Lymphocytes (%) (Auto) 5 % (24-48) Monocytes (%) (Auto) 4 % (0-9) Eosinophils (%) (Auto) 1 % (0-3) Basophils (%) (Auto) 0 % (0-3) Neutrophils # (Auto) 10.1 x10^3/uL (1.8-7.7) Lymphocytes # (Auto) 0.6 x10^3/uL (1.0-4.8) Monocytes # (Auto) 0.4 x10^3/uL (0.0-1.1) Eosinophils # (Auto) 0.1 x10^3/uL (0.0-0.7) Basophils # (Auto) 0.0 x10^3/uL (0.0-0.2) Sodium Level 141 mmol/L (136-145) Potassium Level 3.9 mmol/L (3.5-5.1) Chloride Level 107 mmol/L (98-107) Carbon Dioxide Level 34 mmol/L (21-32) Anion Gap 0 (6-14) Blood Urea Nitrogen 18 mg/dL (8-26) Creatinine 0.6 mg/dL (0.7-1.3) Estimated GFR (Cockcroft-Gault) 169.3 Glucose Level 138 mg/dL (70-99) Calcium Level 7.5 mg/dL (8.5-10.1) Phosphorus Level 2.6 mg/dL (2.6-4.7) Magnesium Level 1.8 mg/dL (1.8-2.4) Glucose (Fingerstick) 136 mg/dL (70-99) Assessment and Plan Assessmemt and Plan Problems Medical Problems: (1) Hypoxia Status: Acute (2) Pneumonia due to COVID-19 virus Status: Acute Comment Review of Relevant I have reviewed the following items ashley (where applicable) has been applied. Justifications for Admission Other Justification LY KULKARNI MD Mar 12, 2021 08:55
[2021-03-12 08:56] LABS: PCO2 ABG 63 mmHg (35-46); PO2 ABG < 42 mmHg (75-108)
[2021-03-12 08:57] LABS: FIO2 ABG 100
--- NOTE | 2021-03-12 09:29 | RAD ---
AP chest. HISTORY: ARDS, renal failure AP view of the chest was compared with a study from one day ago. Endotracheal tube is unchanged at th e level the clavicles. Central line is in good position. NG tube extends into the stomach. There are hazy bilateral infiltrates without significant change. IMPRESSION: 1. Little change from the prior study. Electronically signed by: Nelson Pop MD (03/12/2021 9:27 AM) [facility]
--- NOTE | 2021-03-12 09:52 | PDOC ---
PULMONARY PROGRESS NOTES DATE: 03/12/21 TIME: 09:46 Subjective remains on vent support 100% and a PEEP of 18. PO2 in the 40s. sedate on propofol fentanyl versed precedex on vec gtt small ett secretion Oxygenation continues to worsen. Vitals Vital Signs Date Time Temp Pulse Resp B/P (MAP) Pulse Ox O2 Delivery O2 Flow Rate FiO2 03/12/21 08:10 82 Ventilator 03/12/21 06:00 99 24 112/74 (87) 03/12/21 05:00 98.3 98.3 03/11/21 12:47 25.0 Comments Visual exam done due to COVID-19. intubated sedated nc at rrr no accessory muscle use abd obese no rash or edema Labs Laboratory Tests Test 03/10/21 11:31 03/10/21 17:55 03/10/21 20:44 03/10/21 23:20 Glucose (Fingerstick) 168 mg/dL (70-99) 222 mg/dL (70-99) 196 mg/dL (70-99) 175 mg/dL (70-99) Test 03/11/21 06:19 03/11/21 07:31 03/11/21 12:39 03/11/21 17:31 Glucose (Fingerstick) 144 mg/dL (70-99) 184 mg/dL (70-99) 205 mg/dL (70-99) O2 Saturation 75 % (92-99) Arterial Blood pH 7.39 (7.35-7.45) Arterial Blood pCO2 at Patient Temp 59 mmHg (35-46) Arterial Blood pO2 at Patient Temp < 42 mmHg (75-108) Arterial Blood HCO3 35 mmol/L (21-28) Arterial Blood Base Excess 8 mmol/L (-3-3) FiO2 100% vent Test 03/11/21 20:54 03/11/21 23:55 03/12/21 05:30 03/12/21 05:32 Glucose (Fingerstick) 194 mg/dL (70-99) 166 mg/dL (70-99) 136 mg/dL (70-99) White Blood Count 11.3 x10^3/uL (4.0-11.0) Red Blood Count 2.93 x10^6/uL (4.30-5.70) Hemoglobin 9.7 g/dL (13.0-17.5) Hematocrit 30.3 % (39.0-53.0) Mean Corpuscular Volume 103 fL (79-100) Mean Corpuscular Hemoglobin 33 pg (25-35) Mean Corpuscular Hemoglobin Concent 32 g/dL (31-37) Red Cell Distribution Width 14.1 % (11.5-14.5) Platelet Count 117 x10^3/uL (140-400) Neutrophils (%) (Auto) 89 % (31-73) Lymphocytes (%) (Auto) 5 % (24-48) Monocytes (%) (Auto) 4 % (0-9) Eosinophils (%) (Auto) 1 % (0-3) Basophils (%) (Auto) 0 % (0-3) Neutrophils # (Auto) 10.1 x10^3/uL (1.8-7.7) Lymphocytes # (Auto) 0.6 x10^3/uL (1.0-4.8) Monocytes # (Auto) 0.4 x10^3/uL (0.0-1.1) Eosinophils # (Auto) 0.1 x10^3/uL (0.0-0.7) Basophils # (Auto) 0.0 x10^3/uL (0.0-0.2) Sodium Level 141 mmol/L (136-145) Potassium Level 3.9 mmol/L (3.5-5.1) Chloride Level 107 mmol/L (98-107) Carbon Dioxide Level 34 mmol/L (21-32) Anion Gap 0 (6-14) Blood Urea Nitrogen 18 mg/dL (8-26) Creatinine 0.6 mg/dL (0.7-1.3) Estimated GFR (Cockcroft-Gault) 169.3 Glucose Level 138 mg/dL (70-99) Calcium Level 7.5 mg/dL (8.5-10.1) Phosphorus Level 2.6 mg/dL (2.6-4.7) Magnesium Level 1.8 mg/dL (1.8-2.4) Test 03/12/21 08:00 O2 Saturation 71 % (92-99) Arterial Blood pH 7.37 (7.35-7.45) Arterial Blood pCO2 at Patient Temp 63 mmHg (35-46) Arterial Blood pO2 at Patient Temp < 42 mmHg (75-108) Arterial Blood HCO3 35 mmol/L (21-28) Arterial Blood Base Excess 8 mmol/L (-3-3) FiO2 100 Laboratory Tests Test 03/11/21 12:39 03/11/21 17:31 03/11/21 20:54 03/11/21 23:55 Glucose (Fingerstick) 184 mg/dL (70-99) 205 mg/dL (70-99) 194 mg/dL (70-99) 166 mg/dL (70-99) Test 03/12/21 05:30 03/12/21 05:32 03/12/21 08:00 White Blood Count 11.3 x10^3/uL (4.0-11.0) Red Blood Count 2.93 x10^6/uL (4.30-5.70) Hemoglobin 9.7 g/dL (13.0-17.5) Hematocrit 30.3 % (39.0-53.0) Mean Corpuscular Volume 103 fL (79-100) Mean Corpuscular Hemoglobin 33 pg (25-35) Mean Corpuscular Hemoglobin Concent 32 g/dL (31-37) Red Cell Distribution Width 14.1 % (11.5-14.5) Platelet Count 117 x10^3/uL (140-400) Neutrophils (%) (Auto) 89 % (31-73) Lymphocytes (%) (Auto) 5 % (24-48) Monocytes (%) (Auto) 4 % (0-9) Eosinophils (%) (Auto) 1 % (0-3) Basophils (%) (Auto) 0 % (0-3) Neutrophils # (Auto) 10.1 x10^3/uL (1.8-7.7) Lymphocytes # (Auto) 0.6 x10^3/uL (1.0-4.8) Monocytes # (Auto) 0.4 x10^3/uL (0.0-1.1) Eosinophils # (Auto) 0.1 x10^3/uL (0.0-0.7) Basophils # (Auto) 0.0 x10^3/uL (0.0-0.2) Sodium Level 141 mmol/L (136-145) Potassium Level 3.9 mmol/L (3.5-5.1) Chloride Level 107 mmol/L (98-107) Carbon Dioxide Level 34 mmol/L (21-32) Anion Gap 0 (6-14) Blood Urea Nitrogen 18 mg/dL (8-26) Creatinine 0.6 mg/dL (0.7-1.3) Estimated GFR (Cockcroft-Gault) 169.3 Glucose Level 138 mg/dL (70-99) Calcium Level 7.5 mg/dL (8.5-10.1) Phosphorus Level 2.6 mg/dL (2.6-4.7) Magnesium Level 1.8 mg/dL (1.8-2.4) Glucose (Fingerstick) 136 mg/dL (70-99) O2 Saturation 71 % (92-99) Arterial Blood pH 7.37 (7.35-7.45) Arterial Blood pCO2 at Patient Temp 63 mmHg (35-46) Arterial Blood pO2 at Patient Temp < 42 mmHg (75-108) Arterial Blood HCO3 35 mmol/L (21-28) Arterial Blood Base Excess 8 mmol/L (-3-3) FiO2 100 Medications Active Scripts Medications Dose Route/Sig Max Daily Dose Days Date Category [tylenol pm] 1 Tab PO HS 02/22/21 Reported Losartan Potassium 50 Mg Tablet 50 Mg PO HS 02/22/21 Reported Atorvastatin Calcium 20 Mg Tablet 20 Mg PO HS 02/22/21 Reported Omeprazole 40 Mg Capsule. 1 Cap PO PRN DAILY PRN 05/20/17 Reported Daily Vitamin Formula-Minerals (Multivitamin With Minerals) 1 Each Tablet 1 Each PO 01/06/17 Reported Atenolol 50 Mg Tablet 1 Tab PO DAILY 01/06/17 Reported Comments Chest x-ray reviewed 03/12/21. Diffuse unchanged interstitial infiltrates. No evidence of pneumothorax. Chest x-ray 03/09/2021 reviewed. Diffuse unchanged fine interstitial infiltrates. Impression . 1. Acute hypoxic respiratory failure secondary to COVID-19 viral pneumonia/ARDS/acute lung injury.-, intubated 02/26/21. Oxygen requirement continues to worsen. Currently on 100% FiO2 and 18 of PEEP. PO2 in the 40s. 2. Abnormal chest x-ray with faint bilateral interstitial infiltrates associated with COVID-19 pneumonia. 3. COVID-19 positive. 4. No significant tobacco history. 5. Mild acute kidney injuryimproved 6. Abnormal liver function tests, likely related to COVID-19. Bilirubin 1.4. 7. Patient initiated on full dose anticoagulation with Lovenox due to marked increase in D-dimer of more than 20. Since the D-dimer significantly improved. Lovenox dose was changed to DVT prophylaxis dose on 03/05 Plan . Updated 03/12/2021 Continue current ventilatory support, 100% peep 18. PO2 in the 40s. No evidence of pneumothorax. adequate sedation, currently on paralytics Follow-up chest x-ray/ABG, Status post remdesivir and full course of steroids Continue tube feeding nutritional support DVT/GI prophylaxis:lovenox Discussed with RN and RT I have again discussed with patient's brother Valdemar Harrison . he explained to him critical illness and no chance of survival. I recommended DNR. He is not ready for that at the present moment but would like to visit his brother first. I did told him that at this point we cannot do anything more than what we have already done. Critical care time 30 minutes Updated 03/11/2021 Continue current ventilatory support, 100% peep 18. titrate peep fio2 as tolerated adequate sedation, currently on paralytics Follow-up chest x-ray/ABG, Status post remdesivir and full course of steroids Continue tube feeding nutritional support DVT/GI prophylaxis:lovenox Discussed with RN and RT dr amezquita Discussed with patient's brother Valdemar Harrison 03/09. he explained to him critical illness and very poor chance of survival. he also explained to him about initiation of ivermectin. He understands that this is not FDA approved for this condition. s/p one dose. He wants to try anything that is available to treat his brother. prognosis very poor Updated 03/10/2021 Continue current ventilatory support, 24/500/100/17. titrate peep fio2 as tolerated adequate sedation, currently on paralytics Follow-up chest x-ray/ABG, Status post remdesivir and full course of steroids Continue tube feeding nutritional support DVT/GI prophylaxis:lovenox Discussed with RN and RT dr amezquita Discussed with patient's brother Valdemar Harrison 03/09. he explained to him critical illness and very poor chance of survival. I also explained to him about initiation of ivermectin. He understands that this is not FDA approved for this condition. s/p one dose. He wants to try anything that is available to treat his brother. prognosis very poor Updated 03/09/2021 Continue current ventilatory support, 24/500/100/16. We will increase the PEEP to 17 today. adequate sedation, currently on paralytics Follow-up chest x-ray/ABG, p02 marginal , Status post remdesivir and full course of steroids Continue tube feeding nutritional support DVT/GI prophylaxis:lovenox Discussed with RN and RT Discussed with patient's brother Valdemar Harrison. I explained to him critical illness and very poor chance of survival. I also explained to him about initiat ion of ivermectin. He understands that this is not FDA approved for this condition. Will give one dose. He wants to try anything that is available to treat his brother. Critical care time 30 minutes Updated 03/08/2021 Continue current ventilatory support, 24/500/100/16. adequate sedation, currently on paralytics Follow-up chest x-ray/ABG, p02 marginal not able to wean PEEP or Fi02 Status post remdesivir and full course of steroids Continue tube feeding nutritional support DVT/GI prophylaxis:lovenox Discussed with RN and RT Critical care time 30 minutes ANGELA AMEZQUITA MD Mar 12, 2021 09:52
[2021-03-12] MEDS: INSULIN GLARGINE SYRINGE. SQ SCH ×2 (11:18→20:40)
[2021-03-12 11:57] LABS: % BANDS 3 % (0-9); % EOS 1 % (0-5); % LYMPHS 7 % (24-48); % MONOS 3 % (0-10); % SEGS 86 % (35-66); NUCLEATED RBC 2; PLT ESTIMATE DECREASED (ADEQUATE)
[2021-03-12 11:58] LABS: POLYCHROMASIA PRESENT
[2021-03-12] MEDS: LOSARTAN POTASSIUM 50 MG TABLET. PO SCH (20:44)
[2021-03-13] VITALS (30 sets, daily range): BP systolic 71–125; BP diastolic 44–72
[2021-03-13] MEDS: fentaNYL HIGH DOSE PCA 55 ML IV PRN (01:44)
[2021-03-13] MEDS: NOREPINEPHRINE VIAL 8 MG in IV DEXTROSE 5% 250 ML IV PRN (02:31)
[2021-03-13] MEDS: MIDAZOLAM 100mg/100ml NS BAG 100 ML IV PRN ×2 (02:32→11:13)
[2021-03-13] MEDS: DEXMEDETOMIDINE 400 MCG in IV NORMAL SALINE 100ML 96 ML IV PRN ×6 (03:12→22:09)
[2021-03-13] MEDS: PROPOFOL 100 ML IV PRN ×5 (03:34→22:19)
[2021-03-13] MEDS: INSULIN LISPRO 300 UNITS/3 ML VIAL. SQ SCH ×4 (06:00→18:06)
[2021-03-13 07:32] LABS: BASE EXCESS ABG 6 mmol/L (-3-3); HCO3 ABG 34 mmol/L (21-28)
[2021-03-13 07:33] LABS: PCO2 ABG 66 mmHg (35-46)
[2021-03-13 07:34] LABS: PO2 ABG 40 mmHg (75-108); SAT O2 ABG 69 % (92-99)
[2021-03-13] MEDS: ENOXAPARIN 40 MG/0.4 ML SYRINGE. SQ SCH ×2 (08:54→21:38)
[2021-03-13] MEDS: INSULIN GLARGINE SYRINGE. SQ SCH ×2 (08:54→21:40)
[2021-03-13] MEDS: FAMOTIDINE 20 MG/2 ML VIAL IVP SCH ×2 (08:55→21:37)
[2021-03-13] MEDS: methylPREDNISolone SOD SUCC PF 40 MG/ML VIAL. IV SCH (08:55)
[2021-03-13] MEDS: MULTIVITAMINS,THERAPEUTIC 5 ML ORAL LIQUID. PEG SCH (08:55)
[2021-03-13] MEDS: ASPIRIN CHEWABLE 81 MG TABLET. PO SCH (08:57)
--- NOTE | 2021-03-13 08:59 | PDOC ---
[employer] PROGRESS NOTE Date of Service DOS: DATE: 03/13/21 TIME: 08:59 Chief Complaint Chief Complaint Acute hypoxic respiratory failure COVID-19 pneumonia PJ due to vasomotor nephropathy Mild transaminitis Moderate protein malnutrition Morbid obesity History of hypertension Continue IV steroids and continue taper Continue with Covid supplementation such as B1, vitamin C, vitamin D, zinc Lovenox for DVT prophylaxis Full code DPOA Mary Tovar History of Present Illness History of Present Illness Mr Tovar is a 55yo male. Basically, he has been developing flu like symptoms over the past couple of weeks. He went to acute care center yesterday at [facility]. He was awaiting his test results for his COVID-19 testing, but today he just could not await he was getting too sick. We tested him here in the emergency room. He is positive. He has abnormal chest x-ray. We are going to admit the patient, place him on COVID protocol. 02/23: No acute events overnight. Patient saturating 97% on 2 L nasal cannula. Patient currently on Remdesivir. Patient's chart, labs, images were reviewed and discussed with RN 02/24: Patient seen and examine in bed. Patient Fi02 between 83%-92% on vapotherm and 100% non-rebreather. 02/25: Patient seen and examined at the bedside. Currently requiring BiPAP. Vapotherm. Transferred to the ICU yesterday. Continue with Covid treatment. Plan of care discussed with bedside RN 02/26: Afebrile. Intermittently breathing between BiPAP and Vapotherm. Continue empiric antibiotics and steroids. Last dose remdesivir today. Continue supportive care. 30 minutes critical care time spent reviewing charts, reviewing labs, reviewing imaging, discussion with RN. 02/27: Afebrile. Still breathing on ventilator and FiO2 100%, PEEP 10. Continue IV steroids and IV antibiotics. He should continue IV steroids for total treatment of 10 days (last day 03/04/2021). Completed remdesivir. Continue supportive care. 02/28: Afebrile. On vent with FiO2 100%, PEEP 5. Some significant hyperglycemia noted today. Will obtain A1c and initiate insulin protocol. Completed remdesivir. Continue IVF biotics and IV steroids. Continue supportive care. 03/01: Afebrile. On vent with FiO2 100%, PEEP 9. Still with elevated blood sugars; HbA1c 5.5. Will initiate twice daily basal insulin. Completed remdesivir; continue IV antibiotics and steroids. Continue supportive care. 03/02: Afebrile. Remains on vent with FiO2 100%, PEEP 9. D-dimer >20. Discussed with Dr. Burrows, fully anticoagulate empirically and order echocardiogram to help with evaluation of PE. Has completed remdesivir. Continue IV antibiotics and steroids. Blood sugar slightly better controlled. 03/03: Afebrile. On vent with FiO2 100%, PEEP 10. Echo was obtained due to elevated D-dimer >20, that showed PAP estimated at 50 mmHg. Concerning for PE; will continue full anticoagulation with Lovenox. Has completed remdesivir. Continue IV antibiotics and steroids. 03/04: Afebrile. On vent with FiO2 100%, PEEP 5. Continue with Lovenox full anticoagulation for suspected PE. Completed remdesivir. Continue IV antibiotics and steroids for 10-day course; today is day 10 of steroids and will provide Solu-Medrol taper. Blood glucose currently well controlled. 03/05: No acute events overnight. T-max of 100.2 in the last 24 hours. S aturating 85% on vent settings of 24/500/100/16. Patient is on a vecuronium drip. Steroids will be weaned down to 40 mg twice daily today. Lovenox decreased to 40 mg twice daily due to decreasing D-dimer. 03/06: No acute events overnight. Afebrile last 24 hours. Saturating well on vent settings of 24/500/100/15. Continues to be on vecuronium drip. Patient's chart, labs, images were reviewed and discussed with RN 8: Patient seen and examined bedside. Saturating 85% on vent settings of 24/500/100/6. Patient's chart, labs, images were reviewed and discussed with RN 8/: No acute events overnight. Patient saturating 82% on 24/500/100/16. Will defer vent setting adjustments per pulmonology. Glucose levels are stable ICU 160s. Patient's chart, labs, images were reviewed and discussed with RN 8/: No acute events overnight. Patient is saturating 80% on vent settings of 26/500/100/12. Adjustment of vent settings will defer to pulmonology. Currently on sedation and paralytics. Chest x-ray is stable with diffuse infiltrates. No changes compared to 03/07/2021. 03/10: No acute events overnight. Patient saturating 84% on vent settings of 24/500/100/18. Vent settings adjustment will defer to pulmonology. Patient's chart, labs, images were reviewed and discussed with RN 03/11: No acute events overnight. Patient saturating 82% on vent settings of 24/500/100/18. Patient's chart, labs, images were reviewed and discussed with RN 03/12: WBC 11.39, Hb 9.7, platelets 117, no overnight events. O2 saturations 81% with vent settings 24/100/100/18. ABG 7.37/63/<42. Urine and rectal tube with output. Afebrile. O2 worsening. ABG 7.3 /40 on FiO2 100% PEEP 18. Overall worsening. A total of 31 minutes of critical care time was spent in reviewing chart, labs, and images. Discussed with RN and SW. overall prognosis is grim patient's mother's been contacted to see patient bedside as well as his brother. Vitals/I&O Vitals/I&O: Vital Signs Date Time Temp Pulse Resp B/P (MAP) Pulse Ox O2 Delivery O2 Flow Rate FiO2 03/13/21 08:00 98.9 128 24 99/58 (72) 78 Ventilator 98.9 03/12/21 18:00 24.0 I & O 03/12/21 03/12/21 03/13/21 15:00 23:00 07:00 Intake Total 400 ml 2069.43 ml 1649.55 ml Output Total 625 ml 660 ml 680 ml Balance -225 ml 1409.43 ml 969.55 ml Physical Exam General: moderate distress, Other (Intubated and sedated) Heart: Regular rate Lungs: Crackles Abdomen: Normal bowel sounds Extremities: No clubbing Skin: No rashes, No significant lesion Labs Labs: Laboratory Tests Test 03/12/21 11:08 03/12/21 18:15 03/13/21 00:00 03/13/21 05:54 Glucose (Fingerstick) 126 mg/dL (70-99) 84 mg/dL (70-99) 140 mg/dL (70-99) 131 mg/dL (70-99) Test 03/13/21 07:28 O2 Saturation 69 % (92-99) Arterial Blood pH 7.33 (7.35-7.45) Arterial Blood pCO2 at Patient Temp 66 mmHg (35-46) Arterial Blood pO2 at Patient Temp 40 mmHg (75-108) Arterial Blood HCO3 34 mmol/L (21-28) Arterial Blood Base Excess 6 mmol/L (-3-3) Assessment and Plan Assessmemt and Plan Problems Medical Problems: (1) Hypoxia Status: Acute (2) Pneumonia due to COVID-19 virus Status: Acute Comment Review of Relevant I have reviewed the following items ashley (where applicable) has been applied. Medications: Current Medications Medications (Trade) Dose Ordered Sig/Radha Route PRN Reason Start Time Stop Time Status Last Admin Dose Admin Norepinephrine Bitartrate 8 mg/ Dextrose 258 ml @ 26.471 mls/ hr CONT PRN IV PER PROTOCOL 03/13/21 02:15 03/13/21 02:31 Justifications for Admission Other Justification LY KULKARNI MD Mar 13, 2021 08:59
[2021-03-13] MEDS: NORCURON - VECURONIUM 50 MG in IV NORMAL SALINE 50ML 50 ML IV PRN ×2 (09:12→14:52)
--- NOTE | 2021-03-13 10:02 | PDOC ---
PULMONARY PROGRESS NOTES DATE: 03/13/21 TIME: 10:01 Subjective remains on vent support 100% and a PEEP of 18. PO2 in the 40s. sedate on propofol fentanyl versed precedex on vec gtt small ett secretion Oxygenation continues to worsen. Vitals Vital Signs Date Time Temp Pulse Resp B/P (MAP) Pulse Ox O2 Delivery O2 Flow Rate FiO2 03/13/21 09:30 75 Ventilator 03/13/21 09:16 128 24 115/68 (84) 03/13/21 08:00 98.9 98.9 03/12/21 18:00 24.0 Comments Visual exam done due to COVID-19. intubated sedated nc at rrr no accessory muscle use abd obese no rash or edema Labs Laboratory Tests Test 03/11/21 12:39 03/11/21 17:31 03/11/21 20:54 03/11/21 23:55 Glucose (Fingerstick) 184 mg/dL (70-99) 205 mg/dL (70-99) 194 mg/dL (70-99) 166 mg/dL (70-99) Test 03/12/21 05:30 03/12/21 05:32 03/12/21 08:00 03/12/21 11:08 White Blood Count 11.3 x10^3/uL (4.0-11.0) Red Blood Count 2.93 x10^6/uL (4.30-5.70) Hemoglobin 9.7 g/dL (13.0-17.5) Hematocrit 30.3 % (39.0-53.0) Mean Corpuscular Volume 103 fL (79-100) Mean Corpuscular Hemoglobin 33 pg (25-35) Mean Corpuscular Hemoglobin Concent 32 g/dL (31-37) Red Cell Distribution Width 14.1 % (11.5-14.5) Platelet Count 117 x10^3/uL (140-400) Neutrophils (%) (Auto) 89 % (31-73) Lymphocytes (%) (Auto) 5 % (24-48) Monocytes (%) (Auto) 4 % (0-9) Eosinophils (%) (Auto) 1 % (0-3) Basophils (%) (Auto) 0 % (0-3) Neutrophils # (Auto) 10.1 x10^3/uL (1.8-7.7) Lymphocytes # (Auto) 0.6 x10^3/uL (1.0-4.8) Monocytes # (Auto) 0.4 x10^3/uL (0.0-1.1) Eosinophils # (Auto) 0.1 x10^3/uL (0.0-0.7) Basophils # (Auto) 0.0 x10^3/uL (0.0-0.2) Segmented Neutrophils % 86 % (35-66) Band Neutrophils % 3 % (0-9) Lymphocytes % 7 % (24-48) Monocytes % 3 % (0-10) Eosinophils % 1 % (0-5) Nucleated Red Blood Cells 2 Platelet Estimate Decreased (ADEQUATE) Large Platelets Present Polychromasia Present Basophilic Stippling Present Macrocytosis Present Sodium Level 141 mmol/L (136-145) Potassium Level 3.9 mmol/L (3.5-5.1) Chloride Level 107 mmol/L (98-107) Carbon Dioxide Level 34 mmol/L (21-32) Anion Gap 0 (6-14) Blood Urea Nitrogen 18 mg/dL (8-26) Creatinine 0.6 mg/dL (0.7-1.3) Estimated GFR (Cockcroft-Gault) 169.3 Glucose Level 138 mg/dL (70-99) Calcium Level 7.5 mg/dL (8.5-10.1) Phosphorus Level 2.6 mg/dL (2.6-4.7) Magnesium Level 1.8 mg/dL (1.8-2.4) Glucose (Fingerstick) 136 mg/dL (70-99) 126 mg/dL (70-99) O2 Saturation 71 % (92-99) Arterial Blood pH 7.37 (7.35-7.45) Arterial Blood pCO2 at Patient Temp 63 mmHg (35-46) Arterial Blood pO2 at Patient Temp < 42 mmHg (75-108) Arterial Blood HCO3 35 mmol/L (21-28) Arterial Blood Base Excess 8 mmol/L (-3-3) FiO2 100 Test 03/12/21 18:15 03/13/21 00:00 03/13/21 05:54 03/13/21 07:28 Glucose (Fingerstick) 84 mg/dL (70-99) 140 mg/dL (70-99) 131 mg/dL (70-99) O2 Saturation 69 % (92-99) Arterial Blood pH 7.33 (7.35-7.45) Arterial Blood pCO2 at Patient Temp 66 mmHg (35-46) Arterial Blood pO2 at Patient Temp 40 mmHg (75-108) Arterial Blood HCO3 34 mmol/L (21-28) Arterial Blood Base Excess 6 mmol/L (-3-3) Laboratory Tests Test 03/12/21 11:08 03/12/21 18:15 03/13/21 00:00 03/13/21 05:54 Glucose (Fingerstick) 126 mg/dL (70-99) 84 mg/dL (70-99) 140 mg/dL (70-99) 131 mg/dL (70-99) Test 03/13/21 07:28 O2 Saturation 69 % (92-99) Arterial Blood pH 7.33 (7.35-7.45) Arterial Blood pCO2 at Patient Temp 66 mmHg (35-46) Arterial Blood pO2 at Patient Temp 40 mmHg (75-108) Arterial Blood HCO3 34 mmol/L (21-28) Arterial Blood Base Excess 6 mmol/L (-3-3) Medications Active Scripts Medications Dose Route/Sig Max Daily Dose Days Date Category [tylenol pm] 1 Tab PO HS 02/22/21 Reported Losartan Potassium 50 Mg Tablet 50 Mg PO HS 02/22/21 Reported Atorvastatin Calcium 20 Mg Tablet 20 Mg PO HS 02/22/21 Reported Omeprazole 40 Mg Capsule.dr 1 Cap PO PRN DAILY PRN 05/20/17 Reported Daily Vitamin Formula-Minerals (Multivitamin With Minerals) 1 Each Tablet 1 Each PO 01/06/17 Reported Atenolol 50 Mg Tablet 1 Tab PO DAILY 01/06/17 Reported Comments Chest x-ray reviewed 03/12/21. Diffuse unchanged interstitial infiltrates. No evidence of pneumothorax. Chest x-ray 03/09/2021 reviewed. Diffuse unchanged fine interstitial infiltrates. Impression . 1. Acute hypoxic respiratory failure secondary to COVID-19 viral pneumonia/ARDS/acute lung injury.-, intubated 02/26/21. Oxygen requirement continues to worsen. Currently on 100% FiO2 and 18 of PEEP. PO2 in the 40s. 2. Abnormal chest x-ray with faint bilateral interstitial infiltrates associated with COVID-19 pneumonia. 3. COVID-19 positive. 4. No significant tobacco history. 5. Mild acute kidney injuryimproved 6. Abnormal liver function tests, likely related to COVID-19. Bilirubin 1.4. 7. Patient initiated on full dose anticoagulation with Lovenox due to marked increase in D-dimer of more than 20. Since the D-dimer significantly improved. Lovenox dose was changed to DVT prophylaxis dose on 03/05 Plan . Updated 03/13/2021 Continue current ventilatory support, 100% peep 18. PO2 in the 40s. No evidence of pneumothorax. Would not increase PEEP any further. Unfortunately patient has no chance of survival adequate sedation, currently on paralytics Follow-up chest x-ray/ABG, Status post remdesivir and full course of steroids Continue tube feeding nutritional support DVT/GI prophylaxis:lovenox Discussed with RN and RT I have again discussed with patient's brother Valdemra Harrison 03/12. he explained to him critical illness and no chance of survival. I recommended DNR. He is not ready for that at the present moment but would like to visit his brother first. I did told him that at this point we cannot do anything more than what we have already done. Updated 03/12/2021 Continue current ventilatory support, 100% peep 18. PO2 in the 40s. No evidence of pneumothorax. adequate sedation, currently on paralytics Follow-up chest x-ray/ABG, Status post remdesivir and full course of steroids Continue tube feeding nutritional support DVT/GI prophylaxis:lovenox Discussed with RN and RT I have again discussed with patient's brother Valdemar Harrison . he explained to him critical illness and no chance of survival. I recommended DNR. He is not ready for that at the present moment but would like to visit his brother first. I did told him that at this point we cannot do anything more than what we have already done. Critical care time 30 minutes Updated 03/11/2021 Continue current ventilatory support, 100% peep 18. titrate peep fio2 as tolerated adequate sedation, currently on paralytics Follow-up chest x-ray/ABG, Status post remdesivir and full course of steroids Continue tube feeding nutritional support DVT/GI prophylaxis:lovenox Discussed with RN and RT dr amezquita Discussed with patient's brother Valdemar Harrison 03/09. he explained to him critical illness and very poor chance of survival. he also explained to him about initiation of ivermectin. He understands that this is not FDA approved for this condition. s/p one dose. He wants to try anything that is available to treat his brother. prognosis very poor Updated 03/10/2021 Continue current ventilatory support, 24/500/100/17. titrate peep fio2 as tolerated adequate sedation, currently on paralytics Follow-up chest x-ray/ABG, Status post remdesivir and full course of steroids Continue tube feeding nutritional support DVT/GI prophylaxis:lovenox Discussed with RN and RT dr amezquita Discussed with patient's brother Valdemar Harrison 03/09. he explained to him critical illness and very poor chance of survival. I also explained to him about initiation of ivermectin. He understands that this is not FDA approved for this condition. s/p one dose. He wants to try anything that is available to treat his brother. prognosis very poor Updated 03/09/2021 Continue current ventilatory support, 24/500/100/16. We will increase the PEEP to 17 today. adequate sedation, currently on paralytics Follow-up chest x-ray/ABG, p02 marginal , Status post remdesivir and full course of steroids Continue tube feeding nutritional support DVT/GI prophylaxis:lovenox Discussed with RN and RT Discussed with patient's brother Valdemar Harrison. I explained to him critical illness and very poor chance of survival. I also explained to him about initiation of ivermectin. He understands that this is not FDA approved for this condition. Will give one dose. He wants to try anything that is available to treat his brother. Critical care time 30 minutes Updated 03/08/2021 Continue current ventilatory support, 24/500/100/16. adequate sedation, currently on paralytics Follow-up chest x-ray/ABG, p02 marginal not able to wean PEEP or Fi02 Status post remdesivir and full course of steroids Continue tube feeding nutritional support DVT/GI prophylaxis:lovenox Discussed with RN and RT Critical care time 30 minutes ANGELA AMEZQUITA MD Mar 13, 2021 10:02
[2021-03-13] MEDS: IBUPROFEN 200 MG TABLET. PO PRN (13:19)
[2021-03-13] MEDS: LOSARTAN POTASSIUM 50 MG TABLET. PO SCH (21:38)
[2021-03-14] VITALS (35 sets, daily range): BP systolic 79–115; BP diastolic 46–71
[2021-03-14] MEDS: MIDAZOLAM 100mg/100ml NS BAG 100 ML IV PRN ×3 (01:02→22:18)
[2021-03-14] MEDS: PROPOFOL 100 ML IV PRN ×5 (01:23→18:57)
[2021-03-14] MEDS: NORCURON - VECURONIUM 50 MG in IV NORMAL SALINE 50ML 50 ML IV PRN ×2 (01:24→10:47)
[2021-03-14] MEDS: DEXMEDETOMIDINE 400 MCG in IV NORMAL SALINE 100ML 96 ML IV PRN ×6 (01:46→18:56)
[2021-03-14] MEDS: INSULIN LISPRO 300 UNITS/3 ML VIAL. SQ SCH ×4 (06:00→17:16)
[2021-03-14 06:23] LABS: HEMATOCRIT 31.3 % (39.0-53.0); RED BLOOD COUNT 3.04 x10^6/uL (4.30-5.70); RED CELL DISTRIBUTION WIDTH 14.6 % (11.5-14.5); WHITE BLOOD COUNT 10.3 x10^3/uL (4.0-11.0)
[2021-03-14 06:39] LABS: ALBUMIN 1.3 g/dL (3.4-5.0); ALBUMIN/GLOBULIN RATIO 0.4 (1.0-1.7); CALCIUM 7.7 mg/dL (8.5-10.1); CREATININE 0.9 mg/dL (0.7-1.3); POTASSIUM 4.7 mmol/L (3.5-5.1); TOTAL BILIRUBIN 0.3 mg/dL (0.2-1.0); TOTAL PROTEIN 4.5 g/dL (6.4-8.2)
--- NOTE | 2021-03-14 07:05 | RAD ---
EXAM: XR CHEST 1V 03/14/2021 4:30 AM CLINICAL INDICATION: Respiratory failure/ARDS COMPARISON: Chest radiograph 03/12/2021 TECHNIQUE: AP semierect view of the chest FINDINGS: The endotracheal tube terminates 7.6 cm with anh. Nasogastric tube courses below the di aphragm and terminates out of view. A right IJ catheter tip projects over the superior cavoatrial rex ction. The cardiac silhouette is normal. Lungs are adequately expanded. Diffuse bilateral basilar pre dominant opacities are unchanged. No pleural effusion or pneumothorax. No acute osseous abnormality. IMPRESSION: 1. Unchanged lines and tubes. 2. No significant change in bilateral pulmonary opacities. Electronically signed by: Juana Johnson MD (03/14/2021 7:02 AM) [id number]
[2021-03-14] MEDS: ENOXAPARIN 40 MG/0.4 ML SYRINGE. SQ SCH ×2 (07:40→21:16)
[2021-03-14] MEDS: methylPREDNISolone SOD SUCC PF 40 MG/ML VIAL. IV SCH (07:40)
[2021-03-14] MEDS: MULTIVITAMINS,THERAPEUTIC 5 ML ORAL LIQUID. PEG SCH (07:40)
[2021-03-14] MEDS: ASPIRIN CHEWABLE 81 MG TABLET. PO SCH (07:41)
[2021-03-14] MEDS: FAMOTIDINE 20 MG/2 ML VIAL IVP SCH ×2 (07:41→21:16)
[2021-03-14 08:42] LABS: BASE EXCESS ABG 5 mmol/L (-3-3); HCO3 ABG 31 mmol/L (21-28); PCO2 ABG 56 mmHg (35-46); SAT O2 ABG 71 % (92-99)
[2021-03-14 08:44] LABS: FIO2 ABG 100; PO2 ABG < 42 mmHg (75-108)
[2021-03-14] MEDS: INSULIN GLARGINE SYRINGE. SQ SCH ×2 (09:01→21:17)
--- NOTE | 2021-03-14 10:01 | PDOC ---
PULMONARY PROGRESS NOTES DATE: 03/14/21 TIME: 09:59 Subjective remains on vent support 100% and a PEEP of 18. PO2 in the 40s. sedate on propofol fentanyl versed precedex on vec gtt small ett secretion Oxygenation continues to worsen. Vitals Vital Signs Date Time Temp Pulse Resp B/P (MAP) Pulse Ox O2 Delivery O2 Flow Rate FiO2 03/14/21 08:10 83 Ventilator 03/14/21 08:00 98.6 110 24 79/52 (61) 98.6 Comments Visual exam done due to COVID-19. intubated sedated nc at rrr no accessory muscle use abd obese no rash or edema Labs Laboratory Tests Test 03/12/21 11:08 03/12/21 18:15 03/13/21 00:00 03/13/21 05:54 Glucose (Fingerstick) 126 mg/dL (70-99) 84 mg/dL (70-99) 140 mg/dL (70-99) 131 mg/dL (70-99) Test 03/13/21 07:28 03/13/21 13:21 03/13/21 18:03 03/14/21 00:47 O2 Saturation 69 % (92-99) Arterial Blood pH 7.33 (7.35-7.45) Arterial Blood pCO2 at Patient Temp 66 mmHg (35-46) Arterial Blood pO2 at Patient Temp 40 mmHg (75-108) Arterial Blood HCO3 34 mmol/L (21-28) Arterial Blood Base Excess 6 mmol/L (-3-3) Glucose (Fingerstick) 210 mg/dL (70-99) 202 mg/dL (70-99) 150 mg/dL (70-99) Test 03/14/21 05:30 03/14/21 06:14 03/14/21 08:00 White Blood Count 10.3 x10^3/uL (4.0-11.0) Red Blood Count 3.04 x10^6/uL (4.30-5.70) Hemoglobin 10.0 g/dL (13.0-17.5) Hematocrit 31.3 % (39.0-53.0) Mean Corpuscular Volume 103 fL (79-100) Mean Corpuscular Hemoglobin 33 pg (25-35) Mean Corpuscular Hemoglobin Concent 32 g/dL (31-37) Red Cell Distribution Width 14.6 % (11.5-14.5) Platelet Count 118 x10^3/uL (140-400) Sodium Level 139 mmol/L (136-145) Potassium Level 4.7 mmol/L (3.5-5.1) Chloride Level 102 mmol/L (98-107) Carbon Dioxide Level 36 mmol/L (21-32) Anion Gap 1 (6-14) Blood Urea Nitrogen 25 mg/dL (8-26) Creatinine 0.9 mg/dL (0.7-1.3) Estimated GFR (Cockcroft-Gault) 106.0 BUN/Creatinine Ratio 28 (6-20) Glucose Level 142 mg/dL (70-99) Calcium Level 7.7 mg/dL (8.5-10.1) Total Bilirubin 0.3 mg/dL (0.2-1.0) Aspartate Amino Transf (AST/SGOT) 39 U/L (15-37) Alanine Aminotransferase (ALT/SGPT) 79 U/L (16-63) Alkaline Phosphatase 154 U/L (46-116) Total Protein 4.5 g/dL (6.4-8.2) Albumin 1.3 g/dL (3.4-5.0) Albumin/Globulin Ratio 0.4 (1.0-1.7) Glucose (Fingerstick) 143 mg/dL (70-99) O2 Saturation 71 % (92-99) Arterial Blood pH 7.36 (7.35-7.45) Arterial Blood pCO2 at Patient Temp 56 mmHg (35-46) Arterial Blood pO2 at Patient Temp < 42 mmHg (75-108) Arterial Blood HCO3 31 mmol/L (21-28) Arterial Blood Base Excess 5 mmol/L (-3-3) FiO2 100 Laboratory Tests Test 03/13/21 13:21 03/13/21 18:03 03/14/21 00:47 03/14/21 05:30 Glucose (Fingerstick) 210 mg/dL (70-99) 202 mg/dL (70-99) 150 mg/dL (70-99) White Blood Count 10.3 x10^3/uL (4.0-11.0) Red Blood Count 3.04 x10^6/uL (4.30-5.70) Hemoglobin 10.0 g/dL (13.0-17.5) Hematocrit 31.3 % (39.0-53.0) Mean Corpuscular Volume 103 fL (79-100) Mean Corpuscular Hemoglobin 33 pg (25-35) Mean Corpuscular Hemoglobin Concent 32 g/dL (31-37) Red Cell Distribution Width 14.6 % (11.5-14.5) Platelet Count 118 x10^3/uL (140-400) Sodium Level 139 mmol/L (136-145) Potassium Level 4.7 mmol/L (3.5-5.1) Chloride Level 102 mmol/L (98-107) Carbon Dioxide Level 36 mmol/L (21-32) Anion Gap 1 (6-14) Blood Urea Nitrogen 25 mg/dL (8-26) Creatinine 0.9 mg/dL (0.7-1.3) Estimated GFR (Cockcroft-Gault) 106.0 BUN/Creatinine Ratio 28 (6-20) Glucose Level 142 mg/dL (70-99) Calcium Level 7.7 mg/dL (8.5-10.1) Total Bilirubin 0.3 mg/dL (0.2-1.0) Aspartate Amino Transf (AST/SGOT) 39 U/L (15-37) Alanine Aminotransferase (ALT/SGPT) 79 U/L (16-63) Alkaline Phosphatase 154 U/L (46-116) Total Protein 4.5 g/dL (6.4-8.2) Albumin 1.3 g/dL (3.4-5.0) Albumin/Globulin Ratio 0.4 (1.0-1.7) Test 03/14/21 06:14 03/14/21 08:00 Glucose (Fingerstick) 143 mg/dL (70-99) O2 Saturation 71 % (92-99) Arterial Blood pH 7.36 (7.35-7.45) Arterial Blood pCO2 at Patient Temp 56 mmHg (35-46) Arterial Blood pO2 at Patient Temp < 42 mmHg (75-108) Arterial Blood HCO3 31 mmol/L (21-28) Arterial Blood Base Excess 5 mmol/L (-3-3) FiO2 100 Medications Active Scripts Medications Dose Route/Sig Max Daily Dose Days Date Category [tylenol pm] 1 Tab PO HS 02/22/21 Reported Losartan Potassium 50 Mg Tablet 50 Mg PO HS 02/22/21 Reported Atorvastatin Calcium 20 Mg Tablet 20 Mg PO HS 02/22/21 Reported Omeprazole 40 Mg Capsule.dr Tubbs Cap PO PRN DAILY PRN 05/20/17 Reported Daily Vitamin Formula-Minerals (Multivitamin With Minerals) 1 Each Tablet 1 Each PO 01/06/17 Reported Atenolol 50 Mg Tablet 1 Tab PO DAILY 01/06/17 Reported Comments Chest x-ray 03/14/2021 reviewed. No changes. bilateral faint interstitial infiltrate Chest x-ray reviewed 03/12/21. Diffuse unchanged interstitial infiltrates. No evidence of pneumothorax. Chest x-ray 03/09/2021 reviewed. Diffuse unchanged fine interstitial infiltrates. Impression . 1. Acute hypoxic respiratory failure secondary to COVID-19 viral pneumonia/ARDS/acute lung injury.-, intubated 02/26/21. Oxygen requirement continues to worsen. Currently on 100% FiO2 and 18 of PEEP. PO2 in the 40s. 2. Abnormal chest x-ray with faint bilateral interstitial infiltrates associated with COVID-19 pneumonia. 3. COVID-19 positive. 4. No significant tobacco history. 5. Mild acute kidney injuryimproved 6. Abnormal liver function tests, likely related to COVID-19. Bilirubin 1.4. 7. Patient initiated on full dose anticoagulation with Lovenox due to marked in crease in D-dimer of more than 20. Since the D-dimer significantly improved. Lovenox dose was changed to DVT prophylaxis dose on 03/05 Plan . Updated 03/14/2021 Continue current ventilatory support, 100% peep 18. PO2 in the 40s. No evidence of pneumothorax. Would not increase PEEP any further. Unfortunately patient has no chance of survival adequate sedation, currently on paralytics Follow-up chest x-ray/ABG, Status post remdesivir and full course of steroids Continue tube feeding nutritional support DVT/GI prophylaxis:lovenox Discussed with RN and RT I have again discussed with patient's brother Valdemar Harrison 03/12. he explained to him critical illness and no chance of survival. I recommended DNR. He wants to continue present care. He is not ready to withdraw care. I did told him that at this point we cannot do anything more than what we have already done. Updated 03/13/2021 Continue current ventilatory support, 100% peep 18. PO2 in the 40s. No evidence of pneumothorax. Would not increase PEEP any further. Unfortunately patient has no chance of survival adequate sedation, currently on paralytics Follow-up chest x-ray/ABG, Status post remdesivir and full course of steroids Continue tube feeding nutritional support DVT/GI prophylaxis:lovenox Discussed with RN and RT I have again discussed with patient's brother Valdemar Harrison 03/12. he explained to him critical illness and no chance of survival. I recommended DNR. He is not ready for that at the present moment but would like to visit his brother first. I did told him that at this point we cannot do anything more than what we have already done. Updated 03/12/2021 Continue current ventilatory support, 100% peep 18. PO2 in the 40s. No evidence of pneumothorax. adequate sedation, currently on paralytics Follow-up chest x-ray/ABG, Status post remdesivir and full course of steroids Continue tube feeding nutritional support DVT/GI prophylaxis:lovenox Discussed with RN and RT I have again discussed with patient's brother Valdemar Harrison . he explained to him critical illness and no chance of survival. I recommended DNR. He is not ready for that at the present moment but would like to visit his brother first. I did told him that at this point we cannot do anything more than what we have already done. Critical care time 30 minutes Updated 03/11/2021 Continue current ventilatory support, 100% peep 18. titrate peep fio2 as tolerated adequate sedation, currently on paralytics Follow-up chest x-ray/ABG, Status post remdesivir and full course of steroids Continue tube feeding nutritional support DVT/GI prophylaxis:lovenox Discussed with RN and RT dr amezquita Discussed with patient's brother Valdemar Harrison 03/09. he explained to him critical illness and very poor chance of survival. he also explained to him about initiation of ivermectin. He understands that this is not FDA approved for this condition. s/p one dose. He wants to try anything that is available to treat his brother. prognosis very poor Updated 03/10/2021 Continue current ventilatory support, 24/500/100/17. titrate peep fio2 as tolerated adequate sedation, currently on paralytics Follow-up chest x-ray/ABG, Status post remdesivir and full course of steroids Continue tube feeding nutritional support DVT/GI prophylaxis:lovenox Discussed with RN and RT dr amezquita Discussed with patient's brother Valdemar Harrison 03/09. he explained to him critical illness and very poor chance of survival. I also explained to him about initiation of ivermectin. He understands that this is not FDA approved for this condition. s/p one dose. He wants to try anything that is available to treat his brother. prognosis very poor Updated 03/09/2021 Continue current ventilatory support, 24/500/100/16. We will increase the PEEP to 17 today. adequate sedation, currently on paralytics Follow-up chest x-ray/ABG, p02 marginal , Status post remdesivir and full course of steroids Continue tube feeding nutritional support DVT/GI prophylaxis:lovenox Discussed with RN and RT Discussed with patient's brother Valdemar Harrison. I explained to him critical illness and very poor chance of survival. I also explained to him about initiation of ivermectin. He understands that this is not FDA approved for this condition. Will give one dose. He wants to try anything that is available to treat his brother. Critical care time 30 minutes Updated 03/08/2021 Continue current ventilatory support, 24/500/100/16. adequate sedation, currently on paralytics Follow-up chest x-ray/ABG, p02 marginal not able to wean PEEP or Fi02 Status post remdesivir and full course of steroids Continue tube feeding nutritional support DVT/GI prophylaxis:lovenox Discussed with RN and RT Critical care time 30 minutes ANGELA AMEZQUITA MD Mar 14, 2021 10:01
[2021-03-14] MEDS: NOREPINEPHRINE VIAL 8 MG in IV DEXTROSE 5% 250 ML IV PRN (10:45)
[2021-03-14] MEDS: fentaNYL HIGH DOSE PCA 55 ML IV PRN (10:48)
--- NOTE | 2021-03-14 13:21 | PDOC ---
[facility] PROGRESS NOTE Date of Service DOS: DATE: 03/14/21 TIME: 13:20 Chief Complaint Chief Complaint A/P: Acute hypoxic respiratory failure COVID-19 pneumonia PJ due to vasomotor nephropathy Mild transaminitis Moderate protein malnutrition Morbid obesity History of hypertension Continue IV steroids and continue taper Continue with Covid supplementation such as B1, vitamin C, vitamin D, zinc Lovenox for DVT prophylaxis CODE - DNR/DNI DPOA Mary Tovar, D/w her and Margot Aldricher -advance care planning total time spent on the phone with Margot Aldricher, 23 minutes in discussion with goals of care, comfort care, end-of-life care, pain management, CODE STATUS. History of Present Illness History of Present Illness Mr Tovar is a 55yo male. Basically, he has been developing flu like symptoms over the past couple of weeks. He went to acute care center yesterday at [facility]. He was awaiting his test results for his COVID-19 testing, but today he just could not await he was getting too sick. We tested him here in the e mergency room. He is positive. He has abnormal chest x-ray. We are going to admit the patient, place him on COVID protocol. 02/23: No acute events overnight. Patient saturating 97% on 2 L nasal cannula. Patient currently on Remdesivir. Patient's chart, labs, images were reviewed and discussed with RN 02/24: Patient seen and examine in bed. Patient Fi02 between 83%-92% on vapotherm and 100% non-rebreather. 02/25: Patient seen and examined at the bedside. Currently requiring BiPAP. Vapotherm. Transferred to the ICU yesterday. Continue with Covid treatment. Plan of care discussed with bedside RN 02/26: Afebrile. Intermittently breathing between BiPAP and Vapotherm. Continue empiric antibiotics and steroids. Last dose remdesivir today. Continue suppo rtive care. 30 minutes critical care time spent reviewing charts, reviewing labs, reviewing imaging, discussion with RN. 02/27: Afebrile. Still breathing on ventilator and FiO2 100%, PEEP 10. Continue IV steroids and IV antibiotics. He should continue IV steroids for total treatment of 10 days (last day 03/04/2021). Completed remdesivir. Continue supportive care. 02/28: Afebrile. On vent with FiO2 100%, PEEP 5. Some significant hyperglycemia noted today. Will obtain A1c and initiate insulin protocol. Completed remdesivir. Continue IVF biotics and IV steroids. Continue supportive care. 03/01: Afebrile. On vent with FiO2 100%, PEEP 9. Still with elevated blood sugars; HbA1c 5.5. Will initiate twice daily basal insulin. Completed remdesivir; continue IV antibiotics and steroids. Continue supportive care. 03/02: Afebrile. Remains on vent with FiO2 100%, PEEP 9. D-dimer >20. Discussed with Dr. Burrows, fully anticoagulate empirically and order echocardiogram to help with evaluation of PE. Has completed remdesivir. Continue IV antibiotics and steroids. Blood sugar slightly better controlled. 03/03: Afebrile. On vent with FiO2 100%, PEEP 10. Echo was obtained due to elevated D-dimer >20, that showed PAP estimated at 50 mmHg. Concerning for PE; will continue full anticoagulation with Lovenox. Has completed remdesivir. Continue IV antibiotics and steroids. 03/04: Afebrile. On vent with FiO2 100%, PEEP 5. Continue with Lovenox full anticoagulation for suspected PE. Completed remdesivir. Continue IV antibiotics and steroids for 10-day course; today is day 10 of steroids and will provide Solu-Medrol taper. Blood glucose currently well controlled. 03/05: No acute events overnight. T-max of 100.2 in the last 24 hours. Saturating 85% on vent settings of 24/500/100/16. Patient is on a vecuronium drip. Steroids will be weaned down to 40 mg twice daily today. Lovenox decreased to 40 mg twice daily due to decreasing D-dimer. 03/06: No acute events overnight. Afebrile last 24 hours. Saturating well on vent settings of 24/500/100/15. Continues to be on vecuronium drip. Patient's chart, labs, images were reviewed and discussed with RN 03/07: Patient seen and examined bedside. Saturating 85% on vent settings of 24/500/100/6. Patient's chart, labs, images were reviewed and discussed with RN 03/08: No acute events overnight. Patient saturating 82% on 24/500/100/16. Will defer vent setting adjustments per pulmonology. Glucose levels are stable ICU 160s. Patient's chart, labs, images were reviewed and discussed with RN 03/09: No acute events overnight. Patient is saturating 80% on vent settings of 26/500/100/12. Adjustment of vent settings will defer to pulmonology. Currently on sedation and paralytics. Chest x-ray is stable with diffuse infiltrates. No changes compared to 03/07/2021. 03/10: No acute events overnight. Patient saturating 84% on vent settings of 24/500/100/18. Vent settings adjustment will defer to pulmonology. Patient's chart, labs, images were reviewed and discussed with RN 03/11: No acute events overnight. Patient saturating 82% on vent settings of 24/500/100/18. Patient's chart, labs, images were reviewed and discussed with RN 03/12: WBC 11.39, Hb 9.7, platelets 117, no overnight events. O2 saturations 81% with vent settings 24/100/100/18. ABG 7.37/63/<42. Urine and rectal tube with output. 03/13: Afebrile. O2 worsening. ABG 7.3 3/66/40 on FiO2 100% PEEP 18. Overall w orsening. Afebrile. Chest radiograph unchanged WBC 10.3, Hb 10, platelets 118 glucose in the mid 100s transaminases still minimally elevated ABG 7.36/56/<42 A total of 31 minutes of critical care time was spent in reviewing chart, labs, and images. Discussed with RN and SW. overall prognosis is grim patient's mother's been contacted to see patient bedside as well as his brother. They have asked for DNR. Vitals/I&O Vitals/I&O: Vital Signs Date Time Temp Pulse Resp B/P (MAP) Pulse Ox O2 Delivery O2 Flow Rate FiO2 03/14/21 11:39 83 Ventilator 03/14/21 11:18 24 24.0 03/14/21 11:00 114 115/67 (83) 03/14/21 08:00 98.6 98.6 I & O 03/13/21 03/13/21 03/14/21 15:00 23:00 07:00 Intake Total 400 ml 2489 ml 1486 ml Output Total 625 ml 925 ml 500 ml Balance -225 ml 1564 ml 986 ml Physical Exam General: moderate distress, Other (Intubated and sedated) Heart: Regular rate Abdomen: Normal bowel sounds Extremities: No clubbing Skin: No rashes, No significant lesion Labs Labs: Laboratory Tests Test 03/13/21 13:21 03/13/21 18:03 03/14/21 00:47 03/14/21 05:30 Glucose (Fingerstick) 210 mg/dL (70-99) 202 mg/dL (70-99) 150 mg/dL (70-99) White Blood Count 10.3 x10^3/uL (4.0-11.0) Red Blood Count 3.04 x10^6/uL (4.30-5.70) Hemoglobin 10.0 g/dL (13.0-17.5) Hematocrit 31.3 % (39.0-53.0) Mean Corpuscular Volume 103 fL (79-100) Mean Corpuscular Hemoglobin 33 pg (25-35) Mean Corpuscular Hemoglobin Concent 32 g/dL (31-37) Red Cell Distribution Width 14.6 % (11.5-14.5) Platelet Count 118 x10^3/uL (140-400) Sodium Level 139 mmol/L (136-145) Potassium Level 4.7 mmol/L (3.5-5.1) Chloride Level 102 mmol/L (98-107) Carbon Dioxide Level 36 mmol/L (21-32) Anion Gap 1 (6-14) Blood Urea Nitrogen 25 mg/dL (8-26) Creatinine 0.9 mg/dL (0.7-1.3) Estimated GFR (Cockcroft-Gault) 106.0 BUN/Creatinine Ratio 28 (6-20) Glucose Level 142 mg/dL (70-99) Calcium Level 7.7 mg/dL (8.5-10.1) Total Bilirubin 0.3 mg/dL (0.2-1.0) Aspartate Amino Transf (AST/SGOT) 39 U/L (15-37) Alanine Aminotransferase (ALT/SGPT) 79 U/L (16-63) Alkaline Phosphatase 154 U/L (46-116) Total Protein 4.5 g/dL (6.4-8.2) Albumin 1.3 g/dL (3.4-5.0) Albumin/Globulin Ratio 0.4 (1.0-1.7) Test 03/14/21 06:14 03/14/21 08:00 03/14/21 12:42 Glucose (Fingerstick) 143 mg/dL (70-99) 158 mg/dL (70-99) O2 Saturation 71 % (92-99) Arterial Blood pH 7.36 (7.35-7.45) Arterial Blood pCO2 at Patient Temp 56 mmHg (35-46) Arterial Blood pO2 at Patient Temp < 42 mmHg (75-108) Arterial Blood HCO3 31 mmol/L (21-28) Arterial Blood Base Excess 5 mmol/L (-3-3) FiO2 100 Assessment and Plan Assessmemt and Plan Problems Medical Problems: (1) Hypoxia Status: Acute (2) Pneumonia due to COVID-19 virus Status: Acute Comment Review of Relevant I have reviewed the following items ashley (where applicable) has been applied. Justifications for Admission Other Justification LY KULKARNI MD Mar 14, 2021 13:21
[2021-03-14] MEDS: LOSARTAN POTASSIUM 50 MG TABLET. PO SCH (21:19)
[2021-03-15] VITALS (14 sets, daily range): BP systolic 63–118; BP diastolic 26–68
[2021-03-15] MEDS: DEXMEDETOMIDINE 400 MCG in IV NORMAL SALINE 100ML 96 ML IV PRN ×3 (00:19→07:54)
[2021-03-15] MEDS: PROPOFOL 100 ML IV PRN ×3 (00:19→09:12)
[2021-03-15] MEDS: NORCURON - VECURONIUM 50 MG in IV NORMAL SALINE 50ML 50 ML IV PRN (00:20)
[2021-03-15] MEDS: INSULIN LISPRO 300 UNITS/3 ML VIAL. SQ SCH ×3 (05:59→12:43)
--- NOTE | 2021-03-15 06:56 | NUR ---
Patient began to desat to 60% and maintain. Dr Burrows and patient's brother (Valdemar Harrison) called and update on patient's condition. Will continue care.
[2021-03-15] MEDS: MIDAZOLAM 100mg/100ml NS BAG 100 ML IV PRN (07:53)
[2021-03-15] MEDS: NOREPINEPHRINE VIAL 8 MG in IV DEXTROSE 5% 250 ML IV PRN ×2 (07:54→12:43)
[2021-03-15] MEDS: ASPIRIN CHEWABLE 81 MG TABLET. PO SCH (08:00)
--- NOTE | 2021-03-15 08:05 | NUR ---
Family is at the bedside at this time. All questions answered. Sats are 50%.
[2021-03-15] MEDS: ENOXAPARIN 40 MG/0.4 ML SYRINGE. SQ SCH (09:00)
[2021-03-15] MEDS: MULTIVITAMINS,THERAPEUTIC 5 ML ORAL LIQUID. PEG SCH (09:00)
[2021-03-15] MEDS: methylPREDNISolone SOD SUCC PF 40 MG/ML VIAL. IV SCH (09:00)
[2021-03-15] MEDS: INSULIN GLARGINE SYRINGE. SQ SCH (09:00)
[2021-03-15] MEDS: FAMOTIDINE 20 MG/2 ML VIAL IVP SCH (09:00)
--- NOTE | 2021-03-15 09:25 | NUR ---
Scheduled medications not given this morning due to change in pt condition and family wishes. Family at the bedside. O2 sats 38%.
--- NOTE | 2021-03-15 10:14 | PDOC ---
[facility] [facility] PROGRESS NOTE Date of Service DOS: DATE: 03/15/21 TIME: 10:08 Chief Complaint Chief Complaint A/P: Acute hypoxic respiratory failure COVID-19 pneumonia PJ due to vasomotor nephropathy Mild transaminitis Moderate protein malnutrition Morbid obesity History of hypertension Continue IV steroids and continue taper Continue with Covid supplementation such as B1, vitamin C, vitamin D, zinc Lovenox for DVT prophylaxis CODE - DNR/DNI DPOA Mary Tovar, D/w her and Margot Aldricher -advance care planning total time spent on the phone with Margot Aldricher, 23 minutes in discussion with goals of care, comfort care, end-of-life care, pain management, CODE STATUS. History of Present Illness History of Present Illness Mr Tovar is a 55yo male. Basically, he has been developing flu like symptoms over the past couple of weeks. He went to acute care center yesterday at [facility]. He was awaiting his test results for his COVID-19 testing, but today he just could not await he was getting too sick. We tested him here in the e mergency room. He is positive. He has abnormal chest x-ray. We are going to admit the patient, place him on COVID protocol. 02/23: No acute events overnight. Patient saturating 97% on 2 L nasal cannula. Patient currently on Remdesivir. Patient's chart, labs, images were reviewed and discussed with RN 02/24: Patient seen and examine in bed. Patient Fi02 between 83%-92% on vapotherm and 100% non-rebreather. 02/25: Patient seen and examined at the bedside. Currently requiring BiPAP. Vapotherm. Transferred to the ICU yesterday. Continue with Covid treatment. Plan of care discussed with bedside RN 02/26: Afebrile. Intermittently breathing between BiPAP and Vapotherm. Continue empiric antibiotics and steroids. Last dose remdesivir today. Continue suppo rtive care. 30 minutes critical care time spent reviewing charts, reviewing labs, reviewing imaging, discussion with RN. 02/27: Afebrile. Still breathing on ventilator and FiO2 100%, PEEP 10. Continue IV steroids and IV antibiotics. He should continue IV steroids for total treatment of 10 days (last day 03/04/2021). Completed remdesivir. Continue supportive care. 02/28: Afebrile. On vent with FiO2 100%, PEEP 5. Some significant hyperglycemia noted today. Will obtain A1c and initiate insulin protocol. Completed remdesivir. Continue IVF biotics and IV steroids. Continue supportive care. 03/01: Afebrile. On vent with FiO2 100%, PEEP 9. Still with elevated blood sugars; HbA1c 5.5. Will initiate twice daily basal insulin. Completed remdesivir; continue IV antibiotics and steroids. Continue supportive care. 03/02: Afebrile. Remains on vent with FiO2 100%, PEEP 9. D-dimer >20. Discussed with Dr. Burrows, fully anticoagulate empirically and order echocardiogram to help with evaluation of PE. Has completed remdesivir. Continue IV antibiotics and steroids. Blood sugar slightly better controlled. 03/03: Afebrile. On vent with FiO2 100%, PEEP 10. Echo was obtained due to elevated D-dimer >20, that showed PAP estimated at 50 mmHg. Concerning for PE; will continue full anticoagulation with Lovenox. Has completed remdesivir. Continue IV antibiotics and steroids. 03/04: Afebrile. On vent with FiO2 100%, PEEP 5. Continue with Lovenox full anticoagulation for suspected PE. Completed remdesivir. Continue IV antibiotics and steroids for 10-day course; today is day 10 of steroids and will provide Solu-Medrol taper. Blood glucose currently well controlled. 03/05: No acute events overnight. T-max of 100.2 in the last 24 hours. Saturating 85% on vent settings of 24/500/100/16. Patient is on a vecuronium drip. Steroids will be weaned down to 40 mg twice daily today. Lovenox decreased to 40 mg twice daily due to decreasing D-dimer. 03/06: No acute events overnight. Afebrile last 24 hours. Saturating well on vent settings of 24/500/100/15. Continues to be on vecuronium drip. Patient's chart, labs, images were reviewed and discussed with RN 03/07: Patient seen and examined bedside. Saturating 85% on vent settings of 24/500/100/6. Patient's chart, labs, images were reviewed and discussed with RN 03/08: No acute events overnight. Patient saturating 82% on 24/500/100/16. Will defer vent setting adjustments per pulmonology. Glucose levels are stable ICU 160s. Patient's chart, labs, images were reviewed and discussed with RN 03/09: No acute events overnight. Patient is saturating 80% on vent settings of 26/500/100/12. Adjustment of vent settings will defer to pulmonology. Currently on sedation and paralytics. Chest x-ray is stable with diffuse infiltrates. No changes compared to 03/07/2021. 03/10: No acute events overnight. Patient saturating 84% on vent settings of 24/500/100/18. Vent settings adjustment will defer to pulmonology. Patient's chart, labs, images were reviewed and discussed with RN 03/11: No acute events overnight. Patient saturating 82% on vent settings of 24/500/100/18. Patient's chart, labs, images were reviewed and discussed with RN 03/12: WBC 11.39, Hb 9.7, platelets 117, no overnight events. O2 saturations 81% with vent settings 24/100/100/18. ABG 7.37/63/<42. Urine and rectal tube with output. 03/13: Afebrile. O2 worsening. ABG 7.3 3/66/40 on FiO2 100% PEEP 18. Overall w orsening. 03/14: Afebrile. Chest radiograph unchanged WBC 10.3, Hb 10, platelets 118 glucose in the mid 100s transaminases still minimally elevated ABG 7.36/56/<42 Afebrile. O2 saturations in the 30s despite FiO2% and PEEP 18. Now requiring Levophed for profound hypotension overnight. Family bedside to visit, brother Valdemar medina. CC time 32 minutes Vitals/I&O Vitals/I&O: Vital Signs Date Time Temp Pulse Resp B/P (MAP) Pulse Ox O2 Delivery O2 Flow Rate FiO2 03/15/21 09:03 34 Ventilator 03/15/21 07:00 120 24 03/15/21 04:00 98.7 98.7 03/14/21 11:18 24.0 I & O 03/14/21 03/14/21 03/15/21 15:00 23:00 07:00 Intake Total 445.07 ml 3100.58 ml 1436 ml Output Total 590 ml 460 ml 525 ml Balance -144.93 ml 2640.58 ml 911 ml Physical Exam General: moderate distress, Other (Intubated and sedated) Heart: Regular rate Abdomen: Normal bowel sounds Extremities: No clubbing Skin: No rashes, No significant lesion Labs Labs: Laboratory Tests Test 03/14/21 12:42 03/14/21 17:12 03/15/21 00:17 03/15/21 05:47 Glucose (Fingerstick) 158 mg/dL (70-99) 176 mg/dL (70-99) 135 mg/dL (70-99) 155 mg/dL (70-99) Assessment and Plan Assessmemt and Plan Problems Medical Problems: (1) Hypoxia Status: Acute (2) Pneumonia due to COVID-19 virus Status: Acute Comment Review of Relevant I have reviewed the following items ashley (where applicable) has been applied. Justifications for Admission Other Justification LY KULKARNI MD Mar 15, 2021 10:14
--- NOTE | 2021-03-15 10:18 | PDOC ---
PULMONARY PROGRESS NOTES DATE: 03/15/21 TIME: 10:16 Subjective remains on vent support 100% and a PEEP of 18. PO2 in the 40s. sedate on propofol fentanyl versed precedex on vec gtt small ett secretion Oxygenation continues to worsen. Vitals Vital Signs Date Time Temp Pulse Resp B/P (MAP) Pulse Ox O2 Delivery O2 Flow Rate FiO2 03/15/21 10:00 130 24 23 Ventilator 03/15/21 08:00 98.1 98.1 03/14/21 11:18 24.0 Comments Visual exam done due to COVID-19. intubated sedated nc at rrr no accessory muscle use abd obese no rash or edema Labs Laboratory Tests Test 03/13/21 13:21 03/13/21 18:03 03/14/21 00:47 03/14/21 05:30 Glucose (Fingerstick) 210 mg/dL (70-99) 202 mg/dL (70-99) 150 mg/dL (70-99) White Blood Count 10.3 x10^3/uL (4.0-11.0) Red Blood Count 3.04 x10^6/uL (4.30-5.70) Hemoglobin 10.0 g/dL (13.0-17.5) Hematocrit 31.3 % (39.0-53.0) Mean Corpuscular Volume 103 fL (79-100) Mean Corpuscular Hemoglobin 33 pg (25-35) Mean Corpuscular Hemoglobin Concent 32 g/dL (31-37) Red Cell Distribution Width 14.6 % (11.5-14.5) Platelet Count 118 x10^3/uL (140-400) Sodium Level 139 mmol/L (136-145) Potassium Level 4.7 mmol/L (3.5-5.1) Chloride Level 102 mmol/L (98-107) Carbon Dioxide Level 36 mmol/L (21-32) Anion Gap 1 (6-14) Blood Urea Nitrogen 25 mg/dL (8-26) Creatinine 0.9 mg/dL (0.7-1.3) Estimated GFR (Cockcroft-Gault) 106.0 BUN/Creatinine Ratio 28 (6-20) Glucose Level 142 mg/dL (70-99) Calcium Level 7.7 mg/dL (8.5-10.1) Total Bilirubin 0.3 mg/dL (0.2-1.0) Aspartate Amino Transf (AST/SGOT) 39 U/L (15-37) Alanine Aminotransferase (ALT/SGPT) 79 U/L (16-63) Alkaline Phosphatase 154 U/L (46-116) Total Protein 4.5 g/dL (6.4-8.2) Albumin 1.3 g/dL (3.4-5.0) Albumin/Globulin Ratio 0.4 (1.0-1.7) Test 03/14/21 06:14 03/14/21 08:00 03/14/21 12:42 03/14/21 17:12 Glucose (Fingerstick) 143 mg/dL (70-99) 158 mg/dL (70-99) 176 mg/dL (70-99) O2 Saturation 71 % (92-99) Arterial Blood pH 7.36 (7.35-7.45) Arterial Blood pCO2 at Patient Temp 56 mmHg (35-46) Arterial Blood pO2 at Patient Temp < 42 mmHg (75-108) Arterial Blood HCO3 31 mmol/L (21-28) Arterial Blood Base Excess 5 mmol/L (-3-3) FiO2 100 Test 03/15/21 00:17 03/15/21 05:47 Glucose (Fingerstick) 135 mg/dL (70-99) 155 mg/dL (70-99) Laboratory Tests Test 03/14/21 12:42 03/14/21 17:12 03/15/21 00:17 03/15/21 05:47 Glucose (Fingerstick) 158 mg/dL (70-99) 176 mg/dL (70-99) 135 mg/dL (70-99) 155 mg/dL (70-99) Medications Active Scripts Medications Dose Route/Sig Max Daily Dose Days Date Category [tylenol pm] 1 Tab PO HS 02/22/21 Reported Losartan Potassium 50 Mg Tablet 50 Mg PO HS 02/22/21 Reported Atorvastatin Calcium 20 Mg Tablet 20 Mg PO HS 02/22/21 Reported Omeprazole 40 Mg Capsule.dr 1 Cap PO PRN DAILY PRN 05/20/17 Reported Daily Vitamin Formula-Minerals (Multivitamin With Minerals) 1 Each Tablet 1 Each PO 01/06/17 Reported Atenolol 50 Mg Tablet 1 Tab PO DAILY 01/06/17 Reported Comments Chest x-ray 03/14/2021 reviewed. No changes. bilateral faint interstitial infiltrate Chest x-ray reviewed 03/12/21. Diffuse unchanged interstitial infiltrates. No evidence of pneumothorax. Chest x-ray 03/09/2021 reviewed. Diffuse unchanged fine interstitial infiltrates. Impression . 1. Acute hypoxic respiratory failure secondary to COVID-19 viral pneumonia/ARDS/acute lung injury.-, intubated 02/26/21. Oxygen requirement continues to worsen. Currently on 100% FiO2 and 18 of PEEP. PO2 in the 40s. 2. Abnormal chest x-ray with faint bilateral interstitial infiltrates associated with COVID-19 pneumonia. 3. COVID-19 positive. 4. No significant tobacco history. 5. Mild acute kidney injuryimproved 6. Abnormal liver function tests, likely related to COVID-19. Bilirubin 1.4. 7. Patient initiated on full dose anticoagulation with Lovenox due to marked increase in D-dimer of more than 20. Since the D-dimer significantly improved. Lovenox dose was changed to DVT prophylaxis dose on 03/05 Plan . Updated 03/15/2021 Continue current ventilatory support, 100% peep 18. PO2 in the 40s. No evidence of pneumothorax. Would not increase PEEP any further. Unfortunately patient has no chance of survival adequate sedation, currently on paralytics Follow-up chest x-ray/ABG, Status post remdesivir and full course of steroids Continue tube feeding nutritional support DVT/GI prophylaxis:lovenox Discussed with RN and RT discussed with patient's brother Valdemar Harrison 03/12. he explained to him critical illness and no chance of survival. Patient is DNR.. He wants to continue present care. He is not ready to withdraw care. I did told him that at this point we cannot do anything more than what we have already done. Patient not likely to survive the next 24 hours Updated 03/14/2021 Continue current ventilatory support, 100% peep 18. PO2 in the 40s. No evidence of pneumothorax. Would not increase PEEP any further. Unfortunately patient has no chance of survival adequate sedation, currently on paralytics Follow-up chest x-ray/ABG, Status post remdesivir and full course of steroids Continue tube feeding nutritional support DVT/GI prophylaxis:lovenox Discussed with RN and RT I have again discussed with patient's brother Valdemar Harrison 03/12. he explained to him critical illness and no chance of survival. I recommended DNR. He wants to continue present care. He is not ready to withdraw care. I did told him that at this point we cannot do anything more than what we have already done. Updated 03/13/2021 Continue current ventilatory support, 100% peep 18. PO2 in the 40s. No evidence of pneumothorax. Would not increase PEEP any further. Unfortunately patient has no chance of survival adequate sedation, currently on paralytics Follow-up chest x-ray/ABG, Status post remdesivir and full course of steroids Continue tube feeding nutritional support DVT/GI prophylaxis:lovenox Discussed with RN and RT I have again discussed with patient's brother Valdemar Harrison 03/12. he explained to him critical illness and no chance of survival. I recommended DNR. He is not ready for that at the present moment but would like to visit his brother first. I did told him that at this point we cannot do anything more than what we have already done. Updated 03/12/2021 Continue current ventilatory support, 100% peep 18. PO2 in the 40s. No evidence of pneumothorax. adequate sedation, currently on paralytics Follow-up chest x-ray/ABG, Status post remdesivir and full course of steroids Continue tube feeding nutritional support DVT/GI prophylaxis:lovenox Discussed with RN and RT I have again discussed with patient's brother Valdemar Harrison . he explained to him critical illness and no chance of survival. I recommended DNR. He is not ready for that at the present moment but would like to visit his brother first. I did told him that at this point we cannot do anything more than what we have already done. Critical care time 30 minutes Updated 03/11/2021 Continue current ventilatory support, 100% peep 18. titrate peep fio2 as tolerated adequate sedation, currently on paralytics Follow-up chest x-ray/ABG, Status post remdesivir and full course of steroids Continue tube feeding nutritional support DVT/GI prophylaxis:lovenox Discussed with RN and RT dr amezquita Discussed with patient's brother Valdemar Harrison 03/09. he explained to him critical illness and very poor chance of survival. he also explained to him about initiation of ivermectin. He understands that this is not FDA approved fo r this condition. s/p one dose. He wants to try anything that is available to treat his brother. prognosis very poor Updated 03/10/2021 Continue current ventilatory support, 24/500/100/17. titrate peep fio2 as tolerated adequate sedation, currently on paralytics Follow-up chest x-ray/ABG, Status post remdesivir and full course of steroids Continue tube feeding nutritional support DVT/GI prophylaxis:lovenox Discussed with RN and RT dr amezquita Discussed with patient's brother Valdemar Harrison 03/09. he explained to him critical illness and very poor chance of survival. I also explained to him about initiation of ivermectin. He understands that this is not FDA approved for this condition. s/p one dose. He wants to try anything that is available to treat his brother. prognosis very poor Updated 03/09/2021 Continue current ventilatory support, 24/500/100/16. We will increase the PEEP to 17 today. adequate sedation, currently on paralytics Follow-up chest x-ray/ABG, p02 marginal , Status post remdesivir and full course of steroids Continue tube feeding nutritional support DVT/GI prophylaxis:lovenox Discussed with RN and RT Discussed with patient's brother Valdemar Harrison. I explained to him critical illness and very poor chance of survival. I also explained to him about initiation of ivermectin. He understands that this is not FDA approved for this condition. Will give one dose. He wants to try anything that is available to treat his brother. Critical care time 30 minutes Updated 03/08/2021 Continue current ventilatory support, 24/500/100/16. adequate sedation, currently on paralytics Follow-up chest x-ray/ABG, p02 marginal not able to wean PEEP or Fi02 Status post remdesivir and full course of steroids Continue tube feeding nutritional support DVT/GI prophylaxis:lovenox Discussed with RN and RT Critical care time 30 minutes ANGELA AMEZQUITA MD Mar 15, 2021 10:17
--- NOTE | 2021-03-15 15:35 | NUR ---
At 1440 pt was asystole on the monitor. No heartbeat detected by auscultation by 2 nurses. 1445 Brother Valdemar Harrison notified of pt by phone. Dr. Tolliver and Dr. Burrows also notified of pt . Brother is supposed to call back with home information.
--- NOTE | 2021-03-15 17:32 | NUR ---
All of the pts belongings bagged, tagged, and sent with the body to the [facility]. Including cell phone and triage clinician and glasses.
--- NOTE | 2021-03-15 17:52 | PDOC3 ---
Discharge Summary Visit Information Date of Admission: Feb 22, 2021 Date of Discharge: Mar 15, 2021 Admitting Diagnosis: Acute respiratory failure with hypoxia, COVID 19 Final Diagnosis Problems Medical Problems: (1) Hypoxia Status: Acute (2) Pneumonia due to COVID-19 virus Status: Acute Brief Hospital Course Allergies Allergies Coded Allergies Type Severity Reaction Last Updated Verified iodine Adverse Reaction Intermediate PANCREATITIS 03/07/21 Yes nitrofurantoin Adverse Reaction Intermediate BAD DIARRHEA 03/07/21 Yes Vital Signs Vital Signs Date Time Temp Pulse Resp B/P (MAP) Pulse Ox O2 Delivery O2 Flow Rate FiO2 03/15/21 14:00 77 24 60 Ventilator 03/15/21 12:00 98.8 98.8 03/14/21 11:18 24.0 Lab Results Laboratory Tests Test 03/13/21 18:03 03/14/21 00:47 03/14/21 05:30 03/14/21 06:14 Glucose (Fingerstick) 202 mg/dL (70-99) 150 mg/dL (70-99) 143 mg/dL (70-99) White Blood Count 10.3 x10^3/uL (4.0-11.0) Red Blood Count 3.04 x10^6/uL (4.30-5.70) Hemoglobin 10.0 g/dL (13.0-17.5) Hematocrit 31.3 % (39.0-53.0) Mean Corpuscular Volume 103 fL (79-100) Mean Corpuscular Hemoglobin 33 pg (25-35) Mean Corpuscular Hemoglobin Concent 32 g/dL (31-37) Red Cell Distribution Width 14.6 % (11.5-14.5) Platelet Count 118 x10^3/uL (140-400) Sodium Level 139 mmol/L (136-145) Potassium Level 4.7 mmol/L (3.5-5.1) Chloride Level 102 mmol/L (98-107) Carbon Dioxide Level 36 mmol/L (21-32) Anion Gap 1 (6-14) Blood Urea Nitrogen 25 mg/dL (8-26) Creatinine 0.9 mg/dL (0.7-1.3) Estimated GFR (Cockcroft-Gault) 106.0 BUN/Creatinine Ratio 28 (6-20) Glucose Level 142 mg/dL (70-99) Calcium Level 7.7 mg/dL (8.5-10.1) Total Bilirubin 0.3 mg/dL (0.2-1.0) Aspartate Amino Transf (AST/SGOT) 39 U/L (15-37) Alanine Aminotransferase (ALT/SGPT) 79 U/L (16-63) Alkaline Phosphatase 154 U/L (46-116) Total Protein 4.5 g/dL (6.4-8.2) Albumin 1.3 g/dL (3.4-5.0) Albumin/Globulin Ratio 0.4 (1.0-1.7) Test 03/14/21 08:00 03/14/21 12:42 03/14/21 17:12 03/15/21 00:17 O2 Saturation 71 % (92-99) Arterial Blood pH 7.36 (7.35-7.45) Arterial Blood pCO2 at Patient Temp 56 mmHg (35-46) Arterial Blood pO2 at Patient Temp < 42 mmHg (75-108) Arterial Blood HCO3 31 mmol/L (21-28) Arterial Blood Base Excess 5 mmol/L (-3-3) FiO2 100 Glucose (Fingerstick) 158 mg/dL (70-99) 176 mg/dL (70-99) 135 mg/dL (70-99) Test 03/15/21 05:47 03/15/21 12:40 Glucose (Fingerstick) 155 mg/dL (70-99) 179 mg/dL (70-99) Laboratory Tests Test 03/15/21 00:17 03/15/21 05:47 03/15/21 12:40 Glucose (Fingerstick) 135 mg/dL (70-99) 155 mg/dL (70-99) 179 mg/dL (70-99) Brief Hospital Course Mr Tovar is a 55yo male. Basically, he had been developing flu like sym ptoms over the past couple of weeks. He went to acute care center 02/21/2021 at [facility]. He was awaiting his test results for his COVID-19 testing, but 02/22 he just could not await he was getting too sick. We tested him here in the emergency room. He was positive for covid 19 and requiring oxygen to maintain saturations greater than 89%. He had abnormal chest x-ray. Admitted the p [facility], place him on COVID protocol. 02/23: No acute events overnight. Patient saturating 97% on 2 L nasal cannula. Patient currently on Remdesivir. Patient's chart, labs, images were reviewed and discussed with RN 02/24: Patient seen and examine in bed. Patient Fi02 between 83%-92% on vapotherm and 100% non-rebreather. 02/25: Patient seen and examined at the bedside. Currently requiring BiPAP. Vapotherm. Transferred to the ICU yesterday. Continue with Covid treatment. Plan of care discussed with bedside RN 02/26: Afebrile. Intermittently breathing between BiPAP and Vapotherm. Continue empiric antibiotics and steroids. Last dose remdesivir today. Continue supportive care. 30 minutes critical care time spent reviewing charts, reviewing labs, reviewing imaging, discussion with RN. 02/27: Afebrile. Still breathing on ventilator and FiO2 100%, PEEP 10. Continue IV steroids and IV antibiotics. He should continue IV steroids for total treatment of 10 days (last day 03/04/2021). Completed remdesivir. Continue supportive care. 02/28: Afebrile. On vent with FiO2 100%, PEEP 5. Some significant hyperglycemia noted today. Will obtain A1c and initiate insulin protocol. Completed remdesivir. Continue IVF biotics and IV steroids. Continue supportive care. 03/01: Afebrile. On vent with FiO2 100%, PEEP 9. Still with elevated blood sugars; HbA1c 5.5. Will initiate twice daily basal insulin. Completed remdesivir; continue IV antibiotics and steroids. Continue supportive care. 03/02: Afebrile. Remains on vent with FiO2 100%, PEEP 9. D-dimer >20. Discussed with Dr. Burrows, fully anticoagulate empirically and order echocardiogram to help with evaluation of PE. Has completed remdesivir. Continue IV antibiotics and steroids. Blood sugar slightly better controlled. 03/03: Afebrile. On vent with FiO2 100%, PEEP 10. Echo was obtained due to elevated D-dimer >20, that showed PAP estimated at 50 mmHg. Concerning for PE; will continue full anticoagulation with Lovenox. Has completed remdesivir. Continue IV antibiotics and steroids. 03/04: Afebrile. On vent with FiO2 100%, PEEP 5. Continue with Lovenox full anticoagulation for suspected PE. Completed remdesivir. Continue IV antibiotics and steroids for 10-day course; today is day 10 of steroids and will provide Solu-Medrol taper. Blood glucose currently well controlled. 03/05: No acute events overnight. T-max of 100.2 in the last 24 hours. Sa turating 85% on vent settings of 24/500/100/16. Patient is on a vecuronium drip. Steroids will be weaned down to 40 mg twice daily today. Lovenox decreased to 40 mg twice daily due to decreasing D-dimer. 03/06: No acute events overnight. Afebrile last 24 hours. Saturating well on vent settings of 24/500/100/15. Continues to be on vecuronium drip. Patient's chart, labs, images were reviewed and discussed with RN 8: Patient seen and examined bedside. Saturating 85% on vent settings of 24/500/100/6. Patient's chart, labs, images were reviewed and discussed with RN 03/08: No acute events overnight. Patient saturating 82% on 24/500/100/16. Will defer vent setting adjustments per pulmonology. Glucose levels are stable ICU 160s. Patient's chart, labs, images were reviewed and discussed with RN 8: No acute events overnight. Patient is saturating 80% on vent settings of 26/500/100/12. Adjustment of vent settings will defer to pulmonology. Currently on sedation and paralytics. Chest x-ray is stable with diffuse infiltrates. No changes compared to 03/07/2021. 03/10: No acute events overnight. Patient saturating 84% on vent settings of 24/500/100/18. Vent settings adjustment will defer to pulmonology. Patient's chart, labs, images were reviewed and discussed with RN 8/: No acute events overnight. Patient saturating 82% on vent settings of 24/500/100/18. Patient's chart, labs, images were reviewed and discussed with RN 8/: WBC 11.39, Hb 9.7, platelets 117, no overnight events. O2 saturations 81% with vent settings 24/100/100/18. ABG 7.37/63/<42. Urine and rectal tube with output. 03/13: Afebrile. O2 worsening. ABG 7.3 3/66/40 on FiO2 100% PEEP 18. Overall worsening. 9/1: Afebrile. Chest radiograph unchanged WBC 10.3, Hb 10, platelets 118 glucose in the mid 100s transaminases still minimally elevated ABG 7.36/56/<42 03/15: Afebrile. O2 saturations in the 30s despite FiO2% and PEEP 18. Requiring Levophed for profound hypotension overnight. Family bedside to visit, brother Valdemar medina. Throughout the day on 03/15 patient became progressively more hypotensive and hypoxic despite maximum PEEP and at 1440 ultimately was noted with no spontaneous cardiac activity or spontaneous respirations for time of 1440. Consults: Pulmonology Problem list: Acute hypoxic respiratory failure COVID-19 pneumonia PJ due to vasomotor nephropathy Mild transaminitis Moderate protein malnutrition Morbid obesity History of hypertension ARDS Greater than 30 minutes spent on day of patient expiration Discharge Information Condition at Discharge: / Disposition/Orders: Scheduled Atenolol (Atenolol) 50 Mg Tablet, 1 TAB PO DAILY, #30 Ref 5 (Reported) Entered as Reported by: JESSICA GUZMAN on 01/06/17 0922 Last Action: Reviewed on 02/22/211953 by JONO CALIXTO Atorvastatin Calcium (Atorvastatin Calcium) 20 Mg Tablet, 20 MG PO HS for FOR CHOLESTEROL, #30 Ref 0 (Reported) Entered as Reported by: JONO CALIXTO on 02/22/211953 Last Action: New Order on 02/22/211953 by JONO CALIXTO Losartan Potassium (Losartan Potassium) 50 Mg Tablet, 50 MG PO HS for HYPERTENSION, (Reported) Entered as Reported by: JONO CALIXTO on 02/22/211953 Last Action: Continued on 02/23/21 1618 by MARTHA COLEMAN [tylenol pm] , 1 TAB PO HS, (Reported) Entered as Reported by: JONO CALIXTO on 02/22/211953 Last Action: New Order on 02/22/211953 by JONO CALIXTO Scheduled PRN Omeprazole (Omeprazole) 40 Mg Capsule.dr, 1 CAP PO PRN DAILY PRN for INDIGESTION, #30 Ref 3 (Reported) Entered as Reported by: MICHELLE VIGIL on 05/20/17 1052 Miscellaneous Medications Multivitamin With Minerals (Daily Vitamin Formula-Minerals) 1 Each Tablet, 1 EACH PO, (Reported) Entered as Reported by: JESSICA GUZMAN on 01/06/17 0922 Justicifation of Admission Dx: Justifications for Admission: Justification of Admission Dx: Yes Respiratory Failure: Mechanical Ventilation LY KULKARNI MD Mar 15, 2021 17:52
== END 2021-03-15 14:40 | DRG 870 ==
LOC: ER 09:29 → ED HOLD 12:19 → 5 SOUTH 19:41 → 6 SOUTH 02-24 03:35 → 1 WEST ICU 02-25 02:36
PROVIDERS: ADMIT Internal Medicine; ATTEND Internal Medicine
PROC: XW033E5 Introduction of Remdesivir Anti-infective into Peripheral Vein, Percutaneous Approach, New Technology Group 5 (ICD-10-PCS; 2021-02-23)
PROC: 5A09357 Assistance with Respiratory Ventilation, Less than 24 Consecutive Hours, Continuous Positive Airway Pressure (ICD-10-PCS; 2021-02-24)
PROC: 5A0935A Assistance with Respiratory Ventilation, Less than 24 Consecutive Hours, High Flow/Velocity Cannula (ICD-10-PCS; 2021-02-25)
PROC: 5A09357 Assistance with Respiratory Ventilation, Less than 24 Consecutive Hours, Continuous Positive Airway Pressure (ICD-10-PCS; 2021-02-25)
PROC: 5A1955Z Respiratory Ventilation, Greater than 96 Consecutive Hours (ICD-10-PCS; principal; 2021-02-26)
PROC: 5A09357 Assistance with Respiratory Ventilation, Less than 24 Consecutive Hours, Continuous Positive Airway Pressure (ICD-10-PCS; 2021-02-26)
PROC: 0BH17EZ Insertion of Endotracheal Airway into Trachea, Via Natural or Artificial Opening (ICD-10-PCS; 2021-02-26)
PROC: 02HV33Z Insertion of Infusion Device into Superior Vena Cava, Percutaneous Approach (ICD-10-PCS; 2021-02-26)
DX: A41.89 Other specified sepsis (principal); U07.1 COVID-19; J96.01 Acute respiratory failure with hypoxia; J12.82 Pneumonia due to coronavirus disease 2019; N17.0 Acute kidney failure with tubular necrosis; E44.0 Moderate protein-calorie malnutrition; Z68.41 Body mass index [BMI] 40.0-44.9, adult; E66.01 Morbid (severe) obesity due to excess calories; E78.00 Pure hypercholesterolemia, unspecified; I10 Essential (primary) hypertension; K76.0 Fatty (change of) liver, not elsewhere classified; Z66 Do not resuscitate; Z68.37 Body mass index [BMI] 37.0-37.9, adult; Z79.899 Other long term (current) drug therapy; Z83.3 Family history of diabetes mellitus; Z96.659 Presence of unspecified artificial knee joint; F32.9 Major depressive disorder, single episode, unspecified; Z88.8 Allergy status to other drugs, medicaments and biological substances
CPT/HCPCS: 36415; 36600; 71045; 80048; 80053; 81001; 82553; 82805; 82962; 83036; 83605; 83735; 83880; 84100; 84478; 84484; 85007; 85025; 85027; 85379; 85520; 85610; 85730; 86140; 87040; 87077; 87086; 87186; 87426; 93005; 93308; 93970; 94002; 94003; 94660; 94760; 96361; 96365; 96366; 96375; J0330; J0456; J0696; J1100; J1644; J1650; J1815; J1940; J2250; J2543; J2704; J2920; J3010; J3490; J7030; J7050; J7060; 99285-25; G0378